=== PATIENT | male | born 1950 | race Caucasian/White ===

== ENCOUNTER 2016-08-15 07:23 | Emergency (ER) | payer MEDICARE, MEDICAID ==
[2016-08-15 07:36] VITALS: BP 130/50
--- NOTE | 2016-08-15 07:55 | UC ---
Hand/Wrist HPI - HPI Summary HPI Summary: PT WITH H/O OSTEOARTHRITIS WAS PAINTING A HOUSE A FEW DAYS AGO. PAST 2 DAYS HAS HAD WORSENING PAIN AND MILD SWELLING IN HIS RIGHT WRIST. NO TRAUMA. - History Of Current Complaint Chief Complaint: UCUpperExtremity Stated Complaint: WRIST PAIN Time Seen by Provider: 08/15/16 07:46 Hx Obtained From: Patient Onset/Duration: Gradual Onset, Lasting Days, Still Present Severity Initially: Moderate Severity Currently: Moderate Pain Intensity: 5 Pain Scale Used: 0-10 Numeric Character Of Pain: Sharp, Aching Aggravating Factor(s): Movement Alleviating: Rest Associated Signs And Symptoms: Positive: Swelling Related History: Dominant Hand Right - Allergies/Home Medications Allergies/Adverse Reactions: Allergies Allergy/AdvReac Type Severity Reaction Status Date / Time No Known Allergies Allergy Verified 08/15/16 07:30 PMH/Surg Hx/FS Hx/Imm Hx - Additional Past Medical History Additional PMH: OSTEOARTHRITIS Other History Of: Hepatitis C Negative For: HIV, Anticoagulant Therapy - Surgical History Surgical History: Yes Surgery Procedure, Year, and Place: VERICOSE VEIN LEG. LEFT KNEE BURSA REMOVAL - Family History Known Family History: Positive: None, Cardiac Disease - [place] Negative: Hypertension, Diabetes - Social History Alcohol Use: None Substance Use Type: None, Marijuana Smoking Status (MU): Heavy Every Day Tobacco Smoker Type: Cigarettes Amount Used/How Often: 1 PPD Household Exposure Type: Cigarettes - Immunization History Most Recent Influenza Vaccination: 2014 Most Recent Tetanus Shot: UTD Review of Systems Constitutional: Negative Skin: Negative Respiratory: Negative Cardiovascular: Negative Gastrointestinal: Negative Musculoskeletal: Arthralgia, Decreased ROM, Edema All Other Systems Reviewed And Are Negative: Yes Physical Exam Triage Information Reviewed: Yes Appearance: Well-Appearing, No Pain Distress, Well-Nourished Vital Signs: Initial Vital Signs Temp 97.8 F 08/15/16 07:31 Pulse 60 08/15/16 07:31 Resp 16 08/15/16 07:31 BP 130/50 08/15/16 07:31 Pulse Ox 96 08/15/16 07:31 Vital Signs Reviewed: Yes Eyes: Positive: Conjunctiva Clear ENT: Positive: Hearing grossly normal Neck: Positive: Supple Respiratory: Positive: No respiratory distress, No accessory muscle use Cardiovascular: Positive: Pulses Normal Abdomen Description: Positive: Soft Musculoskeletal: Positive: ROM Limited @ - PAIN WITH RIGHT WRIST MOVEMENT, Edema @ - RIGHT WRIST MILDLY SWOLLEN, Other: - NOT TENDER OVER ANY BONY PROMINENCES Neurological: Positive: Alert Psychological: Positive: Age Appropriate Behavior Skin: Negative: rashes Hand/Wrist Course/Dx - Course Course Of Treatment: PT REPORTS A H/O RENAL INSUFFICIENCY AND DECLINES NSAIDS. STATES PREDNISONE USUALLY WORKS WELL. WILL PRESCRIBE SHORT COURSE AND WRIST SPLINT. F/U PCP. - Differential Dx/Diagnosis Provider Diagnoses: OSTEOARTHRITIS RIGHT WRIST Discharge - Discharge Plan Condition: Stable Disposition: HOME Prescriptions: predniSONE TAB* [Deltasone TAB*] 40 mg PO DAILY #10 tab Patient Education Materials: Osteoarthritis (ED) Referrals: Patric Winn MD [Medical Doctor] - If Needed Additional Instructions: WEAR THE SPLINT NEEDED FOR SUPPORT.
== END 2016-08-15 07:59 | disposition home or self-care (01) ==
LOC: UCEAST 07:23
DX: M19.031 Primary osteoarthritis, right wrist (principal); F17.210 Nicotine dependence, cigarettes, uncomplicated; Z87.448 Personal history of other diseases of urinary system
CPT/HCPCS: 99213; G0463

== ENCOUNTER 2016-11-03 16:33 | Emergency (ER) | payer MEDICARE, MEDICAID ==
[2016-11-03 16:42] VITALS: BP 144/67
--- NOTE | 2016-11-04 11:57 | UC ---
Lower Extremity/Ankle HPI - HPI Summary HPI Summary: 66 YEAR OLD MALE PRESENTS WITH COMPLAINS OF PAIN OF LEFT 2/3 TOE. - History of Current Complaint Chief Complaint: UCLowerExtremity Stated Complaint: FOOT COMPLAINT Time Seen by Provider: 11/03/16 16:44 Hx Obtained From: Patient Onset/Duration: Gradual Onset Severity Initially: Moderate Severity Currently: Moderate Pain Intensity: 2 Pain Scale Used: 0-10 Numeric - 5 - Allergies/Home Medications Allergies/Adverse Reactions: Allergies Allergy/AdvReac Type Severity Reaction Status Date / Time No Known Allergies Allergy Verified 11/03/16 16:40 PMH/Surg Hx/FS Hx/Imm Hx Previously Healthy: Yes Other History Of: Hepatitis C Negative For: HIV, Anticoagulant Therapy - Surgical History Surgical History: Yes Surgery Procedure, Year, and Place: VERICOSE VEIN LEG. LEFT KNEE BURSA REMOVAL - Family History Known Family History: Positive: None, Cardiac Disease - [place] Negative: Hypertension, Diabetes - Social History Alcohol Use: None Substance Use Type: None Smoking Status (MU): Heavy Every Day Tobacco Smoker Type: Cigarettes Amount Used/How Often: 1 PPD Household Exposure Type: Cigarettes - Immunization History Most Recent Influenza Vaccination: 2014 Most Recent Tetanus Shot: UTD Review of Systems Constitutional: Negative Skin: Negative Eyes: Negative ENT: Negative Respiratory: Negative Cardiovascular: Negative Gastrointestinal: Negative Genitourinary: Negative Motor: Negative Neurovascular: Negative Musculoskeletal: Other: - LEFT 2/3 TOE PAIN/SWELLING Neurological: Negative Psychological: Negative All Other Systems Reviewed And Are Negative: Yes Physical Exam Triage Information Reviewed: Yes Appearance: Well-Appearing Vital Signs: Initial Vital Signs Temp 36.9 C 11/03/16 16:37 Pulse 72 11/03/16 16:37 Resp 12 11/03/16 16:37 BP 144/67 11/03/16 16:37 Pulse Ox 98 11/03/16 16:37 Eye Exam: Normal ENT Exam: Normal Dental Exam: Normal Neck exam: Normal Neck: Positive: 1 Respiratory Exam: Normal Cardiovascular Exam: Normal Abdominal Exam: Normal Musculoskeletal: Positive: Other: - LEFT 2/3 RD TOE PAIN Neurological Exam: Normal Psychological Exam: Normal Skin Exam: Normal Lower Extremity Course/Dx - Differential Dx/Diagnosis Provider Diagnoses: LEFT FOOT GOUT Discharge - Discharge Plan Condition: Stable Disposition: HOME Prescriptions: Indomethacin CAP* [Indocin CAP*] 50 mg PO TID PRN #30 cap PRN Reason: Pain Patient Education Materials: Low Purine Diet (ED), Gout (ED) Referrals: Myke Mcleod MD [Primary Care Provider] -
== END 2016-11-03 16:58 | disposition home or self-care (01) ==
LOC: UCEAST 16:33
DX: M10.9 Gout, unspecified (principal); F17.210 Nicotine dependence, cigarettes, uncomplicated
CPT/HCPCS: 99212; G0463

== ENCOUNTER 2016-12-08 02:04 | Emergency (ER) | payer MEDICARE, MEDICAID ==
[2016-12-08] MEDS ORDERED: Ketorolac INJ* 60 MG/2 ML VIAL IM ONE (03:54)
--- NOTE | 2016-12-08 04:18 | ED ---
Hazel Joel Alfonso, scribed for Ivon Gómez MD on 12/08/16 at 0353 . Complex/Multi-Sys Presentation - HPI Summary HPI Summary: This patient is a 66 year old M presenting to [facility] with a chief complaint of generalized achiness, joint pain including hands, and knees - since 3 days ago. Pt states has arthritis and this feels similar. Pt states he has been painting and this causes pain to flare No analgesia taken. No cp, so, abd pain. No n/v/ d. No fever, chills, rash. Pt has not taken analgesia. The patient rates the aching pain 8/10 in severity. Symptoms aggravated by nothing. Symptoms alleviated by nothing. Pt states has been seen for this previously and the medicine they used "worked" Review or records revealed indomethacin Patients medication reviewed this visit. - History Of Current Complaint Chief Complaint: EDGeneral Time Seen by Provider: 12/08/16 03:40 Hx Obtained From: Patient Onset/Duration: Gradual Onset, Lasting Days - 3, Still Present Timing: Constant Severity Currently: Moderate - 8/10 Location: Pain At: - joints - hands, knee Aggravating Factor(s): walking Alleviating Factor(s): nothing Associated Signs And Symptoms: Positive: Other - left hand swelling and insomnia. Patient denies fever, chills, and rash. 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 LEFT KNEE BURSA REMOVAL Infectious Disease History: No Infectious Disease History: Reports: Hx Hepatitis - C - TREATED Denies: Hx Human Immunodeficiency Virus (HIV), Hx Shingles, History Other Infectious Disease, Traveled Outside the [place] in Last 30 Days - Family History Known Family History: Positive: Cardiac Disease - [place] Negative: Hypertension, Diabetes - Social History Alcohol Use: None Hx Substance Use: Yes Substance Use Type: Reports: None Hx Tobacco Use: Yes Smoking Status (MU): Heavy Every Day Tobacco Smoker Type: Cigarettes Amount Used/How Often: 1 PPD Review of Systems Negative: Fever, Chills Positive: Arthralgia, Other - left hand swelling Negative: Rash Neurological: Other - insomnia All Other Systems Reviewed And Are Negative: Yes Physical Exam Triage Information Reviewed: Yes Vital Signs On Initial Exam: Initial Vitals Temp Pulse Resp BP Pulse Ox 97.1 F 66 18 191/101 100 12/08/16 02:04 12/08/16 02:04 12/08/16 02:04 12/08/16 02:04 12/08/16 02:04 Vital Signs Reviewed: Yes Appearance: Positive: Well-Appearing, No Pain Distress, Well-Nourished Skin: Positive: Warm, Skin Color Reflects Adequate Perfusion Head/Face: Positive: Normal Head/Face Inspection Eyes: Positive: Normal, EOMI, PARI ENT: Positive: Normal ENT inspection, Hearing grossly normal, TMs normal Respiratory/Lung Sounds: Positive: Clear to Auscultation, Breath Sounds Present , Decreased Breath Sounds Cardiovascular: Positive: Normal, RRR Abdomen Description: Positive: Nontender, No Organomegaly, Soft Bowel Sounds: Positive: Present Musculoskeletal: Positive: Normal, Strength/ROM Intact. Negative: Edema Left, Edema Right Neurological: Positive: Normal, Sensory/Motor Intact Psychiatric: Positive: Normal AVPU Assessment: Alert - [place] Coma Scale Best Eye Response: 4 - Spontaneous Best Motor Response: 6 - Obeys Commands Best Verbal Response: 5 - Oriented Coma Scale Total: 15 Diagnostics - Vital Signs Vital Signs Temp Pulse Resp BP Pulse Ox 12/08/16 02:04 97.1 F 66 18 191/101 100 - Laboratory Lab Statement: Any lab studies that have been ordered have been reviewed, and results considered in the medical decision making process. Re-Evaluation - Re-Evaluation First Eval Comment: Pt reports feeling improved. recommend motrin/apap - with food. return precautions. pcp f/u Complex Multi-Symp Course/Dx Course Of Treatment: Pt reportsing joint pain - states similar to past experience with arhtirits - no analgesia taken. pt with non concerning exam. Will give Toradol. and reassess. Pt comfortale with plan - Diagnoses Provider Diagnoses: Arthralgia Discharge - Discharge Plan Condition: Improved Disposition: HOME Patient Education Materials: Arthralgia (ED) Referrals: [facility] [place] [facility] [Outside] No Primary Care Phys,NOPCP [Primary Care Provider] - Additional Instructions: - stay well hydrated - drink plenty of non-alcoholic, non-caffinated beverage - Okay to take ibuprofen (Advil, motrin) and tylenol every 3 hours for pain - Contact your doctor to schedule a follow-up appointment. If you need assistance finding a primary doctor, you may call the number provided The documentation as recorded by the Hazel nava Alfonso accurately reflects the service I personally performed and the decisions made by me, Ivon Gómez MD.
[2016-12-08 04:55] VITALS: BP 177/91
== END 2016-12-08 04:54 | disposition home or self-care (01) ==
LOC: ED 02:04
DX: M25.542 Pain in joints of left hand (principal); F17.210 Nicotine dependence, cigarettes, uncomplicated; G47.00 Insomnia, unspecified
CPT/HCPCS: 96372; 99282; J1885

== ENCOUNTER 2016-12-12 07:31 | Emergency (ER) | payer MEDICARE, MEDICAID ==
--- NOTE | 2016-12-12 07:33 | UC ---
Knee Pain HPI - HPI Summary HPI Summary: 66 YEAR OLD MALE WITH ARTHRITIS PRESENTS WITH COMPLAINS OF BILATERAL SWOLLEN KNEES. - History of Current Complaint Stated Complaint: SWOLLEN KNEE Time Seen by Provider: 12/12/16 07:33 Hx Obtained From: Patient Onset/Duration: Sudden Onset Severity Initially: Moderate Severity Currently: Moderate Pain Scale Used: 0-10 Numeric - 5 Aggravating Factor(s): Movement Alleviating Factor(s): Position Associated Signs And Symptoms: Positive: Swelling - Allergies/Home Medications Allergies/Adverse Reactions: Allergies Allergy/AdvReac Type Severity Reaction Status Date / Time No Known Allergies Allergy Verified 12/12/16 07:40 PMH/Surg Hx/FS Hx/Imm Hx Previously Healthy: Yes Other History Of: Hepatitis C Negative For: HIV, Anticoagulant Therapy - Surgical History Surgical History: Yes Surgery Procedure, Year, and Place: VERICOSE VEIN LEG. LEFT KNEE BURSA REMOVAL - Family History Known Family History: Positive: None, Cardiac Disease - [place] Negative: Hypertension, Diabetes - Social History Alcohol Use: None Substance Use Type: None Smoking Status (MU): Heavy Every Day Tobacco Smoker Type: Cigarettes Amount Used/How Often: 1 PPD Household Exposure Type: Cigarettes - Immunization History Most Recent Influenza Vaccination: 2014 Most Recent Tetanus Shot: UTD Review of Systems Constitutional: Negative Skin: Negative Eyes: Negative ENT: Negative Respiratory: Negative Cardiovascular: Negative Gastrointestinal: Negative Genitourinary: Negative Motor: Negative Neurovascular: Negative Musculoskeletal: Other: - BILATERAL KNEE SWELLING Neurological: Negative Psychological: Negative All Other Systems Reviewed And Are Negative: Yes Physical Exam Triage Information Reviewed: Yes Vital Signs Reviewed: Yes Eye Exam: Normal ENT Exam: Normal Dental Exam: Normal Neck exam: Normal Neck: Positive: 1 Respiratory Exam: Normal Cardiovascular Exam: Normal Abdominal Exam: Normal Musculoskeletal: Positive: Other: - BILATERAL KNEE SWELLING Neurological Exam: Normal Psychological Exam: Normal Skin Exam: Normal Knee Pain Course/Dx - Differential Dx/Diagnosis Provider Diagnoses: RHEUMATOID ARTHRITIS. BILATERAL SWOLLEN KNEES Discharge - Discharge Plan Condition: Stable Disposition: HOME Prescriptions: Meloxicam [Mobic] 7.5 mg PO BID PC #60 tab Patient Education Materials: Rheumatoid Arthritis (ED) Referrals: No Primary Care Phys,NOPCP [Primary Care Provider] - Jairo Herbert MD [Medical Doctor] -
[2016-12-12 07:47] VITALS: BP 174/59
== END 2016-12-12 08:00 | disposition home or self-care (01) ==
LOC: UCEAST 07:31
DX: M06.9 Rheumatoid arthritis, unspecified (principal); M25.462 Effusion, left knee; M25.461 Effusion, right knee; Z86.19 Personal history of other infectious and parasitic diseases; F17.210 Nicotine dependence, cigarettes, uncomplicated
CPT/HCPCS: 99212; G0463

== ENCOUNTER → 2017-02-11 15:54 | Emergency (ER) | payer MEDICARE, MEDICAID ==
[2017-02-11 18:27] VITALS: BP 0/0
== END | disposition home or self-care (01) ==
LOC: ED 15:54
DX: R52 Pain, unspecified (principal); Z53.21 Procedure and treatment not carried out due to patient leaving prior to being seen by health care provider
CPT/HCPCS: 99281

== ENCOUNTER 2017-02-13 01:51 | Emergency (ER) | payer MEDICARE, MEDICAID ==
[2017-02-13] MEDS ORDERED: Ketorolac INJ* 30 MG/ML 1 ML VIAL IM ONE (02:13)
[2017-02-13] MEDS ORDERED: oxyCODONE/Acetamin 5/325 MG* TAB PO ONE (02:14)
[2017-02-13] MEDS ORDERED: Cyclobenzaprine TAB* 10 MG PO ONE (02:14)
[2017-02-13 03:27] VITALS: BP 151/62
--- NOTE | 2017-02-13 03:46 | ED ---
David Joel Thomas, scribed for rGisel Man MD on 02/13/17 at 0221 . Back Pain - HPI Summary HPI Summary: The pt is a 66 y/o M presenting to the ED c/o chronic arthritis pain in his low back starting two and a half weeks ago. The pain is rated 10/10. Pt additionally c/o decrease in urination and BM due to dehydration. In a prior visit to the ED, he was given a shot that relieved the pain. He is going to see a specialist on 02/14/17 for the pain. - History of Current Complaint Chief Complaint: EDBackInjuryPain Stated Complaint: LOW BACK PAIN Time Seen by Provider: 02/13/17 01:57 Hx Obtained From: Patient Onset/Duration: Lasting Weeks - for two and a half weeks, Still Present Timing: Constant Back Pain Location: Is Diffuse - across low back Severity Currently: Severe Pain Intensity: 10 Pain Scale Used: 0-10 Numeric Associated Signs And Symptoms: Positive: Other - NEGATIVE: urinary or bowel output - Allergies/Home Medications Allergies/Adverse Reactions: Allergies Allergy/AdvReac Type Severity Reaction Status Date / Time No Known Allergies Allergy Verified 02/13/17 02:06 PMH/Surg Hx/FS Hx/Imm Hx Previously Healthy: No Endocrine/Hematology History: Denies: Hx Anticoagulant Therapy, Hx Diabetes, Hx Thyroid Disease Cardiovascular History: 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 LEFT KNEE BURSA REMOVAL Infectious Disease History: No Infectious Disease History: Reports: Hx Hepatitis - C - TREATED Denies: Hx Human Immunodeficiency Virus (HIV), Hx Shingles, History Other Infectious Disease, Traveled Outside the [place] in Last 30 Days - Family History Known Family History: Positive: Cardiac Disease - [place] Negative: Hypertension, Diabetes - Social History Occupation: Retired Lives: Alone Alcohol Use: None Hx Substance Use: Yes Substance Use Type: Reports: None Hx Tobacco Use: Yes Smoking Status (MU): Heavy Every Day Tobacco Smoker Type: Cigarettes Amount Used/How Often: 1 PPD Review of Systems Negative: Fever Positive: Other - decrease in bowel output Negative: frequency - decrease in urine output Positive: Other - arthritis in low back All Other Systems Reviewed And Are Negative: Yes Physical Exam - Summary Physical Exam Summary: VITAL SIGNS: Reviewed. GENERAL: Patient is a well-developed and nourished male who is lying comfortable in the stretcher. Patient is not in any acute respiratory distress. HEAD AND FACE: No signs of trauma. No ecchymosis, hematomas or skull depressions. No sinus tenderness. EYES: PERRLA, EOMI x 2, No injected conjunctiva, no nystagmus. EARS: Hearing grossly intact. Ear canals and tympanic membranes are within normal limits. MOUTH: Oropharynx within normal limits. NECK: Supple, trachea is midline, no adenopathy, no JVD, no carotid bruit, no c- spine tenderness, neck with full ROM. CHEST: Symmetric, no tenderness at palpation LUNGS: Clear to auscultation bilaterally. No wheezing or crackles. CVS: Regular rate and rhythm, S1 and S2 present, no murmurs or gallops appreciated. ABDOMEN: Soft, non-tender. No signs of distention. No rebound no guarding, and no masses palpated. Denies urinary and bowel movements. EXTREMITIES: FROM in all major joints, no edema, no cyanosis or clubbing. Bilateral straight leg test negative. MUSCULOSKELETAL: The patient has had back pain for two and a half weeks. The lumbosacral area is tender. There is focal weakness in the low back. NEURO: Alert and oriented x 3. No acute neurological deficits. Speech is normal and follows commands. SKIN: Dry and warm Triage Information Reviewed: Yes Vital Signs On Initial Exam: Initial Vitals Temp Pulse Resp BP Pulse Ox 98.4 F 70 18 158/55 97 02/13/17 02:03 02/13/17 02:03 02/13/17 02:03 02/13/17 02:03 02/13/17 02:03 Vital Signs Reviewed: Yes Diagnostics - Vital Signs Vital Signs Temp Pulse Resp BP Pulse Ox 02/13/17 02:03 98.4 F 70 18 158/55 97 - Laboratory Lab Statement: Any lab studies that have been ordered have been reviewed, and results considered in the medical decision making process. Back Pain Course/Dx - Course Assessment/Plan: The patient feels better and will be discharged home. He is prescribed Flexeril. He will follow up with his specialist as planned on . - Diagnoses Provider Diagnoses: Low back pain Discharge - Discharge Plan Condition: Stable Disposition: HOME Referrals: Jorge Ferrari MD [Primary Care Provider] - The documentation as recorded by the David nava Thomas accurately reflects the service I personally performed and the decisions made by Donovan sorto Abdul, MD.
== END 2017-02-13 03:26 | disposition home or self-care (01) ==
LOC: ED 01:51
DX: M54.5 Low back pain (principal); F17.210 Nicotine dependence, cigarettes, uncomplicated; I51.89 Other ill-defined heart diseases; B19.20 Unspecified viral hepatitis C without hepatic coma
CPT/HCPCS: 96372; 99283; A9270-GY; J1885

== ENCOUNTER 2017-02-24 01:06 | Emergency (ER) | payer MEDICARE, MEDICAID ==
[2017-02-24] MEDS ORDERED: Ketorolac INJ* 30 MG/ML 1 ML VIAL IM ONE (01:27)
--- NOTE | 2017-02-24 01:37 | ED ---
Back Pain - HPI Summary HPI Summary: 66M presents with acute on chronic back pain tonight. He states that the pain is in the same location as normal. He denies any new injury. no pain down legs. no weakness. no saddle anaesthesia or loss of bowel or bladder. he states that he has not taken anything for his pain but he knows he will not be able to get to sleep without pain medication. he had a cortisone shot today and is suppose to follow up with his primary for xray and blood work today as primary told him something might be wrong with his spine. He does not know what medication he is on but per record is on flexeril for back pain. He denies any fever, dysuria, or abdominal pain. nothing different about this back pain beside intensity. worst with moving. states this hospital bed makes it better. 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 LEFT KNEE BURSA REMOVAL Infectious Disease History: No Infectious Disease History: Reports: Hx Hepatitis - C - TREATED Denies: Hx Human Immunodeficiency Virus (HIV), Hx Shingles, History Other Infectious Disease, Traveled Outside the [place] in Last 30 Days - Family History Known Family History: Positive: None, Cardiac Disease - [place] Negative: Hypertension, Diabetes - Social History Alcohol Use: None Hx Substance Use: Yes Substance Use Type: Reports: None Hx Tobacco Use: Yes Smoking Status (MU): Heavy Every Day Tobacco Smoker Type: Cigarettes Amount Used/How Often: 1 PPD Review of Systems Negative: Fever Negative: Chest Pain Negative: Shortness Of Breath Negative: Abdominal Pain Positive: Myalgia - back pain All Other Systems Reviewed And Are Negative: Yes Physical Exam Triage Information Reviewed: Yes Vital Signs On Initial Exam: Initial Vitals Temp Pulse Resp BP Pulse Ox 98.7 F 74 20 158/77 100 02/24/17 01:16 02/24/17 01:16 02/24/17 01:16 02/24/17 01:16 02/24/17 01:16 Vital Signs Reviewed: Yes Appearance: Positive: Well-Appearing, No Pain Distress Skin: Positive: Warm, Dry Head/Face: Positive: Normal Head/Face Inspection Eyes: Positive: Normal, Conjunctiva Clear Respiratory/Lung Sounds: Positive: Clear to Auscultation, Breath Sounds Present Cardiovascular: Positive: Normal, RRR Abdomen Description: Positive: Nontender, Soft Bowel Sounds: Positive: Present Musculoskeletal: Positive: Strength/ROM Intact - back with pain, Other - good pulses, sensation grossly intact, neg SLR, tenderness across lower back Neurological: Positive: Reflexes Intact - achilles. Negative: Babinski Bilateral - neg Psychiatric: Positive: Normal - [place] Coma Scale Coma Scale Total: 15 Diagnostics - Vital Signs Vital Signs Temp Pulse Resp BP Pulse Ox 02/24/17 01:16 98.7 F 74 20 158/77 100 - Laboratory Lab Statement: Any lab studies that have been ordered have been reviewed, and results considered in the medical decision making process. Back Pain Course/Dx - Course Course Of Treatment: 66M presents with acute on chronic back pain tonight. He states that the pain is in the same location as normal. He denies any new injury. no pain down legs. no weakness. no saddle anaesthesia or loss of bowel or bladder. he states that he has not taken anything for his pain but he knows he will not be able to get to sleep without pain medication. he had a cortisone shot today and is suppose to follow up with his primary for xray and blood work today as primary told him something might be wrong with his spine. He does not know what medication he is on but per record is on flexeril for back pain. He denies any fever, dysuria, or abdominal pain. nothing different about this back pain beside intensity. worst with moving. states this hospital bed makes it better. on exam tenderness lower back, neg SLR, neurovascular intact. will try toradol for pain as does not seem like in that much pain on exam. will get CT and lab work sign out to dr schwab pending such. - Diagnoses Differential Diagnosis/HQI/PQRI: Positive: Herniated Disc, Strain, Sprain Provider Diagnoses: Back pain Discharge - Discharge Plan Condition: Stable Disposition: OTHER Discharge Disposition Comment: signed out to dr schwab pending CT and labs Referrals: Jorge Ferrari MD [Primary Care Provider] -
[2017-02-24] MEDS ORDERED: oxyCODONE/Acetamin 5/325 MG* TAB PO ONE (01:57)
[2017-02-24 02:05] LABS: ABS Basophils 0.1 10^3/ul (0-0.2); ABS Eosinophils 0.2 10^3/ul (0-0.6); ABS Lymphocytes 1.1 10^3/ul (1.0-4.8); ABS Monocytes 1.7 10^3/ul (0-0.8); ABS Neutrophils 14.2 10^3/ul (1.5-7.7); ABS Nucleated RBC 0 10^3/ul; Eosinophil % 1.2 % (0-6); Hematocrit 37 % (42-52); Hemoglobin 12.3 g/dl (14.0-18.0); Lymphocyte % 6.1 % (25-47); Mean Corpuscular HGB Conc 33 g/dl (31-36); Mean Corpuscular Hemoglobin 32 pg (27-31); Mean Corpuscular Volume 96 fL (80-94); Mean Platelet Volume 9 um3 (7.4-10.4); Nucleated Red Blood Cells % 0; Platelet Count 332 10^3/ul (150-450); Red Blood Count 3.88 10^6/ul (4.0-5.4); Red Cell Distribution Width 14 % (10.5-15); White Blood Count 17.3 10^3/ul (3.5-10.8)
[2017-02-24 02:19] LABS: EGFR Non-African American 27.2 (>60)
[2017-02-24 03:49] VITALS: BP 132/50
--- NOTE | 2017-02-24 03:59 | ED ---
Masha Joel Emily, scribed for Vel Villavicencio on 02/24/17 at 0321 . Progress - Results/Orders Results/Orders: CT: CT abdomen and pelvis reveals, per radiologist, 1. There is mild right hydroureter and right hydronephrosis. There is no obstructive urolithiasis. 2. There is lobulated 4.2 cm x 5.9 cm fluid density involving the right hemipelvis. This appears either adjacent to or involves the urinary bladder. It is uncertain if this is separate structure adjacent to the urinary bladder or a bulge in the urinary bladder wall. 3. There is no evidence of bowel obstruction , free air or free fluid. Clinical correlation and follow-up evaluation is advised. Bladder ultrasound or delayed phase IV contrast-enhanced CT is advised. ED physician has reviewed this radiology report. Course/Dx - Course Course Of Treatment: CT abdomen and pelvis reveals, per radiologist, 1. There is mild right hydroureter and right hydronephrosis. There is no obstructive urolithiasis. 2. There is lobulated 4.2 cm x 5.9 cm fluid density involving the right hemipelvis. This appears either adjacent to or involves the urinary bladder. It is uncertain if this is separate structure adjacent to the urinary bladder or a bulge in the urinary bladder wall. 3. There is no evidence of bowel obstruction, free air or free fluid. Clinical correlation and follow-up evaluation is advised. Bladder ultrasound or delayed phase IV contrast-enhanced CT is advised. Pt refused to get US in the ER.pt was told he has tumor and needs to follow up with urology immediately. Wants to follow up as an outpatient. Pt will be discharged with a prescription for Ultram and follow up with Dr. Boyer. - Diagnoses Provider Diagnoses: Back pain, Hydronephrosis, right, Hydroureter, right, Abdominal or pelvic swelling, mass, or lump, right lower quadrant, Chronic renal failure The documentation as recorded by the rose marieibMasha tejada Emily accurately reflects the service I personally performed and the decisions made by Saud sorto Emmanuel.
--- NOTE | 2017-02-24 08:06 | RAD ---
CLINICAL HISTORY: Back pain COMPARISON: None TECHNIQUE: Multiple contiguous axial CT scans were obtained of the abdomen and pelvis, without intravenous contrast enhancement. Coronal and sagittal multiplanar reformations are submitted for review. Oral contrast was not administered. FINDINGS: The study is limited by the lack of intravenous contrast. This limits evaluation of the solid organs and vasculature. LUNG BASES: There is no change. LIVER: The liver is normal in shape, size, contour, and attenuation. BILE DUCTS: There is no intrahepatic or extrahepatic biliary dilatation. GALLBLADDER: The gallbladder is normal, without pericholecystic inflammatory change. PANCREAS: The pancreas is normal, without mass or ductal dilatation. SPLEEN: Normal in size and appearance. UPPER GI TRACT: Evaluation of the gastrointestinal tract is limited by incomplete gastric distention. The upper GI tract is unremarkable. SMALL BOWEL AND MESENTERY: The small bowel is normal in contour, course, and caliber. There is no obstruction or dilatation. COLON: The colon is normal in contour, course, caliber. There is no pericolonic inflammatory change. ADRENALS: Normal bilaterally. KIDNEYS: The left kidney is atrophic/hypoplastic. There are low-attenuation renal parenchymal lesions. The largest are consistent with simple cysts. The others are too small to definitively characterize. There is no appreciable hydronephrosis or nephrolithiasis. There is an extra renal pelvis on the right. BLADDER: There is trabeculation the bladder wall with multiple bladder diverticula. This appears to correspond to the lobulated fluid density lesion identified on the pulmonary report. PELVIC ORGANS: The prostate gland is mildly enlarged. The seminal vesicles are grossly normal. AORTA: There is calcific atherosclerotic disease of the abdominal aorta and its branches, without aneurysmal dilatation. IVC: Unremarkable LYMPH NODES: There is no lymphadenopathy by size criteria. ABDOMINAL WALL: There is no evidence for abdominal wall hernia. BONES AND SOFT TISSUES: There is osteopenia. There is a scoliotic curvature of the spine. There is some endplate edema of L4-L5, likely reactive from degenerative disc disease.. There is irregularity of the endplate at L3-L4. There is multilevel anterolateral marginal osteophyte formation. There is facet osteoarthritis. OTHER: None IMPRESSION: 1. NO HYDRONEPHROSIS OR NEPHROLITHIASIS. THERE IS AN EXTRA RENAL PELVIS ON THE RIGHT. 2. LOBULATED BLADDER WITH MULTIPLE DIVERTICULA, SUGGESTIVE OF THE SEQUELA OF CHRONIC BLADDER OUTLET OBSTRUCTION. 3. MILDLY ENLARGED PROSTATE. 4. ATHEROSCLEROSIS. 5. SCOLIOSIS WITH ADVANCED DEGENERATIVE DISC DISEASE AND OSTEOARTHRITIS.
== END 2017-02-24 03:57 | disposition home or self-care (01) ==
LOC: ED 01:06
DX: M54.9 Dorsalgia, unspecified (principal); N13.30 Unspecified hydronephrosis; N13.4 Hydroureter; R19.00 Intra-abdominal and pelvic swelling, mass and lump, unspecified site; R10.31 Right lower quadrant pain; N18.9 Chronic kidney disease, unspecified; F17.210 Nicotine dependence, cigarettes, uncomplicated
CPT/HCPCS: 36415; 74176; 80053; 83690; 85025; 86141; 99283; A9270-GY; J1885

== ENCOUNTER 2017-03-01 09:52 | Observation (INO) | payer MEDICARE, MEDICAID ==
[2017-03-01 11:53] LABS: Urine Appearance Clear; Urine Blood 1+ (Negative); Urine Color Yellow; Urine Ketones Negative (Negative); Urine Protein Negative (Negative); Urine Specific Gravity 1.015 (1.010-1.030); Urine Urobilinogen Negative (Negative)
[2017-03-01 14:21] LABS: ABS Basophils 0.1 10^3/ul (0-0.2); ABS Eosinophils 0.1 10^3/ul (0-0.6); ABS Monocytes 1.4 10^3/ul (0-0.8); ABS Neutrophils 10.4 10^3/ul (1.5-7.7); ABS Nucleated RBC 0 10^3/ul; Eosinophil % 0.9 % (0-6); Hematocrit 39 % (42-52); Hemoglobin 12.8 g/dl (14.0-18.0); Lymphocyte % 7.4 % (25-47); Mean Corpuscular HGB Conc 33 g/dl (31-36); Mean Corpuscular Hemoglobin 32 pg (27-31); Mean Corpuscular Volume 97 fL (80-94); Mean Platelet Volume 9 um3 (7.4-10.4); Nucleated Red Blood Cells % 0; Platelet Count 334 10^3/ul (150-450); Red Blood Count 4.02 10^6/ul (4.0-5.4); Red Cell Distribution Width 14 % (10.5-15)
[2017-03-01] MEDS: Nicotine GUM* 2 MG PO PRN ×2 (14:30→16:22)
[2017-03-01 14:32] LABS: EGFR Non-African American 32.3 (>60)
[2017-03-01] MEDS ORDERED: Nicotine GUM* 2 MG ONE (14:35)
[2017-03-01] MEDS ORDERED: Ondansetron INJ* 2 MG/ML VIAL IV PRN (16:54)
[2017-03-01] MEDS ORDERED: Acetaminophen TAB* 325 MG PO PRN (16:54)
[2017-03-01] MEDS ORDERED: NS 0.9% 1000 ML* 1,000 ML IV SCH (17:00)
[2017-03-01] MEDS ORDERED: Zolpidem TAB* 10 MG PO PRN (17:09)
[2017-03-01] MEDS ORDERED: Cyclobenzaprine TAB* 10 MG PO PRN (17:09)
[2017-03-01] MEDS ORDERED: Enoxaparin(*) 40 MG/0.4 ML SYR SUBCUT SCH (18:00)
--- NOTE | 2017-03-01 18:39 | ED ---
Bharti Joel Gabriel, scribed for Dakota Michaels MD on 03/01/17 at 1127 . Complex/Multi-Sys Presentation - HPI Summary HPI Summary: This patient is a 67 year old M BIBA to [facility] with a chief complaint of chronic back pain, kidney pain and "a prostate issue".- per triage note. The patient states that he contacted his PCP this morning, who suggested he call an ambulance. He also states that his PCP, Dr. Herbert said that once he was at the emergency room he would come and see him. He is refusing care and says he will only allow doctor Keon to treat him. - History Of Current Complaint Chief Complaint: EDGeneral Time Seen by Provider: 03/01/17 11:09 Hx Obtained From: Patient, Medical Records - triage Onset/Duration: Other - unknown Severity Currently: Mild - rated 6/10 in triage Severity Initially: Mild Associated Signs And Symptoms: Positive: Other - kidney pain, back pain, and prostate issues - Allergies/Home Medications Allergies/Adverse Reactions: Allergies Allergy/AdvReac Type Severity Reaction Status Date / Time No Known Allergies Allergy Verified 02/13/17 02:06 PMH/Surg Hx/FS Hx/Imm Hx Previously Healthy: No Endocrine/Hematology History: Denies: Hx Anticoagulant Therapy, Hx Diabetes, Hx Thyroid Disease Cardiovascular History: 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 LEFT KNEE BURSA REMOVAL Infectious Disease History: No Infectious Disease History: Reports: Hx Hepatitis - C - TREATED Denies: Hx Human Immunodeficiency Virus (HIV), Hx Shingles, History Other Infectious Disease, Traveled Outside the [place] in Last 30 Days - Family History Known Family History: Positive: None, Cardiac Disease - [place] Negative: Hypertension, Diabetes - Social History Alcohol Use: None Hx Substance Use: Yes Substance Use Type: Reports: None Hx Tobacco Use: Yes Smoking Status (MU): Heavy Every Day Tobacco Smoker Type: Cigarettes Amount Used/How Often: 1 PPD Review of Systems Negative: Fever Positive: other - prostate issue Positive: Other - kidney and back pain All Other Systems Reviewed And Are Negative: No - Comments Additional Review of Systems Comments: ROS limited because the patient is refusing care. Physical Exam - Summary Physical Exam Summary: No physical exam beyond a visual could be performed because the patient is refusing care. Appearance: The patient is well-nourished in no acute distress and in no acute pain. Skin: The skin is dry and skin color reflects adequate perfusion. HEENT: ~The head is normocephalic and atraumatic.. The conjunctivae are clear and without drainage. ~Nares are patent and without drainageThe external ears are intact. Neck: the neck is supple. Respiratory: patient is not is respiratory distress Musculoskeletal: patient has all extremities Neurological: Patient is alert and oriented to person, place and time. ~The patient has symmetrical motor strength in all four extremities. ~Cranial nerves are grossly intact Triage Information Reviewed: Yes Vital Signs On Initial Exam: Initial Vitals Temp Pulse Resp BP Pulse Ox 98.4 F 68 18 157/67 100 03/01/17 10:11 03/01/17 10:11 03/01/17 10:11 03/01/17 10:11 03/01/17 10:11 Vital Signs Reviewed: Yes - [place] Coma Scale Coma Scale Total: 15 Diagnostics - Vital Signs Vital Signs Temp Pulse Resp BP Pulse Ox 03/01/17 11:00 65 135/42 100 03/01/17 10:30 66 128/108 100 03/01/17 10:17 66 100 03/01/17 10:16 150/71 03/01/17 10:11 98.4 F 68 18 157/67 100 - Laboratory Lab Results: Lab Results 03/01/17 03/01/17 03/01/17 Range/Units 11:23 13:10 13:10 WBC 13.0 H (3.5-10.8) 10^3/ul RBC 4.02 (4.0-5.4) 10^6/ul Hgb 12.8 L (14.0-18.0) g/dl Hct 39 L (42-52) % MCV 97 H (80-94) fL MCH 32 H (27-31) pg MCHC 33 (31-36) g/dl RDW 14 (10.5-15) % Plt Count 334 (150-450) 10^3/ul MPV 9 (7.4-10.4) um3 Neut % (Auto) 80.0 (38-83) % Lymph % (Auto) 7.4 L (25-47) % [place] % (Auto) 11.0 H (1-9) % Eos % (Auto) 0.9 (0-6) % Baso % (Auto) 0.7 (0-2) % Absolute Neuts (auto) 10.4 H (1.5-7.7) 10^3/ul Absolute Lymphs (auto) 1.0 (1.0-4.8) 10^3/ul Absolute Monos (auto) 1.4 H (0-0.8) 10^3/ul Absolute Eos (auto) 0.1 (0-0.6) 10^3/ul Absolute Basos (auto) 0.1 (0-0.2) 10^3/ul Absolute Nucleated RBC 0 10^3/ul Nucleated RBC % 0 Sodium 135 (133-145) mmol/L Potassium 5.4 H (3.5-5.0) mmol/L Chloride 108 (101-111) mmol/L Carbon Dioxide 24 (22-32) mmol/L Anion Gap 3 (2-11) mmol/L BUN 61 H (6-24) mg/dL Creatinine 2.07 H (0.67-1.17) mg/dL Est GFR ( Amer) 41.5 (>60) Est GFR (Non-Af Amer) 32.3 (>60) BUN/Creatinine Ratio 29.5 H (8-20) Glucose 115 H (70-100) mg/dL Lactic Acid (0.5-2.0) mmol/L Calcium 9.4 (8.6-10.3) mg/dL Total Bilirubin 0.30 (0.2-1.0) mg/dL AST 14 (13-39) U/L ALT 9 (7-52) U/L Alkaline Phosphatase 66 (34-104) U/L C-Reactive Protein 56.35 H (< 5.00) mg/L Total Protein 7.2 (6.4-8.9) g/dL Albumin 3.5 (3.2-5.2) g/dL Globulin 3.7 (2-4) g/dL Albumin/Globulin Ratio 0.9 L (1-3) Lipase 14 (11.0-82.0) U/L TSH 0.64 (0.34-5.60) mcIU/mL Free T4 1.11 (0.61-1.12) ng/dL Free T3 2.40 L (2.5-3.9) pg/mL Urine Color Yellow Urine Appearance Clear Urine pH 5.0 (5-9) Ur Specific [place] 1.015 (1.010-1.030) Urine Protein Negative (Negative) Urine Ketones Negative (Negative) Urine Blood 1+ H (Negative) Urine Nitrate Negative (Negative) Urine Bilirubin Negative (Negative) Urine Urobilinogen Negative (Negative) Ur Leukocyte Esterase Negative (Negative) Urine WBC (Auto) Trace(0-5/hpf) (Absent) Urine RBC (Auto) 2+(6-10/hpf) H (Absent) Urine Bacteria Absent (Absent) Urine Glucose Negative (Negative) 03/01/17 Range/Units 13:10 WBC (3.5-10.8) 10^3/ul RBC (4.0-5.4) 10^6/ul Hgb (14.0-18.0) g/dl Hct (42-52) % MCV (80-94) fL MCH (27-31) pg MCHC (31-36) g/dl RDW (10.5-15) % Plt Count (150-450) 10^3/ul MPV (7.4-10.4) um3 Neut % (Auto) (38-83) % Lymph % (Auto) (25-47) % [place] % (Auto) (1-9) % Eos % (Auto) (0-6) % Baso % (Auto) (0-2) % Absolute Neuts (auto) (1.5-7.7) 10^3/ul Absolute Lymphs (auto) (1.0-4.8) 10^3/ul Absolute Monos (auto) (0-0.8) 10^3/ul Absolute Eos (auto) (0-0.6) 10^3/ul Absolute Basos (auto) (0-0.2) 10^3/ul Absolute Nucleated RBC 10^3/ul Nucleated RBC % Sodium (133-145) mmol/L Potassium (3.5-5.0) mmol/L Chloride (101-111) mmol/L Carbon Dioxide (22-32) mmol/L Anion Gap (2-11) mmol/L BUN (6-24) mg/dL Creatinine (0.67-1.17) mg/dL Est GFR ( Amer) (>60) Est GFR (Non-Af Amer) (>60) BUN/Creatinine Ratio (8-20) Glucose (70-100) mg/dL Lactic Acid 0.8 (0.5-2.0) mmol/L Calcium (8.6-10.3) mg/dL Total Bilirubin (0.2-1.0) mg/dL AST (13-39) U/L ALT (7-52) U/L Alkaline Phosphatase (34-104) U/L C-Reactive Protein (< 5.00) mg/L Total Protein (6.4-8.9) g/dL Albumin (3.2-5.2) g/dL Globulin (2-4) g/dL Albumin/Globulin Ratio (1-3) Lipase (11.0-82.0) U/L TSH (0.34-5.60) mcIU/mL Free T4 (0.61-1.12) ng/dL Free T3 (2.5-3.9) pg/mL Urine Color Urine Appearance Urine pH (5-9) Ur Specific [place] (1.010-1.030) Urine Protein (Negative) Urine Ketones (Negative) Urine Blood (Negative) Urine Nitrate (Negative) Urine Bilirubin (Negative) Urine Urobilinogen (Negative) Ur Leukocyte Esterase (Negative) Urine WBC (Auto) (Absent) Urine RBC (Auto) (Absent) Urine Bacteria (Absent) Urine Glucose (Negative) Result Diagrams: 03/01/17 13:10 03/01/17 13:10 Lab Statement: Any lab studies that have been ordered have been reviewed, and results considered in the medical decision making process. Re-Evaluation - Re-Evaluation First Eval Re-Evaluation Time: 11:50 Change: Unchanged - The patient was informed that Dr. Herbert was contacted and that we would like to perform a work up on him. He refused any diagnostic testing and said that Dr. Herbert should be here and that he should be admitted. Complex Multi-Symp Course/Dx Course Of Treatment: Mr. Conner was a difficult patient. He was quite irascible and not at all cooperative. He clearly had a great deal off difficulty walking and attributed that to pain. He had recently been given a steroid burst for presumed RA. I was able to get him to let us check blood tests after working with him for a prolonged period of time. His labs were C/W previous. He can not walk and needs to be admitted but the etiology is unclear. 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 He recently was found to have an unusual finding on CT abdomen. He would not cooperate for much W/U and may need to be sedated for any imaging studies. - Diagnoses Provider Diagnoses: Altered mental status, unspecified - Physician Notifications Discussed Care Of Patient With: Jairo Herbert Time Discussed With Above Provider: 11:36 Instructed by Provider To: Other - We discussed patient care with Dr. Herbert, patients PCP and he stated they started him on a short steroid on with a taper that should be done now and started him on plaquenil and presumes he has RA. He also denies knowing the patient was coming to the ER Discharge - Discharge Plan Condition: Stable Disposition: HOME The documentation as recorded by the Bharti nava Gabriel accurately reflects the service I personally performed and the decisions made by me, Dakota Michaels MD.
--- NOTE | 2017-03-01 19:34 | CONSULT ---
Consult Consult: Mr. Conner is a 67 year old man with a history of osteoarthritis, Hepatitis (in remission) and newly diagnosed RA. He was recently initiated on Prednisone (a short course) last week and Plaquenil as a disease modifying agent. There may have been some confusion about how to take the medication. He was admitted with complaints of confusion, belligerance, urinary incontinence. 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 I doubt Plaquenil myopathy as weakness from Plaquenil would generally occur with long standing use, but I agree with holding both medications for now, especially as he notes that he generally feels better now and he did not take meds today. Agree with workup for other causes of delirium as he has a mild leukocytosis. Consider UTI? Will follow. He may benefit from assistance on discharge to help with housing and psychiatric evaluation and education on medication reconciliation.
--- NOTE | 2017-03-01 23:22 | HP ---
CC: Dr. Sim; Dr. Herbert * HISTORY AND PHYSICAL: DATE OF ADMISSION: 03/01/17 PRIMARY CARE PHYSICIAN: Dr. Ferrari. COMMISSARY OFFICER: Dr. Herbert. NEUROLOGIST: Dr. Sim. ATTENDING PHYSICIAN: Dr. Delia Lara * (report dictated by Nisha Santa NP). CHIEF COMPLAINT: Incontinence, inability to ambulate. HISTORY OF PRESENT ILLNESS: Mr. Conner is a 67-year-old male with past medical history significant for hepatitis C; IV drug abuse; chronic kidney disease; questionable thyroid disorder; chronic low back pain, as well as presumed rheumatoid arthritis, currently having the workup, who presented to the emergency room after a discussion with his frame cleaner that he was incontinent and unable to walk. His frame cleaner recommended that he come to the emergency room for admission. In the emergency room, the patient was quite irrate and uncooperative. The patient had recently been seen by Dr. Herbert, Rheumatology, for his severe right hip pain. Per record, he had been given an IM injection of Kenalog as well as started on pulse dose steroids and Plaquenil. The patient had multiple autoimmune studies sent at that visit, some of which are still pending. When the nurse took his pill bottles today, it is unclear as to which medications he is actually taking and whether he was in fact taking prednisone and how much he was taking. The patient states he does take tramadol, but that nothing is helping his pain and that he is still unable to walk. In addition, he had previously seen Neurosurgery on the 14 of February, Dr. Sim, who recommended lumbar MRI as an outpatient; he is yet to pursue this. In the emergency room, the patient was quite irrate and was uncooperative. He was incontinent of urine on the floor. Hospitalists were asked to evaluate the patient for admission as it was felt that he was not emotionally or physically stable to be discharged home. In addition, the patient's home visit nurse called and stated that the patient was unsafe to go home and has been incontinent all over the house because of his hip pain. PAST MEDICAL HISTORY: Hepatitis C, cervical spondylosis, IV drug abuse, chronic kidney disease, questionable thyroid disorder. HOME MEDICATIONS: Include, 1. Prednisone taper. 2. Plaquenil 200 mg oral daily. 3. Tramadol 50 mg oral 3 times daily as needed. 4. Allopurinol 100 mg oral daily. 5. Mobic 7.5 mg oral after meals. 6. Flexeril 10 mg oral 3 times daily. 7. Ambien 12.5 mg oral at bedtime as needed. ALLERGIES: None. FAMILY HISTORY: Reviewed and noncontributory. SOCIAL HISTORY: The patient smokes a pack of cigarettes a day, has been doing this for 40 years. Denies any alcohol use. He is currently using cocaine. The patient lives alone. His sister, Geno Samaniego, would be the surrogate decision maker in the event the patient cannot make decisions for himself; she lives in [place]. REVIEW OF SYSTEMS: I performed a 14-point review of systems. All the pertinent positives and negatives were mentioned in the history of present illness. The remaining review of systems is negative. PHYSICAL EXAMINATION GENERAL APPEARANCE: The patient was alert, pleasant, and appeared to be in no apparent distress. VITAL SIGNS: Blood pressure 135/42, heart rate 65, temperature 98.4, respiratory rate 18, oxygen saturation 100%. HEAD, EYES, EARS, NOSE AND THROAT: Normocephalic/atraumatic. Pupils are equal , reactive to light. Extraocular movements were intact. NECK: Neck was supple. There is no lymphadenopathy noted. RESPIRATORY: There was no accessory muscle use. Lungs were clear to auscultation. CARDIAC: S1 and S2 are crisp. There were no murmurs, rubs, or gallops heard. ABDOMEN: Soft, nontender, and nondistended. There were bowel sounds x4. EXTREMITIES: There was no lower extremity edema. DP and PT pulses were 2+ and symmetric. MUSCULOSKELETAL: There was no clubbing or cyanosis noted. The patient exhibited equal strength in all extremities. SKIN: There were no rashes or abnormalities seen. NEUROLOGIC: Cranial nerves II through XII are intact. The patient moves all extremities. Lower extremities were intact to light touch. The patient does seem quite anxious. DIAGNOSTIC STUDIES/LAB DATA: Sodium 135; potassium 4; chloride 108; CO2 24; BUN 61/creatinine 2, which is around his baseline; glucose 115; lactic acid 0.8 ; bilirubin 0.3. Liver function tests within normal limits. C-reactive protein 56.3, lipase 14. White blood cell count 13, hemoglobin 12.8, hematocrit 39, platelet count 334. Urinalysis, 1+ blood and 2+ rbc's. IMPRESSION: This is a 67-year-old male with past medical history significant for lower back pain, hepatitis C, chronic kidney disease, who presents to the emergency room with inability to ambulate and also found to have agitated delirium. The patient will be placed on observation for inability for his left hip pain, and steroid-induced delirium. ASSESSMENT AND PLAN: 1. Agitated delirium. Most likely the patient's delirium is from his recent steroid use. It is unclear as to how much he has been taking. He was prescribed a fairly short taper. Although there will be adverse effects to stopping the steroids altogether, I think it would be best to stop them immediately. The patient's taper was for a week and he should be almost done with the taper. In addition, Plaquenil can cause emotional lability and we will hold this for now and consider restarting it once his mental status has improved. The patient will have neuro checks every 4 hours. 2. Left hip and lower back pain. The patient was seen by Dr. Sim earlier this month, he recommended a lumbar MRI. Since he is here with difficulty ambulating, we will get the MRI now. The patient will be seen with PT and OT to determine whether or not he is safe to be discharged home. The patient will have oral tramadol as well as Flexeril for pain. I would prefer to not use narcotics given his agitated delirium. 3. 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 The patient should continue outpatient followup with Dr. Herbert for now. He will be given tramadol for pain. Mobic will be held due to kidney function. The prednisone taper and Plaquenil will be held. 4. Questionable thyroid disorder. The patient's TSH and free T3 and T4 will be checked. 5. Chronic kidney disease. Baseline creatinine appears to be around 2, which is where he is currently. This will be rechecked in the morning. I will give the patient a liter of fluids. 6. Fluid, electrolytes and nutrition. He will have a regular diet. 7. Code status is full. 8. DVT prophylaxis: He will have subcu Lovenox. TIME SPENT: Time for this admission was 60 minutes and 35 minutes were spent with the patient discussing medications, past medical history, and events leading up to his arrival in the emergency room. NISHA SANTA NP [id number]/[facility] #: [id number] AMAN
[2017-03-01] MEDS: traMADol TAB* 50 MG PO PRN (23:42)
--- NOTE | 2017-03-02 01:04 | CONS ---
CONSULTATION REPORT: DATE OF CONSULT: 03/01/17 CONSULTING PROVIDER: Nisha Santa NP REASON FOR CONSULT: Evaluate for delirium in the setting of rheumatoid arthritis. HISTORY OF PRESENT ILLNESS: Mr. Conner is a 67-year-old male with a history of diffuse joint pain. Workup revealed an elevated anti-CCP antibody in the setting of prolonged morning stiffness as well as synovitis of his joint. He was felt to have rheumatoid arthritis, although he also had a chronic pain syndrome and he has longstanding history of osteoarthritis with significant pain. He was initiated on a short course of prednisone as well as Plaquenil. The prednisone dose is 40 mg for 2 days, then 30 for 2 days, then 20 for 2 days , then 10 for 2 days, and then stop, and the Plaquenil is 1 a day for a week and then 2 daily tablets. He was admitted after he called our office stating that he had difficulty getting up, getting around, significant discomfort in his hips as well as the side, and he came to the emergency room. He had noted that he had difficulty mobilizing and ambulating, although he was observed ambulating in the emergency center. In terms of his other symptoms, he does have baseline chronic pain. He has chronic pain in his hands, feet, and his other joints, which he said has improved this evening. A workup in the ER revealed an elevated C-reactive protein, which was much higher than his CRP recently as an outpatient. He also has chronic pain in his lower back to the point that it is difficult to mobilize. It became so severe that he notes that he could not walk very far. He denied any radicular symptoms, but he has had severe pain, which has been worsening over the last couple of weeks. He also has a history of remote gouty arthropathy with no recent history of gout. He has had treatment for hep C. It was noted after 12 weeks, his hep C RNA was negative in October 2015. The symptoms are worse as the day goes on, but also he has significant stiffness in the morning lasting several hours with no alleviating factors. PAST MEDICAL HISTORY: Includes: 1. Thyroid problems. 2. Hepatitis C. 3. Lumbago. 4. Tobacco use. 5. History of vertigo. 6. History of renal disease with an elevated creatinine. 7. History of drug abuse, past cocaine use. 8. Hypertension. PAST SURGICAL HISTORY: None. MEDICATIONS: Prior to this visit included: 1. Acetaminophen as needed. 2. Allopurinol 100 mg daily. 3. Plaquenil 200 mg daily. 4. Cyclobenzaprine. 5. Nicotine patch. 6. Tramadol as needed. FAMILY HISTORY: Notable for 3 sisters who are healthy, 1 daughter who is healthy. No recent history of rheumatoid arthritis in the family. SOCIAL HISTORY: He is a 5-mgom-tze-day smoker for 40 years. He has been a current smoker and was advised to quit. History of drug use and several cups of coffee per day. REVIEW OF SYSTEMS: General: He complains of fatigue. Eyes: Denies any discharge, dryness, or irritation. ENT: Denies dry mouth or jaw pain. Respiratory: Denies night sweats, but he has had difficulty with sleeping. Cardiovascular: Denies chest wall pain. GI: He has a history of constipation ; this has been stable. Musculoskeletal: He does have spasms and trouble walking. Skin: No new rash. Neurologic: He had difficulty ambulating. Psychiatric: History of significant anxiety. PHYSICAL EXAM: He is a pleasant man in no acute distress, lying supine. He complains of kidney issues, but overall his pain is improved right now. On vital signs, he had a blood pressure of 135/42, he was afebrile, pulse of 63, respiratory rate of 18. His initial blood pressure was 150/71. HEENT Exam: Normocephalic, atraumatic. Pupils are equal, round, and reactive to light and accommodate. Extraocular movements were intact. Oropharynx was clear. Neck was supple. No thyromegaly. Carotids, no bruits appreciated. Lungs are clear to auscultation bilaterally. Cardiovascular exam revealed a regular rate and rhythm. Normal S1 and S2. No murmurs, rubs, or gallops. Abdomen: Positive bowel sounds, soft, nontender, nondistended. No palpable hepatosplenomegaly. Lymph: No adenopathy. Preserved range of motion of the spine. He did have mild parathoracic and paracervical tenderness. There was some difficulty with ambulation as he was only able to sit up just a little bit. Skin: No new rash. Neurologic: Motor strength was about 4/5 in the lower extremities proximally. Musculoskeletal Exam: There is no synovitis. Endocrine: No glandular swelling. Hematologic: No bruising or bleeding. LABORATORY DATA: He had a white count of 13, hemoglobin of 12.8, platelet count 334,000. His creatinine is 2.07. His AST and ALT were normal, but his C- reactive protein was 56.35. Urinalysis showed 1+ blood and 2+ rbc's. ASSESSMENT AND PLAN: He is 67-year-old male with a history of rheumatoid arthritis, renal insufficiency, osteoarthritis with a chronic pain syndrome. There may have been some confusion about his medication regimen so that he did not take the prednisone taper and possibly this could be causing some steroid psychosis, but he also has a baseline history of anxiety as well; however, it is noted on his labs that he has leukocytosis with a markedly elevated C- reactive protein. I would also consider an underlying infectious process as an etiology of his symptoms. I agree with stopping the Plaquenil and prednisone for now. We may cautiously re-introduce Plaquenil once his symptoms resolve, as I doubt he is having side effects from Plaquenil (and ultimately it would be the safest DMARD for him given his history of renal insufficiency) but avoid any steroids. He will benefit from psychosocial support with a social work evaluation, possible psychiatric evaluation, and I will continue to follow. [id number]/[facility] #: [id number] AMAN
[2017-03-02] MEDS: Nicotine GUM* 2 MG PO PRN (02:28)
[2017-03-02 04:02] VITALS: BP 140/53
[2017-03-02 06:29] LABS: ABS Basophils 0.1 10^3/ul (0-0.2); ABS Eosinophils 0.2 10^3/ul (0-0.6); ABS Lymphocytes 1.3 10^3/ul (1.0-4.8); ABS Monocytes 1.5 10^3/ul (0-0.8); ABS Neutrophils 11.2 10^3/ul (1.5-7.7); ABS Nucleated RBC 0 10^3/ul; Eosinophil % 1.6 % (0-6); Hematocrit 36 % (42-52); Hemoglobin 12.1 g/dl (14.0-18.0); Lymphocyte % 9.3 % (25-47); Mean Corpuscular HGB Conc 33 g/dl (31-36); Mean Corpuscular Hemoglobin 32 pg (27-31); Mean Corpuscular Volume 96 fL (80-94); Mean Platelet Volume 9 um3 (7.4-10.4); Nucleated Red Blood Cells % 0; Platelet Count 328 10^3/ul (150-450); Red Blood Count 3.79 10^6/ul (4.0-5.4); Red Cell Distribution Width 14 % (10.5-15); White Blood Count 14.3 10^3/ul (3.5-10.8)
[2017-03-02] MEDS: traMADol TAB* 50 MG PO PRN (08:36)
[2017-03-02] MEDS ORDERED: Allopurinol TAB* 100 MG PO SCH (09:00)
--- NOTE | 2017-03-02 10:50 | PN ---
Subjective Date of Service: 03/02/17 Interval History: Patient seen and examined at bedside. Patient continued to be uncooperative overnight. He was unable to complete MRI for that reason. Patient did agree to take Tramadol this AM. He keeps stating that he wants to go home and claims that he can use a walker. Per his friends he is not too far off of his baseline. They state he lives on a second floor apartment and has to go up stairs. Family History: Unchanged from Admission Social History: Unchanged from Admission Past Medical History: Unchanged from Admission Objective Active Medications: Acetaminophen (Tylenol Tab*) 650 mg PO Q4H PRN Allopurinol (Zyloprim Tab*) 100 mg PO DAILY TILA Cyclobenzaprine HCl (Flexeril Tab*) 10 mg PO TID PRN Enoxaparin Sodium (Lovenox(*)) 40 mg SUBCUT Q24H TILA Nicotine Polacrilex (Nicotine Gum*) 2 mg PO Q2H PRN Ondansetron HCl (Zofran Inj*) 4 mg IV Q6H PRN Tramadol HCl (Ultram*) 50 mg PO TID PRN Zolpidem Tartrate (Ambien Tab*) 10 mg PO BEDTIME PRN; Protocol Vital Signs Temp Pulse Resp BP Pulse Ox 98.1 F 84 16 140/53 99 03/01/17 23:38 03/01/17 23:38 03/02/17 10:16 03/01/17 23:38 03/01/17 23:38 Oxygen Devices in Use Now: None Appearance: sitting up in bed, NAD Eyes: No Scleral Icterus, PERRLA Ears/Nose/Mouth/Throat: NL Teeth, Lips, Gums Neck: NL Appearance and Movements; NL JVP Respiratory: Symmetrical Chest Expansion and Respiratory Effort, Clear to Auscultation Cardiovascular: NL Sounds; No Murmurs; No JVD, RRR Abdominal: NL Sounds; No Tenderness; No Distention Extremities: No Edema Skin: No Rash or Ulcers Neurological: Alert and Oriented x 3, NL Muscle Strength and Tone Lines/Tubes/Other Access: Clean, Dry and Intact Peripheral IV Nutrition: Taking PO's Result Diagrams: 03/02/17 06:14 03/02/17 06:14 Additional Lab and Data: . Assess/Plan/Problems-Billing Pt is a 67 y/o M w/ hx of rheumatoid arthritis here w/ agitated delirium. - Patient Problems (1) Delirium (2) Back pain (3) Rheumatoid arthritis (4) DVT prophylaxis (5) Full code status Status and Disposition: Ambulated independently with walker with Psych MD. Stable to be discharged home.
--- NOTE | 2017-03-02 12:23 | CONSULT ---
Consult Consult: Consult for Medical Capacity S: Psychiatry is asked to determine medical decision making capacity for this 67 y.o. single, white male with a history of arthritis and autoimmune pathology who was referred to the hospital by his outpatient fire alarm mechanic, Dr. Herbert, due to incontinence, weakness and confusion shortly after starting a steroid taper for back pain. When he arrived in the ED he allegedly could not move his legs and was actually crawling on the floor to elope from the ER. The patient has demanded discharge to his home AMA. On exam the patient is calm and pleasant. He is fully oriented to person, place and situation, stating that his back and hip feel better now and he is ready to go home. When asked why the primary team might be worried about his safety, he responds "Oh, I understand, I could barely even get up when I came in , but that's better now." He demonstrates ambulation and simulated use of the toilet while using his two-wheeled walker. He is bright and future-oriented, talking about his two cats that "are like daughters to me." O: aging white male; slender; wearing patient gown; able to ambulate slowly; euthymic with full affect; denies SI or HI; scores 30/30 on MMSE A/P: Capacity: the patient clearly demonstrates an understanding of the primary team's concerns and the risks involved with refusing further care. He is currently deemed to have capacity.
--- NOTE | 2017-03-03 03:35 | DS ---
CC: Dr. Ferrari; Dr. Herbert; Dr. Sim * DISCHARGE SUMMARY: DATE OF ADMISSION: 03/01/17 DATE OF DISCHARGE: 03/02/17 PRIMARY CARE PHYSICIAN: Dr. Ferrari. WIRE MACHINE OPERATOR: Dr. Herbert. NEUROLOGIST: Dr. Sim. ATTENDING PHYSICIAN: Dr. Sola Alves * (report dictated by Jeffrey Santa NP) PRIMARY DIAGNOSES: 1. Agitated delirium, likely steroid induced. 2. Left hip pain inhibiting ambulation. SECONDARY DIAGNOSES: 1. Rheumatoid arthritis. 2. Hypothyroidism. 3. Chronic kidney disease. STUDIES: No studies while in the hospital. MEDICATIONS AT THE TIME OF DISCHARGE: New medication: 1. Nicotine gum 2 mg every 2 hours as needed. The following are the medications that patient came in on: 1. Mobic 7.5 mg oral twice daily with meals. 2. Flexeril 10 mg oral 3 times daily as needed. 3. Ultram 50 mg oral 3 times daily. 4. Plaquenil 200 mg oral daily. 5. Allopurinol 100 mg oral daily. 6. Ambien 12.5 mg oral at bedtime as needed. The patient has been instructed to discontinue prednisone. HISTORY OF PRESENT ILLNESS AND HOSPITAL COURSE: Mr. Conner is a 67-year-old male with past medical history significant for hepatitis C, chronic kidney disease, questionable thyroid disorder, chronic low back pain, rheumatoid arthritis, who presented to the emergency room on 03/01/17 with severe hip pain and inability to walk. Nursing had reported that the patient had defecated and urinated on the floor and was crawling around his apartment as he was unable to walk. In addition, the patient was slightly more combative and irate than at his baseline. He had been recently started on prednisone taper by his brine mixer operator. The patient was admitted to the medical floor overnight. Attempt was made for the patient to complete an MRI of the lumbar spine given his low back pain and recommendation from Neurosurgery. Unfortunately, the patient refused a transfer to the MRI table due to the transfer pad and the study was not completed. The patient finally did agree to take tramadol and his hip pain improved. The next morning, the patient was eager to be discharged as soon as possible. Consultation was requested from Dr. Garber at Psychiatry to evaluate the patient's competency. He felt that the patient was not only competent to make medical deicision but able to ambulate in the hallway with a walker. The patient was seen by PT and was able to ambulate with supervision. The patient wished to go home and as he has capacity to make his own decision, he will be discharged home today. The patient's friends, who visited him in the hospital, stated that he was very close to his baseline mental status. Prednisone was stopped as well as Plaquenil. Although the patient's white count was elevated, it was likely this was from steroids. The patient had a negative urinalysis. The patient refused vitals on 03/02/17, but vitals were stable on the evening of 03/01/17, temperature 98.1, heart rate 84, respiratory rate 16, blood pressure 140/53, oxygen saturation 99%. DISCHARGE PLAN: The patient was discharged on a regular diet. The patient has been instructed to use his walker at all times. The patient should follow up with his primary care provider, Dr. Ferrari. In addition, the patient has been given the number for Central Scheduling to schedule his MRI lumbar spine when he is ready to complete that. The patient should also follow up with Dr. Herbert for his rheumatoid arthritis. The patient has also been set up with home VNS for physical therapy as well as medication management. I have reviewed all these instructions with the patient, he is agreeable with discharge today. This is a summarized report of a complex medical history and hospital stay. For more details, please see the entire medical record. TIME SPENT: Time for this discharge was 60 minutes and 35 minutes was spent with the patient discussing discharge plan and followup instructions. CONDITION ON DISCHARGE: Stable. JEFFREY SANTA NP [id number]/[facility] #: [id number] AMAN
== END 2017-03-02 11:45 | disposition home or self-care (01) ==
LOC: ED 09:52 → MED 16:11
PROVIDERS: ADMIT Internal Medicine; ATTEND Internal Medicine
DX: R41.0 Disorientation, unspecified (principal); R45.1 Restlessness and agitation; M25.552 Pain in left hip; M06.9 Rheumatoid arthritis, unspecified; E03.9 Hypothyroidism, unspecified; N18.9 Chronic kidney disease, unspecified; R32 Unspecified urinary incontinence; Z79.899 Other long term (current) drug therapy; B19.20 Unspecified viral hepatitis C without hepatic coma; M54.5 Low back pain; F17.210 Nicotine dependence, cigarettes, uncomplicated
CPT/HCPCS: 36415; 80048; 80053; 81003; 81015; 83605; 83690; 84439; 84443; 84481; 85025; 86140; 96360; 96361; 99284; A9270-GY; G0378; G8978-GP-CI; G8979-GP-CI; G8980-GP-CI

== ENCOUNTER 2017-03-11 02:38 | Inpatient (IN) | payer MEDICARE, MEDICAID ==
[2017-03-11] MEDS ORDERED: Diazepam SYRINGE* 5 MG/ML 2 ML SYRINGE (10 MG total) IV ONE (02:49)
[2017-03-11] MEDS ORDERED: Morphine INJ* 4 MG/ML 1 ML CARPUJECT IV ONE (02:49)
[2017-03-11] MEDS ORDERED: Morphine INJ* 2 MG/ML 1 ML SYRINGE (TWO MG - NEW SYRINGE VERSION) IV ONE (02:49)
[2017-03-11] MEDS ORDERED: Ondansetron INJ* 2 MG/ML VIAL IV ONE (02:50)
[2017-03-11] MEDS ORDERED: Morphine INJ* 2 MG/ML 1 ML SYRINGE (TWO MG - NEW SYRINGE VERSION) ONE (03:29)
[2017-03-11] MEDS ORDERED: Diazepam INJ (NF) 5 MG/ML 10 ML VIAL (50 MG TOTAL) IV ONE (04:00)
[2017-03-11 04:17] LABS: ABS Basophils 0.1 10^3/ul (0-0.2); ABS Eosinophils 0.1 10^3/ul (0-0.6); ABS Lymphocytes 1.1 10^3/ul (1.0-4.8); ABS Monocytes 1.4 10^3/ul (0-0.8); ABS Neutrophils 11.7 10^3/ul (1.5-7.7); ABS Nucleated RBC 0 10^3/ul; Eosinophil % 0.7 % (0-6); Hematocrit 41 % (42-52); Hemoglobin 13.4 g/dl (14.0-18.0); Lymphocyte % 7.4 % (25-47); Mean Corpuscular HGB Conc 33 g/dl (31-36); Mean Corpuscular Hemoglobin 32 pg (27-31); Mean Corpuscular Volume 96 fL (80-94); Mean Platelet Volume 10 um3 (7.4-10.4); Nucleated Red Blood Cells % 0; Platelet Count 254 10^3/ul (150-450); Red Blood Count 4.23 10^6/ul (4.0-5.4); Red Cell Distribution Width 14 % (10.5-15); White Blood Count 14.3 10^3/ul (3.5-10.8)
[2017-03-11] MEDS ORDERED: Dexamethasone IV* 4 MG/ML 1 ML (4 MG) IV SLOW PU ONE (04:51)
--- NOTE | 2017-03-11 06:51 | ED ---
Lebron Joel Angela, scribed for Grisel Man MD on 03/11/17 at 0245 . Back Pain - HPI Summary HPI Summary: This pt is a 67 y/o male presenting to [facility] via EMS c/o severe back pain. Pt reports he usually takes Vicodin for his pain. 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 He denies bowel or urinary incontinence. Pt states he is in severe pain, 10/10 in severity. His pain is exacerbated with movement and alleviated with rest. Pt lives alone. - History of Current Complaint Stated Complaint: BACK PAIN Hx Obtained From: Patient Onset/Duration: Lasting Days, Still Present Onset/Duration: Started Days Ago, Still Present Timing: Lasting Days Back Pain Location: Is Discrete @ - lower back Severity Currently: Severe Pain Intensity: 10 Pain Scale Used: 0-10 Numeric Aggravating Symptom(s): Movement Alleviating Symptom(s): Rest Associated Signs And Symptoms: Negative: Weakness, Numbness, Bladder Incontinence, Bowel Incontinence - Allergies/Home Medications Allergies/Adverse Reactions: Allergies Allergy/AdvReac Type Severity Reaction Status Date / Time No Known Allergies Allergy Verified 02/13/17 02:06 PMH/Surg Hx/FS Hx/Imm Hx Endocrine/Hematology History: Denies: Hx Anticoagulant Therapy, Hx Diabetes, Hx Thyroid Disease Cardiovascular History: Reports: Other Cardiovascular Problems/Disorders - hyperkinetic heart Denies: Hx Hypertension, Hx Pacemaker/ICD Respiratory History: Denies: Hx Asthma, Hx Chronic Obstructive Pulmonary Disease (COPD) GI History: Reports: Other GI Disorders - hep c Denies: Hx Ulcer History: Denies: Hx Renal Disease Musculoskeletal History: Reports: Hx Back Problems Denies: Hx Scoliosis Sensory History: Reports: Hx Contacts or Glasses Denies: Hx Hearing Aid Opthamlomology History: Reports: Hx Contacts or Glasses Neurological History: Denies: Hx Dementia, Hx Headaches, Hx Seizures Psychiatric History: Denies: Hx Panic Disorder, Hx Substance Abuse - Cancer History Cancer Type, Location and Year: N - Surgical History Surgery Procedure, Year, and Place: VERICOSE VEIN LEG. LEFT KNEE BURSA REMOVAL Infectious Disease History: No Infectious Disease History: Reports: Hx Hepatitis - C - TREATED Denies: Hx Human Immunodeficiency Virus (HIV), Hx Shingles, History Other Infectious Disease, Traveled Outside the [place] in Last 30 Days - Family History Known Family History: Positive: None, Cardiac Disease - [place] Negative: Hypertension, Diabetes - Social History Alcohol Use: None Hx Substance Use: Yes Substance Use Type: Reports: None Hx Tobacco Use: Yes Smoking Status (MU): Heavy Every Day Tobacco Smoker Type: Cigarettes Amount Used/How Often: 1 PPD Review of Systems Negative: Fever ENT: Negative Cardiovascular: Negative Respiratory: Negative Gastrointestinal: Negative Genitourinary: Negative Musculoskeletal: Other - back pain Neurological: Negative All Other Systems Reviewed And Are Negative: Yes Physical Exam - Summary Physical Exam Summary: VITAL SIGNS: Reviewed. GENERAL: Patient is a well-developed and nourished male. Patient is not in any acute respiratory distress. HEAD AND FACE: No signs of trauma. No ecchymosis, hematomas or skull depressions. No sinus tenderness. EYES: PERRLA, EOMI x 2, No injected conjunctiva, no nystagmus. EARS: Hearing grossly intact. Ear canals and tympanic membranes are within normal limits. MOUTH: Oropharynx within normal limits. NECK: Supple, trachea is midline, no adenopathy, no JVD, no carotid bruit, no c- spine tenderness, neck with full ROM. CHEST: Symmetric, no tenderness at palpation LUNGS: Clear to auscultation bilaterally. No wheezing or crackles. CVS: Regular rate and rhythm, S1 and S2 present, no murmurs or gallops appreciated. ABDOMEN: Soft, non-tender. No signs of distention. No rebound no guarding, and no masses palpated. Bowel sounds are normal. EXTREMITIES: no edema, no cyanosis or clubbing. There is tenderness over the lower back, tenderness over the lumbosacral region. Pt is unable to lift up his legs. Straight leg raise is 0 degrees bilaterally. NEURO: Alert and oriented x 3. No acute neurological deficits. Speech is normal and follows commands. SKIN: Dry and warm Triage Information Reviewed: Yes Vital Signs On Initial Exam: Initial Vitals Temp Pulse Resp BP Pulse Ox 97.7 F 85 22 190/76 98 03/11/17 02:39 03/11/17 02:39 03/11/17 02:39 03/11/17 02:39 03/11/17 02:39 Vital Signs Reviewed: Yes Diagnostics - Vital Signs Vital Signs Temp Pulse Resp BP Pulse Ox 03/11/17 02:39 97.7 F 85 22 190/76 98 - Laboratory Result Diagrams: 03/11/17 03:45 03/11/17 03:45 Lab Statement: Any lab studies that have been ordered have been reviewed, and results considered in the medical decision making process. - CT Lumbar spine CT CT Interpretation: Positive (See Comments) - IMPRESSION: Fragmentation and destructive changes at inferior endplate L4 and superior endplate L5, suspect acute compression fractures with underlying degenerative disc disease more likely than pathologic fractures with underlying diskitis/osteomyelitis. Advise follow up. Marked degenerative disc disease L2-L3 and L3-L4, worse at L3-L4. Posterior disc bulges at multiple levels. Minimal to moderate bilateral neural foraminal stenosis L3-L4 and L4-L5, worst at L3-L4 on the left. Moderate canal stenosis L3-L4. Minimal canal stenosis L2-L3 and L5-S1. Emphysema. Dr. Man has reviewed this radiology report. CT Interpretation Completed By: Radiologist Re-Evaluation - Re-Evaluation First Eval Re-Evaluation Time: 04:53 Comment: I reviewed lumbar spine CT results with the pt. I offered admission to the pt, he declines. Pt states he can ambulate. Second Eval Re-Evaluation Time: 05:00 Comment: Pt is unable to ambulate. Back Pain Course/Dx - Course Course Of Treatment: This pt is a 67 y/o male presenting to [facility] via EMS c/o severe back pain. Pt reports he usually takes Vicodin for his pain. 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 He denies bowel or urinary incontinence. Lumbar spine CT shows fragmentation and destructive changes at inferior endplate L4 and superior endplate L5, suspect acute compression fractures with underlying degenerative disc disease more likely than pathologic fractures with underlying diskitis/osteomyelitis. Pt unable to ambulate in the ED. I discussed pt care with Dr. Wilkes, hospitalist, who has agreed to admit the pt. Pt has possible diskitis and osteomyelitis. I spoke with Dr. Núñez, neurosurgeon, who will come see the pt. - Diagnoses Provider Diagnoses: Compression fracture of lumbosacral spine - Provider Notifications Discussed Care Of Patient With: Lion Wilkes Time Discussed With Above Provider: 05:02 Instructed by Provider To: Other - I discussed pt care with Dr. Wilkes, hospitalist, who has agreed to admit the pt. [06:28] I spoke with Dr. Núñez, neurosurgeon, who will come see the pt. Discharge - Discharge Plan Condition: Stable Disposition: ADMITTED TO [facility] Referrals: Jorge Ferrari MD [Primary Care Provider] - The documentation as recorded by the Lebron nava Angela accurately reflects the service I personally performed and the decisions made by me, Grisel Man MD.
--- NOTE | 2017-03-11 08:11 | RAD ---
HISTORY: Low back pain COMPARISONS: November 23, 2011 MRI, CT of the abdomen and pelvis dated February 24, 2017 TECHNIQUE: Multiple contiguous axial CT scans were obtained of the lumbar spine without intravenous contrast, with coronal and sagittal multiplanar reformations. FINDINGS: SPINAL CANAL: Evaluation of the central canal is limited on CT technique; however, there is no obvious canalicular mass or epidural hemorrhage. ALIGNMENT: There is a scoliotic curvature of the spine. VERTEBRAL BODIES: There is diffuse osteopenia. There is slightly greater changes with anterolateral marginal osteophyte formation most pronounced at L2-L3 and L3-L4. At L4-L5, there is fragmentation and erosion of the endplates that has developed when compared to the February 24, 2017 examination. JOINTS: There is mild facet osteoarthritis. MUSCULATURE: Unremarkable INTERVERTEBRAL DISCS: There is diffuse loss of intervertebral disc height throughout the spine. AXIAL IMAGES: T11-T12: There is no osseous neural foraminal area or central canal stenosis. T12-L1: There is no osseous neural foraminal narrowing or central canal stenosis. L1-L2: There is no osseous neural foraminal narrowing or central canal stenosis. L2-L3: There is mild disc bulge. There is ligamentous hypertrophy. There is right facet osteoarthritis. There is moderate right neural foraminal narrowing. There is mild narrowing of the central canal. L3-L4: There is broad-based disc bulge. There is mild facet hypertrophy. There is marginal osteophyte formation at the neural foramina bilaterally. There is moderate to severe left and mild right neural foraminal narrowing. There is no significant central canal stenosis. L4-L5: There is broad-based disc bulge. There is ligamentous hypertrophy. There is marginal osteophyte formation at the neural foramina bilaterally. There is moderate to severe narrowing of central canal. There is moderate bilateral neural foraminal narrowing. L5-S1: There is a broad-based disc bulge. There is mild right neural foraminal narrowing. These densities central canal stenosis. SOFT TISSUES: There is atherosclerosis of the aorta. Renal cysts are noted. There is paravertebral soft tissue density at L4-L5. OTHER: None IMPRESSION: 1. FRAGMENTATION AND EROSION OF THE ENDPLATES OF L4-L5 WITH PARAVERTEBRAL SOFT TISSUE DENSITY, NEW FROM FEBRUARY 24, 2017. IN THE CORRECT CLINICAL SETTING, THIS IS CONCERNING FOR OSTEOMYELITIS/DISCITIS. FINDINGS WERE REVIEWED WITH DR. BACA AT APPROXIMATELY 8:00 AM ON MARCH 11, 2017. 2. DEGENERATIVE DISC DISEASE AND OSTEOARTHRITIS. 3. THERE IS MODERATE TO SEVERE NARROWING OF THE CENTRAL CANAL AT L4-L5, WITH MILD NARROWING AT L2-L3. THERE IS MULTILEVEL NEURAL FORAMINAL NARROWING DESCRIBED ABOVE.
[2017-03-11] MEDS ORDERED: Nicotine GUM* 2 MG PO PRN ×2 (08:29→12:12)
--- NOTE | 2017-03-11 09:50 | RAD ---
HISTORY: Back pain, probable discitis L4-L5 COMPARISONS: CT dated March 11, 2017, MRI dated November 23, 2011 TECHNIQUE: The following sequences were obtained of the lumbar spine: Sagittal and axial T1- and T2-weighted images, coronal T2-weighted images, and sagittal STIR images. FINDINGS: Evaluation is limited by the lack of intravenous contrast. SPINAL CORD, CONUS, AND CAUDA EQUINA: The visualized spinal cord, conus, and cauda equina are normal in caliber, position, and signal intensity. ALIGNMENT: There is a scoliotic curvature of the spine VERTEBRAL BODIES: There is been interval development of extensive bone edema involving L4-L5. There is irregularity of the endplates. There are Modic type II reactive end the changes at L3-L4 similar to the previous examination. There has been progression of Modic type II reactive endplate changes at L2-L3. JOINTS: There is mild facet osteoarthritis MUSCULATURE: Unremarkable INTERVERTEBRAL DISCS: Fluid is noted with the majority with disc space at L4-L5. There is diffuse loss of intervertebral disc height and T2 signal elsewhere. AXIAL IMAGES: L1-L2: There is no disc herniation, spinal stenosis, or neuroforaminal narrowing. L2-L3: There is a broad-based disc bulge. There is moderate right neural foraminal narrowing. There is no significant central canal stenosis. L3-L4: There is broad based disc bulge. There is marginal osteophyte formation at the neural foramina bilaterally. There is moderate bilateral neural foraminal narrowing. There is moderate narrowing of the central canal. L4-L5: There is ligamentous hypertrophy. There is soft tissue signal material within the epidural space anteriorly. There is marginal osteophyte formation at the neural foramina bilaterally. There is severe bilateral neural foraminal narrowing. There is moderate to severe narrowing of the central canal. L5-S1: There is mild facet hypertrophy. There is no disc herniation, spinal stenosis, or neuroforaminal narrowing. SOFT TISSUES: There are loculated paravertebral fluid collections at L4-L5 is seen on axial image 26 measuring up to 1.6 cm in size. There is edema of the psoas muscle. Additionally, a cystic lesion of the inferior extent of the inferior extent of the left psoas muscle is seen on coronal image 5 and axial image 34 measuring 3.1 cm in maximum dimension. This is incompletely included within the [id number] the current examination OTHER: None. IMPRESSION: 1. FINDINGS MOST SUGGESTIVE OF OSTEOMYELITIS DISCITIS AT L4-L5. 2. THERE IS SOFT TISSUE DENSITY MATERIAL WITHIN THE ANTERIOR EPIDURAL SPACE AT L4-L5, NEW WHEN COMPARED TO THE 2012 EXAMINATION. THIS LIKELY REPRESENTS EPIDURAL PHLEGMON/ABSCESS, LESS LIKELY A LARGE BROAD-BASED DISC BULGE. THIS RESULTS IN MODERATE TO SEVERE NARROWING OF THE CENTRAL CANAL AT THIS LEVEL. 3. THERE ARE LOCULATED PARAVERTEBRAL FLUID COLLECTIONS AT L4-L5 MEASURING UP TO 1.6 CM IN SIZE, LIKELY REPRESENTING PARAVERTEBRAL ABSCESSES. ADDITIONALLY, THERE IS A CYSTIC LESION OF THE INFERIOR EXTENT OF THE LEFT PSOAS MUSCLE WHICH MAY ALSO REPRESENT ABSCESS. 4. DEGENERATIVE DISC DISEASE AND OSTEOARTHRITIS. 5. THERE IS MULTILEVEL NEURAL FORAMINAL NARROWING DESCRIBED ABOVE. THERE IS MODERATE NARROWING OF THE CENTRAL CANAL AT L3-L4.
[2017-03-11] MEDS ORDERED: Cefepime(*) 2 GM in NS 0.9% 50 ML* 50 ML IVPB ONE (10:14)
[2017-03-11] MEDS ORDERED: Vancomycin(*) 1,000 MG in NS 0.9% 250 ML* 250 ML IVPB ONE (10:14)
[2017-03-11] MEDS ORDERED: NS 0.9% 1000 ML* 1,000 ML IV SCH (10:15)
[2017-03-11] MEDS ORDERED: Cefepime 2 GM in Dextrose(*) 2 GM/50 ML BAG IV STA (10:19)
[2017-03-11 11:28] LABS: INR 1.1 (0.77-1.02)
[2017-03-11] MEDS ORDERED: Acetaminophen TAB* 325 MG PO PRN (11:59)
[2017-03-11] MEDS ORDERED: Ondansetron INJ* 2 MG/ML VIAL IV PRN (11:59)
[2017-03-11] MEDS ORDERED: Cefepime 2 GM in Dextrose(*) 2 GM/50 ML BAG IV SCH (12:00)
[2017-03-11] MEDS ORDERED: Vancomycin(*) 1,000 MG in NS 0.9% 250 ML* 250 ML IVPB SCH (12:01)
[2017-03-11] MEDS ORDERED: Sodium Polystyrene ORAL.SOL* 15 GM/60 ML BTL PO ONE (12:23)
--- NOTE | 2017-03-11 12:40 | RAD ---
Indication: Cough. Comparison: February 16, 2017 chest radiograph. Technique: Supine chest 1220 hours Report: Elevated lung volumes and both diffuse mild prominence of the interstitial markings and patchy rarefaction of the mid to upper lung zone interstitial markings. No pulmonary infiltrate, pleural effusion or gross evidence for pneumothorax with sensitivity for pneumothorax decreased due to supine technique. The heart, pulmonary vasculature, and mediastinal contours are unremarkable. IMPRESSION: Stigmata of advanced obstructive lung disease and emphysema. No acute pulmonary or cardiac process evident.
[2017-03-11] MEDS ORDERED: Vancomycin per Pharmacy* NOTE FOLLOW UP PRN (13:13)
[2017-03-11] MEDS: NS 0.9% 1000 ML* 1,000 ML IV SCH ×2 (13:24→23:28)
[2017-03-11] MEDS: Heparin VIAL(*) 5000 UNITS/ML VIAL (FIVE THOUSAND) SUBCUT SCH ×3 (13:57→23:31)
[2017-03-11 14:39] LABS: Urine Appearance Clear; Urine Blood Negative (Negative); Urine Color Yellow; Urine Ketones Negative (Negative); Urine Protein Negative (Negative); Urine Specific Gravity 1.018 (1.010-1.030); Urine Urobilinogen Negative (Negative)
--- NOTE | 2017-03-11 20:01 | HP ---
CC: Dr. Ferrari; Dr. Núñez; Dr. Benavides * HISTORY AND PHYSICAL: DATE OF ADMISSION: 03/11/17 PRIMARY CARE PROVIDER: Dr. Ferrari. CONSULTING NEUROSURGEON: Dr. Núñez. CONSULTING INFECTIOUS DISEASE SPECIALIST: Dr. Benavides. ATTENDING PHYSICIAN WHILE IN THE HOSPITAL: Dr. Smith * (report being dictated by Puneet Luz NP) CHIEF COMPLAINT: Back pain. HISTORY OF PRESENT ILLNESS: Mr. Conner is a 67-year-old male patient with history of hepatitis C, cervical spondylosis, IV drug use, chronic kidney disease, and questionable thyroid disorder, and possible diagnosis of rheumatoid arthritis. The patient comes in today, he states for the last few weeks he has been having worsening back pain. According to him, the patient states that around 8 o'clock last night the pain got much worse, all of a sudden he fell to his knees, he was doubled over in pain. He said he could not bear it any more and he was concerned and decided to come into the ED. He states he has not been incontinent of urine or stool. He states that anytime he moves, he has had significant back pain. Anytime he coughs, it flares the pain in his back. He states that he cannot stand or walk because it is way too painful. He states he has been having trouble lifting his legs as well. He does admit to having some chills off and on. He states he has been using cocaine fairly routinely. He states it does help with the pain. He denies having any chest pain or shortness of breath. He states prior to this episode of back discomfort and back pain, he was able to walk up a flight of stairs. He states about a couple of months ago, he was able to paint the house and go up and down a ladder with no chest pain or shortness of breath. The patient denied any vomiting or diarrhea or any abdominal discomfort. He was concerned though because of the pain. He came in and was evaluated by Dr. Man in the ED. It was ultimately noted that he appeared to, on CT imaging, possibly have diskitis in the lumbar spine and an MRI confirmed that he had diskitis with abscesses formations. Because of this, we were asked to evaluate for admission. PAST MEDICAL HISTORY: Significant for: 1. Hepatitis C. 2. Cervical spondylosis. 3. Question of new diagnosis of rheumatoid arthritis. 4. History of IV drug use. 5. History of CKD. His baseline creatinine is right around 2. PAST SURGICAL HISTORY: The patient denied. HOME MEDICATIONS: According to the list that was obtained includin. Ambien 12.5 mg at bedtime as needed. 2. Tramadol 50 mg t.i.d. 3. Nicotine 2 mg p.o. every 2 hours as needed. 4. Mobic 7.5 mg p.o. b.i.d. 5. Plaquenil 200 mg p.o. daily. 6. Flexeril 10 mg p.o. t.i.d. as needed. 7. Allopurinol 100 mg p.o. daily. ALLERGIES TO MEDICATIONS: Include no known drug allergies. FAMILY HISTORY: Both his parents had heart attack. SOCIAL HISTORY: He is a pack a day smoker. He does use cocaine. He does not drink alcohol. 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 Surrogate decision maker is his sister, Geno. REVIEW OF SYSTEMS: There is no documented fever. He denied having any significant weight change. There was no double vision. He denies having any ear discharge. He denies having any rhinorrhea. No sore throat. No thyroid enlargement. Denied having any chest pain. There was no orthopnea, no nocturnal dyspnea. He denied having any abdominal pain. There was no nausea, no vomiting. There was no dysuria. No frequency. No seizure. He denied having any loss of consciousness. No pruritus. No skin ulcerations. Review of 14 systems was completed, all others negative. PHYSICAL EXAMINATION GENERAL: At this time, Mr. Conner is a 67-year-old male patient, he is chronically ill appearing. He is sitting in the ED stretcher. He does not appear to be in any acute distress. VITAL SIGNS: Blood pressure 119/68, pulse 68, respirations 18, O2 sat 100%, temperature 97.7. HEENT: Head atraumatic, normocephalic. Eyes: EOM's are intact. Sclerae anicteric and not pale. Throat: Oral mucosa appears to be dry. No oropharyngeal erythema. NECK: Supple. LUNGS: Clear to auscultation bilaterally. No wheezes, rales or rhonchi. HEART: Sounds S1, S2. Regular rate and rhythm. No murmurs, rubs or gallops. ABDOMEN: Soft. It was flat, it was nontender. Bowel sounds are present. EXTREMITIES: He is unable to lift his lower extremities off the stretcher at this point. However, he is able to bend his legs at the knees. He is able to flex and extend at the knee with 5/5 strength. He has sensation bilaterally intact, a little less subjectively on the left lower extremity between the knee and the ankle. He had good rectal tone at this point. He has tenderness along his lumbar spine. NEUROLOGIC: He is awake, he is alert, he is oriented x3. His speech was clear. His tongue was midline. SKIN: Intact. LABORATORY DATA AND DIAGNOSTIC IMAGING: WBC 14.3, RBC 4.23, hemoglobin 13.4, hematocrit 41, platelet count of 284.000. INR 1.10. PTT 32.2. His sodium was 135, potassium was 5.5, he had a chloride of 109, bicarb 20, BUN was 64, his creatinine was 2.68, his baseline creatinine does appear to be around 2. He does have episodes where he has had acute renal failure in the past, but it does look like 2 is where he is normally at. Glucose 104, calcium 9.3, total bilirubin 0.3, AST 23, ALT 15, alk phos 89, albumin 3.6. He had a lumbar spine CT obtained today, which showed fragmentation and erosion of the end plates of L4-5 with paravertebral soft tissue density, new from 02/24 exam. In the correct clinical setting, this is concerning for osteomyelitis , diskitis. Findings were reviewed with Dr. Marroquin. Degenerative disk disease and osteoarthritis. There is [id number] narrowing at the central canal at L4-5 with mild narrowing in L2-3, but there is multilevel neuroforaminal narrowing as described above. The patient had a lumbar spine MRI. Impression: Findings are most suggestive of osteomyelitis and diskitis at L4-5. There is soft tissue density material within the anterior epidural space at L4-5, new when compared to the 2012 examination. This likely represents epidural phlegmon, abscess, less likely a broad based disk bulge. There was felt to be moderate to severe narrowing of the central canal at this level. There is loculated paravertebral fluid collection at L4-5 measuring up to 1.6 cm in size likely representing paravertebral abscesses. Additionally there is a cystic lesion of the inferior extent of the left soleus muscle which may also represent abscess. He has degenerative disk disease and osteoarthritis. There is multiple level neuroforaminal narrowing as described above. There is moderate narrowing of the central canal at L3-4. The patient did have an EKG, which does show a sinus rhythm, rate of 70. No ST-elevation or T-wave inversions. Old medical records were reviewed. ASSESSMENT AND PLAN: Mr. Conner is a 67-year-old male patient with multiple medical problems coming into the ED today with complaints of worsening back pain , now found to have what appears to be epidural abscess and diskitis. The patient was evaluated by Neurosurgery. The plan at this point is he will be admitted under inpatient status for: 1. Osteomyelitis and diskitis with epidural abscess again. I do have a call out to Dr. Benavides. I am going to put the patient on vancomycin and cefepime. We will go ahead and put him on blood cultures. He was evaluated by Dr. Núñez. It was felt at this point that he would like to have the patient medically optimized before proceeding to surgery. He is in acute renal failure and he does have hyperkalemia, so at this point I would like to try to get this corrected. The patient at this point, we will give a dose of Kayexalate. We will check FeNa. We will hydrate him, see if we can get his creatinine down to his baseline of 2. We will get an EKG and a chest x-ray. If we get the creatinine down to 2, then he is medically optimized for surgery. There is no further optimization that we can offer. We will get him on antibiotics and strive for pain control and again Neurosurgery is following and has evaluated the patient already today. 2. Hepatitis C. He can follow with his primary. 3. History of cervical spondylosis, follow with his primary. 4. Rheumatoid arthritis. Continue his Plaquenil, but I do need to get records from Dr. Herbert's office to see what testing has been done and what his final diagnosis was. At this point, we will continue his Plaquenil and follow. 5. History of IV drug use. At this point, not an active issue from the patient. 6. Acute on chronic kidney disease. At this point, again his creatinine is 2.6. He normally is right round 2. I will go ahead and do a FeNa. We will go ahead and hydrate the patient. I also will check a bladder scan, although he states he has not been having any issues with urination and we will continue to follow this. I will hold the patient's Mobic. 7. Hyperkalemia. Again, I will give him Kayexalate. I will repeat the BMP later today. I will also place him on telemetry. We did get an EKG which did not show any peaked T-waves. 8. DVT prophylaxis. I will place the patient on SCD's and heparin subcu as he is high risk. 9. Code status. The patient is a full code. TIME SPENT: On admission was 60 minutes, greater than half the time was spent face- to-face with the patient obtaining my history and physical, other half time was spent going over the plan of care with the patient and implementing plan of care. I did discuss the case with my attending, Dr. Smith, he is in agreement. He will also be discussing the case with Dr. Núñez as well. PUNEET LUZ, PAM [id number]/CPS #: [id number] AMAN
[2017-03-11 20:21] LABS: EGFR Non-African American 29.3 (>60)
[2017-03-12] MEDS: Zolpidem TAB* 10 MG PO PRN (00:56)
[2017-03-12] MEDS ORDERED: Mouth Piece, Nicotine* 1 EACH CARTRIDGE INH ONE (03:10)
[2017-03-12] MEDS: Heparin VIAL(*) 5000 UNITS/ML VIAL (FIVE THOUSAND) SUBCUT SCH ×3 (04:32→21:03)
[2017-03-12] MEDS: Nicotine Inhaler* 10 MG AMP INH PRN (04:49)
[2017-03-12] MEDS ORDERED: Vancomycin Random Level* NOTE FOLLOW UP ONE (08:00)
[2017-03-12] MEDS: Morphine INJ* 2 MG/ML 1 ML SYRINGE (TWO MG - NEW SYRINGE VERSION) IV PRN ×3 (08:04→16:38)
[2017-03-12] MEDS: oxyCODONE/Acetamin 5/325 MG* TAB PO PRN ×2 (08:05→16:37)
[2017-03-12] MEDS: Cyclobenzaprine TAB* 10 MG PO PRN ×2 (08:06→16:37)
[2017-03-12] MEDS: Hydroxychloroquine TAB* 200 MG PO SCH (08:06)
[2017-03-12] MEDS: Allopurinol TAB* 100 MG PO SCH (08:07)
--- NOTE | 2017-03-12 10:58 | PN ---
Progress Note - Progress Note Date of Service: 03/12/17 SOAP: Subjective: []Discussed diagnosis of lumbar infection with patient and need for surgery He would like to go home but I explained the risk of paralysis to him He denies numbness in his legs Objective: []SLR positive Motor intact Renal function better Assessment: []Stable Plan: []Surgery planned for 03/14 in early afternoon
[2017-03-12] MEDS ORDERED: Calcium Carbonate CHEW TAB* 500 MG (TUMS) ONE (11:19)
[2017-03-12] MEDS ORDERED: Nicotine GUM* 2 MG ONE (11:19)
[2017-03-12] MEDS: Calcium Carbonate CHEW TAB* 500 MG (TUMS) PO PRN (11:44)
[2017-03-12] MEDS: Cefepime 2 GM in Dextrose(*) 2 GM/50 ML BAG IV SCH (11:44)
[2017-03-12] MEDS: Nicotine GUM* 2 MG PO PRN ×2 (11:45→16:38)
[2017-03-12] MEDS: Vancomycin(*) 500 MG in NS 0.9% 250 ML* 250 ML IVPB SCH ×2 (12:41→13:56)
[2017-03-12 13:31] LABS: ABS Basophils 0.1 10^3/ul (0-0.2); ABS Eosinophils 0.3 10^3/ul (0-0.6); ABS Lymphocytes 1.3 10^3/ul (1.0-4.8); ABS Monocytes 1.2 10^3/ul (0-0.8); ABS Neutrophils 9.5 10^3/ul (1.5-7.7); ABS Nucleated RBC 0 10^3/ul; Eosinophil % 2.8 % (0-6); Hematocrit 36 % (42-52); Hemoglobin 11.7 g/dl (14.0-18.0); Lymphocyte % 10.6 % (25-47); Mean Corpuscular HGB Conc 33 g/dl (31-36); Mean Corpuscular Hemoglobin 31 pg (27-31); Mean Corpuscular Volume 96 fL (80-94); Mean Platelet Volume 9 um3 (7.4-10.4); Nucleated Red Blood Cells % 0; Platelet Count 230 10^3/ul (150-450); Red Blood Count 3.74 10^6/ul (4.0-5.4); Red Cell Distribution Width 14 % (10.5-15); White Blood Count 12.5 10^3/ul (3.5-10.8)
--- NOTE | 2017-03-12 13:41 | PN ---
Subjective Date of Service: 03/12/17 Interval History: Pt examined today at the bedside. Pt states that his back hurts with movement of his legs. He denies chest pain and denies sob. States he can move his legs better today. Denies fever denies chills. ROS-denies chills, fever noted 101, denies abdominal pain, denies nausea, denies vomiting, denies lightheadedness, denies loc, denies chest pain, review of 11 systems completed all others negative, Objective Active Medications: Acetaminophen (Tylenol Tab*) 650 mg PO Q4H PRN PRN Reason: FEVER/PAIN Allopurinol (Zyloprim Tab*) 100 mg PO DAILY [facility] Last Admin: 03/12/17 08:07 Dose: 100 mg Calcium Carbonate (Tums*) 500 mg PO Q4H PRN PRN Reason: INDIGESTION Last Admin: 03/12/17 11:44 Dose: 500 mg Cyclobenzaprine HCl (Flexeril Tab*) 10 mg PO TID PRN PRN Reason: SPASMS - BACK Last Admin: 03/12/17 08:06 Dose: 10 mg Heparin Sodium (Porcine) (Heparin Vial(*)) 5,000 units SUBCUT Q8HR [facility] Last Admin: 03/12/17 04:32 Dose: Not Given Hydroxychloroquine Sulfate (Plaquenil Tab*) 100 mg PO DAILY [facility] Stop: 03/18/17 09:01 Last Admin: 03/12/17 08:06 Dose: 100 mg Hydroxychloroquine Sulfate (Plaquenil Tab*) 200 mg PO DAILY [facility] Cefepime HCl (Maxipime 2 Gm In Dextrose Duplex (*)) 2 gm in 50 mls @ 100 mls/ hr IV Q24H [facility] Last Admin: 03/12/17 11:44 Dose: 100 mls/hr Vancomycin HCl 500 mg/ Sodium (Chloride) 250 mls @ 166.667 mls/hr IVPB Q24H [facility] Morphine Sulfate (Morphine Inj (Syringe)*) 4 mg IV Q4H PRN PRN Reason: PAIN Last Admin: 03/12/17 12:41 Dose: 4 mg Nicotine (Nicotine Inhaler*) 10 mg INH Q2H PRN PRN Reason: CRAVING Last Admin: 03/12/17 04:49 Dose: 10 mg Nicotine Polacrilex (Nicotine Gum*) 2 mg PO Q2H PRN PRN Reason: CRAVING Last Admin: 03/12/17 11:45 Dose: 2 mg Ondansetron HCl (Zofran Inj*) 4 mg IV Q6H PRN PRN Reason: NAUSEA Oxycodone/Acetaminophen (Percocet 5/325 Tab*) 1 tab PO Q4H PRN PRN Reason: PAIN Last Admin: 03/12/17 08:05 Dose: 1 tab Pharmacy Consult (Vancomycin Per Pharmacy*) 1 note FOLLOW UP . PRN PRN Reason: PER PROTOCOL Pharmacy Profile Note (Vancomycin Trough Check) 1 note FOLLOW UP ONCE ONE Stop: 03/13/17 11:01 Zolpidem Tartrate (Ambien Tab*) 10 mg PO BEDTIME PRN; Protocol PRN Reason: SLEEP Last Admin: 03/12/17 00:56 Dose: 10 mg Vital Signs - 8 hr 03/12/17 03/12/17 03/12/17 07:50 08:00 08:04 Temperature 97.5 F Pulse Rate 79 Respiratory 20 20 20 Rate Blood Pressure 174/94 (mmHg) O2 Sat by Pulse 99 Oximetry 03/12/17 03/12/17 03/12/17 08:05 08:06 09:36 Temperature Pulse Rate Respiratory 20 20 18 Rate Blood Pressure (mmHg) O2 Sat by Pulse Oximetry 03/12/17 03/12/17 03/12/17 11:44 11:48 12:41 Temperature Pulse Rate Respiratory 18 20 18 Rate Blood Pressure (mmHg) O2 Sat by Pulse Oximetry Oxygen Devices in Use Now: None Appearance: 67 y/o male patient chronically ill appearing sitting in bed, Eyes: No Scleral Icterus, PERRLA Ears/Nose/Mouth/Throat: NL Teeth, Lips, Gums Neck: NL Appearance and Movements; NL JVP Respiratory: Symmetrical Chest Expansion and Respiratory Effort Cardiovascular: NL Sounds; No Murmurs; No JVD, RRR Abdominal: NL Sounds; No Tenderness; No Distention Extremities: No Edema, - - moving all four exts today, Skin: No Rash or Ulcers Neurological: Alert and Oriented x 3 Lines/Tubes/Other Access: Clean, Dry and Intact Peripheral IV Result Diagrams: 03/12/17 13:20 03/11/17 20:00 Assess/Plan/Problems-Billing Assessment: 67 y/o male presenting to [facility] [place] with complaints of back pain found to have epidural abscess and diskitis, - Patient Problems (1) Diskitis Current Visit: Yes Status: Acute Priority: High Comment: Movement in extremities improved today, continue iv abx, ID consult pending neurosurg pending, (2) Epidural abscess Current Visit: Yes Status: Acute Priority: High Comment: Neurosurgery following to OR 03/14, continue IV abx, will need picc, ID consult pending, cefepime and vanco for now, (3) DVT prophylaxis Current Visit: Yes Status: Acute Priority: High Comment: hep sub q scds, (4) Full code status Current Visit: Yes Status: Acute Priority: High (5) Rheumatoid arthritis Current Visit: Yes Status: Acute Priority: High Comment: continue home meds, trying to obtain records from Dr douglass's office, (6) CKD (chronic kidney disease) Current Visit: Yes Status: Acute Priority: High Comment: Creatitine improving, down to 2.25, FENA 1%, suspect pre-renal improved with ivf will follow, hyperkalemia improved, Status and Disposition: Iv abx for diskitis and epidural abscess, id consult pending, neurosurgery following,
[2017-03-12 13:48] LABS: EGFR Non-African American 39.2 (>60)
[2017-03-12] MEDS ORDERED: Vancomycin(*) 500 MG in D5W 250 ML BAG* 250 ML IVPB ONE (16:30)
[2017-03-13] MEDS: Morphine INJ* 2 MG/ML 1 ML SYRINGE (TWO MG - NEW SYRINGE VERSION) IV PRN ×4 (01:49→20:12)
[2017-03-13 07:38] LABS: ABS Basophils 0.1 10^3/ul (0-0.2); ABS Eosinophils 0.3 10^3/ul (0-0.6); ABS Lymphocytes 1.2 10^3/ul (1.0-4.8); ABS Nucleated RBC 0 10^3/ul; Eosinophil % 2.9 % (0-6); Hematocrit 36 % (42-52); Hemoglobin 11.6 g/dl (14.0-18.0); Lymphocyte % 11.4 % (25-47); Mean Corpuscular HGB Conc 33 g/dl (31-36); Mean Corpuscular Hemoglobin 32 pg (27-31); Mean Corpuscular Volume 96 fL (80-94); Mean Platelet Volume 10 um3 (7.4-10.4); Nucleated Red Blood Cells % 0.1; Platelet Count 203 10^3/ul (150-450); Red Blood Count 3.68 10^6/ul (4.0-5.4); Red Cell Distribution Width 15 % (10.5-15); White Blood Count 10.7 10^3/ul (3.5-10.8)
[2017-03-13] MEDS: Heparin VIAL(*) 5000 UNITS/ML VIAL (FIVE THOUSAND) SUBCUT SCH (07:41)
[2017-03-13] MEDS: Allopurinol TAB* 100 MG PO SCH (07:42)
[2017-03-13] MEDS: Hydroxychloroquine TAB* 200 MG PO SCH (07:42)
[2017-03-13 08:01] LABS: EGFR Non-African American 44.8 (>60)
--- NOTE | 2017-03-13 08:41 | PN ---
Progress Note - Progress Note Date of Service: 03/13/17 SOAP: Subjective: []Remains stable Continues to c/o back pain Objective: [] Neuro grossly intact Labs better Assessment: []Ready for surgery per Hospitalist Service Plan: []Discussed proposed surgery with patient Surgery scheduled for 03/14
[2017-03-13] MEDS: Cefepime 2 GM in Dextrose(*) 2 GM/50 ML BAG IV SCH (09:57)
[2017-03-13] MEDS ORDERED: Vancomycin Trough Check NOTE FOLLOW UP ONE (11:00)
--- NOTE | 2017-03-13 11:09 | PN ---
Subjective Date of Service: 03/13/17 Interval History: Pt examined today at the bedside. Pt states that he is having back pain. Denies chest pain and denies sob. Denies nausea and vomiting. He states he would like to go home malcom I explained to him that he needs surgery and long course of abx. ROS-denies fever, denies chills, denies chest pain, denies nausea, denies vomiting, denies lightheadedness, denies loc, denies abdominal pain, denies sob , review of 11 systems completed all others negative, Objective Active Medications: Acetaminophen (Tylenol Tab*) 650 mg PO Q4H PRN PRN Reason: FEVER/PAIN Allopurinol (Zyloprim Tab*) 100 mg PO DAILY [facility] Last Admin: 03/13/17 07:42 Dose: 100 mg Calcium Carbonate (Tums*) 500 mg PO Q4H PRN PRN Reason: INDIGESTION Last Admin: 03/12/17 11:44 Dose: 500 mg Cyclobenzaprine HCl (Flexeril Tab*) 10 mg PO TID PRN PRN Reason: SPASMS - BACK Last Admin: 03/12/17 16:37 Dose: 10 mg Heparin Sodium (Porcine) (Heparin Vial(*)) 5,000 units SUBCUT Q8HR [facility] Last Admin: 03/13/17 07:41 Dose: 5,000 units Hydroxychloroquine Sulfate (Plaquenil Tab*) 100 mg PO DAILY [facility] Stop: 03/18/17 09:01 Last Admin: 03/13/17 07:42 Dose: 100 mg Hydroxychloroquine Sulfate (Plaquenil Tab*) 200 mg PO DAILY [facility] Cefepime HCl (Maxipime 2 Gm In Dextrose Duplex (*)) 2 gm in 50 mls @ 100 mls/ hr IV Q24H [facility] Last Admin: 03/13/17 09:57 Dose: 100 mls/hr Vancomycin HCl 500 mg/ Sodium (Chloride) 250 mls @ 166.667 mls/hr IVPB Q24H [facility] Last Admin: 03/12/17 13:56 Dose: 166.667 mls/hr Morphine Sulfate (Morphine Inj (Syringe)*) 4 mg IV Q4H PRN PRN Reason: PAIN Last Admin: 03/13/17 07:36 Dose: 4 mg Nicotine (Nicotine Inhaler*) 10 mg INH Q2H PRN PRN Reason: CRAVING Last Admin: 03/12/17 04:49 Dose: 10 mg Nicotine Polacrilex (Nicotine Gum*) 2 mg PO Q2H PRN PRN Reason: CRAVING Last Admin: 03/12/17 16:38 Dose: 2 mg Ondansetron HCl (Zofran Inj*) 4 mg IV Q6H PRN PRN Reason: NAUSEA Oxycodone/Acetaminophen (Percocet 5/325 Tab*) 1 tab PO Q4H PRN PRN Reason: PAIN Last Admin: 03/12/17 16:37 Dose: 1 tab Pharmacy Consult (Vancomycin Per Pharmacy*) 1 note FOLLOW UP . PRN PRN Reason: PER PROTOCOL Zolpidem Tartrate (Ambien Tab*) 10 mg PO BEDTIME PRN; Protocol PRN Reason: SLEEP Last Admin: 03/12/17 00:56 Dose: 10 mg Vital Signs - 8 hr 03/13/17 03/13/17 03/13/17 03:29 07:36 07:51 Temperature 97.7 F Pulse Rate 64 Respiratory 16 18 16 Rate Blood Pressure 158/56 (mmHg) O2 Sat by Pulse 95 Oximetry 03/13/17 03/13/17 08:00 09:57 Temperature Pulse Rate Respiratory 16 18 Rate Blood Pressure (mmHg) O2 Sat by Pulse Oximetry Oxygen Devices in Use Now: None Appearance: 67 y/o male patient NAD, chronically ill appearing sitting in bed, Eyes: No Scleral Icterus Ears/Nose/Mouth/Throat: Mucous Membranes Moist Neck: NL Appearance and Movements; NL JVP Respiratory: Symmetrical Chest Expansion and Respiratory Effort, Clear to Auscultation Cardiovascular: NL Sounds; No Murmurs; No JVD Extremities: - - moving all four exts, difficult straight leg raise due to pain , Skin: No Rash or Ulcers Neurological: Alert and Oriented x 3 Lines/Tubes/Other Access: Clean, Dry and Intact Peripheral IV Result Diagrams: 03/13/17 07:11 03/13/17 07:07 Microbiology and Other Data: Microbiology 03/11/17 20:00 Aerobic Blood Culture - Preliminary No Source Provided No Growth Day 1 Anaerobic Blood Culture - Preliminary No Growth Day 1 03/11/17 14:19 Aerobic Blood Culture - Preliminary No Source Provided No Growth Day 1 Anaerobic Blood Culture - Preliminary No Growth Day 1 03/11/17 12:21 Urine Culture - Final Urine Assess/Plan/Problems-Billing Assessment: 67 y/o male presenting to [facility] [place] with complaints of back pain found to have epidural abscess and diskitis, - Patient Problems (1) Diskitis Current Visit: Yes Status: Acute Priority: High Comment: Movement in extremities at baseline, continue iv abx, ID consult pending neurosurg following plan for OR tomorrow, pt medically optimized for OR (2) Epidural abscess Current Visit: Yes Status: Acute Priority: High Comment: Neurosurgery following to OR 03/14, continue IV abx, will need picc, ID consult pending, cefepime and vanco for now, medically optimized, will be moderate risk from resp standpoint given hx of smoking may have underlying COPD, (3) DVT prophylaxis Current Visit: Yes Status: Acute Priority: High Comment: scds, hold heparin today (4) Full code status Current Visit: Yes Status: Acute Priority: High (5) Rheumatoid arthritis Current Visit: Yes Status: Acute Priority: High Comment: continue home meds, trying to obtain records from Dr douglass's office, (6) CKD (chronic kidney disease) Current Visit: Yes Status: Acute Priority: High Comment: Creatitine improving, down to 1.5 FENA 1%, suspect pre-renal improved with ivf will follow , hyperkalemia improved, Status and Disposition: Iv abx for diskitis and epidural abscess, id consult pending, neurosurgery following, plan for OR tomorrow,
[2017-03-13] MEDS: Vancomycin(*) 500 MG in NS 0.9% 250 ML* 250 ML IVPB SCH (12:55)
[2017-03-13] MEDS: Vancomycin(*) 1,000 MG in NS 0.9% 250 ML* 250 ML IVPB SCH (13:02)
[2017-03-13] MEDS: Nicotine Inhaler* 10 MG AMP INH PRN ×2 (13:28→16:47)
[2017-03-13] MEDS: Nicotine GUM* 2 MG PO PRN ×3 (13:29→20:12)
[2017-03-13] MEDS: Cyclobenzaprine TAB* 10 MG PO PRN (16:19)
[2017-03-13] MEDS: oxyCODONE/Acetamin 5/325 MG* TAB PO PRN ×2 (16:20→20:07)
[2017-03-13] MEDS ORDERED: NS 0.9% 1000 ML* 1,000 ML IV SCH (23:59)
[2017-03-14] MEDS: Nicotine GUM* 2 MG PO PRN ×2 (05:57→19:52)
[2017-03-14 08:03] LABS: ABS Basophils 0.1 10^3/ul (0-0.2); ABS Eosinophils 0.3 10^3/ul (0-0.6); ABS Lymphocytes 1.2 10^3/ul (1.0-4.8); ABS Monocytes 0.9 10^3/ul (0-0.8); ABS Neutrophils 5.4 10^3/ul (1.5-7.7); ABS Nucleated RBC 0 10^3/ul; Eosinophil % 4.3 % (0-6); Hematocrit 35 % (42-52); Hemoglobin 11.5 g/dl (14.0-18.0); Lymphocyte % 15.5 % (25-47); Mean Corpuscular HGB Conc 33 g/dl (31-36); Mean Corpuscular Hemoglobin 32 pg (27-31); Mean Corpuscular Volume 97 fL (80-94); Mean Platelet Volume 10 um3 (7.4-10.4); Nucleated Red Blood Cells % 0.1; Platelet Count 211 10^3/ul (150-450); Red Blood Count 3.59 10^6/ul (4.0-5.4); Red Cell Distribution Width 15 % (10.5-15); White Blood Count 7.9 10^3/ul (3.5-10.8)
[2017-03-14 08:22] LABS: EGFR Non-African American 50.3 (>60)
[2017-03-14] MEDS: Allopurinol TAB* 100 MG PO SCH (09:38)
[2017-03-14] MEDS: Hydroxychloroquine TAB* 200 MG PO SCH (09:38)
[2017-03-14] MEDS: Morphine INJ* 2 MG/ML 1 ML SYRINGE (TWO MG - NEW SYRINGE VERSION) IV PRN ×3 (09:44→23:48)
[2017-03-14] MEDS: Cefepime 2 GM in Dextrose(*) 2 GM/50 ML BAG IV SCH (11:06)
[2017-03-14] MEDS ORDERED: Lidocaine 1% MPF wEPI 200,000* 30 ML SDV ONE (13:32)
[2017-03-14] MEDS ORDERED: Thrombin 5,000 UNITS* 1 APPLIC KIT - topical use - TOPICAL ONE (13:32)
[2017-03-14] MEDS ORDERED: Bacitracin IV* 50,000 UNITS INJ ONE (13:33)
[2017-03-14] MEDS ORDERED: Propofol* 10 MG/ML 20 ML BTL IV PUSH ONE (13:35)
[2017-03-14] MEDS ORDERED: Midazolam* 1 MG/ML 2 ML VIAL (2 MG) ONE (13:36)
[2017-03-14] MEDS ORDERED: fentaNYL* 50 MCG/ML 2 ML VIAL (100 MCG VIAL) ONE ×2 (13:36→16:00)
[2017-03-14] MEDS ORDERED: Atracurium* 10 MG/ML 10 ML VIAL ONE (13:36)
[2017-03-14] MEDS ORDERED: Phenylephrine IV* 40 MCG/ML 10 ML SYRINGE ONE (14:25)
[2017-03-14] MEDS ORDERED: Ondansetron INJ* 2 MG/ML VIAL IV PRN (15:15)
[2017-03-14] MEDS ORDERED: HYDROmorphone INJ* 1 MG/ML CARPUJECT SYRINGE IV PRN (15:15)
[2017-03-14] MEDS ORDERED: Naloxone* 0.4 MG/ML 1 ML VIAL IV PRN (15:15)
[2017-03-14] MEDS ORDERED: Neostigmine Methylsulfate* 2 MG/2 ML SYRINGE ONE ×2 (15:38→15:42)
[2017-03-14] MEDS ORDERED: Glycopyrrolate IV* 0.2 MG/ML 1 ML VIAL ONE ×2 (15:38→15:42)
[2017-03-14] MEDS: fentaNYL* 50 MCG/ML 2 ML VIAL (100 MCG VIAL) IV PRN ×3 (16:02→16:47)
--- NOTE | 2017-03-14 16:43 | CONS ---
INPATIENT CONSULTATION REPORT: DATE OF CONSULT: 03/11/17 CHIEF COMPLAINT: Back pain. HISTORY OF PRESENT ILLNESS: This 67-year-old, chronically-ill gentleman had been in and out of the emergency room on several occasions in the past several weeks with progressive back pain. On the morning of this admission, he had called in extreme back pain and summoned an ambulance to bring him to the emergency department. When evaluated in the emergency department, he complained of severe back pain and as part of his evaluation, a CT scan was done of his lumbar spine, which suggested diskitis, osteomyelitis at L4-5. The patient has a history of prior IV drug use as well as chronic renal disease. Neurosurgical consultation was requested regarding his intractable back pain. His pain was so severe he was unable to ambulate. When seen initially in the emergency department, he was somewhat confused and apparently there is a history of chronic cocaine use as well. The patient denied any numbness or tingling in his legs and was able to move his legs though he preferred to remain on his side for comfort. PAST MEDICAL HISTORY: Significant for hepatitis C, chronic renal disease, and history of IV drug use. PAST SURGICAL HISTORY: He has had no prior surgery. MEDICATIONS: At the time of admission included: 1. Tramadol 50 mg p.o. t.i.d. 2. Mobic 7.5 mg p.o. b.i.d. 3. Plaquenil 200 mg p.o. daily. 4. Flexeril 10 mg p.o. 3 times a day as needed. 5. Allopurinol 100 mg p.o. daily. ALLERGIES: He has no medication allergies. FAMILY HISTORY: Family history was taken and noncontributory to this illness. SOCIAL HISTORY: Social history revealed he smokes at least 1 pack of cigarettes a day. He uses cocaine but does not drink. His surrogate decision maker is his sister, Harriet. REVIEW OF SYSTEMS: A system review was taken and the patient generally could not cooperate with the questioning due to his severe pain. PHYSICAL EXAM: He is a chronically ill-appearing gentleman preferring to lie on his side due to discomfort. His blood pressure is 119/68 with a pulse of 68 and he was afebrile. Head was normocephalic, no tenderness. Neck was supple. Lungs were clear to auscultation. Cardiovascular exam revealed regular rate and rhythm. Abdomen was soft with normal bowel sounds. No tenderness. Extremities revealed good movement of his lower extremities though he complained of back pain. Straight leg raise test was positive at 10 degrees. Neurological examination revealed him to be somewhat confused in his mental status exam. Motor examination revealed his motor findings to be grossly intact. Sensory exam was not reproducible secondary to lack of cooperation. Reflexes were absent throughout with downgoing toes and no clonus. DIAGNOSTIC STUDIES: A CT scan of the lumbar spine was reviewed and showed what appeared to be diskitis, osteomyelitis at L4-5, as well as prior marked degenerative changes at L3-4. IMPRESSION: Probable diskitis, osteomyelitis. PLAN: He is being admitted by the hospitalist service and I request an MRI study to be done. Due to his elevated creatinine, this can only be done without contrast. Further treatment plans will be dictated by the result of his radiographic studies. [id number] #: [id number] MTDD
--- NOTE | 2017-03-14 17:19 | PN ---
Subjective Date of Service: 03/14/17 Interval History: Patient states that he is hungry and want to eat, c/o back pain, states that he has been crawling around in his apartment for 1 month unable to walk. Denies chest pain, Denies shortness of breath or abd pain. Denies N/V/D. Does report weakness in legs x 1 month Family History: Unchanged from Admission Social History: Unchanged from Admission Past Medical History: Unchanged from Admission Objective Active Medications: Acetaminophen (Tylenol Tab*) 650 mg PO Q4H PRN PRN Reason: FEVER/PAIN Allopurinol (Zyloprim Tab*) 100 mg PO DAILY [facility] Last Admin: 03/14/17 09:38 Dose: Not Given Calcium Carbonate (Tums*) 500 mg PO Q4H PRN PRN Reason: INDIGESTION Last Admin: 03/12/17 11:44 Dose: 500 mg Cyclobenzaprine HCl (Flexeril Tab*) 10 mg PO TID PRN PRN Reason: SPASMS - BACK Last Admin: 03/13/17 16:19 Dose: 10 mg Fentanyl Citrate (Fentanyl*) 25 mcg IV Q2M PRN PRN Reason: PAIN - MODERATE Stop: 03/14/17 20:00 Last Admin: 03/14/17 16:47 Dose: 25 mcg Hydromorphone HCl (Dilaudid Injic*) 0.1 mg IV Q5M PRN PRN Reason: PAIN - SEVERE Stop: 03/14/17 20:00 Hydroxychloroquine Sulfate (Plaquenil Tab*) 100 mg PO DAILY [facility] Stop: 03/18/17 09:01 Last Admin: 03/14/17 09:38 Dose: Not Given Hydroxychloroquine Sulfate (Plaquenil Tab*) 200 mg PO DAILY [facility] Cefepime HCl (Maxipime 2 Gm In Dextrose Duplex (*)) 2 gm in 50 mls @ 100 mls/ hr IV Q24H [facility] Last Admin: 03/14/17 11:06 Dose: 100 mls/hr Sodium Chloride (Ns 0.9% 1000 Ml*) 1,000 mls @ 75 mls/hr IV PER RATE [facility] Last Admin: 03/14/17 11:05 Dose: 75 mls/hr Vancomycin HCl 1,000 mg/ (Sodium Chloride) 250 mls @ 166.667 mls/hr IVPB 1300 [facility] Last Admin: 03/13/17 13:02 Dose: 166.667 mls/hr Morphine Sulfate (Morphine Inj (Syringe)*) 4 mg IV Q4H PRN PRN Reason: PAIN Last Admin: 03/14/17 09:44 Dose: 4 mg Naloxone HCl (Narcan*) 0.08 mg IV Q2M PRN PRN Reason: severe induced resp depression Stop: 03/15/17 07:15 Nicotine (Nicotine Inhaler*) 10 mg INH Q2H PRN PRN Reason: CRAVING Last Admin: 03/13/17 16:47 Dose: 10 mg Nicotine Polacrilex (Nicotine Gum*) 2 mg PO Q2H PRN PRN Reason: CRAVING Last Admin: 03/14/17 05:57 Dose: 2 mg Ondansetron HCl (Zofran Inj*) 4 mg IV Q6H PRN PRN Reason: NAUSEA Ondansetron HCl (Zofran Inj*) 4 mg IV ONCE PRN PRN Reason: NAUSEA/VOMITING Stop: 03/14/17 20:00 Oxycodone/Acetaminophen (Percocet 5/325 Tab*) 1 tab PO Q4H PRN PRN Reason: PAIN Last Admin: 03/13/17 20:07 Dose: 1 tab Pharmacy Consult (Vancomycin Per Pharmacy*) 1 note FOLLOW UP . PRN PRN Reason: PER PROTOCOL Pharmacy Profile Note (Vancomycin Trough Check) 1 note FOLLOW UP 1300 [facility] Stop: 03/15/17 13:01 Zolpidem Tartrate (Ambien Tab*) 10 mg PO BEDTIME PRN; Protocol PRN Reason: SLEEP Last Admin: 03/12/17 00:56 Dose: 10 mg Vital Signs - 8 hr 03/14/17 03/14/17 03/14/17 09:44 11:00 11:28 Temperature 97.9 F Pulse Rate 117 Respiratory 18 20 16 Rate Blood Pressure 163/52 (mmHg) O2 Sat by Pulse 91 Oximetry 03/14/17 03/14/17 03/14/17 15:53 16:00 16:02 Temperature 96.8 F Pulse Rate 92 88 Respiratory 16 16 16 Rate Blood Pressure 175/87 176/104 (mmHg) O2 Sat by Pulse 100 97 Oximetry 03/14/17 03/14/17 03/14/17 16:05 16:06 16:10 Temperature Pulse Rate 90 88 Respiratory 16 17 16 Rate Blood Pressure 190/104 178/88 (mmHg) O2 Sat by Pulse 97 97 Oximetry 03/14/17 03/14/17 03/14/17 16:30 16:47 17:00 Temperature Pulse Rate 88 72 Respiratory 16 18 16 Rate Blood Pressure 160/92 (mmHg) O2 Sat by Pulse 99 98 Oximetry Oxygen Devices in Use Now: Nasal Cannula Appearance: alert, appears comfortable resting in bed. Eyes: No Scleral Icterus Ears/Nose/Mouth/Throat: NL Teeth, Lips, Gums, Mucous Membranes Moist Neck: NL Appearance and Movements; NL JVP, Trachea Midline Respiratory: Symmetrical Chest Expansion and Respiratory Effort, Clear to Auscultation Cardiovascular: NL Sounds; No Murmurs; No JVD, RRR, No Edema Abdominal: NL Sounds; No Tenderness; No Distention Extremities: No Edema, No Clubbing, Cyanosis Skin: No Rash or Ulcers Neurological: Alert and Oriented x 3, NL Sensation, - - sensation intact to bilat lower legs. Nutrition: - - NPO for the OR will resume diet post surgery Result Diagrams: 03/15/17 05:15 03/15/17 05:15 Microbiology and Other Data: Microbiology 03/11/17 20:00 Aerobic Blood Culture - Preliminary No Source Provided No Growth Day 1 Anaerobic Blood Culture - Preliminary No Growth Day 1 03/11/17 14:19 Aerobic Blood Culture - Preliminary No Source Provided No Growth Day 1 Anaerobic Blood Culture - Preliminary No Growth Day 1 03/11/17 12:21 Urine Culture - Final Urine Assess/Plan/Problems-Billing Assessment: 67 y/o male presenting to [facility] [place] with complaints of back pain found to have epidural abscess and diskitis, to OR today, c/o of lower ext weakness for 1 month unable to walk at home. - Patient Problems (1) Discitis of lumbar region Current Visit: Yes Status: Acute Code(s): M46.46 - DISCITIS, UNSPECIFIED, LUMBAR REGION SNOMED Code(s): 206672775 Comment: Vancomycin cefepime Cultures pending (2) DVT prophylaxis Current Visit: Yes Status: Acute Priority: High Code(s): FDE7430 - SNOMED Code(s): 874390902 Comment: scds (3) Epidural abscess Current Visit: Yes Status: Acute Priority: High Code(s): G06.2 - EXTRADURAL AND SUBDURAL ABSCESS, UNSPECIFIED SNOMED Code(s): 55190634 Comment: Neurosurgery following to OR 03/14, continue IV abx, will need picc, ID consult pending, cefepime and vanco for now, medically optimized, will be moderate risk from resp standpoint given hx of smoking may have underlying COPD , (4) Full code status Current Visit: Yes Status: Acute Priority: High Code(s): Z78.9 - OTHER SPECIFIED HEALTH STATUS SNOMED Code(s): 132443414 (5) Back pain Current Visit: No Status: Acute Code(s): M54.9 - DORSALGIA, UNSPECIFIED SNOMED Code(s): 952581290 Comment: Pain management as needed Status and Disposition: Iv abx for diskitis and epidural abscess, id consult pending, neurosurgery following,OR today
[2017-03-14] MEDS: Vancomycin(*) 1,000 MG in NS 0.9% 250 ML* 250 ML IVPB SCH (18:17)
--- NOTE | 2017-03-14 19:29 | RAD ---
HISTORY: Decompressive lumbar laminectomy COMPARISONS: None VIEWS: 1 , portable intraoperative view of the spine for localization during lumbar laminectomy FINDINGS: A single portable view of the spine performed intraoperatively for localization during lumbar laminectomy is submitted, dated March 14, 2012 at 2:55 PM. Metallic probe is noted opposite of L4-L5, counting from L5 as the last lumbar type vertebral body. IMPRESSION: LIMITED PORTABLE VIEW OF THE SPINE FOR LOCALIZATION DURING SPINAL SURGERY.
[2017-03-14] MEDS ORDERED: Mouth Piece, Nicotine* 1 EACH CARTRIDGE ONE (19:50)
[2017-03-14] MEDS: Nicotine Inhaler* 10 MG AMP INH PRN (19:52)
[2017-03-14] MEDS: Zolpidem TAB* 10 MG PO PRN ×2 (19:52→22:16)
--- NOTE | 2017-03-14 20:07 | CONS ---
CONSULTATION REPORT: DATE OF CONSULT: 03/14/17 REQUESTING PROVIDER: Puneet Luz NP CONSULTING SERVICE: Infectious Disease. REASON FOR CONSULT: Epidural abscess. IMPRESSION: 1. A month of worsening low back pain and weight loss, lumbar spine MRI shows loculated paravertebral collections, L4-L5, which are abscesses; epidural collection, L4-L5, which is an epidural abscess. Blood cultures are negative, usually staph or strep. 2. Pain with leg movement, but neurologically intact. 3. Hepatitis C. 4. Chronic kidney disease with acute kidney injury, improving. 5. History of IV drug use. RECOMMENDATIONS: 1. Continue vancomycin, goal trough 15 to 20, and cefepime 2 g daily. 2. If his kidney function continues to improve, we may change the cefepime dosing. Cultures at his decompression surgery which is pending for today. 3. HIV antibody. HISTORY OF PRESENT ILLNESS: This is a 67-year-old man, past injection drug use and hepatitis C as well as chronic kidney disease, admitted with worsening low back pain that has been quite severe for last few days, had been present for over a month, so severe recently that he could not walk due to pain, did not feel the legs were weak or giving out. He had no trouble with bowels or bladder. He came to the hospital on 03/11/17. He had the MRI result as described above. He is started on vancomycin and cefepime. Blood cultures taken which have come back negative. He has had no fevers here. He had a leukocytosis 14,000, which has resolved. He had acute kidney injury. Creatinine was 2.7 when he arrived with a BUN of 64. Creatinine is down to 1.4. CRP was 41 on admission. He has not had infection requiring hospitalization in the past. PAST MEDICAL HISTORY: 1. Hepatitis C. 2. Cervical spondylosis. 3. Inflammatory arthropathy. 4. IV drug abuse. 5. Chronic kidney disease. MEDICATIONS: 1. Tylenol. 2. Allopurinol. 3. Flexeril. 4. Hydroxychloroquine. 5. Cefepime 2 g IV daily. 6. Morphine as needed. 7. Nicotine gum and inhaler. 8. Zofran. 9. Vancomycin 1 g daily. 10. Ambien. ALLERGIES: No known drug allergies. FAMILY HISTORY: Both parents with coronary disease and PA. SOCIAL HISTORY: Denies recent injection drug use, has used in the past. Smokes a pack a day. Past alcohol abuse. REVIEW OF SYSTEMS: A 14-point review of systems was negative except as noted above. PHYSICAL EXAM: Vital Signs: Temperature 36, heart rate is 60, respiratory rate 16, blood pressure 150/70, O2 sat 100% on room air. General: He is awake , and not in distress. Neurologic: He is oriented x3. Follows all commands. Strength is 5/5 in the quadriceps, tibialis anterior, and gastrocnemius bilaterally. Sensation is intact to light touch in the lower extremities bilaterally. There is no lower extremity clonus. HEENT: There is no conjunctival hemorrhage. Oropharynx without lesions. Neck: Supple without nuchal rigidity. Lymph Nodes: There is no inguinal, axillary, or epitrochlear lymphadenopathy. Heart has regular rate and rhythm without murmurs, rubs, or gallops. Lungs are clear to auscultation bilaterally. Abdomen: Soft, nontender, nondistended. There are bowel sounds presents. Skin: There is no rash or splinter hemorrhages. Musculoskeletal: There is lumbar spine tenderness to palpation. There is no thoracic or cervical spine tenderness. LABORATORY DATA: Creatinine 1.4. White blood cell count 7.9, hemoglobin 11.5, MCV 97, platelets 211. Please see impressions and recommendation as outlined above. Thank you for asking me to see Mr. Conner in consultation. [id number] #: [id number] AMAN
[2017-03-14] MEDS: Calcium Carbonate CHEW TAB* 500 MG (TUMS) PO PRN (22:16)
[2017-03-14] MEDS: oxyCODONE/Acetamin 5/325 MG* TAB PO PRN (22:16)
[2017-03-14] MEDS: Cyclobenzaprine TAB* 10 MG PO PRN (22:16)
[2017-03-14] MEDS ORDERED: Ketorolac INJ* 30 MG/ML 1 ML VIAL IV PRN (23:10)
--- NOTE | 2017-03-15 00:37 | PN ---
Progress Note - Progress Note Date of Service: 03/15/17 Note: Evaluated for uncontrolled post-op pain at the request of Dr Wilfrido MD neurosurgeon security operations specialist. Mr Conner is a 67M POD zero for epidural abscess who per nursing has been rambling to himself and screaming profanities. He has a HX of IV drug abuse. Upon evaluation he is observed both with his nurse and alone. He refuses offers for nursing to assist in repositioning from the L position he is in. While alone he does mumble, but I cannot discern. Upon entering the room he begins fidgeting with his R forearm IV stating he's going to rip it out. When asked where his pain is, states, "It's all in by back." Pain is severe & suddenly escalates without movement. When asked about his R forearm IV states, "Oh, the nurse was just in here doing something with it." Very shortly after I left the room, he called his nurse back in complaining of severe pain at the IV site. vitals: stable Lungs: CTAB CV: RRR abdomen: SNTND extremities: moves x4 integument: L-spine dressing clean & dry neuro: intact crude touch & motor to BLE Assessement: plan 1) uncontrolled post-op pain : switch morphine to hydromorphone 1mg IV Q2H PRN severe pain 2) lumbar spasms : 1mg IV lorazepam Q6H PRN 3) mild post-operative delirium : lorazepam as above : will consider IV haloperidol, if needed
[2017-03-15] MEDS: HYDROmorphone INJ* 1 MG/ML CARPUJECT SYRINGE IV PRN ×3 (00:51→20:00)
[2017-03-15] MEDS: LORazepam INJ* 2 MG/ML 1 ML VIAL IV PRN ×2 (00:52→09:47)
[2017-03-15 05:25] LABS: ABS Basophils 0.1 10^3/ul (0-0.2); ABS Eosinophils 0.3 10^3/ul (0-0.6); ABS Lymphocytes 0.9 10^3/ul (1.0-4.8); ABS Neutrophils 6.7 10^3/ul (1.5-7.7); ABS Nucleated RBC 0 10^3/ul; Eosinophil % 3.2 % (0-6); Hematocrit 32 % (42-52); Hemoglobin 10.5 g/dl (14.0-18.0); Lymphocyte % 10.2 % (25-47); Mean Corpuscular HGB Conc 33 g/dl (31-36); Mean Corpuscular Hemoglobin 32 pg (27-31); Mean Corpuscular Volume 97 fL (80-94); Mean Platelet Volume 10 um3 (7.4-10.4); Nucleated Red Blood Cells % 0; Platelet Count 201 10^3/ul (150-450); Red Cell Distribution Width 15 % (10.5-15)
[2017-03-15 05:44] LABS: EGFR Non-African American 34.8 (>60)
[2017-03-15] MEDS: Nicotine GUM* 2 MG PO PRN (08:49)
[2017-03-15] MEDS: Allopurinol TAB* 100 MG PO SCH (08:49)
[2017-03-15] MEDS: Hydroxychloroquine TAB* 200 MG PO SCH (09:10)
[2017-03-15] MEDS: Cefepime 2 GM in Dextrose(*) 2 GM/50 ML BAG IV SCH (11:03)
[2017-03-15] MEDS ORDERED: Vancomycin Trough Check NOTE FOLLOW UP ONE (13:00)
[2017-03-15] MEDS: Cyclobenzaprine TAB* 10 MG PO PRN (13:57)
[2017-03-15] MEDS: Vancomycin(*) 1,000 MG in NS 0.9% 250 ML* 250 ML IVPB SCH (15:01)
--- NOTE | 2017-03-15 16:11 | PN ---
Subjective Date of Service: 03/15/17 Interval History: C/o pain to lower back rated at 7, Denies nausea, vomiting or diarrhea. Denies abd pain. Denies chest pain or shortness of breath. Post-op day 1 Family History: Unchanged from Admission Social History: Unchanged from Admission Past Medical History: Unchanged from Admission Objective Active Medications: Acetaminophen (Tylenol Tab*) 650 mg PO Q4H PRN PRN Reason: FEVER/PAIN Allopurinol (Zyloprim Tab*) 100 mg PO DAILY [facility] Last Admin: 03/15/17 08:49 Dose: 100 mg Calcium Carbonate (Tums*) 500 mg PO Q4H PRN PRN Reason: INDIGESTION Last Admin: 03/14/17 22:16 Dose: 500 mg Cyclobenzaprine HCl (Flexeril Tab*) 10 mg PO TID PRN PRN Reason: SPASMS - BACK Last Admin: 03/15/17 13:57 Dose: 10 mg Hydromorphone HCl (Dilaudid Injic*) 1 mg IV Q2H PRN PRN Reason: SEVERE PAIN Last Admin: 03/15/17 13:58 Dose: 1 mg Hydroxychloroquine Sulfate (Plaquenil Tab*) 100 mg PO DAILY [facility] Stop: 03/18/17 09:01 Last Admin: 03/15/17 09:10 Dose: 100 mg Hydroxychloroquine Sulfate (Plaquenil Tab*) 200 mg PO DAILY [facility] Cefepime HCl (Maxipime 2 Gm In Dextrose Duplex (*)) 2 gm in 50 mls @ 100 mls/ hr IV Q24H [facility] Last Admin: 03/15/17 11:03 Dose: 100 mls/hr Sodium Chloride (Ns 0.9% 1000 Ml*) 1,000 mls @ 75 mls/hr IV PER RATE [facility] Last Admin: 03/14/17 11:05 Dose: 75 mls/hr Vancomycin HCl 1,000 mg/ (Sodium Chloride) 250 mls @ 166.667 mls/hr IVPB 1300 [facility] Last Admin: 03/15/17 15:01 Dose: Not Given Lorazepam (Ativan Inj*) 1 mg IV Q6H PRN PRN Reason: SLEEP Last Admin: 03/15/17 09:47 Dose: 1 mg Nicotine (Nicotine Inhaler*) 10 mg INH Q2H PRN PRN Reason: CRAVING Last Admin: 03/14/17 19:52 Dose: 10 mg Nicotine Polacrilex (Nicotine Gum*) 2 mg PO Q2H PRN PRN Reason: CRAVING Last Admin: 03/15/17 08:49 Dose: 2 mg Ondansetron HCl (Zofran Inj*) 4 mg IV Q6H PRN PRN Reason: NAUSEA Oxycodone/Acetaminophen (Percocet 5/325 Tab*) 1 tab PO Q4H PRN PRN Reason: PAIN Last Admin: 03/14/17 22:16 Dose: 1 tab Pharmacy Consult (Vancomycin Per Pharmacy*) 1 note FOLLOW UP . PRN PRN Reason: PER PROTOCOL Zolpidem Tartrate (Ambien Tab*) 10 mg PO BEDTIME PRN; Protocol PRN Reason: SLEEP Last Admin: 03/14/17 22:16 Dose: 10 mg Vital Signs - 8 hr 03/15/17 03/15/17 03/15/17 09:47 11:04 11:52 Temperature 98.9 F Pulse Rate 73 Respiratory 18 16 18 Rate Blood Pressure 138/46 (mmHg) O2 Sat by Pulse 99 Oximetry 03/15/17 03/15/17 13:57 13:58 Temperature Pulse Rate Respiratory 18 17 Rate Blood Pressure (mmHg) O2 Sat by Pulse Oximetry Oxygen Devices in Use Now: None Appearance: alert, resting in bed, appear to have some discomfort Eyes: No Scleral Icterus Ears/Nose/Mouth/Throat: Clear Oropharnyx, Mucous Membranes Moist Neck: NL Appearance and Movements; NL JVP, Trachea Midline Respiratory: Symmetrical Chest Expansion and Respiratory Effort, Clear to Auscultation Cardiovascular: NL Sounds; No Murmurs; No JVD, RRR, No Edema Abdominal: NL Sounds; No Tenderness; No Distention Extremities: No Edema, No Clubbing, Cyanosis, - - DP+2 bilat Skin: No Rash or Ulcers, - - dressing intact to lower back , drain in place Neurological: Alert and Oriented x 3, NL Sensation, NL Muscle Strength and Tone Nutrition: Taking PO's Result Diagrams: 03/15/17 05:15 03/15/17 05:15 Microbiology and Other Data: Microbiology 03/11/17 20:00 Aerobic Blood Culture - Preliminary No Source Provided No Growth Day 1 Anaerobic Blood Culture - Preliminary No Growth Day 1 03/11/17 14:19 Aerobic Blood Culture - Preliminary No Source Provided No Growth Day 1 Anaerobic Blood Culture - Preliminary No Growth Day 1 03/11/17 12:21 Urine Culture - Final Urine Assess/Plan/Problems-Billing Assessment: 67 y/o male presenting to [facility] – [place] with complaints of back pain found to have epidural abscess and diskitis, to OR today, c/o of lower ext weakness for 1 month unable to walk at home. - Patient Problems (1) Discitis of lumbar region Current Visit: Yes Status: Acute Code(s): M46.46 - DISCITIS, UNSPECIFIED, LUMBAR REGION SNOMED Code(s): 699522000 Comment: Vancomycin cefepime Cultures pending (2) DVT prophylaxis Current Visit: Yes Status: Acute Priority: High Code(s): RKP6829 - SNOMED Code(s): 600585590 Comment: scds (3) Epidural abscess Current Visit: Yes Status: Acute Priority: High Code(s): G06.2 - EXTRADURAL AND SUBDURAL ABSCESS, UNSPECIFIED SNOMED Code(s): 33227986 Comment: Neurosurgery following to OR 03/14, continue IV abx, will need picc, ID consult pending, cefepime and vanco for now, medically optimized, will be moderate risk from resp standpoint given hx of smoking may have underlying COPD , (4) Full code status Current Visit: Yes Status: Acute Priority: High Code(s): Z78.9 - OTHER SPECIFIED HEALTH STATUS SNOMED Code(s): 923331187 (5) Back pain Current Visit: No Status: Acute Code(s): M54.9 - DORSALGIA, UNSPECIFIED SNOMED Code(s): 777141154 Comment: Pain management as needed Status and Disposition: Iv abx for diskitis and epidural abscess, id consult pending, neurosurgery following,OR today
[2017-03-15] MEDS: oxyCODONE/Acetamin 5/325 MG* TAB PO PRN (18:45)
[2017-03-15] MEDS: Calcium Carbonate CHEW TAB* 500 MG (TUMS) PO PRN (21:45)
[2017-03-15] MEDS: Zolpidem TAB* 10 MG PO PRN (21:46)
[2017-03-16] MEDS: Haloperidol INJ IV/IM* 5 MG/ML AMP IV SLOW PU PRN (02:19)
[2017-03-16] MEDS: oxyCODONE/Acetamin 5/325 MG* TAB PO PRN ×4 (05:55→23:07)
--- NOTE | 2017-03-16 09:58 | PN ---
Progress Note - Progress Note Date of Service: 03/16/17 SOAP: Subjective: CC: epidural abscess HPI: 67 year old man with 1 month low back pain, epidural abscess which was drained 03/14. Ongoing back pain though a little better. No fever, rash, or diarrhea. Objective: Vital Signs Temp 37.2 C 03/15/17 15:30 Pulse 83 03/15/17 15:30 Resp 18 03/16/17 07:49 BP 141/54 03/15/17 15:30 Pulse Ox 99 03/15/17 15:30 Intake & Output 03/15/17 03/16/17 03/16/17 18:59 06:59 18:59 Intake Total 360 1000 Output Total 330 770 225 Balance 30 230 -225 Intake: IV Fluids 120 ABX - CEFEPIME 100 Normal Saline 20 Oral 240 1000 Output: JUNIOR #1 30 20 Urine 300 750 225 Other: Estimated Void Medium # Bowel Movements 0 # Voids 1 Gen:awake, no distress HEENT:PERRL, MMM Heart:RRR no murmur Lungs:CTA BL Abd:+BS NTND soft Skin: no rash MSK: L spine incision intact, no erythema Microbiology 03/14/17 15:00 Wound Gram Stain - Final Tissue - Other Tissue Culture - Preliminary No Growth Day 2 03/14/17 15:00 Anaerobic Culture - Preliminary Wound - Other No Growth Day 2 03/14/17 15:00 Gram Stain - Final Back Wound Culture - Final No Growth Day 2 03/11/17 20:00 Aerobic Blood Culture - Preliminary No Source Provided No Growth Day 4 Anaerobic Blood Culture - Preliminary No Growth Day 4 03/11/17 14:19 Aerobic Blood Culture - Preliminary No Source Provided No Growth Day 4 Anaerobic Blood Culture - Preliminary No Growth Day 4 Assessment: 1. chronic L spine epidural abscess s/p decompression; culture negative 2. 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 past IVDU 4. HCV 5. CKD 5. acute kidney injury Plan: 1. continue vancomycin goal tr 15-20 and cefepime 2 gm daily; will add fungal and acid fast cultures 2. will need 8 weeks IV treatment
[2017-03-16] MEDS: Cefepime 2 GM in Dextrose(*) 2 GM/50 ML BAG IV SCH (10:25)
[2017-03-16] MEDS: Cyclobenzaprine TAB* 10 MG PO PRN ×3 (10:26→23:07)
[2017-03-16] MEDS: Allopurinol TAB* 100 MG PO SCH (10:26)
[2017-03-16] MEDS: Hydroxychloroquine TAB* 200 MG PO SCH (10:27)
--- NOTE | 2017-03-16 11:50 | PN ---
Progress Note - Progress Note Date of Service: 03/16/17 SOAP: Subjective: [S/p lumbar decompression for epidural abscess, POD #2. Complains of back pain and lower extremity pain with movement. Relatively uncooperative in responding to questions. Denies headache and nausea. ] Objective: [General: Oriented although uncooperative with other questions. Neuro: Mildly diminished sensation of RLE. Incision: Intact and wound drain in place.] Assessment: [Stable post-op.] Plan: [1. Continue antibiotics and pain management. 2. Continue monitoring wound drain output. 3. Physical therapy.]
[2017-03-16] MEDS: Vancomycin(*) 1,000 MG in NS 0.9% 250 ML* 250 ML IVPB SCH (13:38)
[2017-03-16] MEDS ORDERED: HYDROmorphone INJ* 2 MG/ML CARPUJECT SYRINGE ONE (18:16)
[2017-03-16] MEDS: HYDROmorphone INJ* 1 MG/ML CARPUJECT SYRINGE IV PRN (18:19)
--- NOTE | 2017-03-16 23:08 | PN ---
Subjective Date of Service: 03/16/17 Interval History: Denies back pain. Denies nausea, vomiting or diarrhea. Denies abd pain. Denies chest pain or shortness of breath. Post-op day 2 Family History: Unchanged from Admission Social History: Unchanged from Admission Past Medical History: Unchanged from Admission Objective Active Medications: Acetaminophen (Tylenol Tab*) 650 mg PO Q4H PRN PRN Reason: FEVER/PAIN Allopurinol (Zyloprim Tab*) 100 mg PO DAILY [facility] Last Admin: 03/16/17 10:26 Dose: 100 mg Calcium Carbonate (Tums*) 500 mg PO Q4H PRN PRN Reason: INDIGESTION Last Admin: 03/15/17 21:45 Dose: 500 mg Cyclobenzaprine HCl (Flexeril Tab*) 10 mg PO TID PRN PRN Reason: SPASMS - BACK Last Admin: 03/16/17 16:05 Dose: 10 mg Haloperidol Lactate (Haldol Inj Iv/Im*) 5 mg IV SLOW PU Q6H PRN PRN Reason: AGITATION Last Admin: 03/16/17 02:19 Dose: 5 mg Hydromorphone HCl (Dilaudid Inj*) 1 mg IV Q2H PRN PRN Reason: SEVERE PAIN Hydroxychloroquine Sulfate (Plaquenil Tab*) 100 mg PO DAILY [facility] Stop: 03/18/17 09:01 Last Admin: 03/16/17 10:27 Dose: 100 mg Hydroxychloroquine Sulfate (Plaquenil Tab*) 200 mg PO DAILY [facility] Cefepime HCl (Maxipime 2 Gm In Dextrose Duplex (*)) 2 gm in 50 mls @ 100 mls/ hr IV Q24H [facility] Last Admin: 03/16/17 10:25 Dose: 100 mls/hr Sodium Chloride (Ns 0.9% 1000 Ml*) 1,000 mls @ 75 mls/hr IV PER RATE [facility] Last Admin: 03/14/17 11:05 Dose: 75 mls/hr Vancomycin HCl 1,000 mg/ (Sodium Chloride) 250 mls @ 166.667 mls/hr IVPB 1300 [facility] Last Admin: 03/16/17 13:38 Dose: Not Given Lorazepam (Ativan Inj*) 1 mg IV Q6H PRN PRN Reason: SLEEP Last Admin: 03/15/17 09:47 Dose: 1 mg Nicotine (Nicotine Inhaler*) 10 mg INH Q2H PRN PRN Reason: CRAVING Last Admin: 03/14/17 19:52 Dose: 10 mg Nicotine Polacrilex (Nicotine Gum*) 2 mg PO Q2H PRN PRN Reason: CRAVING Last Admin: 03/15/17 08:49 Dose: 2 mg Ondansetron HCl (Zofran Inj*) 4 mg IV Q6H PRN PRN Reason: NAUSEA Oxycodone/Acetaminophen (Percocet 5/325 Tab*) 1 tab PO Q4H PRN PRN Reason: PAIN Last Admin: 03/16/17 16:05 Dose: 1 tab Pharmacy Consult (Vancomycin Per Pharmacy*) 1 note FOLLOW UP . PRN PRN Reason: PER PROTOCOL Pharmacy Profile Note (Vancomycin Trough Check) 1 note FOLLOW UP 1230 ONE Stop: 03/17/17 12:31 Zolpidem Tartrate (Ambien Tab*) 10 mg PO BEDTIME PRN; Protocol PRN Reason: SLEEP Last Admin: 03/15/17 21:46 Dose: 10 mg Vital Signs - 8 hr 03/16/17 03/16/17 03/16/17 16:05 18:19 18:20 Respiratory 18 18 18 Rate Oxygen Devices in Use Now: None Eyes: No Scleral Icterus Ears/Nose/Mouth/Throat: NL Teeth, Lips, Gums, Clear Oropharnyx, Mucous Membranes Moist Neck: NL Appearance and Movements; NL JVP, Trachea Midline Respiratory: Symmetrical Chest Expansion and Respiratory Effort, Clear to Auscultation Cardiovascular: NL Sounds; No Murmurs; No JVD, RRR, No Edema Extremities: No Edema, No Clubbing, Cyanosis Skin: No Rash or Ulcers Neurological: Alert and Oriented x 3 Nutrition: Taking PO's Result Diagrams: 03/15/17 05:15 03/15/17 05:15 Microbiology and Other Data: Microbiology 03/11/17 20:00 Aerobic Blood Culture - Preliminary No Source Provided No Growth Day 1 Anaerobic Blood Culture - Preliminary No Growth Day 1 03/11/17 14:19 Aerobic Blood Culture - Preliminary No Source Provided No Growth Day 1 Anaerobic Blood Culture - Preliminary No Growth Day 1 03/11/17 12:21 Urine Culture - Final Urine Assess/Plan/Problems-Billing Assessment: 67 y/o male presenting to [facility] [place] with complaints of back pain found to have epidural abscess and diskitis, to OR today, c/o of lower ext weakness for 1 month unable to walk at home. - Patient Problems (1) Discitis of lumbar region Current Visit: Yes Status: Acute Code(s): M46.46 - DISCITIS, UNSPECIFIED, LUMBAR REGION SNOMED Code(s): 767725297 Comment: Vancomycin cefepime Cultures pending (2) DVT prophylaxis Current Visit: Yes Status: Acute Priority: High Code(s): EQC2097 - SNOMED Code(s): 445692729 Comment: scds (3) Epidural abscess Current Visit: Yes Status: Acute Priority: High Code(s): G06.2 - EXTRADURAL AND SUBDURAL ABSCESS, UNSPECIFIED SNOMED Code(s): 01953821 Comment: Neurosurgery following to OR 03/14, completed cultures pending continue IV abx, ID consult will need IV antibiotic for 8 weeks, cefepime and vanco for now, (4) Full code status Current Visit: Yes Status: Acute Priority: High Code(s): Z78.9 - OTHER SPECIFIED HEALTH STATUS SNOMED Code(s): 363566591 (5) Back pain Current Visit: No Status: Acute Code(s): M54.9 - DORSALGIA, UNSPECIFIED SNOMED Code(s): 117408944 Comment: Pain management as needed Status and Disposition: Iv abx for diskitis and epidural abscess, id consult completed , neurosurgery following,OR post op 2
[2017-03-17] MEDS: HYDROmorphone INJ* 2 MG/ML CARPUJECT SYRINGE IV PRN ×4 (00:54→23:01)
[2017-03-17] MEDS: oxyCODONE/Acetamin 5/325 MG* TAB PO PRN ×3 (06:49→15:41)
[2017-03-17] MEDS: Hydroxychloroquine TAB* 200 MG PO SCH (07:39)
[2017-03-17] MEDS: Allopurinol TAB* 100 MG PO SCH (07:39)
--- NOTE | 2017-03-17 09:57 | PN ---
Progress Note - Progress Note Date of Service: 03/17/17 SOAP: Subjective: [S/p lumbar decompression for epidural abscess, POD #3. Patient's friend present in room at time of evaluation. Patient reports feeling well this morning. Complains of low back and lower extremity pain, LT>RT, with movements. Able to stand this morning but not ambulating. Denies headache, chest pain, nausea. ] Objective: [ Vital Signs: Temp Pulse Resp BP Pulse Ox 98.2 F 76 16 162/68 95 03/17/17 07:18 03/17/17 07:18 03/17/17 08:00 03/17/17 07:18 03/17/17 07:18 General: Alert and conversing happily with friend. Neuro: Oriented to person, [facility] and date. Mild sensory deficit in RLE. Incision: Intact and without swelling. Wound drain discontinued today. Extremities: Full ROM. ] Assessment: [Stable post-op. Patient more cooperative today although was frustrated this morning and refusing treatments. We discussed treatment with several weeks of IV antibiotics and returning home after the antibiotic course is complete. We discussed that IV rather than oral antibiotics are necessary to treat this infection. He understands that he requires IV treatment and that he will not be able to receive this at home. He is agreeable to the PICC and antibiotics now. We discussed the risks of him returning home without the antibiotic treatment including worsening of the infection, progressive weakness, numbness and pain in the lower extremities, paralysis, sepsis and . ] Plan: [1. Continue pain management. 2. PICC line placement today. 3. Continue antibiotics. 4. Physical therapy.]
[2017-03-17] MEDS: Nicotine GUM* 2 MG PO PRN ×2 (11:15→15:44)
[2017-03-17 12:13] LABS: ABS Basophils 0.1 10^3/ul (0-0.2); ABS Eosinophils 0.2 10^3/ul (0-0.6); ABS Lymphocytes 0.9 10^3/ul (1.0-4.8); ABS Monocytes 1.2 10^3/ul (0-0.8); ABS Neutrophils 6.2 10^3/ul (1.5-7.7); ABS Nucleated RBC 0 10^3/ul; Eosinophil % 2.4 % (0-6); Hematocrit 31 % (42-52); Hemoglobin 10.6 g/dl (14.0-18.0); Mean Corpuscular HGB Conc 34 g/dl (31-36); Mean Corpuscular Hemoglobin 32 pg (27-31); Mean Corpuscular Volume 95 fL (80-94); Mean Platelet Volume 9 um3 (7.4-10.4); Nucleated Red Blood Cells % 0; Platelet Count 216 10^3/ul (150-450); Red Blood Count 3.29 10^6/ul (4.0-5.4); Red Cell Distribution Width 15 % (10.5-15); White Blood Count 8.5 10^3/ul (3.5-10.8)
[2017-03-17] MEDS ORDERED: Vancomycin Trough Check NOTE FOLLOW UP ONE (12:30)
[2017-03-17] MEDS: Cyclobenzaprine TAB* 10 MG PO PRN (14:32)
[2017-03-17] MEDS: Cefepime 2 GM in Dextrose(*) 2 GM/50 ML BAG IV SCH (17:09)
[2017-03-17] MEDS: LORazepam INJ* 2 MG/ML 1 ML VIAL IV PRN (17:09)
[2017-03-17] MEDS: Vancomycin(*) 1,000 MG in NS 0.9% 250 ML* 250 ML IVPB SCH (17:42)
[2017-03-17] MEDS: Haloperidol INJ IV/IM* 5 MG/ML AMP IV SLOW PU PRN (18:35)
--- NOTE | 2017-03-17 18:41 | PN ---
Subjective Date of Service: 03/17/17 Interval History: Patient is refusing treatment on and off, Currently pleasant resting in bed. C/ o lower back pain,. Denies shortness of breath, abd pain, or chest pain. Denies nausea, vomiting or diarrhea. Family History: Unchanged from Admission Social History: Unchanged from Admission Past Medical History: Unchanged from Admission Objective Active Medications: Acetaminophen (Tylenol Tab*) 650 mg PO Q4H PRN PRN Reason: FEVER/PAIN Allopurinol (Zyloprim Tab*) 100 mg PO DAILY [facility] Last Admin: 03/17/17 07:39 Dose: 100 mg Calcium Carbonate (Tums*) 500 mg PO Q4H PRN PRN Reason: INDIGESTION Last Admin: 03/15/17 21:45 Dose: 500 mg Cyclobenzaprine HCl (Flexeril Tab*) 10 mg PO TID PRN PRN Reason: SPASMS - BACK Last Admin: 03/17/17 14:32 Dose: 10 mg Haloperidol Lactate (Haldol Inj Iv/Im*) 5 mg IV SLOW PU Q6H PRN PRN Reason: AGITATION Last Admin: 03/16/17 02:19 Dose: 5 mg Hydromorphone HCl (Dilaudid Inj*) 1 mg IV Q2H PRN PRN Reason: SEVERE PAIN Last Admin: 03/17/17 03:24 Dose: 1 mg Hydroxychloroquine Sulfate (Plaquenil Tab*) 100 mg PO DAILY [facility] Stop: 03/18/17 09:01 Last Admin: 03/17/17 07:39 Dose: 100 mg Hydroxychloroquine Sulfate (Plaquenil Tab*) 200 mg PO DAILY [facility] Cefepime HCl (Maxipime 2 Gm In Dextrose Duplex (*)) 2 gm in 50 mls @ 100 mls/ hr IV Q24H [facility] Last Admin: 03/17/17 17:09 Dose: 100 mls/hr Sodium Chloride (Ns 0.9% 1000 Ml*) 1,000 mls @ 75 mls/hr IV PER RATE [facility] Last Admin: 03/14/17 11:05 Dose: 75 mls/hr Vancomycin HCl 1,000 mg/ (Sodium Chloride) 250 mls @ 166.667 mls/hr IVPB 1300 [facility] Last Admin: 03/17/17 17:42 Dose: 166.667 mls/hr Lorazepam (Ativan Inj*) 1 mg IV Q6H PRN PRN Reason: SLEEP Last Admin: 03/17/17 17:09 Dose: 1 mg Nicotine (Nicotine Inhaler*) 10 mg INH Q2H PRN PRN Reason: CRAVING Last Admin: 03/14/17 19:52 Dose: 10 mg Nicotine Polacrilex (Nicotine Gum*) 2 mg PO Q2H PRN PRN Reason: CRAVING Last Admin: 03/17/17 15:44 Dose: 2 mg Ondansetron HCl (Zofran Inj*) 4 mg IV Q6H PRN PRN Reason: NAUSEA Oxycodone/Acetaminophen (Percocet 5/325 Tab*) 1 tab PO Q4H PRN PRN Reason: PAIN Last Admin: 03/17/17 15:41 Dose: 1 tab Pharmacy Consult (Vancomycin Per Pharmacy*) 1 note FOLLOW UP . PRN PRN Reason: PER PROTOCOL Pharmacy Profile Note (Vancomycin Trough Check) 1 note FOLLOW UP 1300 ONE Stop: 03/19/17 13:01 Zolpidem Tartrate (Ambien Tab*) 10 mg PO BEDTIME PRN; Protocol PRN Reason: SLEEP Last Admin: 03/15/17 21:46 Dose: 10 mg Vital Signs - 8 hr 03/17/17 03/17/17 03/17/17 10:51 10:52 11:47 Temperature 98.3 F Pulse Rate 87 Respiratory 16 16 18 Rate Blood Pressure 156/69 (mmHg) O2 Sat by Pulse 99 Oximetry 03/17/17 03/17/17 03/17/17 14:32 15:41 16:09 Temperature 98.5 F Pulse Rate 91 Respiratory 16 16 15 Rate Blood Pressure 154/80 (mmHg) O2 Sat by Pulse 99 Oximetry 03/17/17 03/17/17 17:09 17:48 Temperature Pulse Rate Respiratory 16 16 Rate Blood Pressure (mmHg) O2 Sat by Pulse Oximetry Oxygen Devices in Use Now: None Eyes: No Scleral Icterus Ears/Nose/Mouth/Throat: Clear Oropharnyx, Mucous Membranes Moist Neck: NL Appearance and Movements; NL JVP, Trachea Midline Respiratory: Symmetrical Chest Expansion and Respiratory Effort, Clear to Auscultation Cardiovascular: NL Sounds; No Murmurs; No JVD, RRR, No Edema Abdominal: NL Sounds; No Tenderness; No Distention Extremities: No Edema, No Clubbing, Cyanosis Skin: No Rash or Ulcers - dressing dry and intact to lumbar region in the back. , - Neurological: Alert and Oriented x 3 - Pt intermittenly refusing IV antibiotic treatment, no vanco for 3days, refused iv site, Result Diagrams: 03/17/17 12:06 03/17/17 12:06 Microbiology and Other Data: Microbiology 03/11/17 20:00 Aerobic Blood Culture - Preliminary No Source Provided No Growth Day 1 Anaerobic Blood Culture - Preliminary No Growth Day 1 03/11/17 14:19 Aerobic Blood Culture - Preliminary No Source Provided No Growth Day 1 Anaerobic Blood Culture - Preliminary No Growth Day 1 03/11/17 12:21 Urine Culture - Final Urine Assess/Plan/Problems-Billing Assessment: 67 [place]/o [place] [facility] [place] of [place] found to have epidural abscess and diskitis, to OR today, c/o of lower ext weakness for 1 month unable to walk at home. - Patient Problems (1) Discitis of lumbar region Current Visit: Yes Status: Acute Code(s): M46.46 - DISCITIS, UNSPECIFIED, LUMBAR REGION SNOMED Code(s): 594752785 Comment: Vancomycin- has refused medication for 3 days cefepime Cultures pending (2) DVT prophylaxis Current Visit: Yes Status: Acute Priority: High Code(s): AFB6413 - SNOMED Code(s): 110238060 Comment: scds (3) Epidural abscess Current Visit: Yes Status: Acute Priority: High Code(s): G06.2 - EXTRADURAL AND SUBDURAL ABSCESS, UNSPECIFIED SNOMED Code(s): 48308634 Comment: Neurosurgery following to OR 03/14, completed cultures pending continue IV abx, refused antibiotics for 3 days ID consult will need IV antibiotic for 8 weeks, cefepime and vanco for now, (4) Full code status Current Visit: Yes Status: Acute Priority: High Code(s): Z78.9 - OTHER SPECIFIED HEALTH STATUS SNOMED Code(s): 147456231 (5) Back pain Current Visit: No Status: Acute Code(s): M54.9 - DORSALGIA, UNSPECIFIED SNOMED Code(s): 928433399 Comment: Pain management as needed Status and Disposition: Iv abx for diskitis and epidural abscess, id consult completed , neurosurgery following,OR post op 3 - drain was removed, dressing to back is clean and dry. Pt refusing medical treatment on and off, requesting to leave AMA. stating he does not care if he dies, states he is not afraid of dying. Psychiatric consult placed for capacity. 1730: patient is currently agreeable to stay, currently allowing staff to place IV site and restart IV antibiotics. Psych will see the patient in the AM to deem capacity.
[2017-03-17] MEDS ORDERED: Sodium Polystyrene ORAL.SOL* 15 GM/60 ML BTL PO ONE (19:30)
[2017-03-18] MEDS: HYDROmorphone INJ* 2 MG/ML CARPUJECT SYRINGE IV PRN ×2 (02:20→05:53)
[2017-03-18] MEDS: Nicotine Inhaler* 10 MG AMP INH PRN (02:29)
[2017-03-18 07:55] LABS: Hematocrit 32 % (42-52); Hemoglobin 10.5 g/dl (14.0-18.0); Mean Corpuscular HGB Conc 33 g/dl (31-36); Mean Corpuscular Hemoglobin 32 pg (27-31); Mean Corpuscular Volume 97 fL (80-94); Mean Platelet Volume 10 um3 (7.4-10.4); Platelet Count 209 10^3/ul (150-450); Red Blood Count 3.28 10^6/ul (4.0-5.4); Red Cell Distribution Width 15 % (10.5-15); White Blood Count 10.4 10^3/ul (3.5-10.8)
[2017-03-18 07:57] LABS: ABS Basophils 0.1 10^3/ul (0-0.2); ABS Eosinophils 0.1 10^3/ul (0-0.6); ABS Lymphocytes 0.7 10^3/ul (1.0-4.8); ABS Monocytes 1.6 10^3/ul (0-0.8); ABS Neutrophils 7.9 10^3/ul (1.5-7.7); ABS Nucleated RBC 0 10^3/ul; Eosinophil % 1.4 % (0-6); Lymphocyte % 6.6 % (25-47); Nucleated Red Blood Cells % 0
[2017-03-18 08:13] LABS: EGFR Non-African American 37.5 (>60)
[2017-03-18] MEDS: Allopurinol TAB* 100 MG PO SCH (10:39)
[2017-03-18] MEDS: Hydroxychloroquine TAB* 200 MG PO SCH (10:39)
[2017-03-18] MEDS: Cefepime 2 GM in Dextrose(*) 2 GM/50 ML BAG IV SCH (10:39)
[2017-03-18] MEDS: oxyCODONE/Acetamin 5/325 MG* TAB PO PRN (10:39)
--- NOTE | 2017-03-18 12:20 | CONSULT ---
Consult Consult: Consult for Medical Decision Making Capacity S: Psychiatry is asked to determine medical decision making capacity for this 67 y.o. single, white male with a history of epidural abscess, status post neurosurgical reduction, who is currently receiving IV vancomycin to prevent systemic extension of his infection. The primary team is concerned about his treatment course for a number of behavioral reasons. He recently missed 3 days of ABX course due to losing IV access and not allowing staff to resume this, and continues to decline insertion of a PICC line. He can be hostile and easily agitated at times. Recommended treatment at this time is a total of 8 weeks of IV ABX, however, he is not agreeable with this, stating that he needs to go home to take care of his pet cats. It should be noted that our team evaluated Mr. Conner on 03/02/17, during a previous admission, and found that he had capacity at that time. On exam the patient is calm and pleasant, making jokes and easy to engage. He remembers this clinician and the walk we took with his walker. When asked what treatment is being recommended by the primary team, he responds "Antibiotics through that machine [pointing to the IV stand]." When asked about the risks he would take if he refused the treatment being recommended, he clearly states "I could or become paralyzed." He asks repeatedly about the availability of home health services, about which I refer him to his primary team. O: aging white male with long stringy hair, slender; wearing patient gown; euthymic with full affect; denies SI or HI; scores 30/30 on MMSE A/P: Capacity: the patient clearly demonstrates an understanding of the treatment being recommended by the primary team (IV ABX over 8 weeks inpatient) and the risks of refusing said treatment (paralysis or ). He is deemed to have capacity.
[2017-03-18] MEDS: Vancomycin(*) 1,000 MG in NS 0.9% 250 ML* 250 ML IVPB SCH (15:51)
[2017-03-18] MEDS: Nicotine GUM* 2 MG PO PRN (15:56)
[2017-03-18 16:48] VITALS: BP 126/65
--- NOTE | 2017-03-18 18:26 | PN ---
Subjective Date of Service: 03/18/17 Interval History: states that back pain is improving. Denies N/V/D. Denies back or abd pain. Denies chest pain or shortness of breath. Family History: Unchanged from Admission Social History: Unchanged from Admission Past Medical History: Unchanged from Admission Objective Active Medications: Acetaminophen (Tylenol Tab*) 650 mg PO Q4H PRN PRN Reason: FEVER/PAIN Allopurinol (Zyloprim Tab*) 100 mg PO DAILY [facility] Last Admin: 03/18/17 10:39 Dose: 100 mg Calcium Carbonate (Tums*) 500 mg PO Q4H PRN PRN Reason: INDIGESTION Last Admin: 03/15/17 21:45 Dose: 500 mg Cyclobenzaprine HCl (Flexeril Tab*) 10 mg PO TID PRN PRN Reason: SPASMS - BACK Last Admin: 03/17/17 14:32 Dose: 10 mg Haloperidol Lactate (Haldol Inj Iv/Im*) 5 mg IV SLOW PU Q6H PRN PRN Reason: AGITATION Last Admin: 03/17/17 18:35 Dose: 5 mg Heparin Sodium (Porcine) (Heparin Flush Picc/Ml/Cvc(*)) 0 ml FLUSH 0600,1800 [facility] PRN Reason: Protocol Last Admin: 03/18/17 17:07 Dose: Not Given Hydromorphone HCl (Dilaudid Inj*) 1 mg IV Q2H PRN PRN Reason: SEVERE PAIN Last Admin: 03/18/17 05:53 Dose: 1 mg Hydroxychloroquine Sulfate (Plaquenil Tab*) 200 mg PO DAILY [facility] Sodium Chloride (Ns 0.9% 1000 Ml*) 1,000 mls @ 75 mls/hr IV PER RATE [facility] Last Admin: 03/14/17 11:05 Dose: 75 mls/hr Vancomycin HCl 1,000 mg/ (Sodium Chloride) 250 mls @ 166.667 mls/hr IVPB 1300 [facility] Last Admin: 03/18/17 15:51 Dose: 166.667 mls/hr Ceftriaxone Sodium 2 gm/ (Dextrose) 50 mls @ 100 mls/hr IVPB Q24H [facility] Nicotine (Nicotine Inhaler*) 10 mg INH Q2H PRN PRN Reason: CRAVING Last Admin: 03/18/17 02:29 Dose: 10 mg Nicotine Polacrilex (Nicotine Gum*) 2 mg PO Q2H PRN PRN Reason: CRAVING Last Admin: 03/18/17 15:56 Dose: 2 mg Ondansetron HCl (Zofran Inj*) 4 mg IV Q6H PRN PRN Reason: NAUSEA Pharmacy Consult (Vancomycin Per Pharmacy*) 1 note FOLLOW UP . PRN PRN Reason: PER PROTOCOL Pharmacy Profile Note (Vancomycin Trough Check) 1 note FOLLOW UP 1300 ONE Stop: 03/19/17 13:01 Vital Signs - 8 hr 03/18/17 03/18/17 03/18/17 10:39 11:42 12:40 Temperature Pulse Rate 68 Respiratory 16 14 16 Rate Blood Pressure 127/50 (mmHg) O2 Sat by Pulse 98 Oximetry 03/18/17 15:35 Temperature 97.9 F Pulse Rate 80 Respiratory 16 Rate Blood Pressure 126/65 (mmHg) O2 Sat by Pulse 100 Oximetry Oxygen Devices in Use Now: None Appearance: appears well, thin, appears comfortable Eyes: No Scleral Icterus Ears/Nose/Mouth/Throat: Clear Oropharnyx, Mucous Membranes Moist Neck: NL Appearance and Movements; NL JVP, Trachea Midline Respiratory: Symmetrical Chest Expansion and Respiratory Effort, Clear to Auscultation Cardiovascular: NL Sounds; No Murmurs; No JVD, RRR, No Edema Abdominal: NL Sounds; No Tenderness; No Distention Extremities: No Edema, No Clubbing, Cyanosis Skin: No Rash or Ulcers, - - dressing dry and intact to back, Neurological: Alert and Oriented x 3, NL Sensation, NL Muscle Strength and Tone Nutrition: Taking PO's Result Diagrams: 03/18/17 07:26 03/18/17 07:26 Microbiology and Other Data: Microbiology 03/11/17 20:00 Aerobic Blood Culture - Preliminary No Source Provided No Growth Day 1 Anaerobic Blood Culture - Preliminary No Growth Day 1 03/11/17 14:19 Aerobic Blood Culture - Preliminary No Source Provided No Growth Day 1 Anaerobic Blood Culture - Preliminary No Growth Day 1 03/11/17 12:21 Urine Culture - Final Urine Assess/Plan/Problems-Billing Assessment: 67 y/o male presenting to [facility] with complaints of back pain found to have epidural abscess and diskitis, to OR today, c/o of lower ext weakness for 1 month unable to walk at home. will convert to swing bed today. back pain is improved - Patient Problems (1) Discitis of lumbar region Current Visit: Yes Status: Acute Code(s): M46.46 - DISCITIS, UNSPECIFIED, LUMBAR REGION SNOMED Code(s): 844421379 Comment: Vancomycin- has refused medication for 3 days cefepime Cultures pending (2) DVT prophylaxis Current Visit: Yes Status: Acute Priority: High Code(s): KBE0671 - SNOMED Code(s): 209943841 Comment: scds (3) Epidural abscess Current Visit: Yes Status: Acute Priority: High Code(s): G06.2 - EXTRADURAL AND SUBDURAL ABSCESS, UNSPECIFIED SNOMED Code(s): 42128924 Comment: Neurosurgery following to OR 03/14, completed cultures pending continue IV abx, refused antibiotics for 3 days ID consult will need IV antibiotic for 8 weeks, until may 09 cefepime and vanco for now, (4) Full code status Current Visit: Yes Status: Acute Priority: High Code(s): Z78.9 - OTHER SPECIFIED HEALTH STATUS SNOMED Code(s): 769282599 (5) Back pain Current Visit: No Status: Acute Code(s): M54.9 - DORSALGIA, UNSPECIFIED SNOMED Code(s): 035207057 Comment: Pain management as needed Status and Disposition: Iv abx for diskitis and epidural abscess, id consult completed , neurosurgery following,OR post op 4 - drain was removed, dressing to back is clean and dry. Pt refusing medical treatment on and off, currently is acceptable to getting a picc line. Will convert to a swing bed.
[2017-03-19] MEDS ORDERED: Hydroxychloroquine TAB* 200 MG PO SCH (09:00)
[2017-03-19] MEDS ORDERED: cefTRIAXone(*) 2 GM in D5W 50 ML BAG* 50 ML IVPB SCH (10:00)
[2017-03-19] MEDS ORDERED: Vancomycin Trough Check NOTE FOLLOW UP ONE (13:00)
--- NOTE | 2017-03-21 01:08 | DS ---
CC: Dr. Boyer * DISCHARGE SUMMARY/HISTORY AND PHYSICAL: DATE OF ADMISSION: 03/11/17 DATE OF TRANSFER TO SWING BED: 03/18/17 ATTENDING PHYSICIAN WHILE IN THE HOSPITAL: Dr. Sola Alves * (report dictated by Rashida Duggan NP). PRIMARY CARE PROVIDER: Dr. Boyer. PRIMARY DIAGNOSES: 1. Epidural abscess. 2. Back pain. PAST MEDICAL HISTORY: 1. Hepatitis C. 2. Cervical spondylosis. 3. Question of new diagnosis of rheumatoid arthritis. 4. History of IV drug use. 5. History of chronic kidney disease, baseline creatinine is right around 2.0. STUDIES WHILE IN THE HOSPITAL: He had a CT of his back on admission. CT of the lumbar spine on 03/11/17, fragmentation and destruction changes in the inferior endplate of L4 and superior endplate of L5 suspect acute compression fracture with underlying degenerative disk disease most likely than pathological fractures with underlying diskitis and osteomyelitis, marked degenerative disk disease in L2-3 and L3-4, worse at L3 and L4 posterior disk bulge at multiple levels, minimal-to- moderate bilateral neural foraminal stenosis at L3-4 and L4-5 worse at L3-4 on the left, moderate canal stenosis on L3-4 and L4-5, minimal canal stenosis on L2-3 and L5-S1. He had an MRI of the L-spine on 03/11/17, radiologist's impression: 1. Findings most suggestive of osteomyelitis and diskitis at L4 and L5. 2. There was soft tissue density material within the anterior epidural space at L4- 5 new when compared to the 2012 examination. This is likely public health representative of epidural phlegmon/abscess most likely a large broad-based disk bulge. This results in a [id number] narrowing of the central canal at this level. 3. There is loculated paravertebral fluid collection at L4-5 measuring up to 1.6 cm in the size, likely representing paravertebral abscesses. Additionally, there is a cyst lesion of the anterior, extended to left psoas muscle, which may also represent an abscess. 4. There is degenerative disk disease with osteoarthritis. There are multilevel neural foraminal narrowing as described above. There is moderate narrowing at the central canal in L3-4. He had an electrocardiogram done on 03/11/17 with sinus rhythm in the rate of 70. He had a chest x-ray on 03/11/17, radiologist's impression was stigmata of advanced obstructive lung disease and emphysema. No acute pulmonary or cardiac process is evident. He had a lumbar spine x-ray on 03/14/17, radiologist's impression: Limited portal view of the spine for localization during spinal surgery. Surgery states metallic probe is noted opposite to L4-L5. He did have the abscess drained on 03/14/17. He had a lumbar decompression for epidural abscess on 10/22. At that time, he did have a wound drain placed. DISCHARGE MEDICATIONS: 1. He will continue on vancomycin 1 g every 12 hours was his initial dose. His vancomycin was changed to 500 mg q.24 hours. 2. He was also placed on cefepime 2 g every 24 hours. 3. He can continue lorazepam 1 mg q.6 hours as needed for anxiety. 4. Haldol 5 mg q.6 hours as needed. 5. Dilaudid 1 mg q.2 hours as needed. 6. Heparin PICC line flush. 7. Plaquenil 200 mg p.o. daily. 8. Ceftriaxone 2 g IV q.24 hours. 9. Allopurinol 100 mg p.o. daily. 10. Nicotine gum 2 mg q.2 hours. HISTORY OF PRESENT ILLNESS AND HOSPITAL COURSE: Mr. Conner is a 67-year-old male patient with a history of hep C, cervical spondylosis, IV drug use, chronic kidney disease, and questionable thyroid disorder with a possible diagnosis of rheumatoid arthritis. The patient presented to the emergency room on 03/11/17 stating for the past few weeks he has been having worsening back pain. The patient states that around 8 o'clock last night the pain got much worse, all of a sudden he fell to his knees and was doubled over in pain. He could not bear it anymore as he was concerned and decided to come to the emergency room. He states that he has not been incontinent of urine or stool, states any time he moves he has significant back pain, any time he coughs it flares up the pain in his back. He states that he cannot walk or stand because it is too painful. He has been having trouble lifting his legs as well. He does admit to having some chills on and off. He states that he has been using cocaine fairly routinely. He states that it does help with the pain. He denies having any chest pain or shortness of breath. Denies any prior episodes of back discomfort or pain. He was able to walk up a flight of stairs. He states about a couple of months ago, he was able to paint the house and going up and down ladders with no chest pain or shortness of breath. While in the emergency room, he was evaluated by Dr. Man, and he had CT imaging, which showed possible diskitis in the lumbar spine and an MRI confirmed the diskitis with abscess formations. Because of this, he was admitted to the hospital. While in the hospital, he was seen and evaluated by Dr. Núñez from Neurosurgery. The patient did have a lumbar decompression of the epidural abscess on 03/14/17. He was also seen by Dr. Benavides from Infectious Disease. Dr. Benavides's recommendations were to continue vancomycin with a goal trough between 15 and 20 and cefepime 2 g daily. If his kidney function continues to improve, we may consider changing the dose of cefepime. Cultures of his decompression were pending. A followup visit from Dr. Benavides. His recommendations are to continue vancomycin 15 to 20 mg and cefepime 2 g daily. We will add fungal and acid-fast cultures. He needs to have IV antibiotic treatment for 8 weeks. Neurosurgery followup on 03/17/17. At this point, he is 3 days postop epidural abscess decompression. The drain was removed from his back. He did have a consultation from Dr. Garber from [facility], who deemed him of capacity to make his own medical decisions. During his hospitalization, he has had intermittent fluctuations of wanting to sigh out AMA versus refusing IV antibiotic treatment. The patient is currently accepting IV antibiotic treatment for his vancomycin and cefepime. Mr. Conner is awaiting a PICC line placement, so he can receive the duration of his IV antibiotics for the next 8 weeks. ALLERGIES: Mr. Conner has no known drug allergies. FAMILY HISTORY: Both parents had heart attack. SOCIAL HISTORY: He is a pack a day smoker. He does use cocaine. He does not drink any alcohol. 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 Surrogate decision maker is his sister, Geno. REVIEW OF SYSTEMS: On 03/18/17, there is no documented fever. There is no significant weight change. There is no double vision. Denies having any ear discharge. Denies any rhinorrhea or sore throat. There is no thyroid enlargement. He denies having any chest pain. Denies orthopnea. No nocturnal dyspnea. Denies having any abdominal pain. Denies nausea, vomiting, or diarrhea. Denies any dysuria or frequency. No seizures. Denies any loss of consciousness. No pruritus. No skin ulcerations. He does complain of some lower back pain that has improved during his hospitalization. He is able to move all 4 extremities. PHYSICAL EXAMINATION: GENERAL: At this time, Mr. Conner is a male patient. He is chronically ill- appearing. He is lying in his bed. He does not appear to be in any acute distress. VITAL SIGNS: Temperature was 97.9, heart rate was 80 , respirations 16, O2 saturation was 100%, blood pressure was 126/65. HEENT: Head is atraumatic, normocephalic. Eyes: EOMs are intact. Sclerae are anicteric and not pale. Throat: Oral mucosa appears to be moist. There is no oropharyngeal erythema. NECK: Supple. LUNGS: Clear to auscultation bilaterally. No wheezes, rales, or rhonchi. HEART: S1, S2. Regular rate and rhythm. There is no murmurs, rubs, or gallops. ABDOMEN: Soft, flat, and nontender. Bowel sounds are present in all 4 quadrants. EXTREMITIES: He is able to lift his lower extremities and bend his knees. DP pulses are +2 bilaterally. He has sensation in bilateral lower legs. He does have a dressing that is intact to his lumbar spine. There is no drainage or redness. NEUROLOGIC: He is alert and oriented x3. He is awake. His speech is clear. His tongue is midline. SKIN: He does have the surgical incision to his lumbar spine with a dry intact dressing. DIAGNOSTIC STUDIES/LAB DATA: He had lab work on 03/18/17, his WBCs were 10.4, RBCs were 3.28, hemoglobin was 10.5, hematocrit was 32, MCV 97, MCH 32, platelet count was 209, lymphs were 6.6, monos were 14.9, neutrophils were 76. He had a BMP on 03/18/17, sodium was 134, potassium was 4.9, chloride was 108, carbon dioxide was 20, anion gap was 6, BUN was 44, creatinine was 1.82, glucose was 138, and calcium was 9.2. Urine was done on 03/11/17 which showed urine color was yellow, appearance was clear, pH was 5, specific gravity was 1.018. Urine protein, ketones, blood, nitrites, bilirubin, urobilinogen, and urine leukocyte esterase were all negative. Urine random creatinine was 114.96 and random sodium was 70. Urine glucose was also negative. Vancomycin trough on 03/17/17 was 5.5. I suspect this is due to him refusing several doses of vancomycin. A chest x-ray was completed on admission, 03/11/17, which showed no acute cardiopulmonary disease. ASSESSMENT: Mr. Conner is a 67-year-old male. He will be converted to a swing bed today to continue his 8 weeks of IV antibiotic therapy for his diskitis and osteomyelitis/epidural abscess of his lumbar spine. PLAN: 1. Decompressed epidural abscess/diskitis/osteomyelitis. We will continue vancomycin dosing per pharmacy. We will monitor his lumbar spine for increased signs of drainage and swelling to the surgical site. He will have physical therapy for strength training. A PICC line will also be placed to administer the IV antibiotics through. He will continue the cefepime. We will continue him on antibiotics and pain control medications. 2. Hepatitis C. He can follow up with his primary care. 3. Cervical spondylosis. He can follow up with primary care. 4. Rheumatoid arthritis. Continue Plaquenil as prescribed. 5. History of IV drug use. At this point is not active issue from the patient. 6. Acute on chronic kidney disease. At this point, his creatinine is 1.82 and his BUN is 44. We will continue to hold his Mobic. 7. Hyperkalemia has resolved. We will monitor this during his hospitalization with repeat lab work weekly. 8. DVT prophylaxis. We will place him on SCDs and heparin as he is high risk. 9. Code status. He is a full code. TIME SPENT: On this admission to swing bed/discharge was approximately 60 minutes, majority of that time was spent [id number] with the patient discussing his long- term IV antibiotic treatment and placement of his PICC line and further medical management of his care during his stay. He will be placed in a swing bed today. I have discussed this plan with my attending, Dr. Sola Alves, and she is in agreement. RASHIDA DUGGAN, MANAGER [employer] [id number]/[facility] #: [id number] [facility] HEART CENTERAamir
--- NOTE | 2017-03-30 22:24 | OP ---
DATE OF OPERATION: 03/14/17 - ROOM #336 DATE OF : 52 PRIMARY SURGEON: Dr. Norbert Núñez. ANESTHESIA: General. PRE-OP DIAGNOSIS: Lumbar epidural abscess L4-5 with diskitis, L4-5. POST-OP DIAGNOSIS: Lumbar epidural abscess L4-5 with diskitis, L4-5. OPERATIVE PROCEDURE: Lumbar decompressive laminectomy for drainage of epidural abscess at L4-5. DESCRIPTION OF PROCEDURE: After satisfactory general anesthesia was obtained, the patient was placed on the operating table in the prone position with the chest supported on the Sean frame and the back slightly flexed. The lumbar region was then clipped, prepped and draped in the sterile manner for lumbar laminectomy and skin incision outlined from L4 to the sacrum. This incision was infiltrated with 1% Xylocaine with epinephrine after which it was turned down sharply to the level of the lumbar fascia. The fascia was divided along the spinous process from L4 to the sacrum and the paraspinal musculature stripped away from these posterior elements using the periosteal elevator and monopolar cautery. An intraoperative x- ray was obtained verifying proper interspace localization after which a decompression was carried out by removing the spinous processes of L4 and L5 with a combination of the Marian medical scribe and [place] rongeur. The remaining portion of the base of the spinous process of L4 was then thinned out with Midas Gonzalo drill and a decompression carried superiorly until the attachment of the ligamentum flavum was taken down. Ligamentum flavum was then removed with the Kerr[place]. In the epidural space, there was noted to be a phlegmon of inflammatory tissue adherent to the dura bilaterally. The decompression was carried inferiorly until the posterior elements of L5 had been removed as well. The operating microscope was then brought into the field and the remainder of the procedure done under microscopic visualization. Utilizing microdissection, the inflammatory tissue was dissected free from the dura with specimen sent for pathology as well as microbiology. There was no dallin purulence noted in the epidural space and there appeared to be more of a subacute process. The L4-5 disk space was identified and a culturette was placed into the disk space with the specimen taken for microbiology. At the conclusion of the decompression, both the L5 and S1 nerve roots were noted to be free in their course. After assuring adequate hemostasis, wound was thoroughly irrigated after which a drain was placed in the epidural space and tunneled out toward the left side. The fascia was then reapproximated with 0 Vicryl sutures. The subcutaneous tissues were closed with 3-0 Vicryl suture and the skin closed with skin clips. The estimated blood loss was less than 50 cc and the final sponge, padding and needle counts were correct. The patient was taken to the recovery room, extubated and in stable condition. [id number]/CPS #: [id number] MTDD
== END 2017-03-18 19:42 | disposition swing bed (61) | DRG 29 ==
LOC: ED 02:38 → MEDTELE 10:12 → MED 20:11 → SSU 03-14 17:37
PROVIDERS: ADMIT Internal Medicine; ATTEND Internal Medicine
PROC: 01NB0ZZ Release Lumbar Nerve, Open Approach (ICD-10-PCS; principal; 2017-03-17)
PROC: 009U00Z Drainage of Spinal Canal with Drainage Device, Open Approach (ICD-10-PCS; 2017-03-17)
DX: G06.2 Extradural and subdural abscess, unspecified (principal); N17.9 Acute kidney failure, unspecified; M46.26 Osteomyelitis of vertebra, lumbar region; F05 Delirium due to known physiological condition; E87.5 Hyperkalemia; M46.46 Discitis, unspecified, lumbar region; B19.20 Unspecified viral hepatitis C without hepatic coma; F17.210 Nicotine dependence, cigarettes, uncomplicated; M47.892 Other spondylosis, cervical region; Z82.49 Family history of ischemic heart disease and other diseases of the circulatory system; M06.9 Rheumatoid arthritis, unspecified; F14.10 Cocaine abuse, uncomplicated; N18.9 Chronic kidney disease, unspecified; G89.18 Other acute postprocedural pain; Z79.01 Long term (current) use of anticoagulants
CPT/HCPCS: 36415; 71045; 72100; 72131; 72148; 80048; 80053; 80202; 81003; 82570; 83605; 84300; 85025; 85610; 85652; 85730; 86140; 86703; 87040; 87070; 87073; 87086; 87102; 87116; 87205; 87206; 88304; 93005; 96374; 96375; 99284; 99406; A9270-GY; J0692; J0696; J1100; J1170; J1630; J1644; J1885; J2001; J2060; J2250; J2270; J2405; J2704; J3010; J3360; J3370

== ENCOUNTER 2017-03-18 18:54 | Inpatient (IN) | payer MEDICARE, MEDICAID ==
[2017-03-18] MEDS ORDERED: Nicotine Inhaler* 10 MG AMP INH PRN (19:16)
[2017-03-18] MEDS ORDERED: Vancomycin per Pharmacy* NOTE FOLLOW UP PRN (19:17)
[2017-03-18] MEDS ORDERED: Calcium Carbonate CHEW TAB* 500 MG (TUMS) PO PRN (19:17)
[2017-03-18] MEDS ORDERED: Ondansetron INJ* 2 MG/ML VIAL IV PRN (19:17)
[2017-03-18] MEDS: oxyCODONE TAB* 5 MG TAB PO PRN (21:34)
[2017-03-18] MEDS: Cyclobenzaprine TAB* 10 MG PO PRN (22:10)
[2017-03-18] MEDS ORDERED: HYDROmorphone INJ* 2 MG/ML CARPUJECT SYRINGE IV SLOW PU ONE (23:19)
[2017-03-18] MEDS ORDERED: HYDROmorphone INJ* 2 MG/ML CARPUJECT SYRINGE ONE (23:21)
[2017-03-18] MEDS: Haloperidol INJ IV/IM* 5 MG/ML AMP IV SLOW PU PRN (23:25)
[2017-03-19] MEDS: Cyclobenzaprine TAB* 10 MG PO PRN ×3 (06:27→21:57)
[2017-03-19] MEDS: oxyCODONE TAB* 5 MG TAB PO PRN ×3 (09:17→23:31)
[2017-03-19] MEDS: Hydroxychloroquine TAB* 200 MG PO SCH (09:17)
[2017-03-19] MEDS: Allopurinol TAB* 100 MG PO SCH (09:17)
[2017-03-19] MEDS: Cefepime 2 GM in Dextrose(*) 2 GM/50 ML BAG IV SCH (10:12)
[2017-03-19] MEDS ORDERED: Vancomycin Trough Check NOTE FOLLOW UP ONE (12:30)
[2017-03-19] MEDS: Vancomycin(*) 1,000 MG in NS 0.9% 250 ML* 250 ML IVPB SCH (14:05)
[2017-03-19] MEDS: Nicotine GUM* 2 MG PO PRN ×2 (18:34→21:00)
[2017-03-19] MEDS: Sertraline* 50 MG TAB PO SCH (19:22)
[2017-03-19] MEDS: Haloperidol INJ IV/IM* 5 MG/ML AMP IV SLOW PU PRN (22:56)
[2017-03-19] MEDS ORDERED: HYDROmorphone TAB* 2 MG PO ONE (23:37)
[2017-03-20] MEDS: oxyCODONE TAB* 5 MG TAB PO PRN ×3 (04:40→13:47)
[2017-03-20] MEDS: Cyclobenzaprine TAB* 10 MG PO PRN (07:18)
[2017-03-20] MEDS: Hydroxychloroquine TAB* 200 MG PO SCH (07:18)
[2017-03-20] MEDS: Allopurinol TAB* 100 MG PO SCH (07:18)
[2017-03-20] MEDS: Cefepime 2 GM in Dextrose(*) 2 GM/50 ML BAG IV SCH ×3 (09:53→13:46)
[2017-03-20] MEDS: Vancomycin(*) 1,000 MG in NS 0.9% 250 ML* 250 ML IVPB SCH (13:55)
--- NOTE | 2017-03-20 18:12 | PN ---
Hospitalist Progress Note Date of Service: 03/19/17 Talked with patient and nursing staff about the plan of care. Patient is reluctant to stay for the duration of his therapy. Patient states he understands the risks of leaving including paralysis and and that he would rather than stay in the hospital for 8 weeks. Patient denies any active suicidal ideation and has no plan for self harm. Patient also talked in this manner to his sister who was very concerned. Patient could not explain his reasoning behind why staying in the hospital was so onerous to him. Patient stated that he feels depressed. Antidepressants were discussed with the patient and he seemed very heartened by the idea. Patient was started on Zoloft 50mg PO daily.
--- NOTE | 2017-03-20 18:14 | PN ---
Hospitalist Progress Note Date of Service: 03/20/17 Patient seen today because he was refusing his antibiotic infusions. Patient stated it was because he was in pain and "it just wasn't the right time." Patient also refused to be bathed by staff. Patient later agreed to be bathed and consented to both antibiotic infusions.
[2017-03-20] MEDS: Nicotine GUM* 2 MG PO PRN ×2 (18:58→20:58)
[2017-03-20] MEDS: Sertraline* 50 MG TAB PO SCH (19:10)
[2017-03-21] MEDS: Cyclobenzaprine TAB* 10 MG PO PRN ×3 (00:08→18:54)
[2017-03-21] MEDS: oxyCODONE TAB* 5 MG TAB PO PRN ×4 (01:39→19:37)
[2017-03-21] MEDS: Nicotine GUM* 2 MG PO PRN ×2 (02:10→20:28)
[2017-03-21] MEDS: Acetaminophen TAB* 325 MG PO PRN ×2 (04:58→10:11)
[2017-03-21] MEDS: Hydroxychloroquine TAB* 200 MG PO SCH (08:14)
[2017-03-21] MEDS: Allopurinol TAB* 100 MG PO SCH (08:14)
[2017-03-21] MEDS: Cefepime 2 GM in Dextrose(*) 2 GM/50 ML BAG IV SCH ×2 (09:44→11:11)
[2017-03-21] MEDS: Vancomycin(*) 1,000 MG in NS 0.9% 250 ML* 250 ML IVPB SCH (12:53)
--- NOTE | 2017-03-21 17:43 | PN ---
Hospitalist Progress Note Date of Service: 03/21/17 Called by staff stating patient will not take antibiotics, Saw patient at bedside today, reenforced the needed for antibiotic therapy. Pt agreed and is willing to take antibiotics.
[2017-03-21] MEDS: Sertraline* 50 MG TAB PO SCH (20:28)
[2017-03-22] MEDS: oxyCODONE TAB* 5 MG TAB PO PRN ×2 (03:20→20:31)
[2017-03-22] MEDS: Cyclobenzaprine TAB* 10 MG PO PRN ×2 (05:14→16:19)
[2017-03-22] MEDS: Allopurinol TAB* 100 MG PO SCH (09:21)
[2017-03-22] MEDS: Hydroxychloroquine TAB* 200 MG PO SCH (09:21)
[2017-03-22] MEDS ORDERED: Cefepime(*) 2 GM in D5W 50 ML BAG* 50 ML IVPB SCH (10:00)
[2017-03-22] MEDS ORDERED: Cefepime(*) 2 GM in D5W 100 ML BAG* 100 ML IVPB SCH (10:00)
[2017-03-22] MEDS: Vancomycin(*) 1,000 MG in NS 0.9% 250 ML* 250 ML IVPB SCH (13:52)
--- NOTE | 2017-03-22 17:15 | PN ---
Progress Note - Progress Note Date of Service: 03/22/17 SOAP: Subjective: CC: spine infection HPI: 67 year old man with low back pain, L spine KORTNEY which was drained. Back pain and mobility improving, no problems with IV or antibiotics. No fever, rash , or diarrhea. Objective: Vital Signs Temp 37.0 C 03/22/17 08:58 Pulse 83 03/22/17 08:58 Resp 12 03/22/17 08:58 BP 161/72 03/22/17 08:58 Pulse Ox 100 03/22/17 08:58 Intake & Output 03/21/17 03/22/17 03/22/17 18:59 06:59 18:59 Intake Total 1060 200 310 Output Total 550 570 225 Balance 510 -370 85 Intake: IV Fluids 310 51 ABX - CEFEPIME 54 51 ABX - VANCOMYCIN 256 IVPB 259 ABX - VANCOMYCIN 259 Oral 750 200 Output: Urine 550 570 225 Other: Estimated Void Large # Bowel Movements 1 Estimated Stool Amount Small # Voids 1 Gen:awake, no distress HEENT:PERRL Neuro: moves both legs Heart:RRR no murmur Lungs:CTA BL Abd:+BS NTND soft Skin: no rash Assessment: 1. lumbar spine epidural abscess s/p I&D, culture negative; suspect CoNS or Strep 2. past IDU Plan: 1. continue vancomycin goal tr 15-20 and ceftriaxone day , weekly cbc, cmp, crp
[2017-03-22] MEDS: QUEtiapine TAB* 25 MG PO SCH (20:21)
[2017-03-22] MEDS: Sertraline* 50 MG TAB PO SCH (20:21)
[2017-03-23] MEDS: oxyCODONE TAB* 5 MG TAB PO PRN ×3 (01:21→19:17)
[2017-03-23] MEDS: Nicotine GUM* 2 MG PO PRN ×3 (05:44→19:18)
[2017-03-23 06:13] LABS: EGFR Non-African American 31.1 (>60)
[2017-03-23] MEDS: Allopurinol TAB* 100 MG PO SCH (08:53)
[2017-03-23] MEDS: cefTRIAXone(*) 2 GM in NS 0.9% 100 ML* 100 ML IVPB SCH (09:05)
[2017-03-23] MEDS: Hydroxychloroquine TAB* 200 MG PO SCH (09:12)
[2017-03-23] MEDS ORDERED: Vancomycin Trough Check NOTE FOLLOW UP ONE (12:30)
[2017-03-23] MEDS: Vancomycin(*) 1,000 MG in NS 0.9% 250 ML* 250 ML IVPB SCH ×2 (12:49→15:11)
--- NOTE | 2017-03-23 15:02 | PN ---
Subjective Date of Service: 03/23/17 Interval History: patient states that he is feeling better, resting in bed. States that he needs to continue working with PT to gain strength. Denies chest pain, shortness of breath or abd pain. Denies N/V/D. c/o dry skin. Family History: Unchanged from Admission Social History: Unchanged from Admission Past Medical History: Unchanged from Admission Objective Active Medications: Acetaminophen (Tylenol Tab*) 650 mg PO Q4H PRN PRN Reason: FEVER/PAIN Last Admin: 03/21/17 10:11 Dose: 650 mg Allopurinol (Zyloprim Tab*) 100 mg PO DAILY [facility] Last Admin: 03/23/17 08:53 Dose: 100 mg Calcium Carbonate (Tums*) 500 mg PO Q4H PRN PRN Reason: INDIGESTION Cyclobenzaprine HCl (Flexeril Tab*) 10 mg PO TID PRN PRN Reason: SPASMS - BACK Last Admin: 03/22/17 16:19 Dose: 10 mg Hydroxychloroquine Sulfate (Plaquenil Tab*) 200 mg PO DAILY [facility] Last Admin: 03/23/17 09:12 Dose: 200 mg Ceftriaxone Sodium 2 gm/ (Sodium Chloride) 100 mls @ 200 mls/hr IVPB Q24H [facility] Last Admin: 03/23/17 09:05 Dose: 200 mls/hr Vancomycin HCl 500 mg/ Sodium (Chloride) 250 mls @ 166.667 mls/hr IVPB Q24H [facility] Nicotine (Nicotine Inhaler*) 10 mg INH Q2H PRN PRN Reason: CRAVINGS Last Admin: 03/21/17 05:40 Dose: 10 mg Nicotine Polacrilex (Nicotine Gum*) 2 mg PO Q2H PRN PRN Reason: CRAVINGS Last Admin: 03/23/17 09:01 Dose: 2 mg Oxycodone HCl (Roxycodone Tab*) 5 mg PO Q4H PRN PRN Reason: PAIN Last Admin: 03/23/17 05:07 Dose: 5 mg Pharmacy Consult (Vancomycin Per Pharmacy*) 1 note FOLLOW UP . PRN PRN Reason: PER PROTOCOL Pharmacy Profile Note (Vancomycin Trough Check) 0 note FOLLOW UP 0730 ONE Stop: 03/26/17 07:31 Quetiapine Fumarate (Seroquel Tab*) 25 mg PO BEDTIME [facility] Last Admin: 03/22/17 20:21 Dose: 25 mg Sertraline HCl (Zoloft*) 50 mg PO 2100 [facility] Last Admin: 03/22/17 20:21 Dose: 50 mg Vital Signs - 8 hr 03/23/17 03/23/17 03/23/17 07:19 07:39 07:43 Temperature 97.8 F Pulse Rate 81 Respiratory 20 16 16 Rate Blood Pressure 137/51 (mmHg) O2 Sat by Pulse 97 Oximetry Oxygen Devices in Use Now: None Appearance: awake and alert, appears comfortable resting in bed. Eyes: No Scleral Icterus Ears/Nose/Mouth/Throat: Clear Oropharnyx, Mucous Membranes Moist Neck: NL Appearance and Movements; NL JVP, Trachea Midline Respiratory: Symmetrical Chest Expansion and Respiratory Effort, Clear to Auscultation Cardiovascular: NL Sounds; No Murmurs; No JVD, No Edema Abdominal: NL Sounds; No Tenderness; No Distention Extremities: No Edema, No Clubbing, Cyanosis Skin: No Rash or Ulcers, - - dressing dry and intact to back Neurological: Alert and Oriented x 3, NL Sensation Nutrition: Taking PO's Result Diagrams: 03/23/17 05:40 Assess/Plan/Problems-Billing Assessment: Mr. Conner is a 67 y.o male with a history of - Patient Problems (1) Back pain Current Visit: No Status: Acute Code(s): M54.9 - DORSALGIA, UNSPECIFIED SNOMED Code(s): 637321760 Comment: Pain management as needed (2) CKD (chronic kidney disease) Current Visit: No Status: Acute Priority: High Code(s): N18.9 - CHRONIC KIDNEY DISEASE, UNSPECIFIED SNOMED Code(s): 892362316 Comment: Creatitine improving, down to 1.5 FENA 1%, suspect pre-renal improved with ivf will follow, hyperkalemia improved, (3) DVT prophylaxis Current Visit: No Status: Acute Priority: High Code(s): TZR2728 - SNOMED Code(s): 348124678 Comment: scds (4) Discitis of lumbar region Current Visit: No Status: Acute Code(s): M46.46 - DISCITIS, UNSPECIFIED, LUMBAR REGION SNOMED Code(s): 167461050 Comment: Vancomycin-per pharmacy dosing ceftriaxone 2 grams total of 8 weeks of IV antibiotics currently on dose will repeat a CBC,CMP and CRP on 03/25 and then weekly after that. (5) Diskitis Current Visit: No Status: Acute Priority: High Code(s): M46.40 - DISCITIS , UNSPECIFIED, SITE UNSPECIFIED SNOMED Code(s): 3078206 Comment: Movement in extremities at baseline, continue iv abx, ID consulted following plan for fpc antibiotics PICC line pending (6) Epidural abscess Current Visit: No Status: Acute Priority: High Code(s): G06.2 - EXTRADURAL AND SUBDURAL ABSCESS, UNSPECIFIED SNOMED Code(s): 37560151 Comment: Neurosurgery following to OR 03/14, completed cultures no growth continue IV abx ID consult will need IV antibiotic for 8 weeks, until may 09 cefepime and vanco for now, (7) Full code status Current Visit: No Status: Acute Priority: High Code(s): Z78.9 - OTHER SPECIFIED HEALTH STATUS SNOMED Code(s): 683578556 (8) Depression Current Visit: Yes Status: Acute Code(s): F32.9 - MAJOR DEPRESSIVE DISORDER , SINGLE EPISODE, UNSPECIFIED SNOMED Code(s): 00688019 Comment: continue to refuse antibiotics intermittently has periods of wanting to leave against medical advice Status and Disposition: Swing bed, Patient will require PT and IV antibiotics for a total of 8 weeks
[2017-03-23] MEDS: Cyclobenzaprine TAB* 10 MG PO PRN ×2 (16:09→16:24)
[2017-03-23] MEDS: QUEtiapine TAB* 25 MG PO SCH (19:16)
[2017-03-23] MEDS: Sertraline* 50 MG TAB PO SCH (19:16)
[2017-03-24] MEDS: oxyCODONE TAB* 5 MG TAB PO PRN ×2 (03:45→10:09)
[2017-03-24] MEDS: Vancomycin(*) 500 MG in NS 0.9% 250 ML* 250 ML IVPB SCH (08:33)
[2017-03-24] MEDS: Nicotine GUM* 2 MG PO PRN (10:03)
[2017-03-24] MEDS: Allopurinol TAB* 100 MG PO SCH (10:09)
[2017-03-24] MEDS: Hydroxychloroquine TAB* 200 MG PO SCH (10:09)
[2017-03-24] MEDS: cefTRIAXone(*) 2 GM in NS 0.9% 100 ML* 100 ML IVPB SCH (12:18)
--- NOTE | 2017-03-24 13:30 | RAD ---
INDICATION: PICC catheter placement COMPARISON: March 11, 2017 TECHNIQUE: An AP portable view obtained at 1241 hours is submitted. FINDINGS: Bones/Soft Tissues: There are no acute bony findings. There is a right-sided PICC catheter terminating in the superior vena cava Cardiomediastinal: The cardiomediastinal silhouette is normal. Lungs: There are bibasilar infiltrates. The costophrenic angles are not included in the [id number] Pleura: There are no pleural effusions. Other: None IMPRESSION: The PICC catheter is in proper position. Bibasal infiltrates are imaged in part.
[2017-03-24] MEDS: QUEtiapine TAB* 25 MG PO SCH (21:21)
[2017-03-24] MEDS: Sertraline* 50 MG TAB PO SCH (21:21)
[2017-03-24] MEDS: Acetaminophen TAB* 325 MG PO PRN (21:23)
[2017-03-25] MEDS: Nicotine GUM* 2 MG PO PRN ×3 (05:32→18:22)
[2017-03-25] MEDS: Vancomycin(*) 500 MG in NS 0.9% 250 ML* 250 ML IVPB SCH (08:14)
[2017-03-25] MEDS: Hydroxychloroquine TAB* 200 MG PO SCH (09:15)
[2017-03-25] MEDS: oxyCODONE TAB* 5 MG TAB PO PRN ×3 (09:15→21:37)
[2017-03-25] MEDS: Allopurinol TAB* 100 MG PO SCH (09:15)
[2017-03-25] MEDS: cefTRIAXone(*) 2 GM in NS 0.9% 100 ML* 100 ML IVPB SCH (10:36)
--- NOTE | 2017-03-25 10:58 | PN ---
Progress Note - Progress Note Date of Service: 03/25/17 SOAP: Subjective: CC: spine infection HPI: 67 year old man with low back pain, L spine KORTNEY which was drained. Back pain and mobility improving, no problems with RUE PICC. No fever, rash, or diarrhea. Objective: Vital Signs Temp 36.9 C 03/24/17 20:26 Pulse 71 03/24/17 20:26 Resp 16 03/25/17 09:15 BP 134/67 03/24/17 20:26 Pulse Ox 100 03/24/17 20:26 Intake & Output 03/24/17 03/25/17 03/25/17 18:59 06:59 18:59 Intake Total 710 Output Total 200 200 Balance 510 -200 Intake: IVPB 250 ABX - VANCOMYCIN 250 Oral 460 Output: Urine 200 200 Other: Estimated Stool Amount Small # Voids 0 Gen:awake, no distress HEENT:PERRL Neuro: moves both legs Heart:RRR no murmur Lungs:CTA BL Abd:+BS NTND soft Skin: no rash Assessment: 1. lumbar spine epidural abscess s/p I&D, culture negative; suspect CoNS or Strep 2. past IDU Plan: 1. continue vancomycin goal tr 15-20 and ceftriaxone day , weekly cbc, cmp , crp 35 minutes face to face >50% in counseling regarding need to stay inpatient for full course of antibiotics to prevent loss of use of lower extremities.
[2017-03-25] MEDS: QUEtiapine TAB* 25 MG PO SCH (20:40)
[2017-03-25] MEDS: Sertraline* 50 MG TAB PO SCH (20:40)
[2017-03-25] MEDS: Cyclobenzaprine TAB* 10 MG PO PRN (21:36)
[2017-03-25] MEDS: Acetaminophen TAB* 325 MG PO PRN (21:37)
[2017-03-26] MEDS: Acetaminophen TAB* 325 MG PO PRN ×2 (02:56→15:55)
[2017-03-26] MEDS ORDERED: Vancomycin Trough Check NOTE FOLLOW UP ONE (07:30)
[2017-03-26] MEDS: Hydroxychloroquine TAB* 200 MG PO SCH (07:48)
[2017-03-26] MEDS: cefTRIAXone(*) 2 GM in NS 0.9% 100 ML* 100 ML IVPB SCH (07:49)
[2017-03-26] MEDS: Allopurinol TAB* 100 MG PO SCH (07:49)
[2017-03-26 08:29] LABS: ABS Basophils 0.2 10^3/ul (0-0.2); ABS Eosinophils 0.4 10^3/ul (0-0.6); ABS Lymphocytes 1.5 10^3/ul (1.0-4.8); ABS Monocytes 1.2 10^3/ul (0-0.8); ABS Neutrophils 4.8 10^3/ul (1.5-7.7); ABS Nucleated RBC 0 10^3/ul; Eosinophil % 4.7 % (0-6); Hematocrit 31 % (42-52); Hemoglobin 10.5 g/dl (14.0-18.0); Lymphocyte % 18.3 % (25-47); Mean Corpuscular HGB Conc 34 g/dl (31-36); Mean Corpuscular Hemoglobin 32 pg (27-31); Mean Corpuscular Volume 95 fL (80-94); Mean Platelet Volume 9 um3 (7.4-10.4); Nucleated Red Blood Cells % 0; Platelet Count 255 10^3/ul (150-450); Red Blood Count 3.27 10^6/ul (4.0-5.4); Red Cell Distribution Width 15 % (10.5-15); White Blood Count 8.1 10^3/ul (3.5-10.8)
[2017-03-26 08:40] LABS: EGFR Non-African American 43.8 (>60)
[2017-03-26] MEDS: Vancomycin(*) 500 MG in NS 0.9% 250 ML* 250 ML IVPB SCH (09:36)
[2017-03-26] MEDS: Cyclobenzaprine TAB* 10 MG PO PRN (15:55)
[2017-03-26] MEDS: oxyCODONE TAB* 5 MG TAB PO PRN (15:56)
[2017-03-26] MEDS: Nicotine GUM* 2 MG PO PRN ×2 (20:49→22:55)
[2017-03-26] MEDS: Sertraline* 50 MG TAB PO SCH (20:49)
[2017-03-26] MEDS: QUEtiapine TAB* 25 MG PO SCH (20:49)
--- NOTE | 2017-03-27 01:31 | PN ---
Progress Note - Progress Note Date of Service: 03/27/17 Note: Nursing called reporting agitation in patient w/ security present and requesting evaluation. He had had a fall earlier in the shift without head impact in which he told multiple nurses he didn't recall falling or why. He was assisted to bed. Nursing then states he began complaining of the uncomfortable bed, but refused medication for discomfort he then began demanding to sign out AMA. Upon my arrival, he was sitting on the edge of the bed agitated and cursing fluently. Multiple attempts were made to engage him in conversation to determine the source of his agitation, but he persisted only in insulting everyone in the room. When asked about the fall earlier, reported he remembered it, but could give no details. He was able to say he was at [facility] [place] but stated he was here due to a "back injury" when in fact he is on treatment for an epidural abscess. As I could not get him to calm enough to determine his ability to make decisions he was informed that I was revoking his capacity and would not allow him to leave AMA. He was asked to try and rest to revisit leaving AMA with his treating physician in the morning, but continued to curse and insult people as well as threaten violence. As such, soft restraints were ordered along with 10mg IM ziprasidone with instructions to remove the restraints once he was calm and manageable. Nursing was requested to call me for further instructions if the restraints were not able to be removed in 1hour.
[2017-03-27] MEDS ORDERED: Ziprasidone IM INJ* 20 MG/ML VIAL IM ONE (02:00)
[2017-03-27] MEDS: Hydroxychloroquine TAB* 200 MG PO SCH (07:52)
[2017-03-27] MEDS: Allopurinol TAB* 100 MG PO SCH (07:52)
[2017-03-27] MEDS: Vancomycin(*) 500 MG in NS 0.9% 250 ML* 250 ML IVPB SCH (08:00)
[2017-03-27] MEDS: cefTRIAXone(*) 2 GM in NS 0.9% 100 ML* 100 ML IVPB SCH (09:28)
--- NOTE | 2017-03-27 13:32 | PN ---
Hospitalist Progress Note Date of Service: 03/27/17 Patient requesting to talk with a provider today. Events of last night noted. Pt is requesting to leave today and asking if he can have PO abx. He doesn't feel that there are any risks of him leaving today and no longer having IV abx. We discussed that he is feeling better because the medications are working and he still needs them as he is only on day . Pt states that he is worried about his cats and isn't able to pay his bills from here. He is willing to stay today and discuss with Dr. Benavides in the AM if there is an option for PO abx at this time.
[2017-03-27] MEDS: oxyCODONE TAB* 5 MG TAB PO PRN ×2 (13:39→19:20)
[2017-03-27] MEDS: Cyclobenzaprine TAB* 10 MG PO PRN ×2 (13:39→19:20)
[2017-03-27] MEDS: Nicotine GUM* 2 MG PO PRN ×2 (15:58→19:21)
[2017-03-27] MEDS: Sertraline* 50 MG TAB PO SCH (19:20)
[2017-03-27] MEDS: QUEtiapine TAB* 25 MG PO SCH (19:20)
[2017-03-27] MEDS: LORazepam INJ* 2 MG/ML 1 ML VIAL IV PRN (22:17)
[2017-03-28] MEDS: oxyCODONE TAB* 5 MG TAB PO PRN ×5 (00:41→21:03)
[2017-03-28] MEDS: Cyclobenzaprine TAB* 10 MG PO PRN ×3 (02:51→21:03)
[2017-03-28] MEDS: Hydroxychloroquine TAB* 200 MG PO SCH (07:34)
[2017-03-28] MEDS: Vancomycin(*) 500 MG in NS 0.9% 250 ML* 250 ML IVPB SCH (07:34)
[2017-03-28] MEDS: Allopurinol TAB* 100 MG PO SCH (07:34)
[2017-03-28] MEDS: cefTRIAXone(*) 2 GM in NS 0.9% 100 ML* 100 ML IVPB SCH (09:16)
[2017-03-28] MEDS: Nicotine GUM* 2 MG PO PRN ×2 (10:35→14:39)
--- NOTE | 2017-03-28 11:48 | PN ---
Subjective Date of Service: 03/28/17 Interval History: Patient seen and examined at bedside. Denies fever, chills, shortness of breath , chest discomfort, N/V/D. Pt states that his pain is controlled, but he has pain in his back when up on his feet. We discussed how if he continues to want to leave and does in fact leave AMA, that he could risk loss of the use of his LEs and he doesn't agree with this. Family History: Unchanged from Admission Social History: Unchanged from Admission Past Medical History: Unchanged from Admission Objective Active Medications: Acetaminophen (Tylenol Tab*) 650 mg PO Q4H PRN Reason: FEVER/PAIN Allopurinol (Zyloprim Tab*) 100 mg PO DAILY TILA Calcium Carbonate (Tums*) 500 mg PO Q4H PRN Reason: INDIGESTION Cyclobenzaprine HCl (Flexeril Tab*) 10 mg PO TID PRN Reason: SPASMS - BACK Heparin Sodium (Porcine) (Heparin Flush Picc/Ml/Cvc(*)) 1 - 3 ml FLUSH 0600, 1800 [facility] Hydroxychloroquine Sulfate (Plaquenil Tab*) 200 mg PO DAILY [facility] Ceftriaxone Sodium 2 gm/ (Sodium Chloride) 100 mls @ 200 mls/hr IVPB Q24H TILA Vancomycin HCl 500 mg/ Sodium (Chloride) 250 mls @ 166.667 mls/hr IVPB Q24H TILA Lorazepam (Ativan Inj*) 0.5 mg IV BEDTIME PRN Reason: SLEEP Nicotine (Nicotine Inhaler*) 10 mg INH Q2H PRN Reason: CRAVINGS Nicotine Polacrilex (Nicotine Gum*) 2 mg PO Q2H PRN Reason: CRAVINGS Oxycodone HCl (Roxycodone Tab*) 5 mg PO Q4H PRN Reason: PAIN Pharmacy Consult (Vancomycin Per Pharmacy*) 1 note FOLLOW UP . PRN Pharmacy Profile Note (Vancomycin Trough Check) 1 note FOLLOW UP 0730 ONE Stop: 03/30/17 07:31 Quetiapine Fumarate (Seroquel Tab*) 25 mg PO BEDTIME [facility] Sertraline HCl (Zoloft*) 50 mg PO 2100 TILA Vital Signs - 8 hr 03/28/17 03/28/17 03/28/17 04:15 05:16 05:37 Temperature Pulse Rate Respiratory 16 20 20 Rate Blood Pressure (mmHg) O2 Sat by Pulse Oximetry 03/28/17 03/28/17 03/28/17 07:15 07:28 07:41 Temperature 97.6 F Pulse Rate 72 Respiratory 18 16 Rate Blood Pressure (mmHg) O2 Sat by Pulse Oximetry 03/28/17 03/28/17 03/28/17 07:58 10:35 11:36 Temperature 97.9 F Pulse Rate 67 Respiratory 16 18 16 Rate Blood Pressure 161/65 (mmHg) O2 Sat by Pulse 96 Oximetry Oxygen Devices in Use Now: None Appearance: NAD, laying in bed Ears/Nose/Mouth/Throat: Mucous Membranes Moist Respiratory: Symmetrical Chest Expansion and Respiratory Effort, Clear to Auscultation Cardiovascular: NL Sounds; No Murmurs; No JVD, RRR Abdominal: NL Sounds; No Tenderness; No Distention Extremities: No Edema Skin: - - Incision to lower midline back well approximated with linn intact Neurological: Alert and Oriented x 3, NL Muscle Strength and Tone Lines/Tubes/Other Access: Clean, Dry and Intact Peripheral IV - site benign Nutrition: Taking PO's Result Diagrams: 03/26/17 08:15 03/26/17 08:15 Assess/Plan/Problems-Billing Assessment: Mr. Conner is a 67 y.o male with a history significant for Hep C, ? RA, IV drug use, CKD, and cervical sponsylosis who presented to the hospital and was found to have an epidural abscess, he is now a swing bed patient. - Patient Problems (1) Epidural abscess Code(s): G06.2 - EXTRADURAL AND SUBDURAL ABSCESS, UNSPECIFIED SNOMED Code(s): 25985491 Comment: - S/P decompressive lami L4-5 and drainage of abscess, 03/14/17 - Cultures no growth to date - ID consult, input appreciated - Continue IV ceftriaxone, day (2) Back pain Code(s): M54.9 - DORSALGIA, UNSPECIFIED SNOMED Code(s): 417072437 Comment: - Pain management as needed (3) Depression Code(s): F32.9 - MAJOR DEPRESSIVE DISORDER, SINGLE EPISODE, UNSPECIFIED SNOMED Code(s): 95959547 Comment: - Continue Zoloft (4) CKD (chronic kidney disease) Code(s): N18.9 - CHRONIC KIDNEY DISEASE, UNSPECIFIED SNOMED Code(s): 750728145 Comment: - Stage 3 - Creatitine continues to improve (5) Rheumatoid arthritis Code(s): M06.9 - RHEUMATOID ARTHRITIS, UNSPECIFIED SNOMED Code(s): 98867793 Comment: - Continue hydroxychloroquine (6) DVT prophylaxis Code(s): XIF8960 - SNOMED Code(s): 458024692 Comment: - SCDs (7) Full code status Code(s): Z78.9 - OTHER SPECIFIED HEALTH STATUS SNOMED Code(s): 234605989 Status and Disposition: Swing bed, Patient will require PT and IV antibiotics mcfp.
--- NOTE | 2017-03-28 13:02 | CONSULT ---
Consult Consult: Consult for Medical Decision Making Capacity S: Psychiatry is asked to determine medical decisions making capacity for this 67 y.o. single, white male with a history of epidural abscess, status post neurosugical reduction, who is currently receiving IV antibiotic therapy to prevent recurrence or extension of his disease. I spoke with current hospitalist attending, PAM Frankel, who reported that the patient is occasionally confused and consistently requesting discharge to home AMA. Currently indicated treatment is continued IV antibiotic therapy. It should be noted that this is the 3rd capacity evaluation this clinician has performed on this patient, the first two being on 03/02/17 and 03/18/17. In both instances he was found to have capacity. On exam the patient is sleeping but arousable. He is able to self-disclose that he had an infection in his spinal column that threatened his ability to ambulate. When asked to state what treatment the primary team is recommending, he states "They say the antibiotics have to come through the IV." He expresses disagreement with this and prefers to be on oral antibiotic treatment. When asked to comment on the risks of not accepting the recommended treatment, he responds clearly "I could or become paralyzed." He states that he would mitigate said risks by welcoming home health services and "wearing a medical alert bracelet." O: aging white male with long, stringy hair; slender; wearing scrub bottoms and a sweatshirt; euthymic with full affect; denies SI or HI; scores 30/30 on MMSE A/P: Capacity: the patient clearly demonstrates an understanding of the treatment being recommended by the primary team and relevant consultants (IV ABX over several week course) and the risks of refusing said treatment ( paralysis or ). He is deemed to have capacity.
[2017-03-28] MEDS: Sertraline* 50 MG TAB PO SCH (21:04)
[2017-03-28] MEDS: QUEtiapine TAB* 25 MG PO SCH (21:04)
--- NOTE | 2017-03-28 22:56 | PN ---
Progress Note - Progress Note Date of Service: 03/28/17 Note: Nursing reported Mr Conner having the odd habit of urinating into a urinal and for reasons unknown emptying the urinal into cups at the bedside. Nursing went to administer evening medications and he apparently mistakenly picked up the wrong cup, taking his pills with his own urine. Advised no toxicity or adverse effects would result.
[2017-03-29] MEDS: cefTRIAXone(*) 2 GM in NS 0.9% 100 ML* 100 ML IVPB SCH (09:32)
[2017-03-29] MEDS: Allopurinol TAB* 100 MG PO SCH (09:33)
[2017-03-29] MEDS: Hydroxychloroquine TAB* 200 MG PO SCH (09:33)
[2017-03-29] MEDS: Vancomycin(*) 500 MG in NS 0.9% 250 ML* 250 ML IVPB SCH (10:35)
--- NOTE | 2017-03-29 12:06 | PN ---
Progress Note - Progress Note Date of Service: 03/29/17 SOAP: Subjective: [Patient is s/p lumbar decompression for epidural abscess. Feeling well today although eager for discharge. POD#15. Continues to have weakness in lower extremities and unable to ambulate independently. Denies fever, chills and headache. ] Objective: [ Vital Signs: Temp Pulse Resp BP Pulse Ox 98.5 F 69 16 146/68 100 03/29/17 07:18 03/29/17 07:18 03/29/17 08:00 03/29/17 07:18 03/29/17 07:18 General: Alert and oriented, laying in bed comfortably. Neuro: Motor and sensory intact. Extremities: Full ROM Incision: Intact with linn. Mild amount fluid collection at incision site. Nontender. No erythema or warmth. 10cc fluid aspirated from wound today. [place] removed from incision today. Lumbar wound drain aspiration: The procedure was discussed with the patient and nurse in the room. Consent was obtained. The area was cleaned and prepped. A 22 gauge needle was used to aspirate 10cc serosanguinous fluid from right side of lumbar wound. Patient tolerated procedure well. No complications. No bleeding. ] Assessment: [This patient is recovering slowly from surgery, stable. He is receiving IV antibiotics, PO pain medication.] Plan: [1. Continue PT. 2. Continue pain management. 3. Patient to follow up with neurosurgery in 4 weeks.]
[2017-03-29] MEDS: Nicotine GUM* 2 MG PO PRN (20:32)
[2017-03-29] MEDS: Sertraline* 50 MG TAB PO SCH (22:10)
[2017-03-29] MEDS: QUEtiapine TAB* 25 MG PO SCH (22:10)
[2017-03-30] MEDS ORDERED: Vancomycin Trough Check NOTE FOLLOW UP ONE (07:30)
[2017-03-30 07:54] LABS: EGFR Non-African American 48.7 (>60)
[2017-03-30 08:08] LABS: Vancomycin Trough 10.9 mcg/mL
[2017-03-30] MEDS: Nicotine GUM* 2 MG PO PRN (09:22)
[2017-03-30] MEDS: cefTRIAXone(*) 2 GM in NS 0.9% 100 ML* 100 ML IVPB SCH (09:22)
[2017-03-30] MEDS: Allopurinol TAB* 100 MG PO SCH (09:22)
[2017-03-30] MEDS: Hydroxychloroquine TAB* 200 MG PO SCH (09:22)
[2017-03-30] MEDS: Vancomycin(*) 750 MG in NS 0.9% 250 ML* 250 ML IVPB SCH (11:09)
--- NOTE | 2017-03-30 18:49 | PN ---
Hospitalist Progress Note Date of Service: 03/30/17 Patient requesting to see provider, states that he can not stay here any longer , the bed is uncomfortable and he needs a firm bed. worried about losing his apartment and belongings. informed patient that i would request that social media senior associate see him. Will also consult PT again
[2017-03-30] MEDS: QUEtiapine TAB* 25 MG PO SCH (22:11)
[2017-03-30] MEDS: Sertraline* 50 MG TAB PO SCH (22:11)
[2017-03-30] MEDS: LORazepam INJ* 2 MG/ML 1 ML VIAL IV PRN (23:24)
[2017-03-31 08:21] VITALS: BP 122/53
[2017-03-31] MEDS: cefTRIAXone(*) 2 GM in NS 0.9% 100 ML* 100 ML IVPB SCH (09:22)
[2017-03-31] MEDS: Hydroxychloroquine TAB* 200 MG PO SCH (09:22)
[2017-03-31] MEDS: Allopurinol TAB* 100 MG PO SCH (09:22)
--- NOTE | 2017-03-31 10:05 | PN ---
Subjective Date of Service: 03/31/17 Interval History: Mr. Conner continues to complain that his bed is uncomfortable and is happy to learn that he is being discharged today. He denies back pain, chest pain, SOB, nausea, or abdominal pain. Family History: Unchanged from Admission Social History: Unchanged from Admission Past Medical History: Unchanged from Admission Objective Active Medications: Acetaminophen (Tylenol Tab*) 650 mg PO Q4H PRN Allopurinol (Zyloprim Tab*) 100 mg PO DAILY [facility] Calcium Carbonate (Tums*) 500 mg PO Q4H PRN Cyclobenzaprine HCl (Flexeril Tab*) 10 mg PO TID PRN Heparin Sodium (Porcine) (Heparin Flush Picc/Ml/Cvc(*)) 1 - 3 ml FLUSH 0600, 1800 [facility] Hydroxychloroquine Sulfate (Plaquenil Tab*) 200 mg PO DAILY [facility] Ceftriaxone Sodium 2 gm/ (Sodium Chloride) 100 mls @ 200 mls/hr IVPB Q24H TILA Vancomycin HCl 750 mg/ Sodium (Chloride) 250 mls @ 166.667 mls/hr IVPB Q24H [facility]IL[facility] Lorazepam (Ativan Inj*) 0.5 mg IV BEDTIME PRN Nicotine (Nicotine Inhaler*) 10 mg INH Q2H PRN Nicotine Polacrilex (Nicotine Gum*) 2 mg PO Q2H PRN Oxycodone HCl (Roxycodone Tab*) 5 mg PO Q4H PRN Pharmacy Consult (Vancomycin Per Pharmacy*) 1 note FOLLOW UP . PRN Pharmacy Profile Note (Vancomycin Trough Check) 1 note FOLLOW UP ONCE ONE Quetiapine Fumarate (Seroquel Tab*) 25 mg PO BEDTIME [facility] Sertraline HCl (Zoloft*) 50 mg PO 2100 TILA Vital Signs: Temp Pulse Resp BP Pulse Ox 97.8 F 75 16 122/53 100 03/31/17 07:32 03/31/17 07:32 03/31/17 09:45 03/31/17 07:32 03/31/17 07:32 Oxygen Devices in Use Now: None Appearance: Male lying in bed in NAD Eyes: No Scleral Icterus Ears/Nose/Mouth/Throat: Mucous Membranes Moist Neck: Trachea Midline Respiratory: Symmetrical Chest Expansion and Respiratory Effort, Clear to Auscultation Cardiovascular: NL Sounds; No Murmurs; No JVD, No Edema Abdominal: NL Sounds; No Tenderness; No Distention Lymphatic: No Cervical Adenopathy Extremities: No Edema Skin: No Rash or Ulcers Neurological: Alert and Oriented x 3, - - LE strength +4, able to lift 2 inches off bed without resistance Nutrition: Taking PO's Result Diagrams: 03/26/17 08:15 03/30/17 07:23 Microbiology and Other Data: . Assess/Plan/Problems-Billing Assessment: Mr. Conner is a 67 y.o male with a history significant for Hep C, ? RA, IV drug use, CKD, and cervical sponsylosis who presented to the hospital and was found to have an epidural abscess, he is now a swing bed patient. - Patient Problems (1) Epidural abscess Comment: - S/P decompressive lami L4-5 and drainage of abscess, 03/14/17 - Cultures no growth to date - ID consult, input appreciated - Continue IV ceftriaxone, day 1656 - Continue PT for weakness. (2) CKD (chronic kidney disease) Comment: - Stage 3 - Creatitine continues to improve (3) Back pain Comment: - Pain management as needed (4) Depression Comment: - Continue Zoloft (5) Rheumatoid arthritis Comment: - Continue hydroxychloroquine (6) DVT prophylaxis Comment: - SCDs (7) Full code status Comment: Status and Disposition: Discharge to [place], Patient will require PT and IV antibiotics mcc.
--- NOTE | 2017-03-31 11:03 | DS ---
CC: Dr. Boyer* DATE OF ORIGINAL ADMISSION: 03/11/2017. DATE OF DISCHARGE TO SWING STATUS: 03/20/2017. DATE OF DISCHARGE FROM HOSPITAL: 03/31/2017. ATTENDING PHYSICIAN: Dr. Ellen Hugo* (dictation provider by Whitney De Luna NP) . PRIMARY DIAGNOSIS: Epidural abscess. SECONDARY DIAGNOSES: 1. Hepatitis C. 2. Cervical spondylosis. 3. Question of rheumatoid arthritis. 4. History of IV drug use. 5. History of chronic kidney disease, baseline creatinine approximately 2.0. HOSPITAL COURSE: Mr. Conner is a 67-year-old male who was originally admitted to our hospital on 03/11/2017 with complaint of back pain and weakness. Please see the dictated history and physical from Jorge Luz NP for complete details. In brief, at the time of admission the patient had a CT scan of his lumbar spine which showed fragmentation and destructive changes in the inferior end- plate of L4 and superior end-plate of L5 with concern for osteomyelitis. The patient went on to have an MRI the same day which confirmed this diagnosis. The patient was seen by Dr. Núñez from Neurosurgery and ultimately had a lumbar decompression of the epidural abscess on 03/14/2017. He was also seen in consultation by Dr. Baron Benavides from Infectious Disease. He recommended Vancomycin and initially Cefepime which has now been transitioned over to Ceftriaxone. The patient is to complete a six week course. Mr. Conner continues to have back pain and significant weakness and therefore was transitioned to swing status on 03/18/2017 to continue with physical therapy and IV antibiotics. During the hospitalization, the patient has evidenced some questionably unusual behavior. At times he has wanted to sign out AMA and refused antibiotic therapy. He was seen in consultation by Dr. Garber from the Mental Health Unit who determined that he did have capacity to make his own medical decisions. Mr. Conner is doing well today. He continues to have some low back pain and continues to need physical therapy to increase his strength and mobility. He also needs continued IV antibiotic therapy; he is on day 16 of 56. He has been accepted in transfer to a detention and will be discharged there today. DISPOSITION: To detention. DIET: Regular. ACTIVITY: As tolerated. FOLLOW-UP PLANS: 1. Please follow-up with providers at the detention per routine. 2. Please follow-up with Dr. Benavides in four to six weeks. Approximately 60 minutes were spent in the discharge of this patient, more than half that time was spent with the patient at the bedside reviewing the events leading up to this hospitalization and during this hospitalization, performing the physical examination and reviewing the plan of care. WHITNEY DE LUNA NP [id number]/[facility] #: [id number] AMAN
[2017-03-31] MEDS: Vancomycin(*) 750 MG in NS 0.9% 250 ML* 250 ML IVPB SCH (11:12)
[2017-04-01] MEDS ORDERED: cefTRIAXone(*) 2 GM in D5W 50 ML BAG* 50 ML IVPB SCH (09:00)
[2017-04-02] MEDS ORDERED: Vancomycin Trough Check NOTE FOLLOW UP ONE (10:00)
== END 2017-03-31 12:35 | DRG 95 ==
LOC: UNDOADMIN 18:55 → SSU 18:55 → MED 03-24 13:16
PROVIDERS: ADMIT Internal Medicine; ATTEND Internal Medicine
PROC: 02HV33Z Insertion of Infusion Device into Superior Vena Cava, Percutaneous Approach (ICD-10-PCS; principal; 2017-03-24)
PROC: 009Y3ZZ Drainage of Lumbar Spinal Cord, Percutaneous Approach (ICD-10-PCS; 2017-03-29)
DX: G06.1 Intraspinal abscess and granuloma (principal); M46.26 Osteomyelitis of vertebra, lumbar region; F14.90 Cocaine use, unspecified, uncomplicated; F17.210 Nicotine dependence, cigarettes, uncomplicated; M06.9 Rheumatoid arthritis, unspecified; M47.892 Other spondylosis, cervical region; N18.9 Chronic kidney disease, unspecified; B19.20 Unspecified viral hepatitis C without hepatic coma; M46.46 Discitis, unspecified, lumbar region; F32.9 Major depressive disorder, single episode, unspecified; W19.XXXA Unspecified fall, initial encounter; Y92.239 Unspecified place in hospital as the place of occurrence of the external cause; Z78.1 Physical restraint status; Z82.49 Family history of ischemic heart disease and other diseases of the circulatory system; Z72.89 Other problems related to lifestyle
CPT/HCPCS: 36415; 71045; 80053; 80202; 82565; 84520; 85025; 86140; 87070; 87205; A9270-GY; J0692; J0696; J1170; J1630; J2060; J3370; J3486

== ENCOUNTER 2017-11-18 11:12 | Emergency (ER) | payer MEDICAID, MEDICARE, OTHER ==
--- NOTE | 2017-11-18 11:25 | ED ---
Adult Trauma - HPI Summary HPI Summary: This patient is a 67 year [facility] 6ft ladder that occurred yesterday. The patient rates the pain 8/10 in severity. Symptoms aggravated by movement. Patient reports bilateral shoulder and diffuse back pain. Patient denies LOC and head injury. Pt just had a back operation he is unsure who did it or what the procedure was. - History of Current Complaint Chief Complaint: EDTraumaMultiple Stated Complaint: FALL Time Seen by Provider: 11/18/17 11:22 Hx Obtained From: Patient Mechanism of Injury: Fall Ambulatory at the Scene: Yes Loss of Consciousness: no loss of consciousness Onset/Duration: Started Days Ago - 2, Still Present Onset of Pain: Immediate Onset Severity: Severe Current Severity: Severe Pain Intensity: 8 Pain Scale Used: 0-10 Numeric Location: Back, Other - bilateral shoulders Aggravating Factor(s): Movement Associated Signs & Symptoms: Positive: Other: - bilateral shoulder pain and back pain - Additional Pertinent History Primary Care Physician: VANI - Allergy/Home Medications Allergies/Adverse Reactions: Allergies Allergy/AdvReac Type Severity Reaction Status Date / Time No Known Allergies Allergy Verified 11/18/17 11:37 Home Medications: Home Medications Acetaminophen TAB* [Tylenol TAB*] 650 mg PO Q6H PRN 11/18/17 [History Confirmed 11/18/17] Bisacodyl SUPP* [Dulcolax Supp*] 10 mg ME DAILY PRN 11/18/17 [History Confirmed 11/18/17] Cholecalciferol TAB* [Vitamin D TAB*] 1,000 unit PO DAILY 11/18/17 [History Confirmed 11/18/17] Hydroxychloroquine TAB* [Plaquenil TAB*] 400 mg PO DAILY 11/18/17 [History Confirmed 11/18/17] Nicotine GUM* 2 mg PO Q2H PRN 11/18/17 [History Confirmed 11/18/17] QUEtiapine TAB* [Seroquel 100 MG *] 100 mg PO BEDTIME 11/18/17 [History Confirmed 11/18/17] QUEtiapine TAB* [Seroquel 25 MG TAB*] 50 mg PO BEDTIME 11/18/17 [History Confirmed 11/18/17] Zaleplon (NF) [Sonata (NF)] 10 mg PO BEDTIME PRN 11/18/17 [History Confirmed ] Zolpidem TAB* [Ambien*] 10 mg PO BEDTIME PRN 11/18/17 [History Confirmed ] traMADol TAB* [Ultram*] 50 mg PO Q8H PRN 11/18/17 [History Confirmed 11/18/17] PMH/Surg Hx/FS Hx/Imm Hx Endocrine/Hematology History: Denies: Hx Anticoagulant Therapy, Hx Diabetes, Hx Thyroid Disease Cardiovascular History: Reports: Other Cardiovascular Problems/Disorders - hyperkinetic heart Denies: Hx Hypertension, Hx Pacemaker/ICD Respiratory History: Denies: Hx Asthma, Hx Chronic Obstructive Pulmonary Disease (COPD) GI History: Reports: Other GI Disorders - hep c Denies: Hx Ulcer History: Denies: Hx Dialysis, Hx Renal Disease Musculoskeletal History: Reports: Hx Back Problems Denies: Hx Scoliosis Sensory History: Reports: Hx Contacts or Glasses Denies: Hx Hearing Aid Opthamlomology History: Reports: Hx Contacts or Glasses Neurological History: Denies: Hx Dementia, Hx Headaches, Hx Seizures Psychiatric History: Reports: Hx Anxiety Denies: Hx Panic Disorder, Hx Substance Abuse - Cancer History Cancer Type, Location and Year: N - Surgical History Surgery Procedure, Year, and Place: VERICOSE VEIN LEG. LEFT KNEE BURSA REMOVAL. LUMBAR SURGERY FOR INFECTION Infectious Disease History: No Infectious Disease History: Reports: Hx Hepatitis - C - TREATED Denies: Hx Human Immunodeficiency Virus (HIV), Hx Shingles, History Other Infectious Disease, Traveled Outside the [place] in Last 30 Days - Family History Known Family History: Positive: Cardiac Disease - [place] Negative: Hypertension, Diabetes - Social History Alcohol Use: None Hx Substance Use: Yes Substance Use Type: Reports: Cocaine Hx Tobacco Use: Yes Smoking Status (MU): Heavy Every Day Tobacco Smoker Type: Cigarettes Amount Used/How Often: 1 PPD Review of Systems All Other Systems Reviewed And Are Negative: Yes Physical Exam - Summary Physical Exam Summary: VITAL SIGNS: Reviewed. GENERAL: Patient is a well-developed and nourished male who is lying comfortable in the stretcher. Patient is not in any acute respiratory distress. HEAD AND FACE: No signs of trauma. No ecchymosis, hematomas or skull depressions. No sinus tenderness. EYES: PERRLA, EOMI x 2, No injected conjunctiva, no nystagmus. EARS: Hearing grossly intact. Ear canals and tympanic membranes are within normal limits. MOUTH: Oropharynx within normal limits. NECK: Supple, trachea is midline, no adenopathy, no JVD, no carotid bruit, no c- spine tenderness, neck with full ROM. CHEST: Symmetric, no tenderness at palpation LUNGS: Clear to auscultation bilaterally. No wheezing or crackles. CVS: Regular rate and rhythm, S1 and S2 present, no murmurs or gallops appreciated. ABDOMEN: Soft, non-tender. No signs of distention. No rebound no guarding, and no masses palpated. Bowel sounds are normal. EXTREMITIES: FROM in all major joints, no edema, no cyanosis or clubbing. No deformities Back: there is paraspinal tenderness as well as lumbar and thoracic tenderness. There is no C spine tenderness NEURO: Alert and oriented x 3. No acute neurological deficits. Speech is normal and follows commands. SKIN: Dry and warm, no hematoma, no bruising Triage Information Reviewed: Yes Vital Signs On Initial Exam: Initial Vitals Temp Pulse Resp BP Pulse Ox 97.5 F 84 16 142/66 97 11/18/17 11:22 11/18/17 11:22 11/18/17 11:22 11/18/17 11:22 11/18/17 11:22 Vital Signs Reviewed: Yes Diagnostics - Vital Signs Vital Signs Temp Pulse Resp BP Pulse Ox 11/18/17 11:22 97.5 F 84 16 142/66 97 - Laboratory Lab Statement: Any lab studies that have been ordered have been reviewed, and results considered in the medical decision making process. - Radiology T-spine Xr Radiology Interpretation Completed By: Radiologist - SCOLIOSIS. MILD DEGENERATIVE CHANGES. ED physician has reviewed this radiology report L-spine xray Radiology Interpretation Completed By: Radiologist - Degenerative disc disease at L3-L4, L4-L5 and L5-S1. ED physician has reviewed this radiology report. shoulder xray Radiology Interpretation Completed By: Radiologist - Unremarkable bilateral shoulders. ED physician has reviewed this radiology report. Adult Trauma Course/Dx - Course Assessment/Plan: This patient is a 67-year-old male who presents to the emergency department with a chief complaint of having bilateral shoulder pain and upper and lower back pain. His past medical history significant for delirium, rheumatoid arthritis, discitis, chronic kidney disease and depression. The patient denies any urinary or fecal dysfunction. The patient is ambulating into the ER. Patient usually walks with a walker. X-ray of the T spine shows scoliosis. Mild degenerative changes. Lumbar spine impression: Degenerative disc disease at L3 and L4 and L4 and L5 and S1. Shoulder x-ray impression: Unremarkable bilateral shoulders. In the ED course the patient was given Percocet for pain. The patient will be discharged home with follow-up with primary care physician. I discussed all the findings and test results with the patient. Patient was instructed to return to the emergency room immediately if any of the symptoms return or worsens. Plan of care was discussed with the patient and understands and agrees. All questions were answered at patient satisfaction. There were no further complaints or concerns. Lung exam before discharge: CTA B/L. Good air exchange. No wheezing or crackles heard. CVS: S1 and S2 present. No murmurs appreciated. Patient is alert and oriented x 3. Patient is hemodynamically stable. Patient will be discharged home with follow up PCP in the next 2-3 days - Diagnoses Provider Diagnoses: Back pain, Shoulder pain Discharge - Sign-Out/Discharge Documenting (check all that apply): Patient Departure - Discharge Plan Condition: Stable Disposition: HOME Patient Education Materials: Acute Low Back Pain (ED), Arthralgia (ED), Chronic Back Pain (ED) Referrals: Henry Brumfield MD [Primary Care Provider] - 2 Days Additional Instructions: RETURN TO THE EMERGENCY DEPARTMENT FOR CHANGING OR WORSENING SYMPTOMS. FOLLOW UP WITH PCP IN 1-2 DAYS. - Billing Disposition and Condition Condition: STABLE Disposition: Home - Attestation Statements Document Initiated by Ivelisse: Yes Documenting Scribe: Joey Hay Provider For Whom Ivelisse is Documenting (Include Credential): Jorge Paez MD Scribe Attestation: Joey Joel , scribed for Jorge Paez MD on 11/19/17 at 2057. Scribe Documentation Reviewed: Yes Provider Attestation: The documentation as recorded by the Joey nava accurately reflects the service I personally performed and the decisions made by me, Jorge Paez MD
--- OUTSIDE RECORDS SUMMARY | 2017-11-18 12:47 | XMS REPORT ---
:1950 External Reference #:[id number] Author Organization [facility] Address [address] [place] [address] [place] [address] Phone [phone] Care Team Providers Name Role Phone Herny Brumfield MD Primary Care Physician Unavailable Payers Type Date Identification Numbers Payment Provider Subscriber Medicare Primary Policy Number: [id number] Medicare Zenon Lopez JR PayID: [id number] [address] [place] [address] Medigap Part B Policy Number: [id number] Medicaid Zenon Lopez JR Group Name: 1 1 [address] PayID: [id number] [place] [address] Commercial Effective: Policy Number: [employer] Zenon Lopez 2010 [id number] Medicaid Expires: 2016 PayID: [id number] [address] [address] [place] [address] Problems Date Description Provider Status Onset: 05/16/2017 Seropositive rheumatoid Henry Brumfield M.D.,FACP Active arthritis Onset: 06/07/2011 Tobacco user Vanesa Garza M.D. Active Onset: 06/07/2011 Viral hepatitis C Vanesa Garza M.D. 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 Inactive: 05/16/2017 Onset: 06/07/2011 Dizziness and giddiness Vanesa Garza M.D. Inactive Inactive: 05/16/2017 Onset: 12/26/2012 Partial Tear Of Rotator Cuff Elmer Jurado M.D. 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 Recreational Drug Use Current Drug User cocaine Daily Caffeine Coffee 12 cups per day Daily Caffeine Per week 1-2 caffeinated sodas Daily Caffeine consumes chocolate occasionally Exercise Type/Frequency Does not exercise Allergies, Adverse Reactions, Alerts Date Description Reaction Status Severity Comments 03/03/2010 NKDA active Medications Medication Date Status Form Strength Qnty SIG Indications Ordering Provider Quetiapine 10/28 Active Tablets 100mg 30tab 1 tab by Henry Fumarate s mouth Brenda Brumfield, every M.D.,FACP night Zolpidem 10/28 Active Tablets 10mg 30tab 1/2 to 1 Henry Tartrate s tab by Brenda Brumfield, mouth M.DMaria Ines,FACP every night at bedtime as needed Boost 10/19 Active Liquid 30uni 1 by mouth Henry ts every day Brenda Brumfield M.D.,FACP Vitamin D 05/17 Active Tablets 1000Unit 30tab 1 tab PO Henry (Cholecalciferol s every day Brenda Brumfield, ) Ignacio,FACP Walker 02/23 Active Misc 1unit four s wheeled jeancarlos Herbert M.D. with seat and brakes dx m17.11 to help with arthritis npi: [id number] Plaquenil 02/23 Active Tablets 200mg 60tab take two Henry s tablets by ronny Tran M.D.,FACP every day Tramadol HCL Active Tablets 50mg 30tab 1 tablet M06.09 Henry s every 8 Brenda Brumfield, hours as Ignacio,ARPITA needed Allopurinol Active Tablets 100mg 30tab 1 by mouth Henry s every day Brenda Brumfield M.D.,FACP Acetaminophen Active Tablets 325mg 2 tablets Unknown 0000 by mouth every 6 hours as needed for pain/fever Dulcolax Active Suppository 10mg one Unknown suppositor y by way of rectum as needed daily for constipati on Nicotine Active Gum 4mg chew one Unknown Polacrilex piece by mouth every 2 to 3 hours as needed Cyclobenzaprine Active Tablets 10mg pt reports Elfar, HCL he takes MD Grisel once daily Quetiapine 06/27 Hx Tablets 50mg 30tab take 1 Henry Fumarate s tablet by Brenda Brumfield, - mouth Reilly.Brenda,FACP 10/28 evening at bedtime Zaleplon 06/17 Hx Capsules 10mg 30cap 1 by mouth s every Brenda Brumfield, - night at M.DMaria Ines,FACP 10/28 bedtime needed Hydrocodone-Acet 03/07 Hx Tablets 5-325mg 14tab take one aminophen s capsule/ta Keon - blet by Ignacio 05/12 twice daily as needed for pain Prednisone 02/23 Hx Tablets 10mg 30tab take 4 s tabs by Keon - mouth Ignacio 03/07 daily for 2 days then 3 tabs daily for 2 days then 2 tabs for 2 days then 1 tab for 2 days then d/c No Active 12/21 Hx Unknown Medications /2016 - 12/21 Prednisone 05/26 Hx Tablets 10mg 30tab 5tabx M25.531 s 2days,4 Pachikara - [id number] , M.D. 12/20 [id number] /2017 ,[id number] s,1tabxday . Kayexalate 02/17 Hx Powder 6unit Take 1 s dose. If Semora, - you do not M.D. 12/20 have a bowel movement in 6 hours repeat once No Active 02/16 Hx Unknown Medications - 02/16 Allopurinol 02/16 Hx Tablets 100mg 90tab 1 tab M10.071 s daily Semora, - M.D. 12/20 Harvoni 08/05 Hx Tablets 90-400mg 30tab 1 by mouth s every day MD Sukhwinder - X 12 . Prednisone 01/07 Hx Tablets 20mg 7tabs 20mg po qid x 4 Ordering - days Provider 02/15 Levofloxacin 01/07 Hx Tablets 750mg 10tab one tablet s daily for Ordering - 10 days. Provider 02/15 Benzonatate 12/30 Hx Capsules 200mg 15cap one by Jefe Walsh /2014 kelley mouth Vonda, - three M.D. 02/15 daily as needed for cough Proair HFA 12/30 Hx Aerosol 108(90Bas 1unit 2 puffs by Jefe Walsh /2014 e) s mouth four Vonda, - mcg/Act times a M.D. 02/15 day as needed Ambien 00/ Hx Tablets 10mg 30tab 1 po Unknown /0000 s tablet at - bedtime 05/22 prn /2014 Naproxen 00/ Hx Tablets 375mg 270ta Unknown /0000 bs - 06/06 Advair Diskus Hx Aerosol 500-50mcg 1Mon 1 puff po Unknown /0000 /Dose bid - 06/06 Ambien 00/ Hx Tablets 10mg 30tab 1 po qhs Unknown /0000 s prn sleep - insomnia 05/22 Pain Hx Unknown Medicine-Unsure /0000 What Med - 05/22 Diazepam Hx Tablets 5mg 1 tab tid Unknown /0000 prn - 12/30 Hydrocodone/Acet Hx 500/325mg 1 tab by Unknown aminophen /0000 mouth - every 4-6 12/30 hours needed Naproxen Hx Tablets 500mg 1 tablet Unknown /0000 with food - by mouth 12/30 twice a day Zolpidem Hx Tablets 10mg 1 tab by Unknown Tartrate /0000 mouth - every 02/15 night at bedtime as needed Zolpidem Hx Tablets 10mg 1 tab by Unknown Tartrate /0000 mouth - every 12/27 night at bedtime as needed Meloxicam Hx Tablets 7.5mg take one Unknown /0000 tab twice - daily as 12/21 needed for pain, avoid other nsaids Ambien CR Hx Tablets ER 12.5mg take 1 Unknown /0000 tablet by - mouth at 05/12 bedtime needed maximum daily dose of 1 per day Meloxicam Hx Tablets 7.5mg take one Unknown /0000 tab twice - daily as 03/07 needed for pain, avoid other nsaids Cyclobenzaprine Hx Tablets 10mg one by Unknown HCL /0000 mouth - three 05/12 times day as needed spasm Vitamin D3 High Hx Capsules 1000Unit 30cap 1 by mouth Henry Potency /0000 s every day Juan Tran M.D.,FACP 05/17 Quetiapine Hx Tablets 25mg 30tab 1 tab by Henry Fumarate /0000 s mouth Brenda Brumfield, - every M.DMaria Ines,FACP 06/27 night at bedtime Roxicodone Hx Tablets 5mg 1 tablet Unknown /0000 every 6 - hours as 05/16 needed for pain post-opera tively Zolpidem Hx Tablets ER 12.5mg 30tab 1 by mouth Henry Tartrate ER /0000 s every Brenda Brumfield, - night at M.D.,FACP 06/17 bedtime as needed Meloxicam Hx Tablets 7.5mg Stephieribhakti, /0000 Juan Bowles M.D. 05/16 Indomethacin Hx Capsules 50mg Stephieribhakti, /0000 Juan Bowles M.D. 05/16 Prednisone 00 Hx Tablets 20mg Unknown /0000 - 06/27 Medications Administered in Office Medication Date Status Form Strength Qnty SIG Indications Ordering Provider Triamcinolone 10/27/ Administered Injection Zaneb (Kenalog) 2017 MD Saima Triamcinolone 10/27/ Administered Injection Zaneb (Kenalog) 2017 MD Saima Triamcinolone 02/23/ Administered Injection Jairo (Kenalog) 2016 Ignacio Herbert Triamcinolone 02/10/ Administered Injection Zaneb (Kenalog) 2016 MD Saima Immunizations CPT Code Status Date Vaccine Reaction Lot # [id number] Given 05/16/2017 Influenza Virus Vaccine, Quadrivalent, none [id number], Preservative Free 10464 Given 05/16/2017 Pneumococcal Conjugate Vaccine 13 Valent none [id number] For Intramuscular Use 76329 Given 12/30/2014 Influenza Virus Vaccine, Quadrivalent, [id number] Split, Preservative Free 58164 Given 05/22/2014 Pneumonia Vaccine [id number] Given 03/07/2010 Tetanus And Diptheria (Td) For Adult Use Preservative Free Vital Signs Date Vital Result Comment 11/04/2017 Height 72 inches 6'0" Weight 133.12 lb Heart Rate 78 /min BP Systolic 130 mmHg BP Diastolic 84 mmHg Body Temperature 97.5 F O2 % BldC Oximetry 98 % BMI (Body Mass Index) 18.1 kg/m2 10/28/2017 Height 72 inches 6'0" Weight 136.00 lb Heart Rate 80 /min BP Systolic Sitting 130 mmHg BP Diastolic Sitting 80 mmHg Body Temperature 98.6 F O2 % BldC Oximetry 97 % BMI (Body Mass Index) 18.4 kg/m2 10/27/2017 Height 72 inches 6'0" Weight 145.00 lb Heart Rate 62 /min BP Systolic 116 mmHg BP Diastolic 66 mmHg Body Temperature 96.7 F Pain Level 8 BMI (Body Mass Index) 19.7 kg/m2 06/27/2017 Weight 143.00 lb Heart Rate 69 /min BP Systolic Sitting 120 mmHg BP Diastolic Sitting 76 mmHg Body Temperature 96.2 F O2 % BldC Oximetry 95 % 05/16/2017 Height 72 inches 6'0" Weight 140.00 lb Heart Rate 73 /min BP Systolic Sitting 176 mmHg BP Diastolic Sitting 85 mmHg Respiratory Rate 14 /min Pain Level 4 BMI (Body Mass Index) 19.0 kg/m2 02/23/2017 Height 72 inches 6'0" Weight 144.00 lb Heart Rate 85 /min BP Systolic Sitting 145 mmHg BP Diastolic Sitting 82 mmHg Respiratory Rate 16 /min Pain Level 10 BMI (Body Mass Index) 19.5 kg/m2 02/14/2017 Height 72 inches 6'0" Weight 140.00 lb Heart Rate 74 /min BP Systolic Sitting 145 mmHg BP Diastolic Sitting 82 mmHg Pain Level 9 BMI (Body Mass Index) 19.0 kg/m2 02/10/2017 Height 72 inches 6'0" Weight 145.00 lb Heart Rate 80 /min Respiratory Rate 14 /min Body Temperature 98.7 F Pain Level 10 BMI (Body Mass Index) 19.7 kg/m2 12/31/2016 Height 72 inches 6'0" Weight 145.00 lb BP Systolic 130 mmHg BP Diastolic 82 mmHg Respiratory Rate 20 /min Pain Level 8 BMI (Body Mass Index) 19.7 kg/m2 12/28/2016 Weight 145.00 lb Heart Rate 57 /min BP Systolic Sitting 122 mmHg BP Diastolic Sitting 71 mmHg Body Temperature 96.8 F Pain Level 7 all over O2 % BldC Oximetry 96 % 12/21/2016 Height 72 inches 6'0" Weight 149.00 lb Heart Rate 51 /min BP Systolic Sitting 162 mmHg BP Diastolic Sitting 92 mmHg Body Temperature 96.5 F O2 % BldC Oximetry 96 % BMI (Body Mass Index) 20.2 kg/m2 05/26/2016 Weight 168.00 lb with shoes Heart Rate 61 /min BP Systolic 130 mmHg BP Diastolic 72 mmHg O2 % BldC Oximetry 98 % 02/17/2016 Weight 157.50 lb Heart Rate 64 /min BP Systolic 144 mmHg BP Diastolic 80 mmHg Body Temperature 96.9 F O2 % BldC Oximetry 97 % 12/30/2014 Weight 159.00 lb Heart Rate 79 /min BP Systolic Sitting 120 mmHg BP Diastolic Sitting 78 mmHg Body Temperature 97.2 F O2 % BldC Oximetry 98 % 05/22/2014 Height 72 inches 6'0" Weight 157.50 lb Heart Rate 54 /min BP Systolic Sitting 120 mmHg BP Diastolic Sitting 64 mmHg Pain Level 8 O2 % BldC Oximetry 98 % BMI (Body Mass Index) 21.4 kg/m2 12/26/2012 Height 73.5 inches 6'1.50" Weight 153.00 lb BP Systolic 118 mmHg BP Diastolic 64 mmHg Pain Level 1 neck BMI (Body Mass Index) 19.9 kg/m2 08/04/2011 Height 73 inches 6'1" Weight 156.00 lb Heart Rate 84 /min Regular BP Systolic Sitting 140 mmHg BP Diastolic Sitting 80 mmHg BMI (Body Mass Index) 20.6 kg/m2 06/07/2011 Height 73 inches 6'1" Weight 172.00 lb Heart Rate 71 /min BP Systolic Sitting 114 mmHg left arm, right arm 124/68 BP Diastolic Sitting 70 mmHg left arm, right arm 124/68 BP Systolic Standing 90 mmHg BP Diastolic Standing 50 mmHg BMI (Body Mass Index) 22.7 kg/m2 03/03/2010 Height 73 inches 6'1" Weight 181.00 lb Heart Rate 81 /min BP Systolic Sitting 116 mmHg BP Diastolic Sitting 72 mmHg O2 % BldC Oximetry 98 % BMI (Body Mass Index) 23.9 kg/m2 Results Test Date Test Result H/L Range Note Laboratory test finding 10/28/2017 Uric Acid 5.4 mg/dL 4.4-7.6 TSH (Thyroid Stim Horm) 1.45 mcIU/mL 0.34-5.60 CBC Auto Diff 10/28/2017 White Blood Count 10.1 10^3/uL 3.5-10.8 Red Blood Count 3.58 10^6/uL Low 4.00-5.40 Hemoglobin 11.8 g/dL Low 14.0-18.0 Hematocrit 35 % Low 42-52 Mean Corpuscular Volume 99 fL High 80-94 Mean Corpuscular Hemoglobin 33 pg High 27-31 Mean Corpuscular HGB Conc 34 g/dL 31-36 Red Cell Distribution Width 16 % High 10.5-15 Platelet Count 192 10^3/uL 150-450 Mean Platelet Volume 10.0 um3 7.4-10.4 Abs Neutrophils 8.5 10^3/uL High 1.5-7.7 Abs Lymphocytes 0.8 10^3/uL Low 1.0-4.8 Abs Monocytes 0.8 10^3/uL 0-0.8 Abs Eosinophils 0.1 10^3/uL 0-0.6 Abs Basophils 0 10^3/uL 0-0.2 Abs Nucleated RBC 0 10^3/uL Granulocyte % 83.6 % High 38-83 Lymphocyte % 7.5 % Low 25-47 Monocyte % 8.1 % High 0-7 Eosinophil % 0.5 % 0-6 Basophil % 0.3 % 0-2 Nucleated Red Blood Cells % 0 Comp Metabolic Panel 10/28/2017 Sodium 137 mmol/L 135-145 Chloride 110 mmol/L 101-111 Co2 Carbon Dioxide 22 mmol/L 22-32 Glucose 96 mg/dL 70-100 Blood Urea Nitrogen 50 mg/dL High 6-24 Creatinine 2.09 mg/dL High 0.67-1.17 BUN/Creatinine Ratio 23.9 High 8-20 Calcium 9.2 mg/dL 8.6-10.3 Total Protein 6.7 g/dL 6.4-8.9 Albumin 4.1 g/dL 3.2-5.2 Globulin 2.6 g/dL 2-4 Albumin/Globulin Ratio 1.6 1-3 Total Bilirubin 0.30 mg/dL 0.2-1.0 Alkaline Phosphatase 69 U/L 34-104 Alt 11 U/L 7-52 Ast 16 U/L 13-39 Egfr Non- 31.9 >60 Egfr 38.6 >60 1 Potassium 5.6 mmol/L High 3.5-5.0 Anion Gap 5 mmol/L 2-11 Comp Metabolic Panel 08/12/2017 Sodium 136 mmol/L Low 139-145 Chloride 108 mmol/L 101-111 Co2 Carbon Dioxide 24 mmol/L 22-32 Glucose 82 mg/dL 70-100 Blood Urea Nitrogen 34 mg/dL High 6-24 Creatinine 1.93 mg/dL High 0.67-1.17 One Over Creatinine 0.51 mg/dL Low 0.67-1.17 BUN/Creatinine Ratio 17.6 8-20 Calcium 9.1 mg/dL 8.6-10.3 Total Protein 6.4 g/dL 6.4-8.9 Albumin 3.8 g/dL 3.2-5.2 Globulin 2.6 g/dL 2-4 Albumin/Globulin Ratio 1.5 1-3 Total Bilirubin 0.40 mg/dL 0.2-1.0 Alkaline Phosphatase 68 U/L 34-104 Alt 12 U/L 7-52 Ast 20 U/L 13-39 Egfr Non- 35.0 >60 Egfr 45.0 >60 2 Potassium 5.6 mmol/L High 3.5-5.0 Anion Gap 4 mmol/L 2-11 Laboratory test finding 05/17/2017 Erythrocyte Sed Rate 36 mm/Hr 0-40 3 C Reactive Protein 12.69 mg/L High < 5.00 4 CBC Auto Diff 05/17/2017 White Blood Count 9.3 10^3/uL 3.5-10.8 Red Blood Count 3.57 10^6/uL Low 4.0-5.4 Hemoglobin 11.5 g/dL Low 14.0-18.0 Hematocrit 34 % Low 42-52 Mean Corpuscular Volume 96 fL High 80-94 Mean Corpuscular Hemoglobin 32 pg High 27-31 Mean Corpuscular HGB Conc 34 g/dL 31-36 Red Cell Distribution Width 16 % High 10.5-15 Platelet Count 288 10^3/uL 150-450 Mean Platelet Volume 10 um3 7.4-10.4 Abs Neutrophils 6.6 10^3/uL 1.5-7.7 Abs Lymphocytes 1.2 10^3/uL 1.0-4.8 Abs Monocytes 1.2 10^3/uL High 0-0.8 Abs Eosinophils 0.3 10^3/uL 0-0.6 Abs Basophils 0 10^3/uL 0-0.2 Abs Nucleated RBC 0 10^3/uL Granulocyte % 71.2 % 38-83 Lymphocyte % 12.7 % Low 25-47 Monocyte % 12.5 % High 0-7 Eosinophil % 3.4 % 0-6 Basophil % 0.2 % 0-2 Nucleated Red Blood Cells % 0.2 Laboratory test 05/17/2017 Hepatitis C Rna Undetected IU/mL Undetected 5 finding Quant Basic Metabolic Panel 05/17/2017 Sodium 137 mmol/L 133-145 Chloride 105 mmol/L 101-111 Co2 Carbon Dioxide 24 mmol/L 22-32 Glucose 123 mg/dL High 70-100 Blood Urea Nitrogen 35 mg/dL High 6-24 Creatinine 1.91 mg/dL High 0.67-1.17 BUN/Creatinine Ratio 18.3 8-20 Calcium 9.4 mg/dL 8.6-10.3 Egfr Non- 35.4 >60 Egfr 45.6 >60 6 Potassium 5.5 mmol/L High 3.5-5.0 Anion Gap 8 mmol/L 2-11 Laboratory test finding 03/11/2017 Erythrocyte Sed Rate 61 mm/Hr High 0- 40 CBC Auto Diff 03/11/2017 White Blood Count 14.3 10^3/uL High 3.5-10.8 Red Blood Count 4.23 10^6/uL 4.0-5.4 Hemoglobin 13.4 g/dL Low 14.0-18.0 Hematocrit 41 % Low 42-52 Mean Corpuscular Volume 96 fL High 80-94 Mean Corpuscular Hemoglobin 32 pg High 27-31 Mean Corpuscular HGB Conc 33 g/dL 31-36 Red Cell Distribution Width 14 % 10.5-15 Platelet Count 254 10^3/uL 150-450 Mean Platelet Volume 10 um3 7.4-10.4 Abs Neutrophils 11.7 10^3/uL High 1.5-7.7 Abs Lymphocytes 1.1 10^3/uL 1.0-4.8 Abs Monocytes 1.4 10^3/uL High 0-0.8 Abs Eosinophils 0.1 10^3/uL 0-0.6 Abs Basophils 0.1 10^3/uL 0-0.2 Abs Nucleated RBC 0 10^3/uL Granulocyte % 81.6 % 38-83 Lymphocyte % 7.4 % Low 25-47 Monocyte % 9.5 % High 1-9 Eosinophil % 0.7 % 0-6 Basophil % 0.8 % 0-2 Nucleated Red Blood Cells % 0 Laboratory test finding 03/11/2017 Partial Thrombo 32.3 seconds 26.0- 36.3 Time PTT Inr/Protime 03/11/2017 Inr 1.10 High 0.77-1.02 Urine Culture And 03/11/2017 Urine Culture SEE RESULT BELOW 7 Sensitivities Urinalysis Profile 03/11/2017 Urine Color Yellow Urine Appearance Clear Urine Specific [place] 1.018 1.010-1.030 Urine pH 5.0 5-9 Urine Urobilinogen Negative Negative Urine Ketones Negative Negative Urine Protein Negative Negative Urine Leukocytes Negative Negative Urine Blood Negative Negative Urine Nitrite Negative Negative Urine Bilirubin Negative Negative Urine Glucose Negative Negative Laboratory test finding 03/11/2017 Creatinine Random Urine 114.96 mg/dL Sodium Random Urine 70 mmol/L CBC Auto Diff 2017 White Blood Count 13.0 10^3/uL High 3.5-10.8 Red Blood Count 4.02 10^6/uL 4.0-5.4 Hemoglobin 12.8 g/dL Low 14.0-18.0 Hematocrit 39 % Low 42-52 Mean Corpuscular Volume 97 fL High 80-94 Mean Corpuscular Hemoglobin 32 pg High 27-31 Mean Corpuscular HGB Conc 33 g/dL 31-36 Red Cell Distribution Width 14 % 10.5-15 Platelet Count 334 10^3/uL 150-450 Mean Platelet Volume 9 um3 7.4-10.4 Abs Neutrophils 10.4 10^3/uL High 1.5-7.7 Abs Lymphocytes 1.0 10^3/uL 1.0-4.8 Abs Monocytes 1.4 10^3/uL High 0-0.8 Abs Eosinophils 0.1 10^3/uL 0-0.6 Abs Basophils 0.1 10^3/uL 0-0.2 Abs Nucleated RBC 0 10^3/uL Granulocyte % 80.0 % 38-83 Lymphocyte % 7.4 % Low 25-47 Monocyte % 11.0 % High 1-9 Eosinophil % 0.9 % 0-6 Basophil % 0.7 % 0-2 Nucleated Red Blood Cells % 0 Comp Metabolic Panel 2017 Sodium 135 mmol/L 133-145 Chloride 108 mmol/L 101-111 Co2 Carbon Dioxide 24 mmol/L 22-32 Glucose 115 mg/dL High 70-100 Blood Urea Nitrogen 61 mg/dL High 6-24 Creatinine 2.07 mg/dL High 0.67-1.17 BUN/Creatinine Ratio 29.5 High 8-20 Calcium 9.4 mg/dL 8.6-10.3 Total Protein 7.2 g/dL 6.4-8.9 Albumin 3.5 g/dL 3.2-5.2 Globulin 3.7 g/dL 2-4 Albumin/Globulin Ratio 0.9 Low 1-3 Total Bilirubin 0.30 mg/dL 0.2-1.0 Alkaline Phosphatase 66 U/L 34-104 Alt 9 U/L 7-52 Ast 14 U/L 13-39 Egfr Non- 32.3 >60 Egfr 41.5 >60 8 Potassium 5.4 mmol/L High 3.5-5.0 Anion Gap 3 mmol/L 2-11 Laboratory test finding 2017 Lipase 14 U/L 11.0-82.0 C Reactive Protein 56.35 mg/L High < 5.00 9 Lactic Acid 0.8 mmol/L 0.5-2.0 10 TSH (Thyroid Stim Horm) 0.64 mcIU/mL 0.34-5.60 T3 Free 2.40 pg/mL Low 2.5-3.9 Free T4 (Free Thyroxine) 1.11 ng/dL 0.61-1.12 Urinalysis Profile 2017 Urine Color Yellow Urine Appearance Clear Urine Specific [place] 1.015 1.010-1.030 Urine pH 5.0 5-9 Urine Urobilinogen Negative Negative Urine Ketones Negative Negative Urine Protein Negative Negative Urine Leukocytes Negative Negative Urine Blood 1+ Negative Urine Nitrite Negative Negative Urine Bilirubin Negative Negative Urine Glucose Negative Negative Urine White Blood Cell Trace(0-5/hpf) Absent Urine Red Blood Cell 2+(6-10/hpf) Absent Urine Bacteria Absent Absent Basic Metabolic Panel 02/24/2017 Sodium 135 mmol/L 133-145 Chloride 108 mmol/L 101-111 Co2 Carbon Dioxide 21 mmol/L Low 22-32 Glucose 84 mg/dL 70-100 Blood Urea Nitrogen 76 mg/dL High 6-24 Creatinine 2.61 mg/dL High 0.67-1.17 BUN/Creatinine Ratio 29.1 High 8-20 Calcium 8.7 mg/dL 8.6-10.3 Egfr Non- 24.8 >60 Egfr 31.9 >60 11 Potassium 5.7 mmol/L High 3.5-5.0 Anion Gap 6 mmol/L 2-11 Celiac Panel 02/24/2017 Immunoglobulin A 152 mg/dL 61 - 356 Tissue Transglutaminase IgA Ab <1.2 U/mL 12 Celiac Interpretation See Comment 13 Celiac Hla 02/24/2017 [id number] SEE BELOW 14 [id number] SEE BELOW 15 Celiac Gene Pairs Present? Yes Celiac Gene Interpretation See Comment 16 Laboratory test finding 02/24/2017 TSH (Thyroid Stim 0.52 mcIU/mL 0.34- 5.60 17 Horm) Lyme Disease Serology Negative Negative 18 Vitamin B12 And Folate Serum 02/24/2017 Vitamin B12 331 pg/mL 180-914 19 Folic Acid (Folate) > 20.00 ng/mL >3.99 20 Connective Tissue Panel 02/24/2017 Anti-Nuclear Antibody 0.2 U 21 Cyclic Citrullinated Peptide 44.7 U 22 Interpretation See Comment 23 Laboratory test finding 02/24/2017 Rheumatoid Factor <15 IU/mL <15 24 Erythrocyte Sed Rate 61 mm/Hr High 0-40 25 Creatine Kinase(CK) 52 U/L 10-223 26 C Reactive Protein 61.56 mg/L High < 5.00 27 Hla B27 02/24/2017 Hla B27 Negative 28 Hla B27 Interp See Comment 29 Anca AB Ser If 02/24/2017 C-Anca Negative Negative P-Anca Negative Negative 30 Protein Electrophoresis 02/24/2017 Total Protein(Pep) 6.7 g/dL 6.3 - 7.9 Albumin 2.8 g/dL 3.4-4.7 Alpha-1 Globulin 0.4 g/dL 0.1-0.3 Alpha-2 Globulin 1.1 g/dL 0.6-1.0 Beta Globulin 0.9 g/dL 0.7-1.2 Gamma Globulin 1.4 g/dL 0.6-1.6 Albumin/Globulin Ratio 0.72 Impression See Comment 31 Basic Metabolic Panel 02/15/2017 Sodium 131 mmol/L Low 133-145 Chloride 102 mmol/L 101-111 Co2 Carbon Dioxide 23 mmol/L 22-32 Glucose 111 mg/dL High 70-100 Blood Urea Nitrogen 51 mg/dL High 6-24 Creatinine 2.26 mg/dL High 0.67-1.17 BUN/Creatinine Ratio 22.6 High 8-20 Calcium 8.7 mg/dL 8.6-10.3 Egfr Non- 29.3 >60 Egfr 37.6 >60 32 Potassium 5.6 mmol/L High 3.5-5.0 Anion Gap 6 mmol/L 2-11 Basic Metabolic Panel 12/27/2016 Sodium 136 mmol/L 133-145 Chloride 108 mmol/L 101-111 Co2 Carbon Dioxide 24 mmol/L 22-32 Glucose 88 mg/dL 70-100 Blood Urea Nitrogen 48 mg/dL High 6-24 Creatinine 1.96 mg/dL High 0.67-1.17 BUN/Creatinine Ratio 24.5 High 8-20 Calcium 9.0 mg/dL 8.6-10.3 Egfr Non- 34.5 >60 Egfr 44.4 >60 33 Potassium 5.8 mmol/L High 3.5-5.0 Anion Gap 4 mmol/L 2-11 CBC Auto Diff 12/24/2016 White Blood Count 7.8 10^3/uL 3.5-10.8 Red Blood Count 3.76 10^6/uL Low 4.0-5.4 Hemoglobin 12.3 g/dL Low 14.0-18.0 Hematocrit 37 % Low 42-52 Mean Corpuscular Volume 98 fL High 80-94 Mean Corpuscular Hemoglobin 33 pg High 27-31 Mean Corpuscular HGB Conc 34 g/dL 31-36 Red Cell Distribution Width 15 % 10.5-15 Platelet Count 169 10^3/uL 150-450 Mean Platelet Volume 10 um3 7.4-10.4 Abs Neutrophils 4.8 10^3/uL 1.5-7.7 Abs Lymphocytes 1.5 10^3/uL 1.0-4.8 Abs Monocytes 0.9 10^3/uL High 0-0.8 Abs Eosinophils 0.5 10^3/uL 0-0.6 Abs Basophils 0.1 10^3/uL 0-0.2 Abs Nucleated RBC 0 10^3/uL Granulocyte % 61.0 % 38-83 Lymphocyte % 19.6 % Low 25-47 Monocyte % 12.0 % High 1-9 Eosinophil % 6.3 % High 0-6 Basophil % 1.1 % 0-2 Nucleated Red Blood Cells % 0 Comp Metabolic Panel 12/24/2016 Sodium 134 mmol/L 133-145 Chloride 107 mmol/L 101-111 Co2 Carbon Dioxide 25 mmol/L 22-32 Glucose 92 mg/dL 70-100 Blood Urea Nitrogen 42 mg/dL High 6-24 Creatinine 2.04 mg/dL High 0.67-1.17 BUN/Creatinine Ratio 20.6 High 8-20 Calcium 9.3 mg/dL 8.6-10.3 Total Protein 6.9 g/dL 6.4-8.9 Albumin 4.0 g/dL 3.2-5.2 Globulin 2.9 g/dL 2-4 Albumin/Globulin Ratio 1.4 1-3 Total Bilirubin 0.30 mg/dL 0.2-1.0 Alkaline Phosphatase 61 U/L 34-104 Alt 9 U/L 7-52 Ast 16 U/L 13-39 Egfr Non- 32.9 >60 Egfr 42.4 >60 34 Potassium 6.1 mmol/L High 3.5-5.0 Anion Gap 2 mmol/L 2-11 Laboratory test finding 12/24/2016 Erythrocyte Sed Rate 12 mm/Hr 0-40 C Reactive Protein 1.90 mg/L < 5.00 35 TSH (Thyroid Stim Horm) 3.39 mcIU/mL 0.34-5.60 36 Connective Tissue Panel 12/24/2016 Anti-Nuclear Antibody 0.3 U 37 Cyclic Citrullinated Peptide 82.9 U 38 Interpretation See Comment 39 Laboratory test 12/24/2016 Hepatitis C Rna Undetected IU/mL Undetected 40 finding Quant Urinalysis Profile 12/24/2016 Urine Color Yellow Urine Appearance Clear Urine Specific [place] 1.013 1.010-1.030 Urine pH 6.0 5-9 Urine Urobilinogen Negative Negative Urine Ketones Negative Negative Urine Protein Negative Negative Urine Leukocytes Negative Negative Urine Blood 1+ Negative Urine Nitrite Negative Negative Urine Bilirubin Negative Negative Urine Glucose Negative Negative Urine White Blood Cell Trace(0-5/hpf) Absent Urine Red Blood Cell 2+(6-10/hpf) Absent Urine Bacteria Absent Absent Urine Hyaline Casts Present Absent Laboratory test finding 12/24/2016 PSA Diagnostic 0.176 ng/mL 0-4.000 41 Basic Metabolic Panel 02/19/2016 Sodium 136 mmol/L 133-145 Potassium 5.3 mmol/L High 3.5-5.0 Chloride 105 mmol/L 101-111 Co2 Carbon Dioxide 26 mmol/L 22-32 Anion Gap 5 mmol/L 2-11 Glucose 110 mg/dL High 70-100 Blood Urea Nitrogen 54 mg/dL High 6-24 Creatinine 2.54 mg/dL High 0.67-1.17 BUN/Creatinine Ratio 21.3 High 8-20 Calcium 9.1 mg/dL 8.6-10.3 Egfr Non- 25.7 >60 Egfr 33.0 >60 42 Basic Metabolic Panel 02/17/2016 Sodium 133 mmol/L 133-145 Chloride 104 mmol/L 101-111 Co2 Carbon Dioxide 26 mmol/L 22-32 Glucose 99 mg/dL 70-100 Blood Urea Nitrogen 48 mg/dL High 6-24 Creatinine 2.51 mg/dL High 0.67-1.17 BUN/Creatinine Ratio 19.1 8-20 Calcium 9.5 mg/dL 8.6-10.3 Egfr Non- 26.0 >60 Egfr 33.5 >60 43 Potassium 6.3 mmol/L High 3.5-5.0 44 Anion Gap 3 mmol/L 2-11 CBC Auto Diff 01/06/2015 White Blood Count 17.8 10^3/uL High 4.8-10.8 Red Blood Count 3.82 10^6/uL Low 4.0-5.4 Hemoglobin 12.3 g/dL Low 14.0-18.0 Hematocrit 38 % Low 42-52 Mean Corpuscular Volume 100 fL High 80-94 Mean Corpuscular Hemoglobin 32 pg High 27-31 Mean Corpuscular HGB Conc 32 g/dL 31-36 Red Cell Distribution Width 14 % 10.5-15 Platelet Count 391 10^3/uL 150-450 Mean Platelet Volume 9 um3 7.4-10.4 Abs Neutrophils 13.5 10^3/uL High 1.5-7.7 Abs Lymphocytes 1.8 10^3/uL 1.0-4.8 Abs Monocytes 2.2 10^3/uL High 0-0.8 Abs Eosinophils 0.2 10^3/uL 0-0.6 Abs Basophils 0.1 10^3/uL 0-0.2 Abs Nucleated RBC 0 10^3/uL Granulocyte % 75.8 % 38-83 Lymphocyte % 10.2 % Low 25-47 Monocyte % 12.4 % High 1-9 Eosinophil % 1.0 % 0-6 Basophil % 0.6 % 0-2 Nucleated Red Blood Cells % 0 Inr/Protime 01/06/2015 Inr 1.31 High 0.89-1.11 45 Laboratory test finding 01/06/2015 Partial Thrombo 35.2 seconds 26.0- 36.3 Time PTT Lactic Acid 0.4 mmol/L Low 0.5-2.2 Comp Metabolic Panel 01/06/2015 Sodium 131 mmol/L Low 133-145 Potassium 5.4 mmol/L High 3.5-5.0 Chloride 99 mmol/L Low 101-111 Co2 Carbon Dioxide 26 mmol/L 22-32 Anion Gap 6 mmol/L 2-11 Glucose 108 mg/dL High 70-100 Blood Urea Nitrogen 35 mg/dL High 6-24 Creatinine 2.14 mg/dL High 0.67-1.17 BUN/Creatinine Ratio 16.4 8-20 Calcium 9.1 mg/dL 8.6-10.3 Total Protein 7.0 g/dL 6.4-8.9 Albumin 3.4 g/dL 3.2-5.2 Globulin 3.6 g/dL 2-4 Albumin/Globulin Ratio 0.9 Low 1-3 Total Bilirubin 0.30 mg/dL 0.2-1.0 Alkaline Phosphatase 62 U/L 34-104 Alt 27 U/L 7-52 Ast 31 U/L 13-39 Egfr Non- 31.4 >60 Egfr 40.3 >60 46 Laboratory test finding 01/06/2015 Troponin-I (TnI) 0.02 ng/mL <0.03 47 Blood Culture SEE RESULT BELOW 48 Urinalysis Profile 08/26/2014 Urine Color Yellow Urine Appearance Clear Urine Specific [place] 1.012 1.010-1.030 Urine pH 6.0 5-9 Urine Urobilinogen Negative Negative Urine Ketones Negative Negative Urine Protein Negative Negative Urine Leukocytes Negative Negative Urine Blood Negative Negative Urine Nitrite Negative Negative Urine Bilirubin Negative Negative Urine Glucose Negative Negative Basic Metabolic Panel 08/26/2014 Sodium 136 mmol/L 133-145 Chloride 107 mmol/L 101-111 Co2 Carbon Dioxide 23 mmol/L 22-32 Glucose 135 mg/dL High 70-100 Blood Urea Nitrogen 29 mg/dL High 6-24 Creatinine 2.03 mg/dL High 0.67-1.17 BUN/Creatinine Ratio 14.3 8-20 Calcium 8.8 mg/dL 8.6-10.3 Egfr Non- 33.3 >60 Egfr 42.9 >60 49 Potassium 5.0 mmol/L 3.5-5.0 Anion Gap 6 mmol/L 2-11 CBC Auto Diff 06/07/2014 White Blood Count 9.7 10^3/uL 4.8-10.8 50 Red Blood Count 4.01 10^6/uL 4.0-5.4 50 Hemoglobin 13.5 g/dL Low 14.0-18.0 50 Hematocrit 40 % Low 42-52 50 Mean Corpuscular Volume 101 fL High 80-94 50 Mean Corpuscular Hemoglobin 34 pg High 27-31 50 Mean Corpuscular HGB Conc 33 g/dL 31-36 50 Red Cell Distribution Width 15 % 10.5-15 50 Platelet Count 231 10^3/uL 150-450 50 Mean Platelet Volume 10 um3 7.4-10.4 50 Abs Neutrophils 6.2 10^3/uL 1.5-7.7 50 Abs Lymphocytes 1.8 10^3/uL 1.0-4.8 50 Abs Monocytes 1.3 10^3/uL High 0-0.8 50 Abs Eosinophils 0.4 10^3/uL 0-0.6 50 Abs Basophils 0.1 10^3/uL 0-0.2 50 Abs Nucleated RBC 0 10^3/uL 50 Granulocyte % 63.4 % 38-83 50 Lymphocyte % 18.3 % Low 25-47 50 Monocyte % 13.5 % High 1-9 50 Eosinophil % 3.7 % 0-6 50 Basophil % 1.1 % 0-2 50 Nucleated Red Blood Cells % 0 50 Comp Metabolic Panel 06/07/2014 Sodium 135 mmol/L 133-145 50 Potassium 5.6 mmol/L High 3.5-5.0 50 Chloride 106 mmol/L 101-111 50 Co2 Carbon Dioxide 25 mmol/L 22-32 50 Anion Gap 4 mmol/L 2-11 50 Glucose 85 mg/dL 70-100 50 Blood Urea Nitrogen 40 mg/dL High 6-24 50 Creatinine 2.44 mg/dL High 0.67-1.17 50 BUN/Creatinine Ratio 16.4 8-20 50 Calcium 9.0 mg/dL 8.6-10.3 50 Total Protein 6.8 g/dL 6.4-8.9 50 Albumin 3.9 g/dL 3.2-5.2 50 Globulin 2.9 g/dL 2-4 50 Albumin/Globulin Ratio 1.3 1-3 50 Total Bilirubin 0.50 mg/dL 0.2-1.0 50 Alkaline Phosphatase 53 U/L 34-104 50 Alt 27 U/L 7-52 50 Ast 28 U/L 13-39 50 Egfr Non- 27.0 >60 50 Egfr 34.7 >60 50, 51 Laboratory test 06/07/2014 Hepatitis C Rna [id number] IU/mL Undetected 50, 52 finding Quantitative HIV 1/2 AB 06/07/2014 HIV 1 2 Antibody Nonreactive Nonreactive 50, 53 Evaluation Lipid Profile 06/07/2014 Triglycerides 114 mg/dL 50, 54 (Trig/Chol/HDL) Cholesterol 134 mg/dL 50, 55 HDL Cholesterol 48.2 mg/dL 50, 56 LDL Cholesterol 63 mg/dL 50, 57 Basic Metabolic Panel 03/02/2010 Sodium 137 mmol/L 135-145 Potassium 4.8 mmol/L 3.5-5.0 Chloride 102 mmol/L 101-111 Co2 (Carbon Dioxide) 30.0 mmol/L 22-32 Anion Gap 5.0 mmol/L 2-11 58 Glucose 81 mg/dL 70-100 BUN 29 mg/dL High 6-24 Creatinine 1.20 mg/dL 0.50-1.40 One Over Creatinine 0.80 BUN/Creatinine Ratio 24.2 High 8-20 Calcium 9.9 mg/dL 8.1-9.9 eGFR Non- 65.9 > 60 eGFR 79.7 > 60 59 Basic Metabolic Panel 02/26/2010 Sodium 137 mmol/L 135-145 Potassium 5.2 mmol/L High 3.5-5.0 Chloride 105 mmol/L 101-111 Co2 (Carbon Dioxide) 28.0 mmol/L 22-32 Anion Gap 4.0 mmol/L 2-11 60 Glucose 65 mg/dL Low 70-100 BUN 30 mg/dL High 6-24 Creatinine 1.40 mg/dL 0.50-1.40 One Over Creatinine 0.70 BUN/Creatinine Ratio 21.4 High 8-20 Calcium 9.7 mg/dL 8.1-9.9 eGFR Non- 55.3 > 60 eGFR 66.9 > 60 61 Comp Metabolic Panel 02/20/2010 Sodium 137 mmol/L 135-145 Potassium 5.7 mmol/L High 3.5-5.0 Chloride 101 mmol/L 101-111 Co2 (Carbon Dioxide) 26.0 mmol/L 22-32 Anion Gap 10.0 mmol/L 2-11 62 Glucose 69 mg/dL Low 70-100 63 BUN 32 mg/dL High 6-24 Creatinine 1.24 mg/dL 0.50-1.40 One Over Creatinine 0.80 BUN/Creatinine Ratio 25.8 High 8-20 Calcium 9.6 mg/dL 8.1-9.9 Total Protein 7.7 GM/DL 6.2-8.1 Albumin 4.3 GM/DL 3.6-5.4 Globulin 3.4 GM/DL 2-4 Albumin/Globulin Ratio 1.3 1-3 Bilirubin Total 1.1 mg/dL 0.4-1.5 64 Alkaline Phosphatase 62 U/L 39-117 Alt (SGPT) 49 U/L 17-63 Ast (Sgot) 53 U/L High 12-42 eGFR Non- 63.6 > 60 eGFR 77.0 > 60 65 1 Because ethnic data is not always readily available, this report includes an eGFR for both -Americans and non- Americans. The National Kidney Disease Education Program (NKDEP) does not endorse the use of the MDRD equation for patients that are not between the ages of 18 and 70, are , have extremes of body size, muscle mass, or nutritional status, or are non- or non-. According to the National Kidney Foundation, irrespective of diagnosis, the stage of the disease is based on the level of kidney function: Stage Description GFR(mL/min/1.73 m(2)) 1 Kidney damage with normal or decreased GFR 90 2 Kidney damage with mild decrease in GFR 60-89 3 Moderate decrease in GFR 30-59 4 Severe decrease in GFR 15-29 5 Kidney failure <15 (or dialysis) 2 Because ethnic data is not always readily available, this report includes an eGFR for both -Americans and non- Americans. The National Kidney Disease Education Program (NKDEP) does not endorse the use of the MDRD equation for patients that are not between the ages of 18 and 70, are , have extremes of body size, muscle mass, or nutritional status, or are non- or non-. According to the National Kidney Foundation, irrespective of diagnosis, the stage of the disease is based on the level of kidney function: Stage Description GFR(mL/min/1.73 m(2)) 1 Kidney damage with normal or decreased GFR 90 2 Kidney damage with mild decrease in GFR 60-89 3 Moderate decrease in GFR 30-59 4 Severe decrease in GFR 15-29 5 Kidney failure <15 (or dialysis) 3 Please check labs today 4 Acute inflammation: >10.00 5 Result in log IU/mL is Undetected. ADDITIONAL INFORMATION The quantification range of this assay is 15 to 100,000,000 IU/mL (1.18 log to 8.00 log IU/mL). Testing was performed using the silvano HCV test ([employer] with the silvano Lighter Living0 System. Test Performed by: [facility] [address] [place] [address] 6 Because ethnic data is not always readily available, this report includes an eGFR for both -Americans and non- Americans. The National Kidney Disease Education Program (NKDEP) does not endorse the use of the MDRD equation for patients that are not between the ages of 18 and 70, are , have extremes of body size, muscle mass, or nutritional status, or are non- or non-. According to the National Kidney Foundation, irrespective of diagnosis, the stage of the disease is based on the level of kidney function: Stage Description GFR(mL/min/1.73 m(2)) 1 Kidney damage with normal or decreased GFR 90 2 Kidney damage with mild decrease in GFR 60-89 3 Moderate decrease in GFR 30-59 4 Severe decrease in GFR 15-29 5 Kidney failure <15 (or dialysis) 7 SEE RESULT BELOW Name: JOHN EDDYZENON Pruett : [address]: Delia Lara MD Acct: [id number] Unit: [id number] AGE: 67 Location: [address] Re03/11/17 SEX: M Status: ADM IN SPEC: [id number] WESLY: 03/11/[address]: Puneet Luz NP REQ: [id number] RECD: 03/11/17 STATUS: JANE GARCÍA DR: Rolando Ferrari III, MD _ SOURCE: [facility]: ORDERED: Urine Culture Procedure Result Reported Site Urine Culture Final 03/12/17- 1444 ML No growth of clinically significant organisms * ML - [facility] ([facility]) . END OF REPORT * ML=Testing performed at Main Lab DEPARTMENT OF PATHOLOGY, [address] [place] [address] Garcia Rodriguez M.D. Director [facility] # [id number] 8 Because ethnic data is not always readily available, this report includes an eGFR for both -Americans and non- Americans. The National Kidney Disease Education Program (NKDEP) does not endorse the use of the MDRD equation for patients that are not between the ages of 18 and 70, are , have extremes of body size, muscle mass, or nutritional status, or are non- or non-. According to the National Kidney Foundation, irrespective of diagnosis, the stage of the disease is based on the level of kidney function: Stage Description GFR(mL/min/1.73 m(2)) 1 Kidney damage with normal or decreased GFR 90 2 Kidney damage with mild decrease in GFR 60-89 3 Moderate decrease in GFR 30-59 4 Severe decrease in GFR 15-29 5 Kidney failure <15 (or dialysis) 9 Acute inflammation: >10.00 10 [facility] Severe Sepsis and Septic Shock Management Bundle Measure requires all lactic acids initially measuring >2.0 mmol/L be repeated. 11 Because ethnic data is not always readily available, this report includes an eGFR for both -Americans and non- Americans. The National Kidney Disease Education Program (NKDEP) does not endorse the use of the MDRD equation for patients that are not between the ages of 18 and 70, are , have extremes of body size, muscle mass, or nutritional status, or are non- or non-. According to the National Kidney Foundation, irrespective of diagnosis, the stage of the disease is based on the level of kidney function: Stage Description GFR(mL/min/1.73 m(2)) 1 Kidney damage with normal or decreased GFR 90 2 Kidney damage with mild decrease in GFR 60-89 3 Moderate decrease in GFR 30-59 4 Severe decrease in GFR 15-29 5 Kidney failure <15 (or dialysis) 12 REFERENCE VALUE <4.0 (Negative) Test Performed by: [place] [address] 13 Negative serology. Celiac disease unlikely. However, approximately 10% of patients with celiac disease are seronegative. Also, patients who are already adhering to a gluten-free diet may be seronegative. If celiac disease is highly clinically suspected, consider HLA-DQ typing. Test Performed by: [place] [id number] RESULT: 01:02,03 REFERENCE VALUE Not Applicable 15 RESULT: 03:02,06:02 DQ Serologic Equivalent: 8,6 REFERENCE VALUE Not Applicable 16 These genes are permissive for celiac disease. The absence of HLA celiac permissive genes would make the presence of celiac disease unlikely. However, these genes can also be present in the normal population. ADDITIONAL INFORMATION Method: Molecular typing of HLA antigens performed using reverse SSOP and/or SSP methods, reported as serological equivalents and low to medium resolution molecular values. Performing Laboratory CLIA# [id number] Test Performed by: [place] [id number] Please check today 18 Serologic response to B. burgdorferi infection is not detected, but cannot rule out early infection during which low or undetectable antibody levels to B. burgdorferi may be present. If clinically indicated, a new serum specimen should be submitted in 7-14 days. Test Performed by: [facility] [address] [place] [address] 19 Normal Range 180 to 914 Indeterminate Range 145 to 180 Deficient Range <145 20 Please check today 21 REFERENCE VALUE <=1.0 (Negative) 22 Interpretation: Positive (40.0-59.9) REFERENCE VALUE <20.0 (Negative) 23 RESULT: Compatible with rheumatoid arthritis. Test Performed by: [place] [id number] Test Performed by: [address], [place] [address] 25 Please tari ck today 26 Please check today 27 Acute inflammation: >10.00 28 REFERENCE VALUE Not Applicable 29 RESULT: HLA-B27 antigen was not detected. ADDITIONAL INFORMATION Method: Flow Cytometry Performing Laboratory CLIA# [id number] Test Performed by: [place] [address] 30 Negative for cANCA and pANCA patterns by immunofluorescence. ADDITIONAL INFORMATION This test was developed and its performance characteristics determined by [facility] in a manner consistent with CLIA requirements. This test has not been cleared or approved by the U.S. Food and Drug Administration. Test Performed by: [place] [address] 31 RESULT: No apparent monoclonal protein on serum electrophoresis. Test Performed by: [place] [address] 32 Because ethnic data is not always readily available, this report includes an eGFR for both -Americans and non- Americans. The National Kidney Disease Education Program (NKDEP) does not endorse the use of the MDRD equation for patients that are not between the ages of 18 and 70, are , have extremes of body size, muscle mass, or nutritional status, or are non- or non-. According to the National Kidney Foundation, irrespective of diagnosis, the stage of the disease is based on the level of kidney function: Stage Description GFR(mL/min/1.73 m(2)) 1 Kidney damage with normal or decreased GFR 90 2 Kidney damage with mild decrease in GFR 60-89 3 Moderate decrease in GFR 30-59 4 Severe decrease in GFR 15-29 5 Kidney failure <15 (or dialysis) 33 Because ethnic data is not always readily available, this report includes an eGFR for both -Americans and non- Americans. The National Kidney Disease Education Program (NKDEP) does not endorse the use of the MDRD equation for patients that are not between the ages of 18 and 70, are , have extremes of body size, muscle mass, or nutritional status, or are non- or non-. According to the National Kidney Foundation, irrespective of diagnosis, the stage of the disease is based on the level of kidney function: Stage Description GFR(mL/min/1.73 m(2)) 1 Kidney damage with normal or decreased GFR 90 2 Kidney damage with mild decrease in GFR 60-89 3 Moderate decrease in GFR 30-59 4 Severe decrease in GFR 15-29 5 Kidney failure <15 (or dialysis) 34 Because ethnic data is not always readily available, this report includes an eGFR for both -Americans and non- Americans. The National Kidney Disease Education Program (NKDEP) does not endorse the use of the MDRD equation for patients that are not between the ages of 18 and 70, are , have extremes of body size, muscle mass, or nutritional status, or are non- or non-. According to the National Kidney Foundation, irrespective of diagnosis, the stage of the disease is based on the level of kidney function: Stage Description GFR(mL/min/1.73 m(2)) 1 Kidney damage with normal or decreased GFR 90 2 Kidney damage with mild decrease in GFR 60-89 3 Moderate decrease in GFR 30-59 4 Severe decrease in GFR 15-29 5 Kidney failure <15 (or dialysis) 35 Acute inflammation: >10.00 36 RE-@COLLECTION THE PATIENT STATED HE WILL RETURN AT A LATER 37 REFERENCE VALUE <=1.0 (Negative) 38 Interpretation: Strong Positive (>=60.0) REFERENCE VALUE <20.0 (Negative) 39 RESULT: Compatible with rheumatoid arthritis. Test Performed by: [facility] [address] [place] [address] 40 Result in log IU/mL is Undetected. ADDITIONAL INFORMATION The quantification range of this assay is 15 to 100,000,000 IU/mL (1.18 log to 8.00 log IU/mL). Testing was performed using the silvano HCV test ([employer] with the silvano Lighter Living0 System. Test Performed by: [facility] [address] [place] [address] 41 Serum levels of PSA measured using the [place] ITN DXI Hybritech immunoassay should not be interpreted as absolute evidence of the presence or absence of disease. The PSA value should be used in conjunction with other pertinent clinical diagnostic procedures. A PSA value in the range of 0.1 to 0.6 ng/ml is indeterminate if being used as an indicator of recurrent or residual disease. The values obtained with different assay methods or kits cannot be used interchangeably. 42 Because ethnic data is not always readily available, this report includes an eGFR for both -Americans and non- Americans. The National Kidney Disease Education Program (NKDEP) does not endorse the use of the MDRD equation for patients that are not between the ages of 18 and 70, are , have extremes of body size, muscle mass, or nutritional status, or are non- or non-. According to the National Kidney Foundation, irrespective of diagnosis, the stage of the disease is based on the level of kidney function: Stage Description GFR(mL/min/1.73 m(2)) 1 Kidney damage with normal or decreased GFR 90 2 Kidney damage with mild decrease in GFR 60-89 3 Moderate decrease in GFR 30-59 4 Severe decrease in GFR 15-29 5 Kidney failure <15 (or dialysis) 43 Because ethnic data is not always readily available, this report includes an eGFR for both -Americans and non- Americans. The National Kidney Disease Education Program (NKDEP) does not endorse the use of the MDRD equation for patients that are not between the ages of 18 and 70, are , have extremes of body size, muscle mass, or nutritional status, or are non- or non-. According to the National Kidney Foundation, irrespective of diagnosis, the stage of the disease is based on the level of kidney function: Stage Description GFR(mL/min/1.73 m(2)) 1 Kidney damage with normal or decreased GFR 90 2 Kidney damage with mild decrease in GFR 60-89 3 Moderate decrease in GFR 30-59 4 Severe decrease in GFR 15-29 5 Kidney failure <15 (or dialysis) [address] Ferrari by [email or web address] at 1732 on 02/17/16. Results read back accurately. 45 Effective immediately, due to a laboratory mean normal Protime change, the reference range for the INR has changed. 46 Because ethnic data is not always readily available, this report includes an eGFR for both -Americans and non- Americans. The National Kidney Disease Education Program (NKDEP) does not endorse the use of the MDRD equation for patients that are not between the ages of 18 and 70, are , have extremes of body size, muscle mass, or nutritional status, or are non- or non-. According to the National Kidney Foundation, irrespective of diagnosis, the stage of the disease is based on the level of kidney function: Stage Description GFR(mL/min/1.73 m(2)) 1 Kidney damage with normal or decreased GFR 90 2 Kidney damage with mild decrease in GFR 60-89 3 Moderate decrease in GFR 30-59 4 Severe decrease in GFR 15-29 5 Kidney failure <15 (or dialysis) 47 Reference Range and Interpretation: TnI (ng/mL) Interpretation Less Than 0.03 ng/mL Not supportive of diagnosis of MD 0.03 - 0.50 ng/mL Indeterminate: suggest serial studies if clinically indicated. Greater than 0.5 ng/mL Consistent with diagnosis of MD 48 SEE RESULT BELOW Name: ZENON LOPEZ : [address]: Lavinia Wallace MD Acct: [id number] Unit: [id number] AGE: 64 Location: ED Re01/06/15 SEX: M Status: DEP ER SPEC: [id number] WESLY: 01/06/[address] [facility] [address]: Lavinia Wallace MD REQ: [id number] RECD: 01/06/15 STATUS: JANE GARCÍA DR: Sukhwinder Ferrari III, MD _ SOURCE: BLOOD,VENO SPDESC: ORDERED: Blood Cult Procedure Result Verified Site Aerobic Culture Bottle Final 01/11/15- 7 ML No Growth Day 5 Anaerobic Culture Bottle Final 01/11/15- 2347 ML No Growth Day 5 * ML - MAIN LAB (PSYCHIATRIC1) . END OF REPORT * ML=Testing performed at Main Lab DEPARTMENT OF PATHOLOGY, [address] [place] [address] Garcia Rodriguez M.D. Director [facility] # [id number] 49 Because ethnic data is not always readily available, this report includes an eGFR for both -Americans and non- Americans. The National Kidney Disease Education Program (NKDEP) does not endorse the use of the MDRD equation for patients that are not between the ages of 18 and 70, are , have extremes of body size, muscle mass, or nutritional status, or are non- or non-. According to the National Kidney Foundation, irrespective of diagnosis, the stage of the disease is based on the level of kidney function: Stage Description GFR(mL/min/1.73 m(2)) 1 Kidney damage with normal or decreased GFR 90 2 Kidney damage with mild decrease in GFR 60-89 3 Moderate decrease in GFR 30-59 4 Severe decrease in GFR 15-29 5 Kidney failure <15 (or dialysis) 50 PT IS FASTING 51 Because ethnic data is not always readily available, this report includes an eGFR for both -Americans and non- Americans. The National Kidney Disease Education Program (NKDEP) does not endorse the use of the MDRD equation for patients that are not between the ages of 18 and 70, are , have extremes of body size, muscle mass, or nutritional status, or are non- or non-. According to the National Kidney Foundation, irrespective of diagnosis, the stage of the disease is based on the level of kidney function: Stage Description GFR(mL/min/1.73 m(2)) 1 Kidney damage with normal or decreased GFR 90 2 Kidney damage with mild decrease in GFR 60-89 3 Moderate decrease in GFR 30-59 4 Severe decrease in GFR 15-29 5 Kidney failure <15 (or dialysis) 52 Result in log IU/mL is 6.62. ADDITIONAL INFORMATION The quantification range of this assay is 15 to 100,000,000 IU/mL (1.18 log to 8.00 log IU/mL). Testing was performed by the SILVANO AmpliPrep/SILVANO TaqMan HCV Test, version 2.0 ([employer] Test Performed by: [place] [address] Hematology Technologist: Hao Jimenez II, M.D., Ph.D. 53 It is recognized that currently available assays for the detection of antibodies to HIV-1 and/or HIV-2 may not detect all infected individuals. HIV antibodies may be undetectable in some stages of the infection and in some clinical conditions. The performance of this assay has not been established for populations of infants or children. Assayed by Chemiluminescence Microparticle Immunoassay on the Siemens Advia Centaur CP. Values obtained with different methods or kits cannot be used interchangeably.The diagnostic specificity of the ADVIA Centaur 1/O/2 Enhanced assay in the low risk population was 99.90% (6052/6058) with a 95% confidence interval of 99.78 to 99.96%. 54 Desirable <150 Borderline high 150-199 High 200-499 Very High >500 55 Desirable <200 Borderline high 200-239 High >239 56 Low <40 Desirable: 40-60 High: >60 57 Desirable: <100 mg/dL Near Optimal: 100-129 mg/dL Borderline High: 130-159 mg/dL High: 160-189 mg/dL Very High: >189 mg/dL 58 Anion gap measurement may be of limited value in the presence of any alkalosis, especially in a combined acid base disorder. . 59 Because ethnic data is not always readily available, this report includes an eGFR for both -Americans and non- Americans. The National Kidney Disease Education Program (NKDEP) does not endorse the use of the MDRD equation for patients that are not between the ages of 18 and 70, are , have extremes of body size, muscle mass, or nutritional status, or are non- or non-. According to the National Kidney Foundation, irrespective of diagnosis, the stage of the disease is based on the level of kidney function: Stage Description GFR(mL/min/1.73 m(2)) 1 Kidney damage with normal or decreased GFR 90 2 Kidney damage with mild decrease in GFR 60-89 3 Moderate decrease in GFR 30-59 4 Severe decrease in GFR 15-29 5 Kidney failure <15 (or dialysis) 60 Anion gap measurement may be of limited value in the presence of any alkalosis, especially in a combined acid base disorder. . 61 Because ethnic data is not always readily available, this report includes an eGFR for both -Americans and non- Americans. The National Kidney Disease Education Program (NKDEP) does not endorse the use of the MDRD equation for patients that are not between the ages of 18 and 70, are , have extremes of body size, muscle mass, or nutritional status, or are non- or non-. According to the National Kidney Foundation, irrespective of diagnosis, the stage of the disease is based on the level of kidney function: Stage Description GFR(mL/min/1.73 m(2)) 1 Kidney damage with normal or decreased GFR 90 2 Kidney damage with mild decrease in GFR 60-89 3 Moderate decrease in GFR 30-59 4 Severe decrease in GFR 15-29 5 Kidney failure <15 (or dialysis) 62 Anion gap measurement may be of limited value in the presence of any alkalosis, especially in a combined acid base disorder. . 63 Note change in reference range as of 10/26/07. The change was based on recommendations from the [place] [employer]. 64 A metabolite of Naproxen, O-desmethylnaproxen, has been shown to interfere with the Jendrassik-Cole method for measuring total bilirubin. Samples from patients who have taken Naproxen have shown spurious elevation in total bilirubin levels. 65 Because ethnic data is not always readily available, this report includes an eGFR for both -Americans and non- Americans. The National Kidney Disease Education Program (NKDEP) does not endorse the use of the MDRD equation for patients that are not between the ages of 18 and 70, are , have extremes of body size, muscle mass, or nutritional status, or are non- or non-. According to the National Kidney Foundation, irrespective of diagnosis, the stage of the disease is based on the level of kidney function: Stage Description GFR(mL/min/1.73 m(2)) 1 Kidney damage with normal or decreased GFR 90 2 Kidney damage with mild decrease in GFR 60-89 3 Moderate decrease in GFR 30-59 4 Severe decrease in GFR 15-29 5 Kidney failure <15 (or dialysis) Procedures Date CPT Code Description Status 10/27/2017 Inject/Drain Joint/Bursa Major W/O US Completed 03/14/2017 09779 Use Of Operating Microscope Completed 03/14/2017 13933 Laminectomy;For Intraspinal Lesion/Lumbar Completed 02/23/2017 63838 Admin Of Inj Completed 02/10/201717355 Inject/Drain Joint/Bursa Major W/O US Completed 07/22/2011 69004 Treadmill Interp/Report Only Completed 07/22/2011 73319 Stress Test Supervsn W/Out I/R Completed 07/01/2011 87032 ECHO Transthoracic, Real-Time 2D With Doppler And Color Completed Flow 06/28/2011 90370 ECHO Stress Test Incl Perf Contiuous ekg Monitoring Completed W/Phys Superv 06/07/2011 12356 EKG Tracing & Interpretation Completed Encounters Type Date Location Provider CPT E/M Dx Office Visit 10/27/2017 1:15p [facility] [place] [address] M19.012 C.M.A. S46.011A S46.012A M19.011 Office Visit 06/27/2017 8:40a [facility] Internal Medicine Henry Brumfield, 73118 G06.2 - [place] Jordan Pierre,FACP N18.9 F51.05 B18.2 Z12.11 Office Visit 05/16/2017 10:00a [facility] Jairo Herbert, 83494 M54.5 Eula Pierre M25.552 M06.9 M79.1 F17.210 Office Visit 05/16/2017 11:20a [facility] Internal Medicine Henry Brumfield, 14392 N18.9 - [place] Jordan Pierre,FACP F51.05 B18.2 G06.2 Z23 Office Visit 03/31/2017 1:47p [facility] Whitney De Luna N.P. 57103 G06.2 Hospitalists M54.5 Office Visit 03/28/2017 1:46p [facility] Coty Kenneth, 51747 G06.2 Assoc,pc CHANNEL DEVELOPMENT MANAGER Hospitalists M54.5 Office Visit 03/25/2017 1:45p [facility] Melly uGtierrez 91894 G06.1 Infectious Diseases Ignacio Puri Office Visit 03/23/2017 1:46p [facility] Rashida Duggan, 22565 G06.2 Hospitalists CHANNEL DEVELOPMENT MANAGER M54.5 Office Visit 03/22/2017 1:30p [facility] Melly Gutierrez 54553 G06.1 Infectious Diseases Ignacio Puri Office Visit 03/20/2017 8:32a [facility] ROSALINE Mackey 86508 M46.46 Assoc,pc Hospitalists B18.2 G06.2 M19.90 Office Visit 03/19/2017 8:31a [facility] ROSALINE Mackey 05888 M46.46 Hospitalists B18.2 G06.2 M19.90 Office Visit 03/18/2017 1:44p [facility] Rashida Duggan, 76994 G06.2 Hospitalists CHANNEL DEVELOPMENT MANAGER M54.5 Office Visit 03/17/2017 8:30a [facility] Rashida Duggan, 48829 M46.46 Assoc,pc Hospitalists CHANNEL DEVELOPMENT MANAGER B18.2 G06.2 M19.90 Office Visit 03/16/2017 8:30a [facility] Rashida Duggan, 46147 M46.46 Assoc,pc Hospitalists CHANNEL DEVELOPMENT MANAGER B18.2 G06.2 M19.90 Office Visit 03/16/2017 1:39p [facility] Melly Gutierrez 15751 G06.1 Infectious Diseases Ignacio Puri Office Visit 03/15/2017 8:29a [facility] Rashida Duggan, 42113 M46.46 Assoc,pc Hospitalists CHANNEL DEVELOPMENT MANAGER B18.2 G06.2 M19.90 Office Visit 03/14/2017 12:35p [facility] Baron Puri, 09830 G06.1 Infectious Diseases Reilly.Brenda M54.5 N17.9 N18.9 B19.20 Office Visit 03/14/2017 8:29a [facility] Rashida Duggan, 33543 M46.46 Assoc, Hospitalists CHANNEL DEVELOPMENT MANAGER B18.2 G06.2 M19.90 Office Visit 03/13/2017 8:28a [facility], 36105 M46.46 Assoc,pc Hospitalists N.P. B18.2 G06.2 M19.90 Office Visit 03/12/2017 8:27a [facility], 28484 M46.46 Assoc, Hospitalists N.P. B18.2 G06.2 M19.90 Office Visit 03/12/2017 7:00a [facility] Norbert Núñez M.D. 85761 G06.1 Of [facility] Office Visit 03/11/2017 8:26a [facility] Assoc,[facility], 11484 B18.2 Hospitalists N.P. G06.2 M19.90 M46.46 Office Visit 03/11/2017 7:00a [facility]surgery Services Norbert Núñez M.D. 46702 G06.1 Of [facility] M46.26 Office Visit 2017 8:58a [facility]ology [facility] Jairo Herbert, 06834 R41.82 Of Eula Pierre M06.9 M54.5 Office Visit 02/23/2017 11:00a [facility] [place] Herbert, 01456 M06.4 Eula Pierre M54.5 R20.8 M79.1 N18.9 R21 Office Visit 02/14/2017 1:30p Neurosurgery Services Vassilios 14839 M54.5 Of [facility] MD Chiquis Office Visit 02/10/2017 8:00a [place] [address] M19.011 Of C.M.AMaria Ines M19.012 S46.011A S46.012A M54.5 Office Visit 12/31/2016 9:00a [facility] [address] M25.511 C.M.AMaria Ines M25.512 M19.011 M19.012 S46.011A S46.012A Office Visit 12/28/2016 10:00a [facility] Internal Medicine Jorge Ferrari, 36628 M06.09 - Harjinder Pierre J44.9 R91.8 N18.4 R31.9 M75.100 M25.552 Office Visit 12/21/2016 11:20a [facility] Internal Medicine Jorge Ferrari, 22870 R53.83 - Harjinder Pierre M15.0 R06.00 R03.0 B19.20 N18.4 Z12.5 M75.100 M25.552 Office Visit 05/26/2016 1:20p [facility] Internal Eron Coleman, 42583 M25.531 Charly Saavedra M.D. Office Visit 02/17/2016 11:00a [facility] Internal Myke Mcleod M.D. 07828 M10.071 Charly Grande N18.4 I10 Office Visit 12/30/2014 11:20a [facility] Internal Medicine Jorge Ferrari, 94426 J20.9 - Quentin Pierre Z23 Office Visit 05/22/2014 1:20p [facility] Internal Medicine Jorge Ferrari, 51227 070.70 - Quentin Pierre 780.52 726.19 305.1 V03.82 Office Visit 12/26/2012 9:00a Neurosurgery Services Elmer Jurado, 91454 721.0 Of Eula Pierre 726.13 Office Visit 08/04/2011 8:30a [facility] Ana Ortega, N.PMaria Ines 71236 780.4 305.1 794.31 Office Visit 07/22/2011 11:30a [facility] SMaria Ines Garza, 67669 794.31 M.DMaria Ines 780.4 Office Visit 06/28/2011 1:30p [facility] SMaria Ines Garza, 82178 794.31 M.D. 780.4 Office Visit 06/07/2011 10:20a [facility] AT [facility] S. 58319 794.31 [facility] Ignacio Garza 780.4 305.1 070.70 Office Visit 03/03/2010 2:00p DO Not Use [facility] AT Eron Coleman, 23981 780.52 Mino Pierre 276.7 070.70 780.79 V72.62 Plan of Care Future Appointment(s):12/21/2017 11:40 am - JACOB Leone at [facility] Internal Medicine - [address]11/04/2017 - Henry Brumfield M.D.,FACPZ00.01 Encounter for general adult medical exam w abnormal findingsComments:Advised flu vaccine in fall. Routine Health Maintenance up to date. Depression screen: on fileADL screen: negativeAdvance directives: HCP discussed, form to be obtainedCognitive impairment screen: negative Reviewed [facility] DM/HM form.Follow up:Give HCP paper to patient Print DM/HM for nidffgoW51.05 Insomnia due to other mental disorderComments:Continue to follow up with mental health as planned. Continue to take Zolpidem as prescribed.R63.4 Abnormal weight lossComments:Follow up with Dr. Storm as discussed.Referral:Hermilo Storm MD, RsmwtmbezvmknfvpP70.012D Strain of musc/tend the rotator cuff of left shoulder, subs
--- OUTSIDE RECORDS SUMMARY | 2017-11-18 12:48 | XMS REPORT ---
:1950 External Reference #:[id number] Author Organization [facility] Address [address] [place] [address] [place] [address] Phone [phone] Care Team Providers Name Role Phone Henry Brumfield MD Primary Care Physician Unavailable Payers Type Date Identification Numbers Payment Provider Subscriber Medicare Primary Policy Number: [id number] Medicare Zenon Lopez JR PayID: [id number] [address] [place] [address] Medigap Part B Policy Number: [id number] Medicaid Zenon Lopez JR Group Name: 1 1 [address] PayID: [id number] [place] [address] Commercial Effective: Policy Number: [employer] Zenon Lopez 2010 [id number] Medicaid Expires: 2016 PayID: [id number] [address] [address] [place] [address] Problems Date Description Provider Status Onset: 05/16/2017 [...] Active Onset: 02/10/2017 Low back pain Kelsey Ladnaverde MD Active Onset: 05/16/2017 Gout Henry Brumfield Active Ignacio,FACP Onset: 06/07/2011 Electrocardiogram abnormal Zane Shi M.D. [...] Marital Status Single Lives With Alone Occupation [employer] Cigarette Use Current Cigarette Smoker max [...] Henry Fumarate s mouth Brenda Brumfield, every Ignacio,FACP night Zolpidem 10/28 Active Tablets 10mg 30tab 1/2 to 1 Henry Tartrate /2017 s tab by ronny Tran M.D.,FACJeffrey every night at bedtime as needed Boost 10/19 Active Liquid 30uni 1 by mouth Henry /2017 ts every day Brenda Brumfield M.D.,FACP Vitamin D 05/17 Active Tablets 1000Unit 30tab 1 tab PO Henry (Cholecalciferol /2017 s every day Brenda Brumfield, ) Ignacio,FACP Walker 02/23 Active Misc 1unit four s wheeled jeancarlos Herbert M.D. with seat and brakes dx m17.11 to help with arthritis npi: [id number] Plaquenil 02/23 Active Tablets 200mg 60tab take two s tablets by ronny Tran M.D.,FACP every day Tramadol HCL Active Tablets 50mg 30tab 1 tablet M06.09 s every 8 D. Brissa, manasa mann M.D.,FACP needed Allopurinol Active Tablets 100mg 30tab 1 by mouth s every day Brenda Brumfield M.D.,FACP Acetaminophen Active Tablets 325mg 2 tablets Unknown by mouth every 6 hours as needed [...] Hx Tablets 50mg 30tab take 1 Henry s tablet by Brenda Brumfield, - mouth Reilly.Brenda,[facility] 10/28 evening at bedtime Zaleplon 06/17 Hx Capsules 10mg 30cap 1 by mouth s every Brenda Brumfield, - night at M.DMaria Ines,FACP 10/28 bedtime needed Hydrocodone-Acet 03/07 Hx Tablets 5-325mg 14tab take one aminophen s capsule/ta Keon - blet by Ignacio 05/12 twice daily as needed for pain Prednisone 02/23 Hx Tablets 10mg 30tab take 4 s tabs by Keon - mouth M.Brenda 03/07 daily for 2 days then 3 tabs daily for 2 days then 2 tabs for 2 days then 1 tab for 2 days then d/c No Active 12/21 Hx Unknown Medications /2016 - 12/21 Prednisone 05/26 Hx Tablets 10mg 30tab 5tabx M25.531 Eron s 2days,4 Pachikara - [id number] , M.D. 12/20 [id number] /2017 ,[id number] s,1tabxday . Kayexalate 02/17 Hx Powder 6unit Take 1 s dose. If [place], - you do not M.D. 12/20 have bowel movement in 6 hours repeat once No Active 02/16 Hx Unknown Medications /2015 - 02/16 Allopurinol 02/16 Hx Tablets 100mg 90tab 1 tab M10.071 s daily Harsha, - M.D. 12/20 Harvoni 08/05 Hx Tablets [...] 200mg 15cap one by Jefe Walsh /2014 s mouth Vonda, - three M.D. 02/15 daily as needed for cough Proair HFA 12/30 Hx Aerosol 108(90Bas 1unit 2 puffs by Jefe Walsh /2014 e) s mouth four Vonda, - mcg/Act times a M.D. 02/15 day needed Ambien 00/ Hx Tablets 10mg 30tab 1 po Unknown /0000 s tablet at - bedtime 05/22 prn /2014 Naproxen Hx Tablets 375mg 270ta Unknown /0000 bs - 06/06 Advair Diskus Hx Aerosol 500-50mcg 1Mon 1 puff po Unknown /0000 /Dose bid - 06/06 Ambien 00 Hx Tablets 10mg 30tab 1 po qhs [...] /0000 s mouth Brenda Brumfield, - every M.D.,FACP 06/27 night at bedtime Roxicodone Hx Tablets 5mg 1 tablet Unknown /0000 every 6 - hours as 05/16 needed for pain post-opera tively Zolpidem Hx Tablets ER 12.5mg 30tab 1 by mouth Henry Tartrate ER /0000 s every Brenda Brumfield, - night at M.D.,FACP 06/17 bedtime as needed Meloxicam Hx Tablets 7.5mg Fernanda, /0000 Juan Bowles M.D. 05/16 Indomethacin 00/ Hx Capsules 50mg Fernanda, /0000 Juan Bowles M.D. 05/16 Prednisone 00 [...] Code Status Date Vaccine Reaction Lot # [id number] Given 05/16/2017 Influenza Virus Vaccine, Quadrivalent, none [id number] Split, Preservative Free [id number] Given 05/16/2017 Pneumococcal Conjugate Vaccine 13 Valent none [id number] For Intramuscular Use 70170 Given 12/30/2014 Influenza Virus Vaccine, Quadrivalent, [id number] Split, Preservative Free 41794 Given 05/22/2014 Pneumonia Vaccine [id number] Given 03/07/2010 Tetanus And Diptheria (Td) For Adult Use Preservative Free Vital Signs Date Vital Result Comment 10/28/2017 Height 72 inches 6'0" Weight 136.00 [...] Test Date Test Result H/L Range Note Comp Metabolic Panel 08/12/2017 Sodium 136 mmol/L [...] Egfr Non- 35.0 >60 Egfr 45.0 >60 1 Potassium 5.6 mmol/L High 3.5-5.0 Anion Gap 4 mmol/L 2-11 Laboratory test finding 05/17/2017 Erythrocyte Sed Rate 36 mm/Hr 0-40 2 C Reactive Protein 12.69 mg/L High < 5.00 3 CBC Auto Diff 05/17/2017 White Blood Count [...] 05/17/2017 Hepatitis C Rna Undetected IU/mL Undetected 4 finding Quant Basic Metabolic Panel 05/17/2017 Sodium 137 mmol/L 133-145 Chloride 105 mmol/L 101-111 Co2 Carbon Dioxide 24 mmol/L 22-32 Glucose 123 mg/dL High 70-100 Blood Urea Nitrogen 35 mg/dL High 6-24 Creatinine 1.91 mg/dL High 0.67-1.17 BUN/Creatinine Ratio 18.3 8-20 Calcium 9.4 mg/dL 8.6-10.3 Egfr Non- 35.4 >60 Egfr 45.6 >60 5 Potassium 5.5 mmol/L High 3.5-5.0 Anion Gap [...] And 03/11/2017 Urine Culture SEE RESULT BELOW 6 Sensitivities Urinalysis Profile 03/11/2017 Urine Color Yellow Urine Appearance Clear Urine Specific [place] 1.018 1.010-1.030 Urine pH 5.0 5-9 Urine [...] Egfr Non- 32.3 >60 Egfr 41.5 >60 7 Potassium 5.4 mmol/L High 3.5-5.0 Anion Gap 3 mmol/L 2-11 Laboratory test finding 2017 Lipase 14 U/L 11.0-82.0 C Reactive Protein 56.35 mg/L High < 5.00 8 Lactic Acid 0.8 mmol/L 0.5-2.0 9 TSH (Thyroid Stim Horm) 0.64 mcIU/mL 0.34-5.60 T3 Free 2.40 pg/mL Low 2.5-3.9 Free T4 (Free Thyroxine) 1.11 ng/dL 0.61-1.12 Urinalysis Profile 2017 Urine Color Yellow Urine Appearance Clear Urine Specific [place] 1.015 1.010-1.030 Urine pH 5.0 5-9 Urine [...] Egfr Non- 24.8 >60 Egfr 31.9 >60 10 Potassium 5.7 mmol/L High 3.5-5.0 Anion Gap 6 mmol/L 2-11 Celiac Panel 02/24/2017 Immunoglobulin A 152 mg/dL 61 - 356 Tissue Transglutaminase IgA Ab <1.2 U/mL 11 Celiac Interpretation See Comment 12 Celiac Hla 02/24/2017 Hla-Dqa1 SEE BELOW 13 Hla-DQB1 SEE BELOW 14 Celiac Gene Pairs Present? Yes Celiac Gene Interpretation See Comment 15 Connective Tissue Panel 02/24/2017 Anti-Nuclear Antibody 0.2 U 16 Cyclic Citrullinated Peptide 44.7 U 17 Interpretation See Comment 18 Laboratory test finding 02/24/2017 Rheumatoid Factor <15 IU/mL <15 19 Erythrocyte Sed Rate 61 mm/Hr High 0-40 20 Creatine Kinase(CK) 52 U/L 10-223 21 C Reactive Protein 61.56 mg/L High < 5.00 22 Laboratory test finding 02/24/2017 TSH (Thyroid Stim 0.52 mcIU/mL 0.34- 5.60 23 Horm) Lyme Disease Serology Negative Negative 24 Vitamin B12 And Folate Serum 02/24/2017 Vitamin B12 331 pg/mL 180-914 25 Folic Acid (Folate) > 20.00 ng/mL >3.99 26 Hla B27 02/24/2017 Hla B27 Negative 27 Hla B27 Interp See Comment 28 Protein Electrophoresis 02/24/2017 Total Protein(Pep) 6.7 g/dL 6.3 - 7.9 Albumin 2.8 g/dL 3.4-4.7 Alpha-1 Globulin 0.4 g/dL 0.1-0.3 Alpha-2 Globulin 1.1 g/dL 0.6-1.0 Beta Globulin 0.9 g/dL 0.7-1.2 Gamma Globulin 1.4 g/dL 0.6-1.6 Albumin/Globulin Ratio 0.72 Impression See Comment 29 Anca AB Ser If 02/24/2017 C-Anca Negative Negative P-Anca Negative Negative 30 Basic Metabolic Panel 02/15/2017 Sodium 131 mmol/L Low 133-145 Chloride 102 mmol/L 101-111 Co2 Carbon Dioxide 23 mmol/L 22-32 Glucose 111 mg/dL High 70-100 Blood Urea Nitrogen 51 mg/dL High 6-24 Creatinine 2.26 mg/dL High 0.67-1.17 BUN/Creatinine Ratio 22.6 High 8-20 Calcium 8.7 mg/dL 8.6-10.3 Egfr Non- 29.3 >60 Egfr 37.6 >60 31 Potassium 5.6 mmol/L High 3.5-5.0 Anion Gap 6 mmol/L 2-11 Basic Metabolic Panel 12/27/2016 Sodium 136 mmol/L 133-145 Chloride 108 mmol/L 101-111 Co2 Carbon Dioxide 24 mmol/L 22-32 Glucose 88 mg/dL 70-100 Blood Urea Nitrogen 48 mg/dL High 6-24 Creatinine 1.96 mg/dL High 0.67-1.17 BUN/Creatinine Ratio 24.5 High 8-20 Calcium 9.0 mg/dL 8.6-10.3 Egfr Non- 34.5 >60 Egfr 44.4 >60 32 Potassium 5.8 mmol/L High 3.5-5.0 Anion Gap [...] Egfr Non- 32.9 >60 Egfr 42.4 >60 33 Potassium 6.1 mmol/L High 3.5-5.0 Anion Gap 2 mmol/L 2-11 Laboratory test finding 12/24/2016 Erythrocyte Sed Rate 12 mm/Hr 0-40 C Reactive Protein 1.90 mg/L < 5.00 34 TSH (Thyroid Stim Horm) 3.39 mcIU/mL 0.34-5.60 35 Connective Tissue Panel 12/24/2016 Anti-Nuclear Antibody 0.3 U 36 Cyclic Citrullinated Peptide 82.9 U 37 Interpretation See Comment 38 Laboratory test 12/24/2016 Hepatitis C Rna Undetected IU/mL Undetected 39 finding Quant Urinalysis Profile 12/24/2016 Urine Color Yellow Urine Appearance Clear Urine Specific [place] 1.013 1.010-1.030 Urine pH 6.0 5-9 Urine [...] finding 12/24/2016 PSA Diagnostic 0.176 ng/mL 0-4.000 40 Basic Metabolic Panel 02/19/2016 Sodium 136 mmol/L 133-145 Potassium 5.3 mmol/L High 3.5-5.0 Chloride 105 mmol/L 101-111 Co2 Carbon Dioxide 26 mmol/L 22-32 Anion Gap 5 mmol/L 2-11 Glucose 110 mg/dL High 70-100 Blood Urea Nitrogen 54 mg/dL High 6-24 Creatinine 2.54 mg/dL High 0.67-1.17 BUN/Creatinine Ratio 21.3 High 8-20 Calcium 9.1 mg/dL 8.6-10.3 Egfr Non- 25.7 >60 Egfr 33.0 >60 41 Basic Metabolic Panel 02/17/2016 Sodium 133 mmol/L 133-145 Chloride 104 mmol/L 101-111 Co2 Carbon Dioxide 26 mmol/L 22-32 Glucose 99 mg/dL 70-100 Blood Urea Nitrogen 48 mg/dL High 6-24 Creatinine 2.51 mg/dL High 0.67-1.17 BUN/Creatinine Ratio 19.1 8-20 Calcium 9.5 mg/dL 8.6-10.3 Egfr Non- 26.0 >60 Egfr 33.5 >60 42 Potassium 6.3 mmol/L High 3.5-5.0 43 Anion Gap 3 mmol/L 2-11 CBC Auto [...] 0 Inr/Protime 01/06/2015 Inr 1.31 High 0.89-1.11 44 Laboratory test finding 01/06/2015 Partial Thrombo 35.2 [...] Egfr Non- 31.4 >60 Egfr 40.3 >60 45 Laboratory test finding 01/06/2015 Troponin-I (TnI) 0.02 ng/mL <0.03 46 Blood Culture SEE RESULT BELOW 47 Urinalysis Profile 08/26/2014 Urine Color Yellow Urine Appearance Clear Urine Specific [place] 1.012 1.010-1.030 Urine pH 6.0 5-9 Urine [...] Egfr Non- 33.3 >60 Egfr 42.9 >60 48 Potassium 5.0 mmol/L 3.5-5.0 Anion Gap 6 mmol/L 2-11 CBC Auto Diff 06/07/2014 White Blood Count 9.7 10^3/uL 4.8-10.8 49 Red Blood Count 4.01 10^6/uL 4.0-5.4 49 Hemoglobin 13.5 g/dL Low 14.0-18.0 49 Hematocrit 40 % Low 42-52 49 Mean Corpuscular Volume 101 fL High 80-94 49 Mean Corpuscular Hemoglobin 34 pg High 27-31 49 Mean Corpuscular HGB Conc 33 g/dL 31-36 49 Red Cell Distribution Width 15 % 10.5-15 49 Platelet Count 231 10^3/uL 150-450 49 Mean Platelet Volume 10 um3 7.4-10.4 49 Abs Neutrophils 6.2 10^3/uL 1.5-7.7 49 Abs Lymphocytes 1.8 10^3/uL 1.0-4.8 49 Abs Monocytes 1.3 10^3/uL High 0-0.8 49 Abs Eosinophils 0.4 10^3/uL 0-0.6 49 Abs Basophils 0.1 10^3/uL 0-0.2 49 Abs Nucleated RBC 0 10^3/uL 49 Granulocyte % 63.4 % 38-83 49 Lymphocyte % 18.3 % Low 25-47 49 Monocyte % 13.5 % High 1-9 49 Eosinophil % 3.7 % 0-6 49 Basophil % 1.1 % 0-2 49 Nucleated Red Blood Cells % 0 49 Lipid Profile (Trig/Chol/HDL) 06/07/2014 Triglycerides 114 mg/dL 49, 50 Cholesterol 134 mg/dL 49, 51 HDL Cholesterol 48.2 mg/dL 49, 52 LDL Cholesterol 63 mg/dL 49, 53 HIV 1/2 AB 06/07/2014 HIV 1 2 Antibody Nonreactive Nonreactive 49, 54 Evaluation Laboratory test 06/07/2014 Hepatitis C Rna [id number] IU/mL Undetected 49, 55 finding Quantitative Comp Metabolic 06/07/2014 Sodium 135 mmol/L 133-145 49 Panel Potassium 5.6 mmol/L High 3.5-5.0 49 Chloride 106 mmol/L 101-111 49 Co2 Carbon Dioxide 25 mmol/L 22-32 49 Anion Gap 4 mmol/L 2-11 49 Glucose 85 mg/dL 70-100 49 Blood Urea Nitrogen 40 mg/dL High 6-24 49 Creatinine 2.44 mg/dL High 0.67-1.17 49 BUN/Creatinine Ratio 16.4 8-20 49 Calcium 9.0 mg/dL 8.6-10.3 49 Total Protein 6.8 g/dL 6.4-8.9 49 Albumin 3.9 g/dL 3.2-5.2 49 Globulin 2.9 g/dL 2-4 49 Albumin/Globulin Ratio 1.3 1-3 49 Total Bilirubin 0.50 mg/dL 0.2-1.0 49 Alkaline Phosphatase 53 U/L 34-104 49 Alt 27 U/L 7-52 49 Ast 28 U/L 13-39 49 Egfr Non- 27.0 >60 49 Egfr 34.7 >60 49, 56 Basic Metabolic Panel 03/02/2010 Sodium 137 mmol/L 135-145 Potassium 4.8 mmol/L 3.5-5.0 Chloride 102 mmol/L 101-111 Co2 (Carbon Dioxide) 30.0 mmol/L 22-32 Anion Gap 5.0 mmol/L 2-11 57 Glucose 81 mg/dL 70-100 BUN 29 mg/dL High 6-24 Creatinine 1.20 mg/dL 0.50-1.40 One Over Creatinine 0.80 BUN/Creatinine Ratio 24.2 High 8-20 Calcium 9.9 mg/dL 8.1-9.9 eGFR Non- 65.9 > 60 eGFR 79.7 > 60 58 Basic Metabolic Panel 02/26/2010 Sodium 137 mmol/L 135-145 Potassium 5.2 mmol/L High 3.5-5.0 Chloride 105 mmol/L 101-111 Co2 (Carbon Dioxide) 28.0 mmol/L 22-32 Anion Gap 4.0 mmol/L 2-11 59 Glucose 65 mg/dL Low 70-100 BUN 30 mg/dL High 6-24 Creatinine 1.40 mg/dL 0.50-1.40 One Over Creatinine 0.70 BUN/Creatinine Ratio 21.4 High 8-20 Calcium 9.7 mg/dL 8.1-9.9 eGFR Non- 55.3 > 60 eGFR 66.9 > 60 60 Comp Metabolic Panel 02/20/2010 Sodium 137 mmol/L 135-145 Potassium 5.7 mmol/L High 3.5-5.0 Chloride 101 mmol/L 101-111 Co2 (Carbon Dioxide) 26.0 mmol/L 22-32 Anion Gap 10.0 mmol/L 2-11 61 Glucose 69 mg/dL Low 70-100 62 BUN 32 mg/dL High 6-24 Creatinine 1.24 mg/dL 0.50-1.40 One Over Creatinine 0.80 BUN/Creatinine Ratio 25.8 High 8-20 Calcium 9.6 mg/dL 8.1-9.9 Total Protein 7.7 GM/DL 6.2-8.1 Albumin 4.3 GM/DL 3.6-5.4 Globulin 3.4 GM/DL 2-4 Albumin/Globulin Ratio 1.3 1-3 Bilirubin Total 1.1 mg/dL 0.4-1.5 63 Alkaline Phosphatase 62 U/L 39-117 Alt (SGPT) 49 U/L 17-63 Ast (Sgot) 53 U/L High 12-42 eGFR Non- 63.6 > 60 eGFR 77.0 > 60 64 1 Because ethnic data is not always [...] 5 Kidney failure <15 (or dialysis) 2 Please check labs today 3 Acute inflammation: >10.00 4 Result in log IU/mL is Undetected. ADDITIONAL INFORMATION The quantification range of this assay is 15 to 100,000,000 IU/mL (1.18 log to 8.00 log IU/mL). Testing was performed using the silvano HCV test ([employer] with the silvano imo.im0 System. Test Performed by: [facility] [address] [place] [address] 5 Because ethnic data is not always readily [...] 15-29 5 Kidney failure <15 (or dialysis) 6 SEE RESULT BELOW Name: ZENON LOPEZ JR : [address]: Delia Lara MD Acct: [id number] Unit: [id number] AGE: 67 Location: [facility] 417- Re03/11/17 SEX: M Status: ADM IN SPEC: [id number] WESLY: 03/11/17 [facility] DR: Puneet Luz NP REQ: [id number] RECD: 03/11/17 STATUS: JANE GARCÍA DR: Rolando Ferrari III, MD _ SOURCE: URINE SPDESC: ORDERED: Urine Culture Procedure Result Reported Site Urine Culture Final 03/12/17- 1444 ML No growth of clinically significant organisms * ML - MAIN LAB ([facility]) . END OF REPORT * ML=Testing performed at Main Lab DEPARTMENT OF PATHOLOGY, [address] [place] [address] Garcia Rodriguez M.D. Director [facility] # [id number] 7 Because ethnic data is not always readily [...] 15-29 5 Kidney failure <15 (or dialysis) 8 Acute inflammation: >10.00 9 [facility] Severe Sepsis and Septic Shock Management Bundle Measure requires all lactic acids initially measuring >2.0 mmol/L be repeated. 10 Because ethnic data is not always readily [...] 15-29 5 Kidney failure <15 (or dialysis) 11 REFERENCE VALUE <4.0 (Negative) Test Performed by: [address] [address] 12 Negative serology. Celiac disease unlikely. However, approximately 10% of patients with celiac disease are seronegative. Also, patients who are already adhering to a gluten-free diet may be seronegative. If celiac disease is highly clinically suspected, consider HLA-DQ typing. Test Performed by: [facility] - [address] [address] 13 RESULT: 01:02,03 REFERENCE VALUE Not Applicable 14 RESULT: 03:02,06:02 DQ Serologic Equivalent: 8,6 REFERENCE VALUE Not Applicable 15 These genes are permissive for celiac disease. The absence of HLA celiac permissive genes would make the presence of celiac disease unlikely. However, these genes can also be present in the normal population. ADDITIONAL INFORMATION Method: Molecular typing of HLA antigens performed using reverse SSOP and/or SSP methods, reported as serological equivalents and low to medium resolution molecular values. Performing Laboratory CLIA# [id number] Test Performed by: [address] [address] 16 REFERENCE VALUE <=1.0 (Negative) 17 Interpretation: Positive (40.0-59.9) REFERENCE VALUE <20.0 (Negative) 18 RESULT: Compatible with rheumatoid arthritis. Test Performed by: [address] [address] 19 Test Performed by: [facility] - [address] [address] 20 Please tari ck today 21 Please check today 22 Acute inflammation: >10.00 23 Please check today 24 Serologic response to B. burgdorferi infection is not detected, but cannot rule out early infection during which low or undetectable antibody levels to B. burgdorferi may be present. If clinically indicated, a new serum specimen should be submitted in 7-14 days. Test Performed by: [facility] - [facility] [address] [place] [address] 25 Normal Range 180 to 914 Indeterminate Range 145 to 180 Deficient Range <145 26 Please check today 27 REFERENCE VALUE Not Applicable 28 RESULT: HLA-B27 antigen was not detected. ADDITIONAL INFORMATION Method: Flow Cytometry Performing Laboratory CLIA# [id number] Test Performed by: [address] [address] 29 RESULT: No apparent monoclonal protein on serum electrophoresis. Test Performed by: [address] [address] 30 Negative for cANCA and pANCA patterns by immunofluorescence. ADDITIONAL INFORMATION This test was developed and its performance characteristics determined by [facility] in a manner consistent with CLIA requirements. This test has not been cleared or approved by the U.S. Food and Drug Administration. Test Performed by: [address] [address] 31 Because ethnic data is not always readily [...] 15-29 5 Kidney failure <15 (or dialysis) 32 Because ethnic data is not always [...] 5 Kidney failure <15 (or dialysis) 34 Acute inflammation: >10.00 35 RE-@COLLECTION THE PATIENT STATED HE WILL RETURN AT A LATER 36 REFERENCE VALUE <=1.0 (Negative) 37 Interpretation: Strong Positive (>=60.0) REFERENCE VALUE <20.0 (Negative) 38 RESULT: Compatible with rheumatoid arthritis. Test Performed by: [facility] - [place] [id number] 39 Result in log IU/mL is Undetected. ADDITIONAL INFORMATION The quantification range of this assay is 15 to 100,000,000 IU/mL (1.18 log to 8.00 log IU/mL). Testing was performed using the silvano HCV test ([employer] with the silvano 6800 System. Test Performed by: [facility] - [facility] [address] [place] [address] 40 Serum levels of PSA measured using the [place] [employer] DXI Hybritech immunoassay should not be interpreted [...] methods or kits cannot be used interchangeably. 41 Because ethnic data is not always readily [...] 15-29 5 Kidney failure <15 (or dialysis) 42 Because ethnic data is not always [...] 5 Kidney failure <15 (or dialysis) [address] Ferrari by [id number] at 1732 on 02/17/16. Results read back accurately. 44 Effective immediately, due to a laboratory mean normal Protime change, the reference range for the INR has changed. 45 Because ethnic data is not always readily [...] 15-29 5 Kidney failure <15 (or dialysis) 46 Reference Range and Interpretation: TnI (ng/mL) Interpretation Less Than 0.03 ng/mL Not supportive of diagnosis of MD 0.03 - 0.50 ng/mL Indeterminate: suggest serial studies if clinically indicated. Greater than 0.5 ng/mL Consistent with diagnosis of MD 47 SEE RESULT BELOW Name: ZENON LOPEZ : [address]: Lavinia Wallace MD Acct: [id number] Unit: [id number] AGE: 64 Location: ED Re01/06/15 SEX: M Status: DEP ER SPEC: [id number] WESLY: 01/06/15 [facility] DR: Lavinia Wallace MD REQ: [id number] RECD: 01/06/15 STATUS: COMP RICKY DR: Sukhwinder Ferrari III, MD _ SOURCE: BLOOD,VENO SPDES: ORDERED: Blood Cult Procedure Result Verified Site Aerobic Culture Bottle Final 01/11/15- 2347 ML No Growth Day 5 Anaerobic Culture Bottle Final 01/11/15- 2346 ML No Growth Day 5 * ML - MAIN LAB ([facility]) . END OF REPORT * ML=Testing performed at Main Lab DEPARTMENT OF PATHOLOGY, [address] [place] [address] Garcia Rodriguez M.D. Director [facility] # [id number] 48 Because ethnic data is not always readily [...] 15-29 5 Kidney failure <15 (or dialysis) 49 PT IS FASTING 50 Desirable <150 Borderline high 150-199 High 200-499 Very High >500 51 Desirable <200 Borderline high 200-239 High >239 52 Low <40 Desirable: 40-60 High: >60 53 Desirable: <100 mg/dL Near Optimal: 100-129 mg/dL Borderline High: 130-159 mg/dL High: 160-189 mg/dL Very High: >189 mg/dL 54 It is recognized that currently available assays [...] 95% confidence interval of 99.78 to 99.96%. 55 Result in log IU/mL is 6.62. ADDITIONAL INFORMATION The quantification range of this assay is 15 to 100,000,000 IU/mL (1.18 log to 8.00 log IU/mL). Testing was performed by the SILVANO AmpliPrep/SILVANO TaqMan HCV Test, version 2.0 ([employer] Test Performed by: [place] [address] Brush Hand: Hao Jimenez II, M.D., Ph.D. 56 Because ethnic data is not always readily [...] 15-29 5 Kidney failure <15 (or dialysis) 57 Anion gap measurement may be of limited value in the presence of any alkalosis, especially in a combined acid base disorder. . 58 Because ethnic data is not always readily [...] 15-29 5 Kidney failure <15 (or dialysis) 59 Anion gap measurement may be of limited value in the presence of any alkalosis, especially in a combined acid base disorder. . 60 Because ethnic data is not always readily [...] 15-29 5 Kidney failure <15 (or dialysis) 61 Anion gap measurement may be of limited value in the presence of any alkalosis, especially in a combined acid base disorder. . 62 Note change in reference range as of 10/26/07. The change was based on recommendations from the [employer]. 63 A metabolite of Naproxen, O-desmethylnaproxen, has been shown to interfere with the [place] method for measuring total bilirubin. Samples from patients who have taken Naproxen have shown spurious elevation in total bilirubin levels. 64 Because ethnic data is not always readily [...] Inject/Drain Joint/Bursa Major W/O US Completed 03/14/2017 18740 Use Of Operating Microscope Completed 03/14/2017 12331 Laminectomy;For Intraspinal Lesion/Lumbar Completed 02/23/2017 75895 Admin Of Inj Completed 02/10/201784213 Inject/Drain Joint/Bursa Major W/O US Completed 07/22/2011 09226 Treadmill Interp/Report Only Completed 07/22/2011 50231 Stress Test Supervsn W/Out I/R Completed 07/01/2011 62831 ECHO Transthoracic, Real-Time 2D With Doppler And Color Completed Flow 06/28/2011 13706 ECHO Stress Test Incl Perf Contiuous ekg Monitoring Completed W/Phys Superv 06/07/2011 04696 EKG Tracing & Interpretation Completed Encounters Type Date Location Provider CPT E/M Dx Office Visit 06/27/2017 8:40a [facility] Internal Medicine Henry Brumfield, [address] G06.2 - [place] Jordan Pierre,FACP N18.9 F51.05 B18.2 Z12.11 Office Visit 05/16/2017 10:00a [facility], [address] M54.5 Eula Pierre M25.552 M06.9 M79.1 F17.210 Office Visit 05/16/2017 11:20a [facility] Internal Medicine Henry Brumfield, [address] N18.9 - [place] Jordan Pierre,FACP F51.05 B18.2 G06.2 Z23 Office Visit 03/31/2017 1:47p [facility] Whitney De Luna N.Flash [address] G06.2 Hospitalists M54.5 Office Visit 03/28/2017 1:46p [facility] Coty Cooper, [address] G06.2 Assoc,pc [employer] Hospitalists M54.5 Office Visit 03/25/2017 1:45p [facility] Melly Gutierrez [address] G06.1 Infectious Diseases Ignacio Puri Office Visit 03/23/2017 1:46p [facility] Rashida Duggan, [address] G06.2 Hospitalists TU[employer] HE[employer] M54.5 Office Visit 03/22/2017 1:30p [facility] Melly Gutierrez [address] G06.1 Infectious Diseases Ignacio Puri Office Visit 03/20/2017 8:32a [facility] ROSALINE Mackey 71855 M46.46 Assoc,pc Hospitalists B18.2 G06.2 M19.90 Office Visit 03/19/2017 8:31a [facility] ROSALINE Mackey 77224 M46.46 Hospitalists B18.2 G06.2 M19.90 Office Visit 03/18/2017 1:44p [facility] Rashida Duggan, 95186 G06.2 Hospitalists TUBE HEATER M54.5 Office Visit 03/17/2017 8:30a [facility] Rashida Duggan, 15045 M46.46 Assoc,pc Hospitalists 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 B18.2 G06.2 M19.90 Office Visit 03/16/2017 8:30a [facility], 76951 M46.46 Assoc,pc Hospitalists 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 B18.2 G06.2 M19.90 Office Visit 03/16/2017 1:39p [facility] Baron Brenda 77707 G06.1 Infectious Diseases Ignacio Puri Office Visit 03/15/2017 8:29a [facility] [place], 84003 M46.46 Assoc,pc Hospitalists TUBE HEATER B18.2 G06.2 M19.90 Office Visit 03/14/2017 12:35p [facility] Baron Puri, 43630 G06.1 Infectious Diseases Ignacio M54.5 N17.9 N18.9 B19.20 Office Visit 03/14/2017 8:29a [facility] [place], 81650 M46.46 Assoc,pc Hospitalists TUBE HEATER B18.2 G06.2 M19.90 Office Visit 03/13/2017 8:28a [facility], 12423 M46.46 Assoc,pc Hospitalists N.P. B18.2 G06.2 M19.90 Office Visit 03/12/2017 8:27a [facility], 55942 M46.46 Assoc,pc Hospitalists N.P. B18.2 G06.2 M19.90 Office Visit 03/12/2017 7:00a Neurosurgery Services Norbert Núñez M.D. 21002 G06.1 Of [facility] Office Visit 03/11/2017 8:26a [facility], 08949 B18.2 Hospitalists N.P. G06.2 M19.90 M46.46 Office Visit 03/11/2017 7:00a Neurosurgery Services Norbert Núñez M.D. 71452 G06.1 Of [facility] M46.26 Office Visit 2017 8:58a Rheumatology Services Jairo Herbert 98284 R41.82 Of Eula Pierre M06.9 M54.5 Office Visit 02/23/2017 11:00a Rheumatology Services Of Jairo Herbert, 12179 M06.4 Eula Pierre M54.5 R20.8 M79.1 N18.9 R21 Office Visit 02/14/2017 1:30p Neurosurgery Services Vassilios 72015 M54.5 Of [facility] MD Chiquis Office Visit 02/10/2017 8:00a [place] [address] M19.011 Of [facility] M19.012 S46.011A S46.012A M54.5 Office Visit 12/31/2016 9:00a [facility] [place] [address] M25.511 [facility] M25.512 M19.011 M19.012 S46.011A S46.012A Office Visit 12/28/2016 10:00a [facility] Internal Medicine Jorge Ferrari, 23131 M06.09 - Harjinder Pierre J44.9 R91.8 N18.4 R31.9 M75.100 M25.552 Office Visit 12/21/2016 11:20a [facility] Internal Medicine Jorge Ferrari, 60850 R53.83 - Harjinder Pierre M15.0 R06.00 R03.0 B19.20 N18.4 Z12.5 M75.100 M25.552 Office Visit 05/26/2016 1:20p [facility] Internal Eron Coleman, 17106 M25.531 Charly Saavedra M.D. Office Visit 02/17/2016 11:00a [facility] Internal Myke Mcleod M.D. 69991 M10.071 Charly Grande N18.4 I10 Office Visit 12/30/2014 11:20a [facility] Internal Medicine Jorge Ferrari, 55832 J20.9 - Quentin Pierre Z23 Office Visit 05/22/2014 1:20p [facility] Internal Medicine Jorge Ferrari, 57906 070.70 - Quentin Pierre 780.52 726.19 305.1 V03.82 Office Visit 12/26/2012 9:00a Neurosurgery Services Elmer Jurado, 30623 721.0 Of Eula Pierre 726.13 Office Visit 08/04/2011 8:30a [facility] Ana Ortega N.Flash 84849 780.4 305.1 794.31 Office Visit 07/22/2011 11:30a [facility] Willie Garza, 09198 794.31 MJohn 780.4 Office Visit 06/28/2011 1:30p [facility] Willie Garza, 09432 794.31 MJohn 780.4 Office Visit 06/07/2011 10:20a [facility] AT [facility]. 26347 794.31 [facility] Ignacio Garza 780.4 305.1 070.70 Office Visit 03/03/2010 2:00p DO Not Use [facility] [place], [address] 780.52 Mino Pierre 276.7 070.70 780.79 V72.62 Plan of Care Future Appointment(s):11/04/2017 1:00 pm - Henry Brumfield M.D.,FACP at [facility] Internal Medicine - [address]/28/2017 - Henry Brumfield M.D.,FACPF51.05 Insomnia due to other mental disorderComments:Increase Quetiapine to 100 MG 1x every night. Discontinue Zaleplon. Begin taking Zolpidem (Ambien) 10 MG 1/2-1 tab every night as needed. Follow up with mental health as discussed.Referral: [facility], Mental Health/AqcrpcpcuX78.012D Strain of musc/ tend the rotator cuff of left shoulder, subsComments:Continue current medications as prescribed.F17.210 Nicotine dependence, cigarettes, uncomplicatedComments:discussed cessation strategies. Call me if you want help with smoking cessation. Discussed lung cancer screening with patient.Z72.0 Tobacco useNew Xrays:CT Lung Screening-Low DoseComments:Complete lung CT as discussed.
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
--- NOTE | 2017-11-18 13:32 | RAD ---
Indication: Back pain after fall. 3 views of the lumbar spine are reviewed. Vertebral bodies appear normal in height. Disc space narrowing at L2-L3-L4, L4-L5 and L5-S1. No fracture is noted. Spinal canal appears to be intact. IMPRESSION: Degenerative disc disease at L3-L4, L4-L5 and L5-S1.
[2017-11-18] MEDS ORDERED: oxyCODONE/Acetamin 5/325 MG* TAB PO ONE (13:34)
--- NOTE | 2017-11-18 13:36 | RAD ---
Indication: Bilateral shoulder pain after fall 4 views of left shoulder and 4 views of the right shoulder are reviewed. The left shoulder demonstrates no fracture. No other bone or joint abnormality is identified. The right shoulder demonstrates no fracture. AC joint arthritis is noted. No other bone or joint abnormality is noted. IMPRESSION: Unremarkable bilateral shoulders.
--- NOTE | 2017-11-18 13:36 | RAD ---
HISTORY: back pain s/p fall COMPARISONS: February 24, 2017 VIEWS: 3 , Frontal and lateral views of the thoracic spine. FINDINGS: ALIGNMENT: There is mild scoliotic curvature of the spine. VERTEBRAL BODIES: The vertebral body heights are normal. The interpedicular distances are normal. JOINTS: Unremarkable. INTERVERTEBRAL DISCS: There is mild diffuse loss of intervertebral disc height. SOFT TISSUE: Unremarkable OTHER: The visualized lungs are clear. IMPRESSION: SCOLIOSIS. MILD DEGENERATIVE CHANGES.
[2017-11-18 13:52] VITALS: BP 142/96
== END 2017-11-18 13:53 | disposition home or self-care (01) ==
LOC: ED 11:12
DX: M25.512 Pain in left shoulder (principal); M25.511 Pain in right shoulder; M54.5 Low back pain; F17.210 Nicotine dependence, cigarettes, uncomplicated; W11.XXXA Fall on and from ladder, initial encounter; Y92.9 Unspecified place or not applicable
CPT/HCPCS: 72070; 72100; 99283; A9270-GY

== ENCOUNTER 2018-05-26 19:57 | Inpatient (IN) | payer MEDICARE, MEDICAID ==
[2018-05-26] MEDS ORDERED: NS 0.9% 1000 ML** 1,000 ML IV ONE ×2 (20:06→21:08)
--- NOTE | 2018-05-26 20:10 | ED ---
Altered Mental Status - HPI Summary HPI Summary: Pt is a 68 y/o brought in by EMS who presents to the ED s/p fall. As per EMS, he called 911 because he fell out of his bed and could not get up. Pt told EMS that he had a head injury. EMS notes that the patient is acting very strange and agitated, and is not sitting still. Pt denies any alcohol or drug use, or recent medication changes. He is prescribed Omeprazole, Tramadol, and Ambien and took these medications before he went to bed tonight at 18:30. He normally ambulates with a walker. Pt is a level 5 caveat due to his agitation and AMS. - History Of Current Complaint Stated Complaint: FALL PER EMS Hx Obtained From: Patient, EMS Hx From Patient Unobtainable Due To: Altered Mental Status Onset/Duration: Unknown Timing: Constant Character: Agitation Aggravating Factor(s): Unknown Alleviating Factor(s): Unknown - Allergies/Home Medications Allergies/Adverse Reactions: Allergies Allergy/AdvReac Type Severity Reaction Status Date / Time No Known Allergies Allergy Verified 12/06/17 09:37 PMH/Surg Hx/FS Hx/Imm Hx Endocrine/Hematology History: Denies: Hx Anticoagulant Therapy, Hx Diabetes, Hx Thyroid Disease Cardiovascular History: Reports: Other Cardiovascular Problems/Disorders - hyperkinetic heart Denies: Hx Hypertension, Hx Pacemaker/ICD Respiratory History: Denies: Hx Asthma, Hx Chronic Obstructive Pulmonary Disease (COPD) GI History: Reports: Other GI Disorders - hep c Denies: Hx Ulcer History: Reports: Hx Chronic Renal Failure Denies: Hx Dialysis, Hx Renal Disease Musculoskeletal History: Reports: Hx Back Problems Denies: Hx Scoliosis Sensory History: Reports: Hx Contacts or Glasses Denies: Hx Hearing Aid Opthamlomology History: Reports: Hx Contacts or Glasses Neurological History: Denies: Hx Dementia, Hx Headaches, Hx Seizures Psychiatric History: Reports: Hx Anxiety Denies: Hx Panic Disorder, Hx Substance Abuse - Cancer History Cancer Type, Location and Year: N - Surgical History Surgery Procedure, Year, and Place: VERICOSE VEIN LEG. LEFT KNEE BURSA REMOVAL. LUMBAR SURGERY FOR INFECTION Infectious Disease History: Reports: Hx Hepatitis - C - TREATED Denies: Hx Human Immunodeficiency Virus (HIV), Hx Shingles, History Other Infectious Disease - Family History Known Family History: Positive: Cardiac Disease - [place] Negative: Hypertension, Diabetes - Social History Alcohol Use: None Hx Substance Use: Yes Substance Use Type: Reports: Cocaine Hx Tobacco Use: Yes Smoking Status (MU): Heavy Every Day Tobacco Smoker Type: Cigarettes Amount Used/How Often: 1 PPD Review of Systems Positive: Other - supposed head injury Positive: Other - agitated, AMS All Other Systems Reviewed And Are Negative: No Physical Exam - Summary Physical Exam Summary: Appearance: well appearing, no pain distress Skin: warm, dry, reflects adequate perfusion Head/face: normal Eyes: EOMI, PARI ENT: mucous membranes moist and pale Neck: supple, non-tender Respiratory: CTA, breath sounds present Cardiovascular: RRR, pulses symmetrical, systolic murmur Abdomen: non-tender, soft Bowel Sounds: present Musculoskeletal: normal, strength/ROM intact Neuro: sensory motor intact, A&Ox3, akathisia, agitated, no neurological deficits Triage Information Reviewed: Yes Vital Signs Reviewed: Yes Completion Of Physical Exam Limited Due To: Level 5 - agitation, AMS - Rodrick Coma Scale Best Eye Response: 4 - Spontaneous Best Motor Response: 6 - Obeys Commands Best Verbal Response: 5 - Oriented Coma Scale Total: 15 Diagnostics - Laboratory Result Diagrams: 05/26/18 20:31 05/26/18 20:31 Lab Statement: Any lab studies that have been ordered have been reviewed, and results considered in the medical decision making process. - CT Brain CT CT Interpretation Completed By: Radiologist Summary of CT Findings: No acute intracranial abnormality. ED physician reviewed radiology report. - EKG 20:42 Cardiac Rate: NL - 66 bpm EKG Rhythm: Sinus Rhythm ST Segment: Non-Specific Summary of EKG Findings: Nl axis, poor R wave progression Re-Evaluation - Re-Evaluation First Eval Re-Evaluation Time: 20:28 Change: Unchanged Comment: Pt is agitated so will be given Ativan. Altered Mental Statu Course/Dx - Course Course Of Treatment: Nurses' notes reviewed. Patient presents agitated with akathisia and fall. He. He possible sympathomimetic related. He required Ativan for the agitation and was later treated with Geodon as well. This was done to help accomplish the CT scan and also to help keep him in bed in from falling again. CT scan was ultimately negative and his drug screen was positive for cocaine. His baseline creatinine is 2.0 but now is up to 3.0. His baseline potassium is 5.6 and now is up to 6.0. He did put out 400 cc of urine on catheterization. We discussed this with the sanitary aide who will see the patient in consultation but states to just hydrate him and treat him with potassium binding resin. The hospitalist will admit. - Diagnoses Differential Diagnosis/HQI/PQRI: Hypothermia, Intoxication, Intracranial Bleed, Medication Reaction, Metabolic Disorder, Other - Drug abuse Provider Diagnoses: Acute on chronic renal failure, Cocaine abuse, Agitation - Provider Notifications Discussed Care Of Patient With: Angy Lang Time Discussed With Above Provider: 22:31 Instructed by Provider To: Other - Dr. Lang accepts pt for admission. At 22:38 Dr. Gardner said to hydrate the patient and treat the hyperkalemia. Pt most likely does not need dialysis this weekend. - Critical Care Time Critical Care Time: 30-74 min - CCT is EXCLUSIVE of separately billable procedures. Discharge - Sign-Out/Discharge Documenting (check all that apply): Patient Departure - Admit Patient Received Moderate/Deep Sedation with Procedure: No - Discharge Plan Condition: Fair Disposition: ADMITTED TO [facility] - Billing Disposition and Condition Condition: FAIR Disposition: Admitted to [facility] - Attestation Statements Document Initiated by Scribe: Yes Documenting Scribe: Earline Barrera Provider For Whom Ivelisse is Documenting (Include Credential): Facundo Conley MD Scribe Attestation: Earline Joel, scribed for Facundo Conley MD on 05/27/18 at 0136. Scribe Documentation Reviewed: Yes Provider Attestation: The documentation as recorded by the Earline nava accurately reflects the service I personally performed and the decisions made by me, Facundo Conley MD Status of Scribe Document: Viewed
[2018-05-26] MEDS: LORazepam INJ* 2 MG/ML 1 ML VIAL IV PUSH ONE ×2 (20:36→21:06)
[2018-05-26 20:42] LABS: ABS Basophils 0.1 10^3/ul (0-0.2); ABS Eosinophils 0.6 10^3/ul (0-0.6); ABS Lymphocytes 0.9 10^3/ul (1.0-4.8); ABS Neutrophils 5.7 10^3/ul (1.5-7.7); ABS Nucleated RBC 0 10^3/ul; Eosinophil % 7.3 %; Hematocrit 32 % (36-46); Hemoglobin 10.7 g/dL (14.0-18.0); Lymphocyte % 11.3 %; Mean Corpuscular HGB Conc 34 g/dL (31-36); Mean Corpuscular Hemoglobin 34 pg (27-31); Mean Corpuscular Volume 100 fL (80-94); Mean Platelet Volume 10.5 fL (7.4-10.4); Nucleated Red Blood Cells % 0; Platelet Count 140 10^3/uL (150-450); Red Blood Count 3.18 10^6 /uL (4.18-5.48); Red Cell Distribution Width 16 % (10.5-15); White Blood Count 8.3 10^3/uL (3.5-10.8)
[2018-05-26 20:46] LABS: INR 1.2 (0.77-1.02)
[2018-05-26 20:58] LABS: ALT 16 U/L (7-52); AST 24 U/L (13-39); Albumin 3.8 g/dL (3.2-5.2); Albumin/Globulin Ratio 1.5 (1-3); Alkaline Phosphatase 61 U/L (34-104); BUN/Creatinine Ratio 23.5 (8-20); Blood Urea Nitrogen 72 mg/dL (6-24); CO2 Carbon Dioxide 16 mmol/L (22-32); Calcium 8.7 mg/dL (8.6-10.3); Creatine Kinase 437 U/L (10-223); EGFR African American 24.8 (>60); EGFR Non-African American 20.5 (>60); Globulin 2.6 g/dL (2-4); Glucose 109 mg/dL (70-100); Sodium 134 mmol/L (135-145); Total Protein 6.4 g/dL (6.4-8.9)
[2018-05-26 21:00] LABS: Anion Gap 5 mmol/L (2-11); Chloride 113 mmol/L (101-111); Troponin I 0.01 ng/mL (<0.04)
[2018-05-26] MEDS ORDERED: Ziprasidone IM INJ* 20 MG/ML VIAL IM ONE (21:10)
[2018-05-26 21:17] LABS: Alcohol < 10 mg/dL (<10)
[2018-05-26] MEDS ORDERED: Sterile Water for Inj* 10 ML ONE (21:25)
[2018-05-26 21:32] LABS: TSH (Thyroid Stimulating Horm) 1.83 mcIU/mL (0.34-5.60)
[2018-05-26] MEDS ORDERED: Patiromer POWDER* 8.4 GM PAK PO ONE (22:05)
[2018-05-26 22:13] LABS: Urine Appearance Cloudy; Urine Bacteria Absent (Absent); Urine Bilirubin Negative (Negative); Urine Blood Negative (Negative); Urine Color Yellow; Urine Glucose Negative (Negative); Urine Ketones Negative (Negative); Urine Nitrite Negative (Negative); Urine Protein Negative (Negative); Urine Red Blood Cell Trace(0-2/hpf) (Absent); Urine Specific Gravity 1.013 (1.010-1.030); Urine Urobilinogen Negative (Negative); Urine White Blood Cell 2+(11-20/hpf) (Absent)
[2018-05-26 22:25] LABS: Barbiturates Urine Screen None Detected (None Detect); Benzodiazepine Urine Screen None Detected (None Detect); Urine Cannabinoids Screen None Detected (None Detect)
[2018-05-26] MEDS ORDERED: LORazepam INJ* 2 MG/ML 1 ML VIAL IV PUSH ONE (22:27)
[2018-05-26] MEDS ORDERED: LORazepam INJ* 2 MG/ML 1 ML VIAL ONE (22:30)
[2018-05-26] MEDS ORDERED: Ondansetron INJ* 2 MG/ML VIAL IV PRN (23:12)
[2018-05-26] MEDS ORDERED: NS 0.9% 1000 ML** 1,000 ML IV SCH ×2 (23:15)
[2018-05-26] MEDS ORDERED: Insulin REGULAR(*) 1 UNITS UNIT IV PUSH ONE (23:21)
[2018-05-26] MEDS ORDERED: Dextrose 50% Syringe 50 ML* 25 GM/50 ML SYRINGE IV PUSH ONE (23:21)
[2018-05-26] MEDS ORDERED: Calcium Gluconate INJ* 1 GM in NS 0.9% 100 ML* 100 ML IVPB ONE (23:21)
[2018-05-26] MEDS ORDERED: NS 0.9% 100 ML* 100 ML ONE (23:26)
[2018-05-26 23:34] LABS: Magnesium 1.8 mg/dL (1.9-2.7)
[2018-05-26 23:48] LABS: Urine Creatinine Concentration 80.57 mg/dL
[2018-05-27] MEDS: LORazepam INJ* 2 MG/ML 1 ML VIAL IV PUSH PRN ×4 (00:14→07:42)
[2018-05-27] MEDS: Sodium Bicarbonate 8.4% IV* 100 MEQ in NS 0.45% 1000 ML BAG* 1,000 ML IV SCH ×2 (00:17→22:17)
[2018-05-27 00:39] LABS: % Iron Saturation 19 % (15-55); Iron 51 ug/dL (50-212); Total Iron Binding Capacity 265 mcg/dL (250-450); Transferrin 189 mg/dL (203-362)
[2018-05-27 01:01] LABS: Ferritin 77.6 ng/mL (24-336)
[2018-05-27 01:03] LABS: Folate > 20.00 ng/mL (>3.99)
--- NOTE | 2018-05-27 02:08 | HP ---
CC: Dr. Brumfield * HISTORY AND PHYSICAL: DATE OF ADMISSION: 05/26/18 TIME OF EVALUATION: 2300 PRIMARY CARE PHYSICIAN: Dr. Brumfield. CHIEF COMPLAINT: Fall. HISTORY OF PRESENT ILLNESS: This is a 68-year-old male with a past medical history of polysubstance abuse and IV drug use who presented to the emergency room via EMS after having a fall and hitting his head. The patient is sedated and altered and unable to provide a history. The history is obtained from the ER and the medical records. It is not clear who called EMS. he patient came in via EMS after falling and hitting his head. When he arrived to the emergency room, he was thrashing, irritated, yelling, screaming. He denied any alcohol or drug use. Per record, he normally ambulates with a walker and he told them he fell out of bed and could not get up. In the emergency room, the patient had labs and imaging. He was given 20 mg of IM Geodon, 2 L of normal saline, 3 mg of Ativan, and referred to the hospitalist service for further evaluation. He refused the patiromer powder. On my encounter, the patient is heavily sedated, minimally arousable, moving all extremities, but unable to interact or answer any questions. PAST MEDICAL HISTORY: 1. History of CKD. 2. History of hepatitis C. 3. Question history of rheumatoid arthritis. 4. History of IV drug use and polysubstance abuse. 5. History of epidural abscess. 6. History of cervical spondylosis. 7. Tobacco use. MEDICATIONS: None. ALLERGIES: No known drug allergies. FAMILY HISTORY: Unable to obtain due to the patient's altered mental status. SOCIAL HISTORY: In the past, the patient has been known to use IV drugs, tobacco, cocaine, and former alcoholic. In the past, his healthcare proxy was his sister, Rosy. REVIEW OF SYSTEMS: Unable to obtain due to the patient's altered mental status. PHYSICAL EXAMINATION GENERAL: The patient is sedated and intermittently twitching, in no respiratory distress, minimally arousable. VITAL SIGNS: Temp 97.8, pulse rate 64, respiratory rate 17, oxygen saturation 100% on room air, and blood pressure 144/63. HEENT: Head is normocephalic, unable to appreciate any hematoma. Pupils are pinpoint and reactive. Conjunctivae injected. Oropharynx: Mucous membranes moist. NECK: Supple. RESPIRATORY: Diminished breath sounds. No wheezing, rhonchi, or rales. CARDIAC: Regular rate and rhythm. Soft systolic murmur heard throughout. ABDOMEN: Soft, nontender, nondistended. EXTREMITIES: No clubbing, cyanosis, or edema; +1 DPs. NEUROLOGIC: As mentioned, the patient is somnolent, intermittently twitching, moving all extremities. Unable to follow any commands. DIAGNOSTIC STUDIES/LAB DATA: Laboratory Data: White count 8.3, hemoglobin 10.7, hematocrit 32, platelets 140. INR 1.2. Sodium 134, potassium 6, chloride 113, bicarb 16, BUN 72, creatinine 3, glucose 109, lactic acid 0.9. CK 437, troponin is 0.1. TSH is 1.83. UA shows no bacteria, positive cocaine, negative alcohol. Radiographic Data: Head CT, no acute intracranial abnormality. EKG shows normal sinus rhythm with a rate of 66 and QTc of 444. ASSESSMENT: This is a 68-year-old male with a past medical history of chronic kidney disease and polysubstance abuse who presented to the emergency room after having a fall, brought in by EMS, found to be agitated and altered, positive cocaine. 1. Fall. Assessment: In the setting of his altered mental status and polysubstance abuse, I suspect it is attributed to his fall. There are no signs of focal infection. He also has worsening renal failure. His head CT was negative. Plan: We will monitor him, q.2 neuro checks in the setting of his altered mental status, sedation, and recent fall. Once he is more alert, recommend PT evaluation. We will also place a social work consult for his drug use. 2. [id number] kidney injury, worsening renal impairment with hyperkalemia and metabolic acidosis. The patient is refusing to take patiromer in the emergency room. Mildly peaked T waves on EKG, subtle. Plan: We will give him calcium gluconate, dextrose, and insulin. Continue IV fluids and we will also start him on a sodium bicarbonate drip. We will repeat his BMP in 4 hours, check a FENa, repeat his labs again in the morning, renally dose his medications. If he continues to have worsening renal impairment, consider nephrology consultation. 3. History of polysubstance abuse. Assessment: The patient is positive for cocaine. It is possible he took other illicit substances that are not routinely screened on the urine drug screen. Ativan as needed for agitation. 4. He has mildly elevated CK, likely in the setting of his recurrent whole body twitching. Plan: IV fluids, repeat a CK. 5. Chronic medical problems. We will need to obtain a medication reconciliation in the morning and order medications when he is safely able to tolerate p.o. 6. Macrocytic anemia and thrombocytopenia. We will check a B12, iron studies, and folic acid. 7. FEN. N.p.o. while he is agitated and sedated and with IV fluids. We will put in for a bedside swallow when he is more awake. He can have a regular diet. 8. DVT prophylaxis. The patient scores moderate risk. We will place him on heparin subcu t.i.d. 9. Code status. Full code. PATIENT TIME: Greater than 45 minutes was spent doing the history and physical , more than half the time was spent in direct patient contact and critical care time. [id number]/CPS #: [id number] AMAN
[2018-05-27] MEDS ORDERED: Haloperidol INJ IV/IM* 5 MG/ML AMP IV SLOW PU PRN (02:38)
[2018-05-27] MEDS ORDERED: Haloperidol INJ IV/IM* 5 MG/ML AMP ONE (02:51)
[2018-05-27 02:58] LABS: BUN/Creatinine Ratio 24.1 (8-20); Blood Urea Nitrogen 63 mg/dL (6-24); CO2 Carbon Dioxide 17 mmol/L (22-32); Calcium 8.5 mg/dL (8.6-10.3); EGFR African American 29.8 (>60); EGFR Non-African American 24.6 (>60); Glucose 65 mg/dL (70-100); Sodium 139 mmol/L (135-145)
[2018-05-27 02:59] LABS: Anion Gap 7 mmol/L (2-11); Chloride 115 mmol/L (101-111)
[2018-05-27] MEDS: Heparin VIAL(*) 5000 UNITS/ML VIAL (FIVE THOUSAND) SUBCUT SCH ×3 (05:13→22:11)
[2018-05-27 05:32] LABS: ABS Basophils 0.1 10^3/ul (0-0.2); ABS Eosinophils 0.8 10^3/ul (0-0.6); ABS Lymphocytes 1.4 10^3/ul (1.0-4.8); ABS Monocytes 1.3 10^3/ul (0-0.8); ABS Neutrophils 5.3 10^3/ul (1.5-7.7); ABS Nucleated RBC 0 10^3/ul; Eosinophil % 9.5 %; Hematocrit 37 % (36-46); Hemoglobin 11.8 g/dL (14.0-18.0); Lymphocyte % 15.2 %; Mean Corpuscular HGB Conc 32 g/dL (31-36); Mean Corpuscular Hemoglobin 33 pg (27-31); Mean Corpuscular Volume 102 fL (80-94); Mean Platelet Volume 10.5 fL (7.4-10.4); Nucleated Red Blood Cells % 0; Platelet Count 151 10^3/uL (150-450); Red Cell Distribution Width 16 % (10.5-15); White Blood Count 8.9 10^3/uL (3.5-10.8)
[2018-05-27 05:43] LABS: Albumin 3.6 g/dL (3.2-5.2); Calcium 8.5 mg/dL (8.6-10.3); Total Bilirubin 0.3 mg/dL (0.2-1.0)
[2018-05-27 05:49] LABS: Albumin/Globulin Ratio 1.5 (1-3); BUN/Creatinine Ratio 23.5 (8-20); EGFR African American 31.8 (>60); EGFR Non-African American 26.3 (>60); Globulin 2.4 g/dL (2-4)
[2018-05-27 05:50] LABS: Potassium 5.7 mmol/L (3.5-5.0)
[2018-05-27 08:35] LABS: C Reactive Protein 4.57 mg/L (<8.01)
[2018-05-27] MEDS ORDERED: NS 0.9% 1000 ML** 1,000 ML IV SCH (08:36)
[2018-05-27] MEDS ORDERED: Insulin REGULAR(*) 1 UNITS UNIT IV PUSH ONE ×2 (08:44→17:21)
[2018-05-27] MEDS ORDERED: Sodium Polystyrene RECTAL* 30 GM/120 ML RECTAL.SUS PR ONE (09:00)
[2018-05-27] MEDS ORDERED: Patiromer POWDER* 8.4 GM PAK PO ONE ×2 (09:00→19:22)
--- NOTE | 2018-05-27 09:00 | PN ---
Subjective Date of Service: 05/27/18 Interval History: Notes reviewed Haldol and ativan overnight for agitation and removing equipment, threat to self Has not taken oral medications Unable to participate in ROS Objective Active Medications: Dextrose (D50w Syringe 50 Ml*) 25 gm IV PUSH ONCE PRN PRN Reason: FS < 60 Haloperidol Lactate (Haldol Inj Iv/Im*) 5 mg IV SLOW PU Q6H PRN PRN Reason: AGITATION Last Admin: 05/27/18 02:53 Dose: 5 mg Heparin Sodium (Porcine) (Heparin Vial(*)) 5,000 units SUBCUT Q8HR [facility] Last Admin: 05/27/18 05:13 Dose: 5,000 units Sodium Bicarbonate 100 meq/ (Sodium Chloride) 1,100 mls @ 75 mls/hr IV Q14H [facility] Last Admin: 05/27/18 00:17 Dose: 75 mls/hr Sodium Chloride (Ns 0.9% 1000 Ml) 1,000 mls @ 200 mls/hr IV PER RATE [facility] Last Admin: 05/27/18 08:42 Dose: 200 mls/hr Lorazepam (Ativan Inj*) 2 mg IV PUSH Q2HR PRN PRN Reason: AGITATION Last Admin: 05/27/18 07:42 Dose: 2 mg Ondansetron HCl (Zofran Inj*) 4 mg IV Q4H PRN PRN Reason: NAUSEA/VOMITING Patiromer (Veltassa Powder*) 8.4 gm PO ONCE ONE Stop: 05/27/18 09:01 Sodium Polystyrene Sulfonate (Sodium Polystyrene Rectal*) 30 gm TN ONCE ONE Stop: 05/27/18 09:01 Vital Signs - 8 hr 05/27/18 05/27/18 05/27/18 01:00 01:01 01:15 Temperature Pulse Rate 64 64 60 Respiratory 16 26 11 Rate Blood Pressure 111/55 85/51 (mmHg) O2 Sat by Pulse 100 100 100 Oximetry 05/27/18 05/27/18 05/27/18 01:54 02:01 02:09 Temperature Pulse Rate 59 Respiratory 18 13 16 Rate Blood Pressure 167/67 (mmHg) O2 Sat by Pulse 100 Oximetry 05/27/18 05/27/18 05/27/18 02:50 03:00 03:01 Temperature 97.4 F Pulse Rate 60 Respiratory 21 11 Rate Blood Pressure 118/56 (mmHg) O2 Sat by Pulse 100 Oximetry 05/27/18 05/27/18 05/27/18 04:00 04:01 04:11 Temperature 97.1 F Pulse Rate 58 Respiratory 18 16 18 Rate Blood Pressure 168/81 (mmHg) O2 Sat by Pulse 100 Oximetry 05/27/18 05/27/18 05/27/18 04:23 05:00 05:01 Temperature Pulse Rate 64 62 Respiratory 14 14 14 Rate Blood Pressure 146/66 (mmHg) O2 Sat by Pulse 100 100 Oximetry 05/27/18 05/27/18 05/27/18 05:02 05:32 05:42 Temperature Pulse Rate 58 Respiratory 13 15 18 Rate Blood Pressure 149/81 (mmHg) O2 Sat by Pulse 98 Oximetry 05/27/18 05/27/18 05/27/18 06:00 06:01 07:00 Temperature 97.5 F Pulse Rate 55 57 Respiratory 19 20 10 Rate Blood Pressure 167/99 (mmHg) O2 Sat by Pulse 97 100 Oximetry 05/27/18 05/27/18 05/27/18 07:01 07:18 07:42 Temperature Pulse Rate 51 Respiratory 10 10 23 Rate Blood Pressure 119/56 (mmHg) O2 Sat by Pulse 100 Oximetry 05/27/18 05/27/18 08:00 08:01 Temperature Pulse Rate 54 58 Respiratory 21 17 Rate Blood Pressure 168/92 (mmHg) O2 Sat by Pulse 99 96 Oximetry Oxygen Devices in Use Now: None Appearance: lying flat, opens eyes to touch but does not communicate, groaning Eyes: No Scleral Icterus Ears/Nose/Mouth/Throat: NL Teeth, Lips, Gums, Clear Oropharnyx Neck: NL Appearance and Movements; NL JVP, Trachea Midline Respiratory: Symmetrical Chest Expansion and Respiratory Effort, - - rhonchorous Cardiovascular: RRR, - - difficult to appreciate murmurs with ronchorous lung sounds Lymphatic: No Cervical Adenopathy, No Axillary Adenopathy Extremities: No Edema Skin: No Rash or Ulcers Neurological: - - AOx0, moves all extremities, eyes 2 mm Result Diagrams: 05/27/18 05:12 05/27/18 05:12 Microbiology and Other Data: Microbiology 05/27/18 00:31 Nasal Screen MRSA (PCR) - Final Nasal Mrsa Not Detected Assess/Plan/Problems-Billing Assessment: 68 yo M last admission March 2017 with epidural abscess, substance use disorder pw fall out of bed and confusion - Patient Problems (1) Toxic metabolic encephalopathy Comment: Presented after falling out of bed. Unable to obtain accurate history given AMS. Unclear if drugs/substances are playing a role with positive cocaine in blood. He has received a significant amount of ativan and haldol since admission. Hold on sedating medications and reevaluate this afternoon Correct metabolic disorders (kidney, potassium) (2) Substance use disorder Comment: monitor (3) Hyperkalemia Comment: additional dose of insulin regular and dextrose c/w bicarb gtt increase NS to 200 cc /hr 1 dose rectal kayexalate because unable or willing to take oral cation binder recheck BMP at noon (4) Rhabdomyolysis Comment: Increased since admission. c/w NS 200cc/hr recheck at noon with BMP (5) Acute on chronic kidney failure Comment: Baseline around 2 Improving with fluids check renal bladder US (6) Epidural abscess Comment: H/o epidural abscess last year 03/2017 S/P decompressive lami L4-5 and drainage of abscess Check ESR/CRP (7) DVT prophylaxis Comment: HSQ
[2018-05-27] MEDS: Dextrose 50% Syringe 50 ML* 25 GM/50 ML SYRINGE IV PUSH PRN ×3 (09:11→19:29)
[2018-05-27] MEDS ORDERED: Norepinephrine 16MCG/ML IVPRE* 0 MCG/0 ML BAG IV ONE (12:19)
[2018-05-27 12:20] LABS: BUN/Creatinine Ratio 24.4 (8-20); Calcium 8.1 mg/dL (8.6-10.3); EGFR African American 35.4 (>60); EGFR Non-African American 29.2 (>60)
[2018-05-27 12:25] LABS: Potassium 5.1 mmol/L (3.5-5.0)
[2018-05-27] MEDS ORDERED: Dextrose 50% Syringe 50 ML* 25 GM/50 ML SYRINGE ONE ×3 (12:27→17:28)
[2018-05-27] MEDS ORDERED: cefTRIAXone(*) 2 GM in NS 0.9% 100 ML* 100 ML IVPB ONE (12:35)
[2018-05-27] MEDS ORDERED: NS 0.9% 1000 ML** 3,000 ML IV ONE (12:44)
[2018-05-27] MEDS ORDERED: Vancomycin(*) 1,250 MG in NS 0.9% 250 ML* 250 ML IVPB ONE (13:00)
[2018-05-27] MEDS ORDERED: D5W IV SCH ×5 (16:00)
[2018-05-27] MEDS ORDERED: SODIUM BICARBONATE IV SCH ×5 (16:00)
[2018-05-27] MEDS ORDERED: Sodium Bicarbonate 8.4% IV* 50 MEQ in D5W 1/2 NS 1000 ML BAG* 1,000 ML IVPB SCH (16:00)
[2018-05-27] MEDS ORDERED: 1/2 NS IV SCH ×5 (16:00)
[2018-05-27 16:26] LABS: Erythrocyte Sed Rate 11 mm/Hr (0-20)
[2018-05-27 16:55] LABS: BUN/Creatinine Ratio 23.4 (8-20); Calcium 7.8 mg/dL (8.6-10.3); EGFR African American 39.4 (>60); EGFR Non-African American 32.6 (>60)
[2018-05-27 16:57] LABS: Potassium 5.5 mmol/L (3.5-5.0)
[2018-05-27] MEDS ORDERED: Dextrose 50% Syringe 50 ML* 25 GM/50 ML SYRINGE IV PUSH ONE (17:21)
[2018-05-27] MEDS ORDERED: Insulin REGULAR(*) 1 UNITS UNIT ONE (17:28)
--- NOTE | 2018-05-27 17:33 | CONS ---
PULMONARY CONSULTATION REPORT: DATE OF CONSULT: 05/27/18 CONSULTATION REQUESTED BY: Dr. Myke Mcleod. REASON FOR CONSULTATION: Altered mental status, hypertension. HISTORY OF PRESENT ILLNESS: The patient is a 68-year-old male with history of cocaine abuse, history of IV drug use in the past, history of hepatitis C, recently being evaluated for possible rheumatoid arthritis, history of epidural abscess about a year ago, cervical spondylosis, tobacco abuse. The patient was brought in for evaluation after a fall and hitting his head. The patient is unable to provide good history. As per emergency room records, the patient came in via EMS after falling and hitting the head. He was thrashing, irritated , yelling and screaming. Denied alcohol or drug abuse. He was given 20 mg of IM Geodon and 3 mg of Ativan to be able to have CT scan of the head obtained. The patient has been with poor mental status up until earlier today when he started responding to verbal stimuli, was definitely not oriented completely. He knew his name; however, did not know how he got here. He was found to be positive for cocaine in the urine drug screen. He also was getting Ativan, got about 8 mg of that. His agitation however better responded to Haldol. Further evaluation revealed no white count or other signs of sepsis. He has been afebrile. He, however, was found to have metabolic acidosis, non-anion gap and acute on chronic renal failure. He was also found to have elevated CK. He was found to have hyperkalemia with the potassium of 6. He has refused patiromer powder and was given Kayexalate per rectal with minimal stool afterwards. He received insulin and dextrose. He subsequently was found to be hypotensive in the ICU with blood pressure to low 70s/60s, subsequently received 3 L of fluid boluses. He was also found to be bradycardic. EKG at that time revealed sinus bradycardia. His mental status was also worse at that time. He was found to have low glucose and was given IV dextrose. His blood pressure subsequently improved and at some point, he became hypertensive too. His mental status since started to improve. His blood sugars have been fluctuant and was on bicarb drip with half NS which was changed to D5 water. The patient was not given any antibiotics. He did however receive 1 dose of ceftriaxone and vancomycin in the ED. Ativan was since discontinued. The patient continues to have fluctuant mental status while here. PAST MEDICAL HISTORY: 1. Chronic kidney disease. 2. Chronic cocaine use and history of prior IV drug use and incarceration. 3. History of hepatitis C. 4. Rheumatoid arthritis. 5. Tobacco abuse. 6. COPD. 7. Cervical spondylosis. 8. Epidural abscess that required prolonged antibiotics and rehab placement that occurred in March 2017. MEDICATIONS: Apparently not on any medications at home. ALLERGIES: No known drug allergies. FAMILY HISTORY: Unable to obtain secondary to the patient's altered mental status. SOCIAL HISTORY: Long back, he had a history of IV drug abuse, continues to use cocaine routinely. Former alcoholic. His healthcare proxy is his sister, Geno. REVIEW OF SYSTEMS: Unable to obtain given the patient's mental status. PHYSICAL EXAM: The patient is confused. Vital Signs: Temperature 97.5, pulse 56 beats per minute, respiratory rate 20, O2 sat 98% on 2 L, blood pressure 160/ 58. HEENT: Pupils equal and reactive to light. Mucous membranes dry. Lungs: Diminished air entry bilaterally. No significant wheeze. Cardiovascular: S1, S2 present, bradycardic. Abdomen: Soft, nontender, nondistended. Bowel sounds present. Extremities: Normal range of motion. Neurologic: Able to move all extremities spontaneously. Alert, oriented x1, wanting to get out of the bed and needing constant closed observation. DIAGNOSTIC STUDIES/LAB DATA: WBC count 8.9, hemoglobin 11.8, hematocrit 37, platelet count 151. Blood gas analysis showed metabolic acidosis with some respiratory compensation. Sodium 142, potassium 5.1, chloride 119, bicarb 20, BUN 55, creatinine 2.25. Hypoglycemic episode after insulin administration for hyperkalemia with glucose of 45, which improved after D50 administration; however, continued to drop, is being monitored q. hourly. CK was elevated at 437 and 652, coming down. Urinalysis showed 1+ leukocyte esterase, 2+ wbc, some hyaline casts. Drug screen positive for cocaine. Alcohol level within normal limits. Chest x-ray was personally reviewed - evidence of hyperinflation and airspace opacity in the right lung at the base. CT of the brain, no acute abnormality noted. EKG showed evidence of sinus bradycardia with no acute ST-T wave changes. IMPRESSION AND RECOMMENDATIONS: 68-year-old male with history of drug abuse, brought in after a fall, was found to be having significant altered mental status in the ED, had to be sedated with Ativan and received Geodon. The patient also found to be having significant metabolic acidosis with normal lactate on admission. Unclear etiology of metabolic acidosis. He did have acute on chronic renal failure and significant hyperkalemia on admission. Suspect possibly renal failure is a reason for non-anion gap metabolic acidosis. Drug screen positive for cocaine, unclear if he has also consumed any other agents that could result in metabolic acidosis. He has a prior history of alcohol abuse; however, not found to have elevated alcohol levels. He also has history of prior IV drug use. He had episodes of hypotension, bradycardia which is unclear the etiology. He might be also hypovolemic and dehydrated with prerenal failure on top of his existing chronic renal failure. He did respond to fluid resuscitation. Renal function is slightly improved since admission. Metabolic acidosis is also improving. He has been on bicarb drip. Hyperkalemia improved after Kayexalate and dextrose insulin. Elevated CK trending down. I do not think sepsis is the reason for metabolic acidosis given normal lactic acid on admission and also with no leukocytosis or fever. He did have history of epidural abscess in the past, that was treated for a prolonged time with antibiotics. He has received vanco and Rocephin empirically. Will obtain CT of the spine when he is more stable and cooperative. Otherwise, will hold off on any antibiotics unless clinical condition warrants. Will repeat BMP to evaluate for metabolic acidosis and also for evaluation of hyperkalemia. He is able to protect his airway and do not see need for intubation at this time. He has a microcytic anemia of unclear etiology. Prior alcohol abuse and history of hepatitis C. He has normal TSH, folate and B12 levels. The patient with significant smoking history. Will start on nicotine supplementation. He is requiring O2 at 2 to 3 L at this time and his respiratory status is stable. Chest x-ray shows basilar atelectasis versus pneumonic infiltrate. Will have aspiration precautions ordered and could be concern with aspiration given his mental status recently. At this time, given no signs of infection or sepsis, we will hold off on any antibiotics. Will repeat the chest x-ray for followup. He recently had a history of significant weight loss and had EGD performed, which did not reveal any evidence of malignancy. The patient might require intubation if his mental status continues to deteriorate. He is not requiring pressors at this time. He has peripheral IVs, which is helpful at this time and I do not think he needs a central line. Thank you for allowing me to participate in the care of your patient. Discussed with Dr. Myke Mcleod and bedside RN. Will contact his sister who is listed as healthcare proxy. [id number]/CPS #: [id number] AMAN
[2018-05-27] MEDS ORDERED: Sodium Chloride Conc 23.4%* 77 MEQ in D10W 1000 ML BAG* 1,000 ML IV SCH (20:00)
[2018-05-27] MEDS: Sodium Chloride Conc 23.4%* 77 MEQ in D10W 1000 ML BAG* 1,000 ML IV SCH (20:34)
[2018-05-28] MEDS ORDERED: Haloperidol INJ IV/IM* 5 MG/ML AMP IV SLOW PU PRN (00:25)
[2018-05-28] MEDS ORDERED: Haloperidol INJ IV/IM* 5 MG/ML AMP ONE (00:27)
[2018-05-28 00:47] LABS: BUN/Creatinine Ratio 20.8 (8-20); Blood Urea Nitrogen 41 mg/dL (6-24); CO2 Carbon Dioxide 19 mmol/L (22-32); EGFR African American 41.2 (>60); EGFR Non-African American 34.1 (>60); Glucose 170 mg/dL (70-100); Sodium 140 mmol/L (135-145)
[2018-05-28 00:48] LABS: Anion Gap 1 mmol/L (2-11); Chloride 120 mmol/L (101-111)
[2018-05-28] MEDS: Sodium Chloride Conc 23.4%* 77 MEQ in D10W 1000 ML BAG* 1,000 ML IV SCH (04:09)
[2018-05-28] MEDS: Haloperidol INJ IV/IM* 5 MG/ML AMP IV SLOW PU PRN ×5 (05:03→22:51)
[2018-05-28] MEDS: Heparin VIAL(*) 5000 UNITS/ML VIAL (FIVE THOUSAND) SUBCUT SCH ×3 (05:04→22:29)
[2018-05-28 05:25] LABS: ABS Basophils 0 10^3/ul (0-0.2); ABS Eosinophils 0.5 10^3/ul (0-0.6); ABS Lymphocytes 0.4 10^3/ul (1.0-4.8); ABS Neutrophils 4.1 10^3/ul (1.5-7.7); ABS Nucleated RBC 0 10^3/ul; Eosinophil % 8.1 %; Hematocrit 31 % (36-46); Hemoglobin 9.9 g/dL (14.0-18.0); Lymphocyte % 6.1 %; Mean Corpuscular HGB Conc 32 g/dL (31-36); Mean Corpuscular Hemoglobin 32 pg (27-31); Mean Corpuscular Volume 100 fL (80-94); Mean Platelet Volume 10.6 fL (7.4-10.4); Nucleated Red Blood Cells % 0; Platelet Count 135 10^3/uL (150-450); Red Blood Count 3.07 10^6 /uL (4.18-5.48); Red Cell Distribution Width 16 % (10.5-15); White Blood Count 6.1 10^3/uL (3.5-10.8)
[2018-05-28 05:39] LABS: BUN/Creatinine Ratio 20.1 (8-20); Calcium 7.9 mg/dL (8.6-10.3); EGFR Non-African American 34.7 (>60); Magnesium 1.4 mg/dL (1.9-2.7); Phosphorus 3.2 mg/dL (2.5-5.0)
[2018-05-28] MEDS ORDERED: Magnesium Sulfate 2 GM IV* 2 GM/50 ML BAG IVPB ONE (08:00)
[2018-05-28] MEDS: Allopurinol TAB* 100 MG PO SCH (09:01)
[2018-05-28] MEDS: Hydroxychloroquine TAB* 200 MG PO SCH ×2 (09:01→21:58)
[2018-05-28] MEDS ORDERED: Haloperidol INJ IV/IM* 5 MG/ML AMP IV SLOW PU ONE (13:37)
[2018-05-28] MEDS ORDERED: LORazepam INJ* 2 MG/ML 1 ML VIAL IV PUSH ONE (15:33)
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
[2018-05-28] MEDS ORDERED: Sodium Chloride Conc 23.4%* 77 MEQ in D10W 1000 ML BAG* 1,000 ML IV SCH (18:00)
[2018-05-28] MEDS ORDERED: QUEtiapine TAB* 100 MG PO SCH (21:00)
[2018-05-28] MEDS: Tamsulosin CAP* 0.4 MG PO SCH (21:58)
[2018-05-28] MEDS: amLODIPine TAB* 5 MG PO SCH (22:43)
[2018-05-29] MEDS: Heparin VIAL(*) 5000 UNITS/ML VIAL (FIVE THOUSAND) SUBCUT SCH ×3 (06:00→20:36)
[2018-05-29] MEDS: amLODIPine TAB* 5 MG PO SCH (07:21)
[2018-05-29] MEDS: Hydroxychloroquine TAB* 200 MG PO SCH (07:21)
[2018-05-29] MEDS: Allopurinol TAB* 100 MG PO SCH (07:21)
[2018-05-29 08:35] LABS: ABS Basophils 0 10^3/ul (0-0.2); ABS Eosinophils 0.7 10^3/ul (0-0.6); ABS Lymphocytes 0.8 10^3/ul (1.0-4.8); ABS Monocytes 1.2 10^3/ul (0-0.8); ABS Neutrophils 3.4 10^3/ul (1.5-7.7); ABS Nucleated RBC 0 10^3/ul; Eosinophil % 11.9 %; Hematocrit 30 % (36-46); Hemoglobin 10.2 g/dL (14.0-18.0); Lymphocyte % 12.4 %; Mean Corpuscular HGB Conc 34 g/dL (31-36); Mean Corpuscular Hemoglobin 33 pg (27-31); Mean Corpuscular Volume 100 fL (80-94); Nucleated Red Blood Cells % 0; Platelet Count 140 10^3/uL (150-450); Red Blood Count 3.04 10^6 /uL (4.18-5.48); Red Cell Distribution Width 16 % (10.5-15); White Blood Count 6.2 10^3/uL (3.5-10.8)
[2018-05-29 08:54] LABS: Calcium 8.8 mg/dL (8.6-10.3); EGFR African American 51.3 (>60); EGFR Non-African American 42.4 (>60); Potassium 4.6 mmol/L (3.5-5.0)
--- NOTE | 2018-05-29 09:49 | PN ---
Subjective Date of Service: 05/29/18 Interval History: Pt is seen with his CAP coordinator Татьяна Mike who know pts from outpatient setting. Apparently he has had problems with falling doen when trying to stand up and orthostatic hypotension was questioned. Pt remembers falling at home and hitting his head. Denies drug use and had been "clean " for 10 years. Татьяна lynn did not notice any evidence of drug abuse at pt's home. Pt's speech is slurred and its new . also mild ataxia noted Objective Active Medications: Allopurinol (Zyloprim Tab*) 100 mg PO DAILY [facility] Last Admin: 05/29/18 07:21 Dose: 100 mg Amlodipine Besylate (Norvasc Tab*) 2.5 mg PO DAILY [facility] Last Admin: 05/29/18 07:21 Dose: 2.5 mg Dextrose (D50w Syringe 50 Ml*) 25 gm IV PUSH ONCE PRN PRN Reason: FS < 60 Last Admin: 05/27/18 19:29 Dose: 25 gm Haloperidol Lactate (Haldol Inj Iv/Im*) 3 mg IV SLOW PU Q4H PRN PRN Reason: AGITATION Last Admin: 05/28/18 22:51 Dose: 3 mg Heparin Sodium (Porcine) (Heparin Vial(*)) 5,000 units SUBCUT Q8HR [facility] Last Admin: 05/29/18 06:00 Dose: Not Given Hydroxychloroquine Sulfate (Plaquenil Tab*) 200 mg PO BID [facility] Last Admin: 05/29/18 07:21 Dose: 200 mg Ondansetron HCl (Zofran Inj*) 4 mg IV Q4H PRN PRN Reason: NAUSEA/VOMITING Quetiapine Fumarate (Seroquel Tab*) 100 mg PO BEDTIME [facility] Last Admin: 05/28/18 21:58 Dose: 100 mg Tamsulosin HCl (Flomax Cap*) 0.4 mg PO BEDTIME [facility] Last Admin: 05/28/18 21:58 Dose: 0.4 mg Vital Signs - 8 hr 05/29/18 05/29/18 05/29/18 04:59 07:35 08:00 Temperature 99.1 F 97.7 F Pulse Rate 69 Respiratory 18 18 Rate Blood Pressure 157/61 (mmHg) O2 Sat by Pulse 97 Oximetry Oxygen Devices in Use Now: None Appearance: 68 yo M in nAD, AAOx2, knows year and month Eyes: No Scleral Icterus, PERRLA Ears/Nose/Mouth/Throat: NL Teeth, Lips, Gums, Mucous Membranes Moist Neck: NL Appearance and Movements; NL JVP, Trachea Midline Respiratory: Symmetrical Chest Expansion and Respiratory Effort, Clear to Auscultation Cardiovascular: NL Sounds; No Murmurs; No JVD Abdominal: NL Sounds; No Tenderness; No Distention, No Hepatosplenomegaly Lymphatic: No Cervical Adenopathy, No Auricular Adenopathy Extremities: No Edema, No Clubbing, Cyanosis Skin: No Rash or Ulcers, No Nodules or Sclerosis Neurological: - - mild ataxia, no focal deficit, motor 5/5 b/l, slurred speech, but otherwise CN2-12 intact, unable to move right shoulder well due to arthritis Result Diagrams: 05/29/18 08:22 05/29/18 08:22 Microbiology and Other Data: Microbiology 05/27/18 00:31 Nasal Screen MRSA (PCR) - Final Nasal Mrsa Not Detected Assess/Plan/Problems-Billing Assessment: 68 yo M last admission March 2017 with epidural abscess, substance use disorder pw fall out of bed and confusion with stay c/p hypotension and acidosis - Patient Problems (1) Toxic metabolic encephalopathy Comment: Presented after falling out of bed. Unable to obtain accurate history given AMS. Unclear if drugs/substances are playing a role with positive cocaine in blood. He has received a significant amount of ativan and haldol since admission. Today more lucid, but speech is slurred and need MRI to r/o CVA. Aslo may have post concussion/TBI related encephalopathy cont Seroquel at night for now (2) Acute on chronic kidney failure Comment: resolved with vigorous fluid administration Baseline around 2 (3) Epidural abscess Comment: H/o epidural abscess last year 03/2017 S/P decompressive lami L4-5 and drainage of abscess ESR/CRP nominal, so far no evidence of infection (4) Hyperkalemia Comment: improved with patiromir (5) Rhabdomyolysis Comment: resolved with fluids (6) Substance use disorder Comment: UDS positive for cocaine, but pt denies (7) Rheumatoid arthritis Comment: h/o tx with hydroxychloroquine will get med rec confirmed and restart it (8) DVT prophylaxis Current Visit: Yes Comment: HSQ Status and Disposition: inpatient. Pt continues to bob to leave. Has no capacity to sign out AMA today
[2018-05-29] MEDS ORDERED: Zolpidem TAB* 10 MG PO PRN (11:04)
[2018-05-29] MEDS ORDERED: traMADol TAB* 50 MG PO PRN (11:04)
[2018-05-29] MEDS: Nicotine GUM* 2 MG PO PRN ×2 (11:42→17:47)
[2018-05-29] MEDS: Tamsulosin CAP* 0.4 MG PO SCH (20:36)
[2018-05-29] MEDS ORDERED: QUEtiapine TAB* 100 MG PO SCH (21:00)
[2018-05-29] MEDS ORDERED: QUEtiapine TAB* 25 MG PO SCH (21:00)
[2018-05-30] MEDS ORDERED: LORazepam TAB(*) 1 MG PO ONE
[2018-05-30] MEDS: Haloperidol INJ IV/IM* 5 MG/ML AMP IV SLOW PU PRN (01:52)
[2018-05-30] MEDS: Heparin VIAL(*) 5000 UNITS/ML VIAL (FIVE THOUSAND) SUBCUT SCH (06:10)
[2018-05-30 06:52] LABS: ABS Basophils 0.1 10^3/ul (0-0.2); ABS Eosinophils 0.9 10^3/ul (0-0.6); ABS Lymphocytes 1.1 10^3/ul (1.0-4.8); ABS Monocytes 1.2 10^3/ul (0-0.8); ABS Neutrophils 3.4 10^3/ul (1.5-7.7); ABS Nucleated RBC 0 10^3/ul; Eosinophil % 13.3 %; Hematocrit 29 % (36-46); Hemoglobin 9.6 g/dL (14.0-18.0); Lymphocyte % 16.4 %; Mean Corpuscular HGB Conc 33 g/dL (31-36); Mean Corpuscular Hemoglobin 33 pg (27-31); Mean Corpuscular Volume 99 fL (80-94); Mean Platelet Volume 10.2 fL (7.4-10.4); Nucleated Red Blood Cells % 0; Platelet Count 131 10^3/uL (150-450); Red Blood Count 2.94 10^6 /uL (4.18-5.48); Red Cell Distribution Width 15 % (10.5-15); White Blood Count 6.6 10^3/uL (3.5-10.8)
[2018-05-30 07:01] LABS: Calcium 8.5 mg/dL (8.6-10.3); EGFR African American 47.3 (>60); EGFR Non-African American 39.1 (>60); Magnesium 1.7 mg/dL (1.9-2.7); Potassium 4.6 mmol/L (3.5-5.0)
[2018-05-30] MEDS ORDERED: Magnesium Sulfate 2 GM IV* 2 GM/50 ML BAG IVPB ONE (08:00)
[2018-05-30] MEDS ORDERED: Nicotine PATCH 21 MG/24 HR* PATCH TRANSDERM SCH (08:00)
[2018-05-30] MEDS: Magnesium Oxide TAB* 400 MG PO SCH ×2 (08:08→11:07)
[2018-05-30] MEDS: amLODIPine TAB* 5 MG PO SCH ×2 (08:08→11:07)
[2018-05-30] MEDS: Hydroxychloroquine TAB* 200 MG PO SCH ×2 (08:08→11:07)
[2018-05-30] MEDS: Allopurinol TAB* 100 MG PO SCH ×2 (08:09→11:07)
[2018-05-30 08:12] VITALS: BP 156/79
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
[2018-05-30] MEDS ORDERED: Nicotine Patch Removal NOTE PATCH OFF SCH (21:00)
== END 2018-05-30 11:45 | disposition home or self-care (01) | DRG 102 ==
LOC: ED 19:57 → ICU 23:12 → MED 05-29 07:45
PROVIDERS: ADMIT Pediatrics; ATTEND Internal Medicine
DX: F07.81 Postconcussional syndrome (principal); G92 Toxic encephalopathy; N17.9 Acute kidney failure, unspecified; N13.30 Unspecified hydronephrosis; E87.2 Acidosis; R33.9 Retention of urine, unspecified; E83.42 Hypomagnesemia; E87.5 Hyperkalemia; T79.6XXA Traumatic ischemia of muscle, initial encounter; N18.3 Chronic kidney disease, stage 3 (moderate); F41.9 Anxiety disorder, unspecified; F17.210 Nicotine dependence, cigarettes, uncomplicated; R40.2362 Coma scale, best motor response, obeys commands, at arrival to emergency department; R40.2142 Coma scale, eyes open, spontaneous, at arrival to emergency department; R40.2252 Coma scale, best verbal response, oriented, at arrival to emergency department; D53.9 Nutritional anemia, unspecified; D69.6 Thrombocytopenia, unspecified; J44.9 Chronic obstructive pulmonary disease, unspecified; M06.9 Rheumatoid arthritis, unspecified; F14.10 Cocaine abuse, uncomplicated; E86.0 Dehydration; I95.9 Hypotension, unspecified; R00.1 Bradycardia, unspecified; W06.XXXA Fall from bed, initial encounter; M47.812 Spondylosis without myelopathy or radiculopathy, cervical region; N32.89 Other specified disorders of bladder; K57.90 Diverticulosis of intestine, part unspecified, without perforation or abscess without bleeding; Y92.003 Bedroom of unspecified non-institutional (private) residence as the place of occurrence of the external cause; Z86.19 Personal history of other infectious and parasitic diseases; R47.81 Slurred speech; T42.75XA Adverse effect of unspecified antiepileptic and sedative-hypnotic drugs, initial encounter; Y92.239 Unspecified place in hospital as the place of occurrence of the external cause; R27.0 Ataxia, unspecified
CPT/HCPCS: 36415; 36600; 70450; 70551; 71045; 76775; 80048; 80053; 80307; 80320; 81003; 81015; 82140; 82550; 82570; 82607; 82728; 82746; 82803; 83540; 83550; 83605; 83735; 84100; 84300; 84443; 84484; 85025; 85610; 85652; 86140; 86850; 86900; 86901; 87077; 87086; 87186; 87641; 93005; 99285; 99406; A9270-GY; G0480; G8978-GP-CI; G8979-GP-CI; G8980-GP-CI; G8987-GO-CH; G8988-GO-CH; G8989-GO-CH; J0610; J0696; J1630; J1644; J2060; J3370; J3475; J3486

== ENCOUNTER → 2018-11-01 07:04 | Day surgery (SDC) | payer MEDICARE, MEDICAID ==
--- NOTE | 2018-10-30 18:35 | HP ---
CC: Dr. Vivien Wiley * ADMITTING HISTORY AND PHYSICAL: DATE OF ADMISSION: 11/01/18 ADMITTING DIAGNOSES: 1. Right hydronephrosis. 2. Urinary retention. 3. Probable neurogenic bladder. PLANNED PROCEDURE: Right retrograde, right stent insertion, right ureteroscopy. SURGEON: Dr. Davis. HISTORY OF PRESENT ILLNESS: Zenon Conner is a 68-year-old gentleman who was initially evaluated about 3 to 4 months ago because of voiding symptoms. He was noted at that time to have extensively trabeculated bladder with multiple diverticula and a significantly decreased urinary residual. He had bilateral hydronephrosis noted and a Jara catheter was placed on 08/28/18. I was hoping that with the placement of the Jara catheter, this would result in resolution of the hydronephrosis; however, he continues to have persistent moderate right hydronephrosis and a creatinine of 2.86. He is now being brought in for further evaluation to see whether the right hydronephrosis is related to any etiology other than the most likely one which would be a partial obstruction of the ureter at the level of the ureterovesical junction due to a very thick walled bladder. PAST MEDICAL HISTORY: Significant for: 1. Gout. 2. History of concussion. PAST SURGICAL HISTORY: Significant for back surgery in 2017 and surgery for varicose veins, right leg. MEDICATIONS ON ADMISSION: 1. Magnesium oxide 400 mg a day. 2. Flomax 0.4 mg a day. 3. Allopurinol 100 mg a day. 4. Tramadol 50 mg p.r.n. 5. Plaquenil 400 mg a day. 6. Seroquel 100 mg a day. ALLERGIES: No known drug allergies. FAMILY HISTORY: Negative for bladder or prostate cancer. SOCIAL HISTORY: Smoking history: He has a longstanding smoking history with 40 plus pack years of smoking. REVIEW OF SYSTEMS: He denies any chest pain or shortness of breath. PHYSICAL EXAMINATION GENERAL: Reveals a pleasant, anxious, middle-aged gentleman. VITAL SIGNS: Blood pressure is 120/70, pulse 60 per minute and regular, temperature 96.7, oxygen saturation 99% on room air. LUNGS: Clear bilaterally. CARDIOVASCULAR: Regular rate and rhythm. S1, S2. ABDOMEN: Soft with mild bilateral flank tenderness, greater on the right side. A Jara catheter has been placed, draining clear urine. IMPRESSION: A 68-year-old gentleman with an element of chronic kidney disease and persistent right hydronephrosis in spite of having had an indwelling Jara catheter for several months. PLAN: Plan is for right retrograde, right ureteroscopy, and right stent insertion. [id number]/[facility] #: [id number] MTDD
[~2018-11-01 07:04] MED LIST: Buffered Lidocaine 1% SYRIN* 1 ML/SYRINGE INTRADERM ONE; Dexamethasone IV* 4 MG/ML 1 ML (4 MG) IV SLOW PU ONE; Dexamethasone IV* 4 MG/ML 1 ML (4 MG) ONE; Famotidine IV* 10 MG/ML 2 ML (20 mg) IV ONE; Famotidine IV* 10 MG/ML 2 ML (20 mg) ONE; Iohexol 180 (CONTRAST) 10 ML SDV IV ONE; Lactated Ringers 1000 ML Bag* 1,000 ML IV SCH; Midazolam* 1 MG/ML 2 ML VIAL (2 MG) ONE; Naloxone* 0.4 MG/ML 1 ML VIAL IV PRN; cefTRIAXone(*) 2 GM ADDV.VIAL IVPB ONE; diPHENhydraMINE IV* 50 MG/ML 1 ml VIAL (BENADRYL) IV PRN; fentaNYL* 50 MCG/ML 2 ML VIAL (100 MCG VIAL) IV PRN; fentaNYL* 50 MCG/ML 2 ML VIAL (100 MCG VIAL) ONE
--- NOTE | 2018-11-01 10:26 | OP ---
CC: Dr. Vivien Wiley * DATE OF OPERATION: 11/01/18 - [facility] DATE OF : 52 SURGEON: Jonah Davis MD. ANESTHESIOLOGIST: Dr. Womack. ANESTHESIA: General. PRE-OP DIAGNOSES: 1. Right hydronephrosis. 2. Urinary retention. POST-OP DIAGNOSES: 1. Right hydronephrosis. 2. Urinary retention. OPERATIVE PROCEDURE: Cystoscopy, right retrograde pyelogram, right ureteroscopy , pyeloscopy, and right stent insertion. COMPLICATIONS: None. POSTOPERATIVE CONDITION: Stable. STENT USED: 8.5 Barbadian 26 cm black silicone stent right ureter, catheter 16- Barbadian Jara. INDICATIONS: Zenon Conner Junior is a 68-year-old gentleman who has been managed with an indwelling Jara catheter for urinary retention. He also has chronic kidney disease and recently his creatinine had increased to 2.8 and a sonogram revealed persistent right hydronephrosis which has not resolved after placement of the Jara catheter. OPERATIVE FINDINGS: 1. Normal-appearing urethra. 2. Mildly enlarged obstructing prostate. 3. Trabeculated bladder with multiple small diverticula. 4. Right hydronephrosis and hydroureter (probably partial obstruction at the level of the ureterovesical junction due to thick walled bladder). POSTOPERATIVE CONDITION: Stable. DESCRIPTION OF PROCEDURE: After induction of general anesthesia, the patient was placed in dorsal lithotomy position. Sequential compression devices were in place and functioning. Initial cystoscopy revealed a normal-appearing urethra , mild to moderately enlarged prostate. The bladder was examined. The right and left ureteral orifices are normal in position and configuration. The bladder is extensively trabeculated with multiple small diverticula and some amount of inflammatory response in the posterior bladder wall secondary to the indwelling Jara. There was no evidence of any suspicious bladder lesions noted. Right retrograde pyelogram revealed right hydronephrosis. Initially, I thought there appeared to be some narrowing at the ureteropelvic junction, but on further filling of the collecting system that area appeared to be fairly normal. The ureter was dilated all the way down to the urinary bladder. There was no evidence of any persistent filling defects. A 6-Barbadian semi-rigid ureteroscope was introduced and advanced under direct vision. The entire distal , mid, and proximal ureter were visualized and were unremarkable except for mild dilatation with no evidence of any lesions or calculi noted. The ureteroscope was advanced through the ureteropelvic junction into the renal pelvis which was dilated, but otherwise unremarkable. After completion of pyeloscopy, the ureteroscope was withdrawn under direct vision and an 8.5 Barbadian 26 cm black silicone stent was introduced and positioned under fluoroscopy with good proximal and distal positioning obtained. A 16-Barbadian Jara was placed for temporary bladder drainage. The patient tolerated the procedure satisfactorily, and was transferred back to the recovery area in stable condition. [id number]/[facility] #: [id number] [facility] HOSPITALAamir
[2018-11-01 10:43] VITALS: BP 135/68
== END | disposition home or self-care (01) ==
LOC: OR 07:04
PROVIDERS: ATTEND Urology
DX: N13.30 Unspecified hydronephrosis (principal); R33.9 Retention of urine, unspecified; N18.9 Chronic kidney disease, unspecified; Z72.0 Tobacco use; M06.9 Rheumatoid arthritis, unspecified; F32.9 Major depressive disorder, single episode, unspecified
CPT/HCPCS: 74420; C1876; J0696; J1100; J2250; J3010

== ENCOUNTER 2018-12-20 17:17 | Emergency (ER) | payer MEDICARE, MEDICAID ==
[2018-12-20] MEDS ORDERED: Albuterol 0.5% CONC NEB.SOL* 5 MG/ML 20 ml BOT INH ONE (17:59)
--- NOTE | 2018-12-20 18:04 | ED ---
GI/ HPI - HPI Summary HPI Summary: Pt is a 68 y/o M presenting to the ED with a chief complaint of urinary issues. Dr. Boyer called the ED earlier and informed me that the pt has a urogenic bladder. He recently had a nazario removed, and when Dr. Boyer repeated the labs, they found that he was hyperkalemic. The pt himself reports inability to urinate. He denies fever. - History of Current Complaint Chief Complaint: EDUrogenitalProblems Time Seen by Provider: 12/20/18 17:43 Stated Complaint: ABNORMAL LABS PER PT Hx Obtained From: Patient Onset/Duration: Started Hours Ago, Still Present Timing: Constant, Lasting Hours Severity: Mild Current Severity: None Pain Intensity: 0 Location of Pain: None Associated Signs and Symptoms: Positive: UTI Symptoms. Negative: Fever Aggravating Factor(s): Nothing Alleviating Factor(s): Nothing - Additional Pertinent History Primary Care Physician: [id number] - Allergy/Home Medications Allergies/Adverse Reactions: Allergies Allergy/AdvReac Type Severity Reaction Status Date / Time No Known Allergies Allergy Verified 11/01/18 07:39 PMH/Surg Hx/FS Hx/Imm Hx Previously Healthy: Yes Endocrine/Hematology History: Denies: Hx Anticoagulant Therapy, Hx Diabetes, Hx Thyroid Disease Cardiovascular History: Reports: Other Cardiovascular Problems/Disorders - hyperkinetic heart Denies: Hx Hypertension, Hx Pacemaker/ICD Respiratory History: Denies: Hx Asthma, Hx Chronic Obstructive Pulmonary Disease (COPD) GI History: Reports: Other GI Disorders - hep c Denies: Hx Ulcer History: Reports: Hx Chronic Renal Failure Denies: Hx Dialysis, Hx Renal Disease Musculoskeletal History: Reports: Hx Arthritis - R/A, Hx Back Problems Denies: Hx Scoliosis Sensory History: Reports: Hx Contacts or Glasses - GLASSES Denies: Hx Hearing Aid Opthamlomology History: Reports: Hx Contacts or Glasses - GLASSES Neurological History: Denies: Hx Dementia, Hx Headaches, Hx Seizures Psychiatric History: Reports: Hx Anxiety, Hx Depression - HISTORY OF Denies: Hx Panic Disorder, Hx Substance Abuse - Cancer History Cancer Type, Location and Year: N - Surgical History Surgery Procedure, Year, and Place: spinal surgery [facility] Hx Anesthesia Reactions: No Infectious Disease History: No Infectious Disease History: Reports: Hx Hepatitis - C - TREATED Denies: Hx Human Immunodeficiency Virus (HIV), Hx Shingles, History Other Infectious Disease, Traveled Outside the [place] in Last 30 Days - Family History Known Family History: Positive: Cardiac Disease - [place] Negative: Hypertension, Diabetes - Social History Alcohol Use: None Hx Substance Use: Yes Substance Use Type: Reports: Marijuana Hx Tobacco Use: Yes Smoking Status (MU): Heavy Every Day Tobacco Smoker Type: Cigarettes Amount Used/How Often: 1 PPD Have You Smoked in the Last Year: Yes Review of Systems Negative: Fever Positive: frequency - decreased frequency All Other Systems Reviewed And Are Negative: Yes Physical Exam - Summary Physical Exam Summary: Constitutional: Well-developed, Well-nourished, Alert. (-) Distressed Skin: Warm, Dry HENT: Normocephalic; Atraumatic Eyes: Conjunctiva normal Neck: Musculoskeletal ROM normal neck. (-) JVD, (-) Stridor, (-) Tracheal deviation Cardio: Rhythm regular, rate normal, Heart sounds normal; Intact distal pulses; Radial pulses are 2+ and symmetric. (-) Murmur Pulmonary/Chest wall: Effort normal. (-) Respiratory distress, (-) Wheezes, (-) Rales Abd: Soft, (-) tenderness, (-) Distension, (-) Guarding, (-) Rebound Musculoskeletal: (-) Edema Lymph: (-) Cervical adenopathy Neuro: Alert, Oriented x3 Psych: Mood and affect Normal Bedside US shows large quantity of urine in the bladder. Triage Information Reviewed: Yes Vital Signs On Initial Exam: Initial Vitals Temp Pulse Resp BP Pulse Ox 98.4 F 89 16 139/69 98 12/20/18 17:25 12/20/18 17:25 12/20/18 17:25 12/20/18 17:25 12/20/18 17:25 Vital Signs Reviewed: Yes Procedures - Sedation Patient Received Moderate/Deep Sedation with Procedure: No Diagnostics - Vital Signs Vital Signs Temp Pulse Resp BP Pulse Ox 12/20/18 17:25 98.4 F 89 16 139/69 98 - Laboratory Result Diagrams: 12/20/18 18:30 12/20/18 18:30 Lab Statement: Any lab studies that have been ordered have been reviewed, and results considered in the medical decision making process. - EKG 1748 Cardiac Rate: NL - 73bpm EKG Rhythm: Sinus Rhythm ST Segment: Normal Ectopy: None Summary of EKG Findings: EKG at 1748 shows NSR at 73bpm with no peak T-waves and nml intervals. ED physician has reviewed and interpreted this report. GIGU Course/Dx - Course Course Of Treatment: Patient was sent in from Dr. Boyer with obstructive uropathy and hyperkalemia. Patient has had these symptoms off and on due to a neurogenic bladder. Patient had his Nazario removed roughly 2 weeks ago. Upon arrival here, patient was well-appearing but did have a distended bladder on physical exam and bedside ultrasound. Patient had a potassium 6.2 today as an outpatient with no EKG changes here. Patient was given albuterol. Patient had 2 attempts at Nazario placement with no success. Patient then refused any further attempts. Dr. Boyer was called who will come to the patient and do the procedure. Patient was signed out to Dr. Jordan pending urology evaluation - Diagnoses Provider Diagnoses: Urinary retention, Hyperkalemia, Obstructive nephropathy Discharge ED - Sign-Out/Discharge Documenting (check all that apply): Sign-Out Patient Signing out patient TO: Dakota Byrnes - Discharge Plan Condition: Stable Referrals: Vivien Wiley MD [Primary Care Provider] - - Billing Disposition and Condition Condition: STABLE - Attestation Statements Document Initiated by Ivelisse: Yes Documenting Scribe: Angy Solis Provider For Whom Ivelisse is Documenting (Include Credential): Andreas Dai MD. Scribe Attestation: Angy Joel, scribed for Andreas Dai MD. on 12/20/18 at 1901. Scribe Documentation Reviewed: Yes Provider Attestation: The documentation as recorded by the Angy nava accurately reflects the service I personally performed and the decisions made by me, Andreas Dai MD. Status of Scribe Document: Viewed Consult Consult: 1841 - I spoke with Dr. Boyer about the pt's present condition, and that the pt refused to partake in any more attempts to be catheterized. He will be coming into the ED to place the catheter.
[2018-12-20 18:46] LABS: ABS Basophils 0.1 10^3/ul (0-0.2); ABS Eosinophils 1.4 10^3/ul (0-0.6); ABS Lymphocytes 1.2 10^3/ul (1.0-4.8); ABS Monocytes 1.3 10^3/ul (0-0.8); ABS Neutrophils 6.6 10^3/ul (1.5-7.7); Eosinophil % 13.1 %; Hematocrit 32 % (42-52); Hemoglobin 10.6 g/dL (14.0-18.0); Lymphocyte % 11.3 %; Mean Corpuscular HGB Conc 33 g/dL (31-36); Mean Corpuscular Hemoglobin 32 pg (27-31); Mean Corpuscular Volume 97 fL (80-94); Mean Platelet Volume 9.2 fL (7.4-10.4); Platelet Count 293 10^3/uL (150-450); Red Blood Count 3.28 10^6 /uL (4.18-5.48); Red Cell Distribution Width 16 % (10-15); White Blood Count 10.5 10^3/uL (3.5-10.8)
[2018-12-20] MEDS ORDERED: Lidocaine 2% JELLY* 6 ML JELLY TOPICAL ONE (18:46)
[2018-12-20] MEDS ORDERED: Lidocaine 5% OINT* TUBE TOPICAL ONE (18:46)
[2018-12-20] MEDS ORDERED: Morphine 4 MG/ML VIAL (1 ml) 4 MG/ML VIAL IV ONE (18:46)
[2018-12-20 18:57] LABS: Albumin 3.7 g/dL (3.2-5.2); Albumin/Globulin Ratio 1.1 (1-3); BUN/Creatinine Ratio 23.3 (8-20); EGFR African American 28.7 (>60); EGFR Non-African American 23.7 (>60); Globulin 3.4 g/dL (2-4); Magnesium 1.9 mg/dL (1.9-2.7); Total Bilirubin 0.2 mg/dL (0.2-1.0); Total Protein 7.1 g/dL (6.4-8.9)
[2018-12-20 18:59] LABS: Potassium 5.5 mmol/L (3.5-5.0)
--- NOTE | 2018-12-20 19:12 | ED ---
Progress - Progress Note Progress Note: This patient was signed out from Dr. Dai at shift change at 1900 on 12/20/18 , pending disposition, awaiting catheter placement by Dr. Boyer. The patient s condition is stable and will be discharged to home with Dx of urinary retention. Re-Evaluation - Re-Evaluation First Eval Re-Evaluation Time: 19:42 Comment: Discussed results and plan of care with patient Course/Dx - Course Course Of Treatment: This patient was signed out from Dr. Dai at shift change at 1900 on 12/20/18, pending disposition, awaiting catheter placement by Dr. Boyer. Bloodwork obtained, potassium is 5.5. The patients condition is stable and will be discharged to home with Dx of urinary retention. - Diagnoses Provider Diagnoses: Urinary retention, Hyperkalemia, Obstructive nephropathy - Provider Notifications Discussed Care Of Patient With: Vipul Boyer Time Discussed With Above Provider: 19:35 Instructed by Provider To: Other - Dr. Boyer suggest pt be discharged after potassium came back as 5.5. Discharge ED - Sign-Out/Discharge Documenting (check all that apply): Patient Departure - Discharge - Discharge Plan Condition: Improved Disposition: HOME Patient Education Materials: Urinary Retention in Men (ED) Referrals: Vivien Wiley MD [Primary Care Provider] - 1 Day Additional Instructions: Check in with Dr. Grossman or your regular doctor tomorrow, you should likely get another blood test to make sure your potassium has not risen further. - Billing Disposition and Condition Condition: IMPROVED Disposition: Home - Attestation Statements Document Initiated by Ivelisse: Yes Documenting Scribe: Umm Miguel Provider For Whom Ivelisse is Documenting (Include Credential): Dakota Byrnes MD Scribe Attestation: Umm Joel, scribed for Dakota Byrnes MD on 12/22/18 at 1942. Scribe Documentation Reviewed: Yes Provider Attestation: The documentation as recorded by the Umm nava accurately reflects the service I personally performed and the decisions made by me, Dakota Byrnes MD Status of Scribe Document: Viewed
[2018-12-20] MEDS ORDERED: Patiromer POWDER* 8.4 GM PAK PO SCH (20:00)
[2018-12-20 20:06] VITALS: BP 99/53
[2018-12-20 20:25] LABS: Urine Appearance Turbid; Urine Bacteria 1+ (Absent); Urine Bilirubin Negative (Negative); Urine Blood 1+ (Negative); Urine Color Yellow; Urine Glucose Negative (Negative); Urine Ketones Negative (Negative); Urine Nitrite Positive (Negative); Urine Protein 1+(30 mg/dL) (Negative); Urine Red Blood Cell Trace(0-2/hpf) (Absent); Urine Urobilinogen Negative (Negative); Urine White Blood Cell 3+(>20/hpf) (Absent)
--- NOTE | 2018-12-23 11:04 | ED ---
Imaging and Labs Follow Up Follow Up Type: Labs/Cultures Labs/Culture Result: Urine culture growing 10-25K citrobacter and enterococcus. Patient Communication/Plan: Pt. with chronic indwelling nazario. Small amount of bacteria in culture. I called and spoke with pt. today at 1100. Pt. states he has no sxs of fever, abd. pain, or hematuria. Pt. states he is feeling well. Suspect contaminate. Will have pt. f.u with PCP next week for recheck. Pt. understands and agrees with plan. Provider Diagnoses: Urinary retention, Hyperkalemia, Obstructive nephropathy
== END 2018-12-20 19:43 | disposition home or self-care (01) ==
LOC: ED 17:17
DX: R33.9 Retention of urine, unspecified (principal); E87.5 Hyperkalemia; N13.8 Other obstructive and reflux uropathy; F17.210 Nicotine dependence, cigarettes, uncomplicated; F41.9 Anxiety disorder, unspecified; F32.9 Major depressive disorder, single episode, unspecified; Z79.899 Other long term (current) drug therapy; N13.30 Unspecified hydronephrosis; N28.1 Cyst of kidney, acquired; N32.89 Other specified disorders of bladder
CPT/HCPCS: 36415; 76775; 80048; 80053; 81003; 81015; 83735; 85025; 87077; 87086; 87186; 93005; 96374; 99284; A9270-GY; J2270; J7611

== ENCOUNTER 2019-01-05 12:11 | Emergency (ER) | payer MEDICARE, MEDICAID ==
[2019-01-05] MEDS ORDERED: Ketorolac INJ* 30 MG/ML 1 ML VIAL IV PUSH ONE (12:23)
[2019-01-05] MEDS ORDERED: NS 0.9% 1000 ML** 1,000 ML IV ONE (12:23)
--- NOTE | 2019-01-05 13:02 | ED ---
GI/ HPI - HPI Summary HPI Summary: 68 year old male presents to the ED by EMS for testicular pain that radiates to his abdomen starting several days ago. Patient was treated for a testicular infection with antibiotics 4 days ago. His associated testicular pain did not go away since treatment, and now he also has lower abdominal pain. Pain is a 0 at rest and a 10 upon movement or palpation of testicle. His testicular pain is localized on the right testicle. Patient denies fever, chills, nausea, vomiting , hematuria, or dysuria. Patient has a permanent urinary catheter and a temporary urinary stent. Medications reviewed. Allergies noted. - History of Current Complaint Time Seen by Provider: 01/05/19 12:22 Stated Complaint: SWOLLEN RIGHT TESTICLE PER EMS Hx Obtained From: Patient Onset/Duration: Started Days Ago, Still Present Timing: Lasting Seconds - upon touch or movement Current Severity: Severe Pain Intensity: 10 Location of Pain: Suprapubic Additional Locations for Males: Testicles Pain Characteristics: Sharp Associated Signs and Symptoms: Positive: Abdominal Pain. Negative: Nausea, Vomiting, Fever, Hematuria, Dysuria, Chills Aggravating Factor(s): Palpation, Movement Alleviating Factor(s): Rest - Additional Pertinent History Primary Care Physician: [id number] - Allergy/Home Medications Allergies/Adverse Reactions: Allergies Allergy/AdvReac Type Severity Reaction Status Date / Time No Known Allergies Allergy Verified 11/01/18 07:39 Home Medications: Home Medications Clotrimazole/Betamethasone Dip [Clotrimazole/Betamethason 1-0.05 %] 1 applic TOPICAL BID 01/05/19 [History Confirmed 01/05/19] Lactose-Reduced Food [Boost] 237 ml PO DAILY 01/05/19 [History Confirmed ] Sodium Bicarbonate (ANTACID)* 1,300 mg PO BID 01/05/19 [History Confirmed ] Tamsulosin CAP* [Flomax CAP*] 0.4 mg PO BEDTIME 01/05/19 [History Confirmed 03/25] PMH/Surg Hx/FS Hx/Imm Hx Endocrine/Hematology History: Denies: Hx Anticoagulant Therapy, Hx Diabetes, Hx Thyroid Disease Cardiovascular History: Reports: Other Cardiovascular Problems/Disorders - hyperkinetic heart Denies: Hx Hypertension, Hx Pacemaker/ICD Respiratory History: Denies: Hx Asthma, Hx Chronic Obstructive Pulmonary Disease (COPD) GI History: Reports: Other GI Disorders - hep c Denies: Hx Ulcer History: Reports: Hx Chronic Renal Failure Denies: Hx Dialysis, Hx Renal Disease Musculoskeletal History: Reports: Hx Arthritis - R/A, Hx Back Problems Denies: Hx Scoliosis Sensory History: Reports: Hx Contacts or Glasses - GLASSES Denies: Hx Hearing Aid Opthamlomology History: Reports: Hx Contacts or Glasses - GLASSES Neurological History: Denies: Hx Dementia, Hx Headaches, Hx Seizures Psychiatric History: Reports: Hx Anxiety, Hx Depression - HISTORY OF Denies: Hx Panic Disorder, Hx Substance Abuse - Cancer History Cancer Type, Location and Year: N - Surgical History Surgery Procedure, Year, and Place: spinal surgery [facility] Hx Anesthesia Reactions: No - Immunization History Immunizations Up to Date: Yes Infectious Disease History: No Infectious Disease History: Reports: Hx Hepatitis - C - TREATED Denies: Hx Human Immunodeficiency Virus (HIV), Hx Shingles, History Other Infectious Disease, Traveled Outside the [place] in Last 30 Days - Family History Known Family History: Positive: Cardiac Disease - [place] Negative: Hypertension, Diabetes - Social History Alcohol Use: None Hx Substance Use: Yes Substance Use Type: Reports: Marijuana Hx Tobacco Use: Yes Smoking Status (MU): Heavy Every Day Tobacco Smoker Type: Cigarettes Amount Used/How Often: 1 PPD Have You Smoked in the Last Year: Yes Review of Systems Negative: Fever, Chills Positive: Abdominal Pain. Negative: Vomiting, Nausea Positive: pain - testicular pain. Negative: dysuria, hematuria All Other Systems Reviewed And Are Negative: Yes Physical Exam - Summary Physical Exam Summary: Constitutional: Well-developed, Well-nourished, Alert. (-) Distressed Skin: Warm, Dry HENT: Normocephalic; Atraumatic Eyes: Conjunctiva normal Neck: Musculoskeletal ROM normal neck. (-) JVD, (-) Stridor, (-) Tracheal deviation Cardio: Rhythm regular, rate normal, Heart sounds normal; Intact distal pulses; Radial pulses are 2+ and symmetric. (-) Murmur Pulmonary/Chest wall: Effort normal. (-) Respiratory distress, (-) Wheezes, (-) Rales Abd: Soft, (-) tenderness, (-) Distension, (-) Guarding, (-) Rebound Musculoskeletal: (-) Edema Lymph: (-) Cervical adenopathy Neuro: Alert, Oriented x3 Psych: Mood and affect Normal Testicular Exam: Right testicle swollen, erythematous, and tender. Catheter present with urine in bag. Triage Information Reviewed: Yes Vital Signs On Initial Exam: Initial Vitals Temp Pulse Resp BP Pulse Ox 100.4 F 69 18 130/59 98 01/05/19 12:15 01/05/19 12:15 01/05/19 12:15 01/05/19 12:15 01/05/19 12:15 Vital Signs Reviewed: Yes Procedures - Sedation Patient Received Moderate/Deep Sedation with Procedure: No Diagnostics - Vital Signs Vital Signs Temp Pulse Resp BP Pulse Ox 01/05/19 12:15 100.4 F 69 18 130/59 98 - Laboratory Result Diagrams: 01/05/19 12:47 01/05/19 12:47 Lab Statement: Any lab studies that have been ordered have been reviewed, and results considered in the medical decision making process. - Ultrasound Testicular US Ultrasound Interpretation Completed By: Radiologist Summary of Ultrasound Findings: 1. RIGHT EPIDIDYMITIS/ORCHITIS. 2. BILATERAL EPIDIDYMAL CYSTS MEASURE UP TO 0.5 CM. 3. 0.3 CM CYSTIC STRUCTURE IN THE INFERIOR POLE OF THE LEFT TESTIS. 4. INCIDENTAL PROMINENT RETE TESTIS ON THE RIGHT. An ED physician has reviewed this report. - EKG 1348 Cardiac Rate: NL - 60 bpm. EKG Rhythm: Sinus Rhythm Summary of EKG Findings: EKG at 1348 shows NSR at 60 bpm, no peaked T waves or interval abnormalities. GIGU Course/Dx - Course Course Of Treatment: Patient is here with right testicle pain secondary to epididymitis. This is a known diagnosis by patient is being treated by antibiotics by Dr. Davis. Patient does have leukocytosis but no evidence of sepsis on blood work. Patient's urologist was called and they recommended a dose of IV Rocephin and continued outpatient antibiotics. - Diagnoses Provider Diagnoses: Epididymitis Discharge ED - Sign-Out/Discharge Documenting (check all that apply): Patient Departure - discharge home - Discharge Plan Condition: Stable Disposition: HOME Patient Education Materials: Epididymitis (ED) Referrals: Vivien Wiley MD [Primary Care Provider] - Additional Instructions: Take antibiotics that Dr. Davis prescribed. It will take a couple of weeks to feel better. Please return to the Emergency Department if you experience new or worsening symptoms. - Billing Disposition and Condition Condition: STABLE Disposition: Home - Attestation Statements Document Initiated by Suzanneibe: Yes Documenting Scribe: Mike Madison Provider For Whom Ivelisse is Documenting (Include Credential): Andreas Dai MD Scribe Attestation: Mike Joel , scribed for Andreas Dai MD on 01/05/19 at 1823. Scribe Documentation Reviewed: Yes Provider Attestation: The documentation as recorded by the suzanneibMike tejada accurately reflects the service I personally performed and the decisions made by Andreas sorto MD Status of Scribe Document: Viewed
[2019-01-05 13:17] LABS: Hematocrit 32 % (42-52); Hemoglobin 10.8 g/dL (14.0-18.0); Mean Corpuscular HGB Conc 33 g/dL (31-36); Mean Corpuscular Hemoglobin 32 pg (27-31); Mean Corpuscular Volume 97 fL (80-94); Platelet Count 228 10^3/uL (150-450); Red Blood Count 3.35 10^6 /uL (4.18-5.48); Red Cell Distribution Width 16 % (10-15); White Blood Count 23.6 10^3/uL (3.5-10.8)
[2019-01-05 13:20] LABS: Albumin 3.8 g/dL (3.2-5.2); Albumin/Globulin Ratio 1.1 (1-3); BUN/Creatinine Ratio 17.8 (8-20); Calcium 9.6 mg/dL (8.6-10.3); EGFR African American 32.7 (>60); Globulin 3.4 g/dL (2-4); Total Bilirubin 0.4 mg/dL (0.2-1.0); Total Protein 7.2 g/dL (6.4-8.9)
[2019-01-05 13:28] LABS: Potassium 6.3 mmol/L (3.5-5.0)
[2019-01-05 14:01] LABS: ABS Basophils 0.1 10^3/ul (0-0.2); ABS Eosinophils 0.2 10^3/ul (0-0.6); ABS Lymphocytes 0.9 10^3/ul (1.0-4.8); ABS Monocytes 3.3 10^3/ul (0-0.8); ABS Neutrophils 19.2 10^3/ul (1.5-7.7); Eosinophil % 0.6 %; Lymphocyte % 3.8 %
[2019-01-05] MEDS ORDERED: Albuterol 0.5% CONC NEB.SOL* 5 MG/ML 20 ml BOT INH ONE (14:08)
[2019-01-05] MEDS ORDERED: cefTRIAXone(*) 2 GM in NS 0.9% 100 ML* 100 ML IVPB ONE (14:19)
[2019-01-05 14:34] LABS: Urine Appearance Turbid; Urine Bacteria 1+ (Absent); Urine Bilirubin Negative (Negative); Urine Blood 2+ (Negative); Urine Color Yellow; Urine Glucose Negative (Negative); Urine Ketones Negative (Negative); Urine Nitrite Positive (Negative); Urine Protein 2+(100 mg/dL) (Negative); Urine Red Blood Cell 3+(>10/hpf) (Absent); Urine Specific Gravity 1.012 (1.010-1.030); Urine Urobilinogen Negative (Negative); Urine White Blood Cell 3+(>20/hpf) (Absent)
[2019-01-05 16:08] VITALS: BP 111/56
--- NOTE | 2019-01-08 14:34 | ED ---
Imaging and Labs Follow Up Follow Up Type: Labs/Cultures Labs/Culture Result: Urine culture growing >100k serratia marcescens Patient Communication/Plan: Pt. seen in ED for testicle pain and known epididymitis. Currently on doxy and follows with Dr. Davis. Pt. has chronic indwelling nazario. Pt. f.u with Dr. Davis. No change in treatment at this time. Provider Diagnoses: Epididymitis
== END 2019-01-05 16:08 | disposition home or self-care (01) ==
LOC: ED 12:11
DX: N45.1 Epididymitis (principal); N18.9 Chronic kidney disease, unspecified; F41.9 Anxiety disorder, unspecified; F17.210 Nicotine dependence, cigarettes, uncomplicated; Z86.19 Personal history of other infectious and parasitic diseases; Z79.899 Other long term (current) drug therapy
CPT/HCPCS: 36415; 76870; 80053; 81003; 81015; 83605; 85025; 87040; 87077; 87086; 87186; 93005; 96374; 96375; 99283; J0696; J1885; J7611

== ENCOUNTER 2019-01-22 08:49 | Day surgery (SDC) | payer MEDICARE, MEDICAID ==
--- NOTE | 2019-01-19 10:31 | HP ---
DATE OF ADMISSION: 01/22/2019. AGE: 68-year-old male. ADMITTING DIAGNOSES: 1. Right hydronephrosis. 2. Neurogenic bladder. 3. Urinary retention. PLANNED PROCEDURE: Cystoscopy, right stent removal (with sedation). SURGEON: Dr. Jonah Davis. HISTORY OF PRESENT ILLNESS: Zenon Conner is a 68-year-old gentleman who had undergone right stent insertion on 11/01/2018 for right hydronephrosis. He also has urinary retention and had failed a voiding trial requiring replacement of a Jara catheter. He would like to have intravenous sedation for removal of his right stent and is now being brought in for the same. PAST MEDICAL HISTORY: Significant for: 1. Neurogenic bladder. 2. Right hydronephrosis. 3. Chronic kidney disease. 4. Gout. 5. History of concussion. PAST SURGICAL HISTORY: 1. 11/01/2018, right stent insertion. 2. Back surgery in 2017. 3. Surgery for right leg varicose veins. MEDICATIONS ON ADMISSION: 1. Allopurinol 100 mg a day. 2. Plaquenil 400 mg a day. 3. Seroquel 100 mg a day. 4. Tramadol prn. 5. Magnesium Oxide 400 mg a day. ALLERGIES: No known drug allergies. FAMILY HISTORY: Negative for prostate or bladder cancer. SMOKING HISTORY: He has a long-standing smoking history with over 40 years of smoking. REVIEW OF SYSTEMS: He denies any chest pain or shortness of breath. There is no history of diabetes mellitus or any other major systemic illness. PHYSICAL EXAMINATION GENERAL: Middle-aged, pleasant gentleman. VITAL SIGNS: Blood pressure 130/72, pulse 74 per minute and regular, temperature 97, oxygen saturation 98 percent on room air. CARDIOVASCULAR: Regular rate and rhythm, S1, S2. LUNGS: Clear bilaterally. ABDOMEN: Soft with right flank tenderness. A Jara catheter is in place. IMPRESSION/PLAN: [id number]-old gentleman with chronic kidney disease, right hydronephrosis, and a neurogenic bladder who is now being brought in for right stent removal with intravenous sedation. [id number] #: [id number] MTDD
[~2019-01-22 08:49] MED LIST changes: +Acetaminophen TAB* 325 MG PO ONE; -Dexamethasone IV* 4 MG/ML 1 ML (4 MG) IV SLOW PU ONE; -Dexamethasone IV* 4 MG/ML 1 ML (4 MG) ONE; -Famotidine IV* 10 MG/ML 2 ML (20 mg) ONE; -Iohexol 180 (CONTRAST) 10 ML SDV IV ONE; -Midazolam* 1 MG/ML 2 ML VIAL (2 MG) ONE; -Naloxone* 0.4 MG/ML 1 ML VIAL IV PRN; -cefTRIAXone(*) 2 GM ADDV.VIAL IVPB ONE; -diPHENhydraMINE IV* 50 MG/ML 1 ml VIAL (BENADRYL) IV PRN; -fentaNYL* 50 MCG/ML 2 ML VIAL (100 MCG VIAL) IV PRN; -fentaNYL* 50 MCG/ML 2 ML VIAL (100 MCG VIAL) ONE
[2019-01-22] MEDS ORDERED: cefTRIAXone(*) 2 GM ADDV.VIAL IVPB ONE (09:18)
[2019-01-22] MEDS ORDERED: Acetaminophen TAB* 325 MG ONE (09:18)
[2019-01-22] MEDS ORDERED: Famotidine IV* 10 MG/ML 2 ML (20 mg) ONE (09:19)
[2019-01-22] MEDS ORDERED: Naloxone* 0.4 MG/ML 1 ML VIAL IV PRN (10:09)
[2019-01-22] MEDS ORDERED: Acetaminophen TAB* 325 MG PO PRN (10:09)
[2019-01-22] MEDS ORDERED: DiMENhydriNATE IV* 50 MG/ML VIAL IV PUSH PRN (10:09)
[2019-01-22] MEDS ORDERED: Ondansetron INJ* 2 MG/ML VIAL IV PRN (10:09)
[2019-01-22] MEDS ORDERED: HYDROcodone/ACETAMIN 5-325 MG* 1 TAB PO PRN (10:09)
[2019-01-22] MEDS ORDERED: fentaNYL* 50 MCG/ML 2 ML VIAL (100 MCG VIAL) ONE (10:18)
[2019-01-22] MEDS ORDERED: Midazolam* 1 MG/ML 2 ML VIAL (2 MG) ONE (10:18)
[2019-01-22] MEDS ORDERED: Lidocaine 2% JELLY* 20 ML (for OR use) ONE (10:58)
[2019-01-22] MEDS ORDERED: Dexamethasone IV* 4 MG/ML 1 ML (4 MG) ONE (11:00)
[2019-01-22] MEDS ORDERED: Propofol* 10 MG/ML 20 ML BTL ONE (11:00)
[2019-01-22] MEDS ORDERED: Ondansetron INJ* 2 MG/ML VIAL ONE (11:00)
[2019-01-22] MEDS ORDERED: Ketorolac INJ* 30 MG/ML 1 ML VIAL ONE (11:01)
[2019-01-22] MEDS ORDERED: Lidocaine 2% PF * 5 ML VIAL ONE (11:01)
[2019-01-22 11:59] VITALS: BP 132/72
--- NOTE | 2019-01-22 13:11 | OP ---
CC: Dr. Wiley * DATE OF OPERATION: 01/22/19 - [facility] DATE OF : 52 SURGEON: Jonah Davis MD ANESTHESIOLOGIST: Dr. Turner. ANESTHESIA: Intravenous sedation. PRE-OP DIAGNOSES: 1. Right hydronephrosis. 2. Neurogenic bladder. 3. Urinary retention. POST-OP DIAGNOSES: 1. Right hydronephrosis. 2. Neurogenic bladder. 3. Urinary retention. OPERATIVE PROCEDURE: Cystoscopy, right stent removal. COMPLICATIONS: None. POSTOPERATIVE CONDITION: Stable. OPERATIVE FINDINGS: Right stent. INDICATIONS: Zenon Conner is a 68-year-old gentleman with neurogenic bladder and a history of right hydronephrosis. He desires right stent removal using intravenous sedation. DESCRIPTION OF PROCEDURE: After induction of intravenous sedation, the patient was placed in dorsal lithotomy position. Sequential compression devices were in place and functioning. The previous indwelling Jara had been removed. 2% Xylocaine gel was instilled per urethra. A 23-Tongan cystoscope was introduced under direct vision. The urethra was visualized and appeared unremarkable. The prostate was only very mildly enlarged. The bladder was examined. The stent was seen exiting from the right orifice and was grasped and removed intact without difficulty. A new 18-Tongan Jara was placed for bladder drainage. The patient tolerated the procedure satisfactorily and was transferred back to the recovery area in stable condition. [id number] #: [id number] MTDD
== END 2019-01-22 11:57 | disposition home or self-care (01) ==
LOC: OR 08:49
PROVIDERS: ATTEND Urology
DX: N13.30 Unspecified hydronephrosis (principal); Z96.0 Presence of urogenital implants; N31.9 Neuromuscular dysfunction of bladder, unspecified; R33.9 Retention of urine, unspecified; N18.9 Chronic kidney disease, unspecified; Z79.891 Long term (current) use of opiate analgesic; Z79.899 Other long term (current) drug therapy
CPT/HCPCS: A9270-GY; J0696; J1100; J1885; J2250; J2405; J2704; J3010

== ENCOUNTER 2021-12-25 08:06 | Observation (INO) ==
[2021-12-25 08:47] LABS: ABS Basophils 0.1 10^3/ul (0-0.2); ABS Lymphocytes 0.5 10^3/ul (1.0-4.8); ABS Monocytes 0.9 10^3/ul (0-0.8); ABS Neutrophils 7.9 10^3/ul (1.5-7.7); Eosinophil % 0.2 %; Hematocrit 38 % (42-52); Hemoglobin 12.1 g/dL (14.0-18.0); Lymphocyte % 5.3 %; Mean Corpuscular HGB Conc 32 g/dL (31-36); Mean Corpuscular Hemoglobin 31 pg (27-31); Mean Corpuscular Volume 96 fL (80-94); Mean Platelet Volume 9.2 fL (7.4-10.4); Nucleated Red Blood Cells % 0.1; Platelet Count 185 10^3/uL (150-450); Red Blood Count 3.93 10^6 /uL (4.18-5.48); Red Cell Distribution Width 16 % (10-15); White Blood Count 9.4 10^3/uL (3.5-10.8)
[2021-12-25 08:55] LABS: INR 1.17 (0.89-1.11)
[2021-12-25 09:46] LABS: Albumin 4.6 g/dL (3.2-5.2); Albumin/Globulin Ratio 1.5 (1-3); C Reactive Protein 6.23 mg/L (<8.01); Calcium 9.2 mg/dL (8.6-10.3); Globulin 3.1 g/dL (2-4); Total Bilirubin 0.4 mg/dL (0.2-1.0); Total Protein 7.7 g/dL (6.4-8.9)
[2021-12-25] MEDS ORDERED: Lactated Ringers 1000 ml BAG 1,000 ML IV ONE (09:49)
[2021-12-25] MEDS ORDERED: SODIUM ZIRCONIUM CYCLOSILICATE 10 GM PACKET PO ONE (09:49)
[2021-12-25] MEDS ORDERED: Sodium Polystyrene ORAL.SUSP 15 GM/60 ML BTL PO ONE ×3 (09:59→12:00)
[2021-12-25 10:09] LABS: High Sensitivity Troponin 1 Hr 272 pg/mL (<20)
[2021-12-25 11:18] LABS: Erythrocyte Sed Rate 10 mm/Hr (0-19)
[2021-12-25 11:36] LABS: Urine Appearance Cloudy; Urine Bilirubin Negative (Negative); Urine Blood 2+ (Negative); Urine Color Yellow; Urine Glucose Negative (Negative); Urine Ketones Negative (Negative); Urine Nitrite Positive (Negative); Urine Protein 1+(30 mg/dL) (Negative); Urine Specific Gravity 1.012 (1.002-1.030); Urine Urobilinogen Negative (Negative)
[2021-12-25 11:41] LABS: Urine Benzodiazepine Screen None Detected (None Detect); Urine Cannabinoids Screen None Detected (None Detect); Urine Opiates Screen None Detected (None Detect)
[2021-12-25 11:46] LABS: Urine Amorphous Crystals Present (Absent); Urine Bacteria 1+ (Absent); Urine Red Blood Cell 3+(>10/hpf) (Absent); Urine White Blood Cell 3+(>20/hpf) (Absent)
[2021-12-25 12:37] LABS: Calcium 8.5 mg/dL (8.6-10.3); eGFR CKD-EPI 16.3 (>60)
[2021-12-25 12:51] LABS: Potassium 5.5 mmol/L (3.5-5.0)
[2021-12-25] MEDS: NS 0.9% 1000 ml BAG 1,000 ML IV SCH (13:04)
[2021-12-25] MEDS ORDERED: Lorazepam PYXIS KEY PRN ×2 (13:56→13:57)
[2021-12-25] MEDS ORDERED: LORazepam 2 mg VIAL 1 ml IV PUSH ONE ×2 (13:56→13:57)
[2021-12-25] MEDS ORDERED: Nicotine GUM 4MG FRUIT FLAVOR PO PRN (15:15)
[2021-12-25 18:01] LABS: ABS Eosinophils 0.2 10^3/ul (0-0.6); ABS Lymphocytes 1.1 10^3/ul (1.0-4.8); ABS Monocytes 1.2 10^3/ul (0-0.8); ABS Neutrophils 5.5 10^3/ul (1.5-7.7); Eosinophil % 2.3 %; Hematocrit 35 % (42-52); Hemoglobin 11.1 g/dL (14.0-18.0); Lymphocyte % 13.4 %; Mean Corpuscular HGB Conc 32 g/dL (31-36); Mean Corpuscular Hemoglobin 30 pg (27-31); Mean Corpuscular Volume 95 fL (80-94); Mean Platelet Volume 9.7 fL (7.4-10.4); Platelet Count 186 10^3/uL (150-450); Red Blood Count 3.68 10^6 /uL (4.18-5.48); Red Cell Distribution Width 16 % (10-15); White Blood Count 7.9 10^3/uL (3.5-10.8)
[2021-12-25 18:12] LABS: Activated Partial Thrombo Time 31.1 seconds (26.0-38.0); INR 1.23 (0.89-1.11)
[2021-12-25 18:44] LABS: Calcium 7.8 mg/dL (8.6-10.3); Potassium 4.4 mmol/L (3.5-5.0); eGFR CKD-EPI 18.8 (>60)
[2021-12-25] MEDS ORDERED: Calcium Gluconate 2 GM in NS 0.9% 100 ml BAG 100 ML IVPB ONE (19:07)
[2021-12-25] MEDS: Heparin 5000 UNITS/ML 1 mL VIAL SUBCUT SCH (21:35)
[2021-12-25] MEDS: CALCIUM GLUCONATE 1GM/50ML NS BAG IV SCH (21:37)
[2021-12-26] MEDS: NS 0.9% 1000 ml BAG 1,000 ML IV SCH (00:28)
[2021-12-26] MEDS: CALCIUM GLUCONATE 1GM/50ML NS BAG IV SCH (01:09)
[2021-12-26 06:14] LABS: ABS Basophils 0.1 10^3/ul (0-0.2); ABS Eosinophils 0.3 10^3/ul (0-0.6); ABS Lymphocytes 1.1 10^3/ul (1.0-4.8); ABS Monocytes 0.9 10^3/ul (0-0.8); ABS Neutrophils 3.7 10^3/ul (1.5-7.7); Eosinophil % 5.3 %; Hematocrit 33 % (42-52); Hemoglobin 10.8 g/dL (14.0-18.0); Lymphocyte % 17.7 %; Mean Corpuscular HGB Conc 33 g/dL (31-36); Mean Corpuscular Hemoglobin 31 pg (27-31); Mean Corpuscular Volume 95 fL (80-94); Mean Platelet Volume 9.5 fL (7.4-10.4); Platelet Count 163 10^3/uL (150-450); Red Blood Count 3.48 10^6 /uL (4.18-5.48); Red Cell Distribution Width 16 % (10-15); White Blood Count 6.1 10^3/uL (3.5-10.8)
[2021-12-26 06:32] LABS: Calcium 8.6 mg/dL (8.6-10.3); Potassium 4.4 mmol/L (3.5-5.0)
[2021-12-26 06:38] LABS: eGFR CKD-EPI 21.5 (>60)
[2021-12-26] MEDS ORDERED: CMCS: Febuxostat 40 mg TAB (NF) PO SCH (09:00)
[2021-12-26] MEDS: Heparin 5000 UNITS/ML 1 mL VIAL SUBCUT SCH (09:51)
[2021-12-26 10:54] VITALS: BP 155/73
== END 2021-12-26 13:50 | disposition home or self-care (01) ==
LOC: EDHOLD 08:06 → ED 08:06 → MED 23:09
PROVIDERS: ADMIT Hospitalist; ATTEND Hospitalist

== ENCOUNTER 2022-02-11 09:41 | Observation (INO) ==
[2022-02-11 13:25] LABS: ABS Basophils 0.1 10^3/ul (0-0.2); ABS Eosinophils 0.2 10^3/ul (0-0.6); ABS Lymphocytes 1.4 10^3/ul (1.0-4.8); ABS Monocytes 0.9 10^3/ul (0-0.8); ABS Neutrophils 5.3 10^3/ul (1.5-7.7); Eosinophil % 2.8 %; Hematocrit 36 % (42-52); Hemoglobin 11.7 g/dL (14.0-18.0); Lymphocyte % 17.9 %; Mean Corpuscular HGB Conc 33 g/dL (31-36); Mean Corpuscular Hemoglobin 31 pg (27-31); Mean Corpuscular Volume 96 fL (80-94); Mean Platelet Volume 9.9 fL (7.4-10.4); Nucleated Red Blood Cells % 0.1; Platelet Count 203 10^3/uL (150-450); Red Blood Count 3.75 10^6 /uL (4.18-5.48); Red Cell Distribution Width 16 % (10-15); White Blood Count 7.9 10^3/uL (3.5-10.8)
[2022-02-11 14:14] LABS: Albumin/Globulin Ratio 1.5 (1-3); C Reactive Protein 17.76 mg/L (<8.01); Calcium 9.3 mg/dL (8.6-10.3); Globulin 2.6 g/dL (2-4); Magnesium 2.1 mg/dL (1.9-2.7); Total Bilirubin 0.3 mg/dL (0.2-1.0); Total Protein 6.6 g/dL (6.4-8.9); eGFR CKD-EPI 11.4 (>60)
[2022-02-11 14:28] LABS: Potassium 6.6 mmol/L (3.5-5.0)
[2022-02-11] MEDS ORDERED: CALCIUM GLUCONATE 1GM/50ML NS 1 GM/50 ML BAG IV ONE (14:41)
[2022-02-11] MEDS ORDERED: Dextrose 50% Syringe 50 ml 25 GM/50 ML SYRINGE IV PUSH ONE ×2 (14:43→19:36)
[2022-02-11] MEDS ORDERED: Lactated Ringers 1000 ml BAG 1,000 ML IV ONE (15:40)
[2022-02-11 17:20] LABS: Urine Appearance Slightly Cloudy; Urine Bilirubin Negative (Negative); Urine Color Yellow; Urine Glucose Negative (Negative); Urine Ketones Negative (Negative)
[2022-02-11 17:21] LABS: Urine Nitrite Negative (Negative); Urine Protein 2+ (100 mg/dL) (Negative); Urine Urobilinogen 0.2 (Negative) (Negative); Urine pH 5.5 (5.0-9.0)
[2022-02-11 17:31] LABS: Urine Bacteria Absent (Absent); Urine Red Blood Cell 3+(>10/hpf) (Absent); Urine White Blood Cell 3+(>20/hpf) (Absent)
[2022-02-11 17:41] LABS: Urine Benzodiazepine Screen None Detected (None Detect); Urine Cannabinoids Screen None Detected (None Detect); Urine Opiates Screen None Detected (None Detect)
[2022-02-11] MEDS: Nicotine GUM 4MG FRUIT FLAVOR PO PRN ×2 (17:47→20:08)
[2022-02-11] MEDS ORDERED: LORazepam 2 mg VIAL 1 ml IV PUSH ONE (17:57)
[2022-02-11] MEDS ORDERED: Nicotine GUM 4MG FRUIT FLAVOR PO PRN ×2 (17:57→20:48)
[2022-02-11] MEDS ORDERED: Lorazepam PYXIS KEY PRN (17:57)
[2022-02-11 19:00] LABS: Calcium 8.7 mg/dL (8.6-10.3); Potassium 4.9 mmol/L (3.5-5.0)
[2022-02-11 19:06] LABS: eGFR CKD-EPI 14.3 (>60)
[2022-02-11] MEDS ORDERED: Nicotine Lozenge mini 2 MG LOZNG.MINI MT PRN (19:21)
[2022-02-11] MEDS ORDERED: Vancomycin 1,250 MG in NS 0.9% 250 ml 250 ML IVPB ONE (20:44)
[2022-02-11] MEDS ORDERED: PROBENECID COLCHICINE PO PRN (20:48)
[2022-02-11] MEDS ORDERED: Nicotine PATCH 14 MG/24 HR PATCH TRANSDERM SCH (21:00)
[2022-02-11] MEDS ORDERED: Cefepime 2 GM in Dextrose 2 GM/50 ML BAG IV SCH ×2 (21:00→22:00)
[2022-02-11] MEDS ORDERED: Vancomycin per Pharmacy 1 EA NOTE FOLLOW UP SCH (21:00)
[2022-02-11] MEDS ORDERED: D5NS 0.9% 1000 ml BAG 1,000 ML IV SCH (21:00)
[2022-02-11] MEDS ORDERED: Haloperidol 5 mg/ml SDV IV/IM 5 MG/ML AMP IV SLOW PU ONE (21:21)
[2022-02-11] MEDS ORDERED: NS 0.9% 1000 ml BAG 1,000 ML IV SCH (21:45)
[2022-02-11] MEDS: Sodium Bicarb 650 mg (ANTACID) TAB PO SCH (21:51)
[2022-02-11] MEDS ORDERED: Cefepime 1 GM in Dextrose 1 GM/50 ML BAG IV SCH (22:30)
[2022-02-11] MEDS ORDERED: Heparin DRIP 25,000 UNITS BAG 25,000 UNITS/500 ML BAG IV SCH (23:00)
[2022-02-11 23:21] LABS: ABS Basophils 0.1 10^3/ul (0-0.2); ABS Eosinophils 0.3 10^3/ul (0-0.6); ABS Monocytes 0.9 10^3/ul (0-0.8); Eosinophil % 3.1 %; Hematocrit 33 % (42-52); Hemoglobin 10.4 g/dL (14.0-18.0); Lymphocyte % 12.4 %; Mean Corpuscular HGB Conc 32 g/dL (31-36); Mean Corpuscular Hemoglobin 31 pg (27-31); Mean Corpuscular Volume 97 fL (80-94); Mean Platelet Volume 9.8 fL (7.4-10.4); Nucleated Red Blood Cells % 0.1; Platelet Count 184 10^3/uL (150-450); Red Blood Count 3.35 10^6 /uL (4.18-5.48); Red Cell Distribution Width 16 % (10-15); White Blood Count 8.2 10^3/uL (3.5-10.8)
[2022-02-11 23:45] LABS: High Sensitivity Troponin 1 Hr 2730 pg/mL (<20)
[2022-02-11] MEDS ORDERED: Ziprasidone IM 20 mg VIAL 1 ml VIAL IM ONE (23:53)
[2022-02-12 00:01] LABS: eGFR CKD-EPI 12.5 (>60)
[2022-02-12] MEDS ORDERED: Heparin 5000 UNITS/ML 1 mL VIAL ONE (00:12)
[2022-02-12 00:42] LABS: Calcium 8.8 mg/dL (8.6-10.3)
[2022-02-12 00:43] LABS: TSH Ultra Thyroid Stim Horm 0.58 mcIU/mL (0.34-5.60)
[2022-02-12 00:44] LABS: Potassium 5.8 mmol/L (3.5-5.0)
[2022-02-12] MEDS ORDERED: Heparin 5000 UNITS/ML 1 mL VIAL IV SCH (01:00)
[2022-02-12 02:11] LABS: High Sensitivity Troponin 3 Hr 2329 pg/mL (<20)
[2022-02-12] MEDS ORDERED: D5NS 0.9% 1000 ml BAG 1,000 ML IV SCH (05:00)
[2022-02-12 07:15] LABS: ABS Basophils 0.1 10^3/ul (0-0.2); ABS Eosinophils 0.4 10^3/ul (0-0.6); ABS Lymphocytes 1.2 10^3/ul (1.0-4.8); ABS Monocytes 0.9 10^3/ul (0-0.8); ABS Neutrophils 4.2 10^3/ul (1.5-7.7); Eosinophil % 5.5 %; Hematocrit 36 % (42-52); Hemoglobin 11.5 g/dL (14.0-18.0); Lymphocyte % 17.6 %; Mean Corpuscular HGB Conc 32 g/dL (31-36); Mean Corpuscular Hemoglobin 31 pg (27-31); Mean Corpuscular Volume 97 fL (80-94); Mean Platelet Volume 9.7 fL (7.4-10.4); Platelet Count 175 10^3/uL (150-450); Red Blood Count 3.68 10^6 /uL (4.18-5.48); Red Cell Distribution Width 16 % (10-15); White Blood Count 6.8 10^3/uL (3.5-10.8)
[2022-02-12 07:52] LABS: Calcium 8.4 mg/dL (8.6-10.3); Potassium 5.6 mmol/L (3.5-5.0); eGFR CKD-EPI 15.2 (>60)
[2022-02-12] MEDS ORDERED: CMC:Febuxostat 40 mg TAB (NF) PO SCH (09:00)
[2022-02-12] MEDS ORDERED: Patiromer POWDER 8.4 GM PAK PO SCH (09:00)
[2022-02-12] MEDS: Sodium Bicarb 650 mg (ANTACID) TAB PO SCH (10:37)
[2022-02-12] MEDS ORDERED: Nicotine GUM 4MG FRUIT FLAVOR PO PRN (14:34)
[2022-02-12] MEDS ORDERED: Nicotine GUM 2MG FRUIT FLAVOR PO PRN (14:48)
[2022-02-12 15:02] LABS: Calcium 8.2 mg/dL (8.6-10.3); Potassium 5.4 mmol/L (3.5-5.0); eGFR CKD-EPI 18.1 (>60)
[2022-02-12 20:19] VITALS: BP 116/46
[2022-02-13] MEDS ORDERED: Vancomycin Random Level NOTE FOLLOW UP ONE (06:00)
== END 2022-02-12 19:00 | disposition left against medical advice (07) ==
LOC: ED 09:41 → EDHOLD 09:41 → SUATTDRO 19:45 → MEDTELE 02-12 01:00
PROVIDERS: ADMIT Internal Medicine; ATTEND Student in an Organized Health Care Education/Training Program